=== PATIENT | female | born 1970 | race Caucasian/White ===

== ENCOUNTER 2017-11-28 17:17 | Emergency (ER) | payer BC ==
[2017-11-28] MEDS ORDERED: TETRACAINE HCL 0.5% 2ML OPTH ONE (17:35)
[2017-11-28] MEDS ORDERED: FLUORESCEIN SODIUM 0.6 MG/WRAP ONE (17:35)
--- NOTE | 2017-11-28 17:47 | EDPHYS ---
Physician Documentation [facility] Name: Krystin Giron Age: 47 yrs Sex: Female : 1970 Arrival Date: 11/28/2017 Time: 17:19 Bed 6 Private MD: ED Physician Tyree Fitch HPI: 11/28 17:44 This 47 yrs old Female presents to ER via Ambulatory with complaints of jr8 Foreign Body In Eye. 17:44 The patient is experiencing foreign body sensation. Onset: The symptoms/episode jr8 began/occurred acutely, today. Duration: the symptoms are continuous. Aggravated by nothing. Alleviated by nothing. Associated signs and symptoms: Pertinent positives: None. Patient wears soft contacts. Severity of symptoms: At their worst the symptoms were mild in the emergency department the symptoms are unchanged. The patient has not experienced similar symptoms in the past. The patient has not recently seen a physician. stated that she feels that her contact is stuck in left eye and cannot get it out . Historical: - Allergies: 17:26 No Known Allergies; ss - PSHx: 17:26 ; ss - Immunization history:: Adult Immunizations up to date, Last tetanus immunization: unknown. - Social history:: Smoking status: Patient/guardian denies using tobacco. - Ebola Screening: : Patient denies exposure to infectious person Patient denies travel to an Ebola-affected area in the 21 days before illness onset. ROS: 17:44 ENT: Negative for injury, pain, and discharge, Neck: Negative for injury, pain, and jr8 swelling, Cardiovascular: Negative for chest pain, palpitations, and edema, Respiratory: Negative for shortness of breath, cough, wheezing, and pleuritic chest pain, Abdomen/GI: Negative for abdominal pain, nausea, vomiting, diarrhea, and constipation, Back: Negative for injury and pain, MS/Extremity: Negative for injury and deformity, Skin: Negative for injury, rash, and discoloration, Neuro: Negative for headache, weakness, numbness, tingling, and seizure. 17:44 Eyes: Positive for foreign body sensation, of the left eye. Exam: 17:44 Head/Face: Normocephalic, atraumatic. ENT: Nares patent. No nasal discharge, no jr8 septal abnormalities noted. Tympanic membranes are normal and external auditory canals are clear. Oropharynx with no redness, swelling, or masses, exudates, or evidence of obstruction, uvula midline. Mucous membranes moist. Neck: Trachea midline, no thyromegaly or masses palpated, and no cervical lymphadenopathy. Supple, full range of motion without nuchal rigidity, or vertebral point tenderness. No Meningismus. Cardiovascular: Regular rate and rhythm with a normal S1 and S2. No gallops, murmurs, or rubs. Normal PMI, no JVD. No pulse deficits. Respiratory: Lungs have equal breath sounds bilaterally, clear to auscultation and percussion. No rales, rhonchi or wheezes noted. No increased work of breathing, no retractions or nasal flaring. Skin: Warm, dry with normal turgor. Normal color with no rashes, no lesions, and no evidence of cellulitis. MS/ Extremity: Pulses equal, no cyanosis. Neurovascular intact. Full, normal range of motion. Neuro: Awake and alert, GCS 15, oriented to person, place, time, and situation. Cranial nerves II-XII grossly intact. Motor strength 5/5 in all extremities. Sensory grossly intact. Cerebellar exam normal. Normal gait. 17:44 Eyes: Periorbital structures: appear normal, Pupils: equal, round, and reactive to light and accomodation, Extraocular movements: intact throughout, Conjunctiva: chemosis, that is mild, in left eye, injected, in the left eye, tearing noted, in left eye, Corneas: abrasion, that is small, on the left, a fluorescein strip employed to appreciate the findings, Sclera: no appreciated abnormality, Anterior chamber: normal, Lids and lashes: appear normal. Vital Signs: 17:26 BP 144 / 84; Pulse 101; Resp 18; Temp 99.1(O); Pulse Ox 98% on R/A; Weight 117.93 kg; Height 5 ft. 7 in. (170.18 cm); Pain 5/10; 17:26 Body Mass Index 40.72 (117.93 kg, 170.18 cm) Procedures: 17:45 Eye Exam: Tetracaine. jr8 MDM: 17:26 Patient medically screened. jr8 17:45 Data reviewed: vital signs, nurses notes, and as a result, I will discharge patient. jr8 Data interpreted: Pulse oximetry: on room air is 98 %. Interpretation: normal. Counseling: I had a detailed discussion with the patient and/or guardian regarding: the historical points, exam findings, and any diagnostic results supporting the discharge/admit diagnosis, the need for outpatient follow up, an opthalmologist, to return to the emergency department if symptoms worsen or persist or if there are any questions or concerns that arise at home. 11/28 17:47 Order name: Eye Tray; Complete Time: 17:47 ss Administered Medications: 18:12 Not Given (unavailable): Tobramycin Ointment (0.3 %) 0.5 inches Ophthalmic once; L eye ss 18:12 Drug: Gentamicin Drops 0.3 % 2 drops Route: Ophthalmic; Site: left eye; ss Disposition: 18:55 Co-signature as Attending Physician, Tyree Fitch MD I agree with the assessment and kdr plan of care. Disposition: 11/28/17 17:46 Discharged to Home. Impression: Chemosis left eye, Injury of conjunctiva and corneal abrasion without foreign body, left eye. - Condition is Stable. - Discharge Instructions: Corneal Abrasion. - Prescriptions for Gentamicin 0.3 % (3 mg/gram) Ophthalmic Ointment - apply 0.5 inch by OPHTHALMIC route 2-3 times daily for 7 days; 3.5 gram. - Medication Reconciliation Form, Thank You Letter, Antibiotic Education, Prescription Opioid Use form. - Follow up: Private Physician; When: 2 - 3 days; Reason: Recheck today's complaints, Continuance of care, Re-evaluation by your physician. - Problem is new. - Symptoms have improved. Signatures: Tyree Fitch MD MD [facility] Emi Garcia RN RN Kobe Gross PA PA jr8 Maurice Carrizales PA PA cp Corrections: (The following items were deleted from the chart) 18:14 17:46 11/28/2017 17:46 Discharged to Home. Impression: Chemosis left eye; Injury of cp conjunctiva and corneal abrasion without foreign body, left eye. Condition is Stable. Forms are Medication Reconciliation Form, Thank You Letter, Antibiotic Education, Prescription Opioid Use. Follow up: Private Physician; When: 2 - 3 days; Reason: Recheck today's complaints, Continuance of care, Re-evaluation by your physician. Problem is new. Symptoms have improved. jr8
--- NOTE | 2017-11-28 17:47 | ER ---
Nurse's Notes [facility] Name: Krystin Giron Age: 47 yrs Sex: Female : 1970 Arrival Date: 11/28/2017 Time: 17:19 Bed 6 Private MD: Diagnosis: Chemosis left eye;Injury of conjunctiva and corneal abrasion without foreign body, left eye Presentation: 11/28 17:24 Presenting complaint: Patient states: stuck contact in L eye "all day". "People were ss telling me it's there and that it is stuck in my eye, but we haven't been able to get it out.". Transition of care: patient was not received from another setting of care. Onset of symptoms was November 28, 2017. Risk Assessment: Do you want to hurt yourself or someone else? Patient reports no desire to harm self or others. Initial Sepsis Screen: Does the patient meet any 2 criteria? HR > 90 bpm. Does the patient have a suspected source of infection? No. Patient's initial sepsis screen is negative. Care prior to arrival: None. 17:24 Method Of Arrival: Ambulatory ss 17:24 Acuity: ALFRED 4 ss Historical: - Allergies: 17:26 No Known Allergies; ss - PSHx: 17:26 ; ss - Immunization history:: Adult Immunizations up to date, Last tetanus immunization: unknown. - Social history:: Smoking status: Patient/guardian denies using tobacco. - Ebola Screening: : Patient denies exposure to infectious person Patient denies travel to an Ebola-affected area in the 21 days before illness onset. Screenin:30 Abuse screen: Denies threats or abuse. Denies injuries from another. Nutritional ss screening: No deficits noted. Tuberculosis screening: Never had TB. Fall Risk None identified. Assessment: 17:30 General: Appears in no apparent distress. comfortable, Behavior is calm, cooperative, ss Reports Unable to get contact out of L eye "all day". Pt reports multiple individuals attempted to help her get her contact out throughout the day. Denies fever, feeling ill, fatigue, chills. Pain: Complains of pain in left eye Pain currently is 5 out of 10 on a pain scale. Quality of pain is described as tender, Is continuous. Neuro: Level of Consciousness is awake, alert, obeys commands, Oriented to person, place, time, situation. Respiratory: Respiratory effort is even, unlabored. EENT: Sclera/Cornea are reddened in inner aspect of conjunctiva of left eye inflamed conjunctiva noted to inner canthus . Nares are clear Oral mucosa is moist. Throat is clear. Derm: Skin is intact, is healthy with good turgor, Skin is pink, warm \\T\\ dry. normal. Musculoskeletal: Circulation, motion, and sensation intact. Range of motion: intact in all extremities, Swelling absent. Vital Signs: 17:26 BP 144 / 84; Pulse 101; Resp 18; Temp 99.1(O); Pulse Ox 98% on R/A; Weight 117.93 kg; ss Height 5 ft. 7 in. (170.18 cm); Pain 5/10; 17:26 Body Mass Index 40.72 (117.93 kg, 170.18 cm) ED Course: 17:19 Patient arrived in ED. tw3 17:20 Fred Cho RN is Primary Nurse. bp 17:26 Kobe Gross PA is PHCP. jr8 17:26 Tyree Fitch MD is Attending Physician. jr8 17:26 Triage completed. ss 17:26 Arm band placed on right wrist. ss 17:30 Patient has correct armband on for positive identification. Bed in low position. Call ss light in reach. Side rails up X 1. 17:45 L eye exam with fluorescein, tetracaine and keys lamp. Patient did not have IV access ss during this emergency room visit. Administered Medications: 18:12 Not Given (unavailable): Tobramycin Ointment (0.3 %) 0.5 inches Ophthalmic once; L eye ss 18:12 Drug: Gentamicin Drops 0.3 % 2 drops Route: Ophthalmic; Site: left eye; Outcome: 17:46 Discharge ordered by . jr8 18:12 Discharged to home ambulatory. ss 18:12 Condition: good 18:12 Discharge instructions given to patient, Instructed on discharge instructions, follow up and referral plans. medication usage, Demonstrated understanding of instructions, follow-up care, medications, Prescriptions given X 1. 18:14 Patient left the ED. cp Signatures: Emi Garcia RN RN Kobe Gross PA PA 8 Maurice Carrizales PA PA cp Wade, Ashleigh tw3 Fred Cho, RN RN bp
[2017-11-28] MEDS ORDERED: GENTAMICIN 0.3% OPTH DROP 5ML ONE (18:17)
[2017-11-28 18:18] VITALS: BP 144/84; TEMP 99.1; O2SAT 98
== END 2017-11-28 18:14 | disposition home or self-care (01) ==
LOC: ER 17:17
DX: S05.02XA Injury of conjunctiva and corneal abrasion without foreign body, left eye, initial encounter (principal); X58.XXXA Exposure to other specified factors, initial encounter; Y93.9 Activity, unspecified; Y92.9 Unspecified place or not applicable
CPT/HCPCS: 99283

== ENCOUNTER 2022-04-25 10:42 | Emergency (ER) | payer OTHER ==
[2022-04-25 11:47] LABS: SARS-COV-2 RT PCR NEGATIVE (NEGATIVE)
--- NOTE | 2022-04-25 12:01 | EDPHYS ---
Physician Documentation [facility] Name: Krystin Giron Age: 51 yrs Sex: Female : 1970 Arrival Date: 04/25/2022 Time: 10:51 Bed IW1 Private MD: Maryjane Torres ED Physician Sea Hardy HPI: 04/25 11:08 This 51 yrs old Female presents to ER via Ambulatory with complaints of Eye Problem, kb Congestion. 11:08 The patient or guardian reports cough, that is intermittent, described as mild. Onset: kb The symptoms/episode began/occurred 1 week(s) ago. Severity of symptoms: At their worst the symptoms were mild, in the emergency department the symptoms are unchanged. Modifying factors: The symptoms are alleviated by nothing, the symptoms are aggravated by nothing. Associated signs and symptoms: Pertinent positives: earache, rhinorrhea, sore throat, Pertinent negatives: chest pain, diarrhea, fever, nausea, vomiting. The patient has not experienced similar symptoms in the past. The patient has not recently seen a physician. , EarPatient is a 51-year-old female who presents for cough, congestion that started 1 week ago. This morning had redness and drainage to right eye. Denies any visual disturbances, fever, pain. Historical: - Allergies: 10:58 No Known Allergies; hb - Immunization history:: Adult Immunizations up to date. - Social history:: Smoking status: Patient denies any tobacco usage or history of. ROS: 11:07 Constitutional: Negative for fever, chills, and weight loss. kb 11:07 Eyes: Positive for discharge, matting, redness. 11:07 ENT: Positive for ear pain, rhinorrhea, sinus congestion. 11:07 Respiratory: Positive for cough. 11:07 All other systems are negative. Exam: 11:07 Constitutional: This is a well developed, well nourished patient who is awake, alert, kb and in no acute distress. Head/Face: Normocephalic, atraumatic. Cardiovascular: Regular rate and rhythm with a normal S1 and S2. No gallops, murmurs, or rubs. No pulse deficits. Respiratory: Respirations even and unlabored. No increased work of breathing. Talking in full sentences Skin: Warm, dry with normal turgor. Normal color. MS/ Extremity: Pulses equal, no cyanosis. Neurovascular intact. Full, normal range of motion. Neuro: Awake and alert, GCS 15, oriented to person, place, time, and situation. Moves all extremities. Normal gait. 11:07 Eyes: Conjunctiva: exudate, in the right eye, injected, in the right eye. 11:07 ENT: External ear(s): are unremarkable, Ear canal(s): are normal, TM's: fluid levels, on the right. Vital Signs: 10:54 BP 160 / 95; Pulse 73; Resp 18; Temp 99; Pulse Ox 100% on R/A; Weight 120.2 kg; Height hb 5 ft. 7 in. ; Pain 0/10; 10:54 Body Mass Index 41.50 (120.20 kg, 170.18 cm) hb 10:54 Pain Scale: Adult hb MDM: 10:59 Patient medically screened. kb 11:08 Data reviewed: vital signs, nurses notes. 11:08 Differential Diagnosis: Influenza Upper Respiratory Infection Sinusitis Other kb Conjunctivitis, COVID. 11:13 ED course: Patient is a 51-year-old female who presents for cough, congestion, earache kb and redness/drainage to right eye. On exam patient has erythema and exudate to right eye, fluid levels to the right TM, lungs clear bilaterally, respirations even and unlabored. Nontoxic in appearance. Flu and COVID testing ordered. 12:00 Counseling: I had a detailed discussion with the patient and/or guardian regarding: the kb historical points, exam findings, and any diagnostic results supporting the discharge/admit diagnosis, lab results, the need for outpatient follow up, a family practitioner, to return to the emergency department if symptoms worsen or persist or if there are any questions or concerns that arise at home. 04/25 10:58 Order name: COVID-19/FLU A+B/RSV; Complete Time: 11:59 kb Administered Medications: No medications were administered Disposition Summary: 04/25/22 12:01 Discharge Ordered Location: Home kb Condition: Stable kb Diagnosis - Acute upper respiratory infection, unspecified kb - Other conjunctivitis kb Followup: kb - With: Emergency Department - When: As needed - Reason: Worsening of condition Followup: kb - With: Private Physician - When: 2 - 3 days - Reason: Recheck today's complaints, Continuance of care, Re-evaluation by your physician Forms: - Medication Reconciliation Form kb - Thank You Letter kb - Antibiotic Education kb - Prescription Opioid Use kb Signatures: Dispatcher [employer] Selin Jerez FNP-C FNP-Ckb Baxter, Heather, RN RN
--- NOTE | 2022-04-25 12:01 | ER ---
Nurse's Notes [facility] Name: Krystin Giron Age: 51 yrs Sex: Female : 1970 Arrival Date: 04/25/2022 Time: 10:51 Bed IW1 Private MD: Maryjane Torres Diagnosis: Acute upper respiratory infection, unspecified;Other conjunctivitis Presentation: 04/25 10:54 Chief complaint: Cough and congestion x 1 week, right eye redness and drainage today. hb Coronavirus screen: At this time, the client does not indicate any symptoms associated with coronavirus-19. Ebola Screen: No symptoms or risks identified at this time. 10:54 Method Of Arrival: Ambulatory hb 10:58 Initial Sepsis Screen: Does the patient meet any 2 criteria? No. Patient's initial hb sepsis screen is negative. Does the patient have a suspected source of infection? No. Patient's initial sepsis screen is negative. Risk Assessment: Do you want to hurt yourself or someone else? Patient reports no desire to harm self or others. Onset of symptoms was April 19, 2022. 10:58 Acuity: LAFRED 4 hb Triage Assessment: 10:58 General: Appears in no apparent distress. Behavior is calm, cooperative. Pain: Pain hb currently is 0 out of 10 on a pain scale. Neuro: Level of Consciousness is awake, alert, obeys commands, Oriented to person, place, time, situation. Cardiovascular: Patient's skin is warm and dry. Respiratory: Respiratory effort is even, unlabored, Respiratory pattern is regular, symmetrical. Historical: - Allergies: 10:58 No Known Allergies; hb - Immunization history:: Adult Immunizations up to date. - Social history:: Smoking status: Patient denies any tobacco usage or history of. Assessment: 10:59 General: See triage assessment. hb Vital Signs: 10:54 BP 160 / 95; Pulse 73; Resp 18; Temp 99; Pulse Ox 100% on R/A; Weight 120.2 kg; Height hb 5 ft. 7 in. ; Pain 0/10; 10:54 Body Mass Index 41.50 (120.20 kg, 170.18 cm) hb 10:54 Pain Scale: Adult hb ED Course: 10:51 Patient arrived in ED. mr 10:51 Maryjane Torres is Private Physician. mr 10:51 Selin Neri FNP-C is [facility]. kb 10:51 Sea Hardy MD is Attending Physician. kb 10:58 Triage completed. hb 10:59 Arm band placed on. hb 11:02 COVID-19/FLU A+B/RSV Sent. hb 11:40 COVID-19/FLU A+B/RSV Sent. hb Administered Medications: No medications were administered Outcome: 12:01 Discharge ordered by . kb Signatures: Selin Neri FNP-C FNP-Ckb Rivera, Mary Kristyn Mcmullen, RN RN hb Corrections: (The following items were deleted from the chart) 10:59 10:54 Temp 99F; hb hb
[2022-04-25 12:48] VITALS: BP 160/95; TEMP 99; O2SAT 100
== END 2022-04-25 12:22 | disposition home or self-care (01) ==
LOC: ER 10:42
DX: J06.9 Acute upper respiratory infection, unspecified (principal); H10.89 Other conjunctivitis; Z20.822 Contact with and (suspected) exposure to COVID-19
CPT/HCPCS: 0241U; 99282

== ENCOUNTER 2023-12-14 12:04 | Emergency (ER) | payer OTHER ==
--- OUTSIDE RECORDS SUMMARY | 2023-12-14 12:09 | XMS REPORT | Continuity of Care Document ---
Author Name Unknown Address [address] [facility] [address] [place] [address] [facility] Address [address] [facility] [address] [place] [address] Care Team Providers Care Intake Specialist Name Role Phone MEGHAN SMITH Primary Care Physician HEIKE Ayala Attending Clinician Hermes Carlton Attending Clinician Hermes Tyler Admitting Clinician Sarah [email or web address] Payers Payer Name Policy Type Policy Number Effective Date Expirati on Date Source [facility] [id number] 2013 00:00:00 Allergies, Adverse Reactions, Alerts Allergy Name Allergy Type Status Severity Reaction(s) Onset Date Inactive Date Treating Clinician Comments Source none (Not Checked) Propensi ty to adverse reaction to drug Active 08-31 00:00: 00 Tristen Henao NO KNOWN ALLERGIE S Drug Class Active [facility] Medications Ordered Medication Name Filled Medication Name Start Date Stop Date Current Medication? Ordering Clinician Indication Dosage Frequency Signature (SIG) Comments Components Source mupirocin 2 % topical ointment 2023-02 00:00: 00 Yes 1% Tristen Henao Bactrim DS 800 mg-160 mg tablet 2023-02 0 00:00: 00 Yes 1mg Tristen Henao Cipro 500 mg tablet 2023-02 0 00:00: 00 Yes 1mg Tristen Henao amitriptyli ne 25 mg tablet 2023-02 0-15 00:00: 00 Yes 1mg Tristen Henao gabapentin 100 mg capsule 2023-02 0-15 00:00: 00 Yes 12mg Tristen Henao medroxyprog esterone 150 mg/mL intramuscul ar suspension 2023-02 0-15 00:00: 00 Yes 1mg/mL Tristen Henao clindamycin HCl 300 mg capsule 0 9-19 00:00: 00 Yes 1mg Tristen Henao Macrobid 100 mg capsule 0 7-23 00:00: 00 Yes 1mg Tristen Henao metoprolol succinate ER 50 mg tablet,exte nded release 24 hr -17 00:00: 00 Yes 1mg Tristen Henao bupropion HCl SR 100 mg tablet,12 hr sustained-r elease 7-17 00:00: 00 Yes 1mg Tristen Henao hydrochloro thiazide 25 mg tablet 7-17 00:00: 00 Yes 1mg Tristen Henao losartan 100 mg tablet 7-17 00:00: 00 Yes 1mg Tristen Henao amitriptyli ne 25 mg tablet 7-17 00:00: 00 Yes 1mg Tristen Henao Cipro 500 mg tablet 6-21 00:00: 00 Yes 1mg Tristen Henao Macrobid 100 mg capsule 4-17 00:00: 00 Yes 1mg Tristen Henao medroxyprog esterone 150 mg/mL intramuscul ar suspension 4-17 00:00: 00 Yes 1mg/mL Tristen Henao nystatin 100,000 unit/gram topical cream 4- 00:00: 00 Yes 1unit/g asaf Tristen Henao Cipro 500 mg tablet 4- 00:00: 00 Yes 1mg Tristen Henao amitriptyli ne 25 mg tablet 4- 00:00: 00 Yes 1mg Tristen Henao CIPROFLOXAC IN HYDROCHLORI DE 500 MG TABS 4- 00:00: 00 Yes Tristen Henao Macrobid 100 mg capsule 3-20 00:00: 00 Yes 1mg Tristen Henao TAKE 1 CAPSULE BY MOUTH TWICE DAILY 3-20 00:00: 00 Yes Tristen Henao metoprolol succinate ER 50 mg tablet,exte nded release 24 hr 3-15 00:00: 00 Yes 1mg Tristen Henao losartan 100 mg tablet 3-15 00:00: 00 Yes 1mg Tristen Henao bupropion HCl SR 100 mg tablet,12 hr sustained-r elease 04-23 00:00: 00 Yes 1mg Tristen Henao amitriptyli ne 10 mg tablet 15 00:00: 00 Yes 1mg Tristen Henao TAKE 1 TABLET DAILY. 04-16 00:00: 00 Yes 50 Tristen Henao INJECT 1 ML INTRAMUSCUL CLARK ONCE EVERY 3 MONTHS. -19 00:00: 00 Yes 150 Tristen Henao TAKE 1 TABLET DAILY. 10-06 00:00: 00 Yes 100 Tristen Henao BUPROPION HYDROCHLORI DE ER (SR) 100 MG TB12 10-06 00:00: 00 Yes Tristen Henao TAKE 1 TABLET DAILY. 10-06 00:00: 00 06-04 00:00 :00 No 50 Tristen Henao TAKE 1 TABLET ONCE DAILY. 10-06 00:00: 00 06-04 00:00 :00 No 100 Tristen Henao INJECT 1 ML INTRAMUSCUL CLARK ONCE EVERY 3 MONTHS. 7- 00:00: 00 06-04 00:00 :00 No 150 Tristen Henao NYSTATIN [id number] UNIT/GM CREA -18 00:00: 00 06-04 00:00 :00 No Tristen Henao MOXIFLOXACI N HYDROCHLORI DE 0.5 % SOLN 3-17 00:00: 00 Yes Tristen Henao METOPROLOL TARTRATE 50 MG TABS 1-20 00:00: 00 Yes Tristen Henao TAKE 1 TABLET BY MOUTH TWICE DAILY -20 00:00: 00 06-04 00:00 :00 No Tristen Henao LOSARTAN POTASSIUM 100 MG TABS 1-20 00:00: 00 06-04 00:00 :00 No Tristen Henao TAKE 1 TABLET BY MOUTH ONCE DAILY 08-14 00:00: 00 Yes Tristen Henao TAKE 1 TABLET BY MOUTH TWICE DAILY 08-14 00:00: 00 Yes Tristen Henao TAKE 1 TABLET BY MOUTH ONCE DAILY 08-14 00:00: 00 06-04 00:00 :00 No Tristen Henao MEDROXYPROG ESTERONE ACETATE 150 MG/ML SUSP 08-14 00:00: 00 06-04 00:00 :00 No Tristen Henao Vital Signs Vital Name Observation Time Observation Value Comments S ana BP Systolic 2023-12-11 10:34:00 122 mm[Hg] Step hen F Juliano BP Diastolic 2023-12-11 10:34:00 84 mm[Hg] [place] phen F Juliano Weight Measured 2023-12-11 10:34:00 267.00 pounds Tristen F Juliano Height Measured 2023-12-11 10:34:00 67.00 inches Tristen F Juliano Body Temperature 2023-12-11 10:34:00 98.10 degrees Tristen F Juliano Heart Rate 2023-12-11 10:34:00 83.00 /min Latha en F Juliano Respiratory Rate 2023-12-11 10:34:00 18.00 /min Tristen F Juliano BP Systolic 2023-12-04 10:47:00 132 mm[Hg] Step hen F Juliano BP Diastolic 2023-12-04 10:47:00 68 mm[Hg] [place] phen F Juliano Weight Measured 2023-12-04 10:47:00 267.00 pounds Tristen F Juliano Height Measured 2023-12-04 10:47:00 67.00 inches Tristen F Juliano Body Temperature 2023-12-04 10:47:00 98.00 degrees Tristen F Juliano Heart Rate 2023-12-04 10:47:00 86.00 /min Latha en F Juliano Respiratory Rate 2023-12-04 10:47:00 18.00 /min Tristen F Juliano BP Systolic 2023-11-24 09:46:00 120 mm[Hg] Step hen F Juliano BP Diastolic 2023-11-24 09:46:00 84 mm[Hg] [place]est[place] phen F Juliano Weight Measured 2023-11-24 09:46:00 265.00 pounds Tristen F Juliano Height Measured 2023-11-24 09:46:00 67.00 inches Tristen F Juliano Body Temperature 2023-11-24 09:46:00 98.00 degrees Tristen F Juliano Heart Rate 2023-11-24 09:46:00 96.00 /min Latha en F Juliano Respiratory Rate 2023-11-24 09:46:00 20.00 /min Tristen F Juliano BP Systolic 2023-10-29 11:25:00 126 mm[Hg] Step hen F Juliano BP Diastolic 2023-10-29 11:25:00 70 mm[Hg] Celest[place] phen F Juliano Weight Measured 2023-10-29 11:25:00 257.00 pounds Tristen F Juliano Height Measured 2023-10-29 11:25:00 67.00 inches Tristen F Juliano Body Temperature 2023-10-29 11:25:00 Tristen F Juliano Heart Rate 2023-10-29 11:25:00 80.00 /min Latha en F Juliano Respiratory Rate 2023-10-29 11:25:00 18.00 /min Tristen F Juliano BP Systolic 2023-09-01 10:57:00 110 mm[Hg] Step hen F Juliano BP Diastolic 2023-09-01 10:57:00 80 mm[Hg] Celest[place] phen F Juliano Weight Measured 2023-09-01 10:57:00 260.00 pounds Tristen F Juliano Height Measured 2023-09-01 10:57:00 67.00 inches Tristen F Juliano Body Temperature 2023-09-01 10:57:00 98.10 degrees Tristen F Juliano Heart Rate 2023-09-01 10:57:00 72.00 /min Latha en F Juliano Respiratory Rate 2023-09-01 10:57:00 18.00 /min Tristen F Juliano BP Systolic 2023-08-26 10:05:00 130 mm[Hg] Step hen F Juliano BP Diastolic 2023-08-26 10:05:00 82 mm[Hg] Celest[place] phen F Juliano Weight Measured 2023-08-26 10:05:00 262.00 pounds Tristen F Juliano Height Measured 2023-08-26 10:05:00 67.00 inches Tristen F Juliano Body Temperature 2023-08-26 10:05:00 98.10 degrees Tristen F Juliano Heart Rate 2023-08-26 10:05:00 65.00 /min Latha en F Juliano Respiratory Rate 2023-08-26 10:05:00 18.00 /min Tristen F Juliano BP Systolic 2023-07-31 15:26:00 120 mm[Hg] Step hen F Juliano BP Diastolic 2023-07-31 15:26:00 84 mm[Hg] Celest[place] phen F Juliano Weight Measured 2023-07-31 15:26:00 259.00 pounds Tristen F Juliano Height Measured 2023-07-31 15:26:00 67.00 inches Tristen F Juliano Body Temperature 2023-07-31 15:26:00 97.90 degrees Tristen F Juliano Heart Rate 2023-07-31 15:26:00 84.00 /min Latha en F Juliano Respiratory Rate 2023-07-31 15:26:00 18.00 /min Tristen F Juliano BP Systolic 2023-05-27 13:11:00 110 mm[Hg] Step hen F Juliano BP Diastolic 2023-05-27 13:11:00 74 mm[Hg] [place] phen F Juliano Weight Measured 2023-05-27 13:11:00 259.00 pounds Tristen F Juliano Height Measured 2023-05-27 13:11:00 67.00 inches Tristen F Juliano Body Temperature 2023-05-27 13:11:00 98.00 degrees Tristen F Juliano Heart Rate 2023-05-27 13:11:00 75.00 /min Latha en F Juliano Respiratory Rate 2023-05-27 13:11:00 20.00 /min Tristen F Juliano BP Systolic 2023-05-11 10:33:00 122 mm[Hg] Step hen F Juliano BP Diastolic 2023-05-11 10:33:00 80 mm[Hg] [place] phen F Juliano Weight Measured 2023-05-11 10:33:00 259.00 pounds Tristen F Juliano Height Measured 2023-05-11 10:33:00 67.00 inches Tristen F Juliano Body Temperature 2023-05-11 10:33:00 98.10 degrees Tristen F Juliano Heart Rate 2023-05-11 10:33:00 84.00 /min Latha en F Juliano Respiratory Rate 2023-05-11 10:33:00 18.00 /min Tristen F Juliano BP Systolic 2023-04-29 13:09:00 126 mm[Hg] Step hen F Juliano BP Diastolic 2023-04-29 13:09:00 74 mm[Hg] Celest[place] phen F Juliano Weight Measured 2023-04-29 13:09:00 259.00 pounds Tristen F Juliano Height Measured 2023-04-29 13:09:00 67.00 inches Tristen F Juliano Body Temperature 2023-04-29 13:09:00 98.50 degrees Tristen F Juliano Heart Rate 2023-04-29 13:09:00 88.00 /min Latha en F Juliano Respiratory Rate 2023-04-29 13:09:00 20.00 /min Tristen F Juliano BP Systolic 2023-04-24 09:58:00 110 mm[Hg] Step hen F Juliano BP Diastolic 2023-04-24 09:58:00 80 mm[Hg] Celest[place] phen F Juliano Weight Measured 2023-04-24 09:58:00 259.00 pounds Tristen F uJliano Height Measured 2023-04-24 09:58:00 67.00 inches Tristen F Juliano Body Temperature 2023-04-24 09:58:00 97.90 degrees Tristen F Juliano Heart Rate 2023-04-24 09:58:00 70.00 /min Latha en F Juliano Respiratory Rate 2023-04-24 09:58:00 16.00 /min Tristen F Juliano BP Systolic 2023-02-27 09:54:00 130 mm[Hg] Step hen F Juliano BP Diastolic 2023-02-27 09:54:00 74 mm[Hg] Celest[place] phen F Juliano Weight Measured 2023-02-27 09:54:00 259.00 pounds Tristen F Juliano Height Measured 2023-02-27 09:54:00 67.00 inches Tristen F Juliano Body Temperature 2023-02-27 09:54:00 98.00 degrees Tristen F Juliano Heart Rate 2023-02-27 09:54:00 75.00 /min Latha en F Juliano Respiratory Rate 2023-02-27 09:54:00 20.00 /min Tristen F Juliano BP Systolic 2022-11-28 10:42:00 132 mm[Hg] Step hen F Juliano BP Diastolic 2022-11-28 10:42:00 84 mm[Hg] Celest[place] phen F Juliano Weight Measured 2022-11-28 10:42:00 Tristen F Juliano Height Measured 2022-11-28 10:42:00 67.00 inches Tristen F Juliano Body Temperature 2022-11-28 10:42:00 98.70 degrees Tristen F Juliano Heart Rate 2022-11-28 10:42:00 70.00 /min Latha en F Juliano Respiratory Rate 2022-11-28 10:42:00 20.00 /min Tristen F Juliano BP Systolic 2022-10-06 11:19:00 140 mm[Hg] Step hen F Juliano BP Diastolic 2022-10-06 11:19:00 88 mm[Hg] Celest[place] phen F Juliano Weight Measured 2022-10-06 11:19:00 264.00 pounds Tristen F Juliano Height Measured 2022-10-06 11:19:00 67.00 inches Tristen F Juliano Body Temperature 2022-10-06 11:19:00 98.00 degrees Tristen F Juliano Heart Rate 2022-10-06 11:19:00 73.00 /min Latha en F Juliano Respiratory Rate 2022-10-06 11:19:00 18.00 /min Tristen F Juliano BP Systolic 2022-08-29 11:20:00 130 mm[Hg] Step hen F Juliano BP Diastolic 2022-08-29 11:20:00 86 mm[Hg] Celest[place] phen F Juliano Weight Measured 2022-08-29 11:20:00 268.00 pounds Tristen F Juliano Height Measured 2022-08-29 11:20:00 67.00 inches Tristen F Juliano Body Temperature 2022-08-29 11:20:00 98.00 degrees Tristen F Juliano Heart Rate 2022-08-29 11:20:00 62.00 /min Latha en F Juliano Respiratory Rate 2022-08-29 11:20:00 18.00 /min Tristen F Juliano BP Systolic 2022-05-30 13:33:00 141 mm[Hg] Tawanda Henao BP Diastolic 2022-05-30 13:33:00 85 mm[Hg] Celestino Henao Weight Measured 2022-05-30 13:33:00 270.00 pounds Tristen Henao Height Measured 2022-05-30 13:33:00 67.00 inches Tristen Henao Body Temperature 2022-05-30 13:33:00 99.10 degrees Tristen Henao Heart Rate 2022-05-30 13:33:00 74.00 /min Latha Henao Respiratory Rate 2022-05-30 13:33:00 18.00 /min Tristen Henao Encounters Start Date/Time End Date/Time Encounter Type Admission Type Attending [facility] Care Department Encounter ID Source 2023-12-11 10:25:05 2023-12-11 10:25:05 Outpatient [facility] [id number] Tristen Henao 2023-12-11 00:00:00 2023-12-11 00:00:00 Outpatient Visit SFA [id number] Tristen Henao 2023-12-04 10:45:19 2023-12-04 10:45:19 Outpatient [facility] [id number] Tristen Henao 2023-12-04 00:00:00 2023-12-04 00:00:00 Outpatient Visit SFA [id number] Tristen Henao 2023-11-24 09:46:03 2023-11-24 09:46:03 Outpatient [facility] [id number] Tristen Henao 2023-11-24 00:00:00 2023-11-24 00:00:00 Outpatient Visit SFA [id number] Tristen Henao 2023-11-16 00:00:00 2023-11-16 00:00:00 Outpatient [facility] [id number] [facility] 2023-10-29 11:25:12 2023-10-29 11:25:12 Outpatient SFA S[facility] [id number] Tristen Henao 2023-10-29 00:00:00 2023-10-29 00:00:00 Outpatient Visit SFA [id number] Tristen Henao 2023-09-01 10:52:16 2023-09-01 10:52:16 Outpatient SFA SFA [id number] Tristen Henao 2023-09-01 00:00:00 2023-09-01 00:00:00 Outpatient Visit SFA [id number] Tristen Henao 2023-08-26 10:03:34 2023-08-26 10:03:34 Outpatient SFA SFA [id number] Tristen Henao 2023-08-26 00:00:00 2023-08-26 00:00:00 Outpatient Visit SFA [id number] Tristen Henao 2023-07-31 15:25:59 2023-07-31 15:25:59 Outpatient SFA SFA [id number] Tristen Henao 2023-07-31 00:00:00 2023-07-31 00:00:00 Outpatient Visit SFA [id number] Tristen Henao 2023-07-20 10:26:30 2023-07-20 10:26:30 Outpatient SFA SFA [id number] Tristen Henao 2023-05-27 13:04:02 2023-05-27 13:04:02 Outpatient SFA SFA [id number] Tristen Henao 2023-05-27 00:00:00 2023-05-27 00:00:00 Outpatient Visit SFA [id number] Tristen Henao 2023-05-11 10:29:53 2023-05-11 10:29:53 Outpatient SFA SFA [id number] Tristen Henao 2023-05-06 09:53:12 2023-05-06 09:53:12 Outpatient SFA SFA [id number] Tristen Henao 2023-04-29 13:25:40 2023-04-29 13:25:40 Outpatient SFA SFA [id number] Tristen Henao 2023-04-24 09:57:22 2023-04-24 09:57:22 Outpatient SFA SFA [id number] Tristen Henao 2023-02-27 09:54:24 2023-02-27 09:54:24 Outpatient SFA SFA [id number] Tristen Henao 2022-11-28 10:26:52 2022-11-28 10:26:52 Outpatient SFA SFA [id number] Tristen Henao 2022-10-07 12:00:00 2022-10-07 12:00:00 Outpatient Hermes Palmer [facility] [id number] [facility] 2022-10-06 11:10:18 2022-10-06 11:10:18 Outpatient SFA SFA [id number] Tristen Henao 2022-08-29 11:19:12 2022-08-29 11:19:12 Outpatient SFA SFA [id number] Tristen Henao 2022-08-01 12:00:00 2022-08-01 12:00:00 Outpatient Hermes Palmer [facility] [id number] [facility] 2022-05-30 13:25:14 2022-05-30 13:25:14 Outpatient SFA SFA [id number] Tristen Henao Results Test Description Test Time Test Comments Results Result Co mments Source Tristen HenaoCULTURE, [id number] 00:00:00* Test Item Value Reference Range Interpretation Comme nts CULTURE, ROUTINE (test code = 31986) SPECIMEN NUMBER: [id number] [facility] [id number] 00:00:00* Test Item Value Reference Range Interpretation Comme nts WBC (test code = 1001) 7.8 K/UL RBC (test code = 1002) 3.96 M/UL HEMOGLOBIN (test code = 1003) 11.5 G/DL HEMATOCRIT (test code = 1004) 35.7 % MCV (test code = 1005) 90.2 fL MCH (test code = 1006) 29.0 PG MCHC (test code = 1007) 32.2 G/DL RDW (test code = 1038) 14.1 % NEUTROPHILS (test code = 1008) 58.7 % LYMPHOCYTES (test code = 1010) 32.1 % MONOCYTES (test code = 1011) 6.7 % EOSINOPHILS (test code = 1012) 1.2 % BASOPHILS (test code = 1013) 0.8 % IMMATURE GRANULOCYTES (test code = 1036) 0.5 % NUCLEATED RBCS (test code = 1065) 0.0 /100WBC'S PLATELET COUNT (test code = 1015) 244 K/UL ABSOLUTE NEUTROPHILS (test c ode = 1066) 4.59 K/UL ABSOLUTE LYMPHOCYTES (test c ode = 1067) 2.50 K/UL ABSOLUTE MONOCYTES (test cod e = 1068) 0.52 K/UL ABSOLUTE EOSINOPHILS (test c ode = 1040) 0.09 K/UL ABSOLUTE BASOPHILS (test cod e = 1069) 0.06 K/UL ABS IMMATURE GRANULOCYTES (t est code = 1020) 0.04 K/UL ABS NUCLEATED RBCS (test cod e = 01520) 0.00 K/UL Tristen Carlin AustinLIPID [id number] 00:00:00* Test Item Value Reference Range Interpretation Comme nts CHOLESTEROL (test code = 2210) 138 MG/DL TRIGLYCERIDES (test code = 2232) 113 MG/DL HDL CHOLESTEROL (test code = 2220) 37 MG/DL CALC LDL CHOL (test code = 2237) 80 MG/DL RISK RATIO LDL/HDL (test cod e = 2238) 2.16 RATIO Tristen HenaoCOMPREHENSIVE METABOLIC [id number] 00:00:00* Test Item Value Reference Range Interpretation Comme nts GLUCOSE (test code = 2217) 74 MG/DL BUN (test code = 2208) 10 MG/DL CREATININE (test code = 2214) 1.28 MG/DL eGFR (2020 CKD-EPI) (test co de = 38906) 50 ML/MIN/1.73 CALC BUN/CREAT (test code = 2235) 8 RATIO SODIUM (test code = 2231) 144 MEQ/L POTASSIUM (test code = 2228) 4.0 MEQ/L CHLORIDE (test code = 2215) 107 MEQ/L CARBON DIOXIDE (test code = 2206) 20 MEQ/L CALCIUM (test code = 2209) 9.7 MG/DL PROTEIN, TOTAL (test code = 2229) 7.6 G/DL ALBUMIN (test code = 2201) 4.0 G/DL CALC GLOBULIN (test code = 2240) 3.6 G/DL CALC A/G RATIO (test code = 2234) 1.1 RATIO BILIRUBIN, TOTAL (test code = 2207) 0.4 MG/DL ALKALINE PHOSPHATASE (test code = 2204) 102 U/L AST (test code = 2218) 20 U/L ALT (test code = 2219) 16 U/L Tristen Tesfaye JulianoURINALYSIS W/REFLEX [id number] 00:00:00* Test Item Value Reference Range Interpretation Comme nts COLOR (test code = 1501) YELLOW APPEARANCE (test code = 1502) CLEAR SPECIFIC GRAVITY (test code = 1503) 1.015 LEUKOCYTE ESTERASE (test cod e = 1504) 1+ NITRITE (test code = 1505) NEGATIVE pH (test code = 1506) 6.0 PROTEIN (test code = 1507) TRACE GLUCOSE (test code = 1508) NEGATIVE KETONES (test code = 1509) NEGATIVE UROBILINOGEN (test code = 1510) 0.2 MG/DL BILIRUBIN (test code = 1511) NEGATIVE OCCULT BLOOD (test code = 1512) TRACE WHITE BLOOD CELLS (test code = 1513) 16-20 /HPF RED BLOOD CELLS (test code = 1514) 3-5 /HPF EPITHELIAL CELLS (test code = 80226) 0-5 /HPF BACTERIA (test code = 1515) NONE SEEN CASTS, HYALINE (test code = 1517) NONE SEEN Tristen Tesfaye AustinCBC W/AUTO [id number] 00:00:00* Test Item Value Reference Range Interpretation Comme nts WBC (test code = 1001) 7.8 K/UL RBC (test code = 1002) 3.96 M/UL HEMOGLOBIN (test code = 1003) 11.5 G/DL HEMATOCRIT (test code = 1004) 35.7 % MCV (test code = 1005) 90.2 fL MCH (test code = 1006) 29.0 PG MCHC (test code = 1007) 32.2 G/DL RDW (test code = 1038) 14.1 % NEUTROPHILS (test code = 1008) 58.7 % LYMPHOCYTES (test code = 1010) 32.1 % MONOCYTES (test code = 1011) 6.7 % EOSINOPHILS (test code = 1012) 1.2 % BASOPHILS (test code = 1013) 0.8 % IMMATURE GRANULOCYTES (test code = 1036) 0.5 % NUCLEATED RBCS (test code = 1065) 0.0 /100WBC'S PLATELET COUNT (test code = 1015) 244 K/UL ABSOLUTE NEUTROPHILS (test c ode = 1066) 4.59 K/UL ABSOLUTE LYMPHOCYTES (test c ode = 1067) 2.50 K/UL ABSOLUTE MONOCYTES (test cod e = 1068) 0.52 K/UL ABSOLUTE EOSINOPHILS (test c ode = 1040) 0.09 K/UL ABSOLUTE BASOPHILS (test cod e = 1069) 0.06 K/UL ABS IMMATURE GRANULOCYTES (t est code = 1020) 0.04 K/UL ABS NUCLEATED RBCS (test cod e = 86492) 0.00 K/UL Tristen Carlin FarmersvilleLIPID [id number] 00:00:00* Test Item Value Reference Range Interpretation Comme nts CHOLESTEROL (test code = 2210) 138 MG/DL TRIGLYCERIDES (test code = 2232) 113 MG/DL HDL CHOLESTEROL (test code = 2220) 37 MG/DL CALC LDL CHOL (test code = 2237) 80 MG/DL RISK RATIO LDL/HDL (test cod e = 2238) 2.16 RATIO Tristen HenaoCOMPREHENSIVE METABOLIC [id number] 00:00:00* Test Item Value Reference Range Interpretation Comme nts GLUCOSE (test code = 2217) 74 MG/DL BUN (test code = 2208) 10 MG/DL CREATININE (test code = 2214) 1.28 MG/DL eGFR (2020 CKD-EPI) (test co de = 46901) 50 ML/MIN/1.73 CALC BUN/CREAT (test code = 2235) 8 RATIO SODIUM (test code = 2231) 144 MEQ/L POTASSIUM (test code = 2228) 4.0 MEQ/L CHLORIDE (test code = 2215) 107 MEQ/L CARBON DIOXIDE (test code = 2206) 20 MEQ/L CALCIUM (test code = 2209) 9.7 MG/DL PROTEIN, TOTAL (test code = 2229) 7.6 G/DL ALBUMIN (test code = 2201) 4.0 G/DL CALC GLOBULIN (test code = 2240) 3.6 G/DL CALC A/G RATIO (test code = 2234) 1.1 RATIO BILIRUBIN, TOTAL (test code = 2207) 0.4 MG/DL ALKALINE PHOSPHATASE (test code = 2204) 102 U/L AST (test code = 2218) 20 U/L ALT (test code = 2219) 16 U/L Tristen Carlin AustinURINALYSIS W/REFLEX [id number] 00:00:00* Test Item Value Reference Range Interpretation Comme nts COLOR (test code = 1501) YELLOW APPEARANCE (test code = 1502) CLEAR SPECIFIC GRAVITY (test code = 1503) 1.015 LEUKOCYTE ESTERASE (test cod e = 1504) 1+ NITRITE (test code = 1505) NEGATIVE pH (test code = 1506) 6.0 PROTEIN (test code = 1507) TRACE GLUCOSE (test code = 1508) NEGATIVE KETONES (test code = 1509) NEGATIVE UROBILINOGEN (test code = 1510) 0.2 MG/DL BILIRUBIN (test code = 1511) NEGATIVE OCCULT BLOOD (test code = 1512) TRACE WHITE BLOOD CELLS (test code = 1513) 16-20 /HPF RED BLOOD CELLS (test code = 1514) 3-5 /HPF EPITHELIAL CELLS (test code = 33768) 0-5 /HPF BACTERIA (test code = 1515) NONE SEEN CASTS, HYALINE (test code = 1517) NONE SEEN Tristen HenaoCBC W/AUTO [id number] 00:00:00* Test Item Value Reference Range Interpretation Comme nts WBC (test code = 1001) 7.8 K/UL RBC (test code = 1002) 3.96 M/UL HEMOGLOBIN (test code = 1003) 11.5 G/DL HEMATOCRIT (test code = 1004) 35.7 % MCV (test code = 1005) 90.2 fL MCH (test code = 1006) 29.0 PG MCHC (test code = 1007) 32.2 G/DL RDW (test code = 1038) 14.1 % NEUTROPHILS (test code = 1008) 58.7 % LYMPHOCYTES (test code = 1010) 32.1 % MONOCYTES (test code = 1011) 6.7 % EOSINOPHILS (test code = 1012) 1.2 % BASOPHILS (test code = 1013) 0.8 % IMMATURE GRANULOCYTES (test code = 1036) 0.5 % NUCLEATED RBCS (test code = 1065) 0.0 /100WBC'S PLATELET COUNT (test code = 1015) 244 K/UL ABSOLUTE NEUTROPHILS (test c ode = 1066) 4.59 K/UL ABSOLUTE LYMPHOCYTES (test c ode = 1067) 2.50 K/UL ABSOLUTE MONOCYTES (test cod e = 1068) 0.52 K/UL ABSOLUTE EOSINOPHILS (test c ode = 1040) 0.09 K/UL ABSOLUTE BASOPHILS (test cod e = 1069) 0.06 K/UL ABS IMMATURE GRANULOCYTES (t est code = 1020) 0.04 K/UL ABS NUCLEATED RBCS (test cod e = 27194) 0.00 K/UL Tristen Carlin AustinLIPID [id number] 00:00:00* Test Item Value Reference Range Interpretation Comme nts CHOLESTEROL (test code = 2210) 138 MG/DL TRIGLYCERIDES (test code = 2232) 113 MG/DL HDL CHOLESTEROL (test code = 2220) 37 MG/DL CALC LDL CHOL (test code = 2237) 80 MG/DL RISK RATIO LDL/HDL (test cod e = 2238) 2.16 RATIO Tristen HenaoCOMPREHENSIVE METABOLIC [id number] 00:00:00* Test Item Value Reference Range Interpretation Comme nts GLUCOSE (test code = 2217) 74 MG/DL BUN (test code = 2208) 10 MG/DL CREATININE (test code = 2214) 1.28 MG/DL eGFR (2020 CKD-EPI) (test co de = 79795) 50 ML/MIN/1.73 CALC BUN/CREAT (test code = 2235) 8 RATIO SODIUM (test code = 2231) 144 MEQ/L POTASSIUM (test code = 2228) 4.0 MEQ/L CHLORIDE (test code = 2215) 107 MEQ/L CARBON DIOXIDE (test code = 2206) 20 MEQ/L CALCIUM (test code = 2209) 9.7 MG/DL PROTEIN, TOTAL (test code = 2229) 7.6 G/DL ALBUMIN (test code = 2201) 4.0 G/DL CALC GLOBULIN (test code = 2240) 3.6 G/DL CALC A/G RATIO (test code = 2234) 1.1 RATIO BILIRUBIN, TOTAL (test code = 2207) 0.4 MG/DL ALKALINE PHOSPHATASE (test code = 2204) 102 U/L AST (test code = 2218) 20 U/L ALT (test code = 2219) 16 U/L Tristen Carlin JulianoURINALYSIS W/REFLEX [id number] 00:00:00* Test Item Value Reference Range Interpretation Comme nts COLOR (test code = 1501) YELLOW APPEARANCE (test code = 1502) CLEAR SPECIFIC GRAVITY (test code = 1503) 1.015 LEUKOCYTE ESTERASE (test cod e = 1504) 1+ NITRITE (test code = 1505) NEGATIVE pH (test code = 1506) 6.0 PROTEIN (test code = 1507) TRACE GLUCOSE (test code = 1508) NEGATIVE KETONES (test code = 1509) NEGATIVE UROBILINOGEN (test code = 1510) 0.2 MG/DL BILIRUBIN (test code = 1511) NEGATIVE OCCULT BLOOD (test code = 1512) TRACE WHITE BLOOD CELLS (test code = 1513) 16-20 /HPF RED BLOOD CELLS (test code = 1514) 3-5 /HPF EPITHELIAL CELLS (test code = 95722) 0-5 /HPF BACTERIA (test code = 1515) NONE SEEN CASTS, HYALINE (test code = 1517) NONE SEEN Tristen HenaoCBC W/AUTO [id number] 00:00:00* Test Item Value Reference Range Interpretation Comme nts WBC (test code = 1001) 7.8 K/UL RBC (test code = 1002) 3.96 M/UL HEMOGLOBIN (test code = 1003) 11.5 G/DL HEMATOCRIT (test code = 1004) 35.7 % MCV (test code = 1005) 90.2 fL MCH (test code = 1006) 29.0 PG MCHC (test code = 1007) 32.2 G/DL RDW (test code = 1038) 14.1 % NEUTROPHILS (test code = 1008) 58.7 % LYMPHOCYTES (test code = 1010) 32.1 % MONOCYTES (test code = 1011) 6.7 % EOSINOPHILS (test code = 1012) 1.2 % BASOPHILS (test code = 1013) 0.8 % IMMATURE GRANULOCYTES (test code = 1036) 0.5 % NUCLEATED RBCS (test code = 1065) 0.0 /100WBC'S PLATELET COUNT (test code = 1015) 244 K/UL ABSOLUTE NEUTROPHILS (test c ode = 1066) 4.59 K/UL ABSOLUTE LYMPHOCYTES (test c ode = 1067) 2.50 K/UL ABSOLUTE MONOCYTES (test cod e = 1068) 0.52 K/UL ABSOLUTE EOSINOPHILS (test c ode = 1040) 0.09 K/UL ABSOLUTE BASOPHILS (test cod e = 1069) 0.06 K/UL ABS IMMATURE GRANULOCYTES (t est code = 1020) 0.04 K/UL ABS NUCLEATED RBCS (test cod e = 72104) 0.00 K/UL Tristen Carlin JulianoLIPID [id number] 00:00:00* Test Item Value Reference Range Interpretation Comme nts CHOLESTEROL (test code = 2210) 138 MG/DL TRIGLYCERIDES (test code = 2232) 113 MG/DL HDL CHOLESTEROL (test code = 2220) 37 MG/DL CALC LDL CHOL (test code = 2237) 80 MG/DL RISK RATIO LDL/HDL (test cod e = 2238) 2.16 RATIO Tristen HenaoCOMPREHENSIVE METABOLIC [id number] 00:00:00* Test Item Value Reference Range Interpretation Comme nts GLUCOSE (test code = 2217) 74 MG/DL BUN (test code = 2208) 10 MG/DL CREATININE (test code = 2214) 1.28 MG/DL eGFR (2020 CKD-EPI) (test co de = 82813) 50 ML/MIN/1.73 CALC BUN/CREAT (test code = 2235) 8 RATIO SODIUM (test code = 2231) 144 MEQ/L POTASSIUM (test code = 2228) 4.0 MEQ/L CHLORIDE (test code = 2215) 107 MEQ/L CARBON DIOXIDE (test code = 2206) 20 MEQ/L CALCIUM (test code = 2209) 9.7 MG/DL PROTEIN, TOTAL (test code = 2229) 7.6 G/DL ALBUMIN (test code = 2201) 4.0 G/DL CALC GLOBULIN (test code = 2240) 3.6 G/DL CALC A/G RATIO (test code = 2234) 1.1 RATIO BILIRUBIN, TOTAL (test code = 2207) 0.4 MG/DL ALKALINE PHOSPHATASE (test code = 2204) 102 U/L AST (test code = 2218) 20 U/L ALT (test code = 2219) 16 U/L Tristen Carlin AustinURINALYSIS W/REFLEX [id number] 00:00:00* Test Item Value Reference Range Interpretation Comme nts COLOR (test code = 1501) YELLOW APPEARANCE (test code = 1502) CLEAR SPECIFIC GRAVITY (test code = 1503) 1.015 LEUKOCYTE ESTERASE (test cod e = 1504) 1+ NITRITE (test code = 1505) NEGATIVE pH (test code = 1506) 6.0 PROTEIN (test code = 1507) TRACE GLUCOSE (test code = 1508) NEGATIVE KETONES (test code = 1509) NEGATIVE UROBILINOGEN (test code = 1510) 0.2 MG/DL BILIRUBIN (test code = 1511) NEGATIVE OCCULT BLOOD (test code = 1512) TRACE WHITE BLOOD CELLS (test code = 1513) 16-20 /HPF RED BLOOD CELLS (test code = 1514) 3-5 /HPF EPITHELIAL CELLS (test code = 23894) 0-5 /HPF BACTERIA (test code = 1515) NONE SEEN CASTS, HYALINE (test code = 1517) NONE SEEN Tristen HenaoCBC W/AUTO [id number] 00:00:00* Test Item Value Reference Range Interpretation Comme nts WBC (test code = 1001) 7.8 K/UL RBC (test code = 1002) 3.96 M/UL HEMOGLOBIN (test code = 1003) 11.5 G/DL HEMATOCRIT (test code = 1004) 35.7 % MCV (test code = 1005) 90.2 fL MCH (test code = 1006) 29.0 PG MCHC (test code = 1007) 32.2 G/DL RDW (test code = 1038) 14.1 % NEUTROPHILS (test code = 1008) 58.7 % LYMPHOCYTES (test code = 1010) 32.1 % MONOCYTES (test code = 1011) 6.7 % EOSINOPHILS (test code = 1012) 1.2 % BASOPHILS (test code = 1013) 0.8 % IMMATURE GRANULOCYTES (test code = 1036) 0.5 % NUCLEATED RBCS (test code = 1065) 0.0 /100WBC'S PLATELET COUNT (test code = 1015) 244 K/UL ABSOLUTE NEUTROPHILS (test c ode = 1066) 4.59 K/UL ABSOLUTE LYMPHOCYTES (test c ode = 1067) 2.50 K/UL ABSOLUTE MONOCYTES (test cod e = 1068) 0.52 K/UL ABSOLUTE EOSINOPHILS (test c ode = 1040) 0.09 K/UL ABSOLUTE BASOPHILS (test cod e = 1069) 0.06 K/UL ABS IMMATURE GRANULOCYTES (t est code = 1020) 0.04 K/UL ABS NUCLEATED RBCS (test cod e = 64627) 0.00 K/UL Tristen Carlin JulianoLIPID [id number] 00:00:00* Test Item Value Reference Range Interpretation Comme nts CHOLESTEROL (test code = 2210) 138 MG/DL TRIGLYCERIDES (test code = 2232) 113 MG/DL HDL CHOLESTEROL (test code = 2220) 37 MG/DL CALC LDL CHOL (test code = 2237) 80 MG/DL RISK RATIO LDL/HDL (test cod e = 2238) 2.16 RATIO Tristen HenaoCOMPREHENSIVE METABOLIC [id number] 00:00:00* Test Item Value Reference Range Interpretation Comme nts GLUCOSE (test code = 2217) 74 MG/DL BUN (test code = 2208) 10 MG/DL CREATININE (test code = 2214) 1.28 MG/DL eGFR (2020 CKD-EPI) (test co de = 57717) 50 ML/MIN/1.73 CALC BUN/CREAT (test code = 2235) 8 RATIO SODIUM (test code = 2231) 144 MEQ/L POTASSIUM (test code = 2228) 4.0 MEQ/L CHLORIDE (test code = 2215) 107 MEQ/L CARBON DIOXIDE (test code = 2206) 20 MEQ/L CALCIUM (test code = 2209) 9.7 MG/DL PROTEIN, TOTAL (test code = 2229) 7.6 G/DL ALBUMIN (test code = 2201) 4.0 G/DL CALC GLOBULIN (test code = 2240) 3.6 G/DL CALC A/G RATIO (test code = 2234) 1.1 RATIO BILIRUBIN, TOTAL (test code = 2207) 0.4 MG/DL ALKALINE PHOSPHATASE (test code = 2204) 102 U/L AST (test code = 2218) 20 U/L ALT (test code = 2219) 16 U/L Tristen Carlin AustinURINALYSIS W/REFLEX [id number] 00:00:00* Test Item Value Reference Range Interpretation Comme nts COLOR (test code = 1501) YELLOW APPEARANCE (test code = 1502) CLEAR SPECIFIC GRAVITY (test code = 1503) 1.015 LEUKOCYTE ESTERASE (test cod e = 1504) 1+ NITRITE (test code = 1505) NEGATIVE pH (test code = 1506) 6.0 PROTEIN (test code = 1507) TRACE GLUCOSE (test code = 1508) NEGATIVE KETONES (test code = 1509) NEGATIVE UROBILINOGEN (test code = 1510) 0.2 MG/DL BILIRUBIN (test code = 1511) NEGATIVE OCCULT BLOOD (test code = 1512) TRACE WHITE BLOOD CELLS (test code = 1513) 16-20 /HPF RED BLOOD CELLS (test code = 1514) 3-5 /HPF EPITHELIAL CELLS (test code = 40509) 0-5 /HPF BACTERIA (test code = 1515) NONE SEEN CASTS, HYALINE (test code = 1517) NONE SEEN Tristen HenaoCULTURE, URINE [ADDED]2023-05-29 00:00:00* Test Item Value Reference Range Interpretation Comme nts CULTURE, URINE (test code = 61787) SPECIMEN NUMBER: [id number] Tristen HenaoCULTURE, URINE [ADDED]2023-05-29 00:00:00* Test Item Value Reference Range Interpretation Comme nts CULTURE, URINE (test code = 00109) SPECIMEN NUMBER: [id number] Tristen Carlin AustinCULTURE, URINE [ADDED]2023-05-29 00:00:00* Test Item Value Reference Range Interpretation Comme nts CULTURE, URINE (test code = 13506) SPECIMEN NUMBER: [id number] Tristen Carlin AustinCULTURE, URINE [ADDED]2023-05-29 00:00:00* Test Item Value Reference Range Interpretation Comme nts CULTURE, URINE (test code = 32212) SPECIMEN NUMBER: [id number] Tristen Carlin AustinCULTURE, URINE [ADDED]2023-05-29 00:00:00* Test Item Value Reference Range Interpretation Comme nts CULTURE, URINE (test code = 42831) SPECIMEN NUMBER: [id number] Tristen HenaoCULTURE, URINE [ADDED]2023-05-29 00:00:00* Test Item Value Reference Range Interpretation Comme nts CULTURE, URINE (test code = 52078) SPECIMEN NUMBER: [id number] Tristen eHnaoCULTURE, URINE [ADDED]2023-05-29 00:00:00* Test Item Value Reference Range Interpretation Comme nts CULTURE, URINE (test code = 65977) SPECIMEN NUMBER: [id number] Tristen AnthonyLTURE, [id number] 00:00:00* Test Item Value Reference Range Interpretation Comme nts CULTURE, URINE (test code = 53966) SPECIMEN NUMBER: [id number] Tristen HenaoCULTURE, [id number] 00:00:00* Test Item Value Reference Range Interpretation Comme nts CULTURE, URINE (test code = 91541) SPECIMEN NUMBER: [id number] Tristen HenaoCULTURE, [id number] 00:00:00* Test Item Value Reference Range Interpretation Comme nts CULTURE, URINE (test code = 98957) SPECIMEN NUMBER: [id number] Tristen HenaoCULTURE, [id number] 00:00:00* Test Item Value Reference Range Interpretation Comme nts CULTURE, URINE (test code = 70630) SPECIMEN NUMBER: [id number] Tristen HenaoCULTURE, [id number] 00:00:00* Test Item Value Reference Range Interpretation Comme nts CULTURE, URINE (test code = 08504) SPECIMEN NUMBER: [id number] Tristen HenaoCULTURE, [id number] 00:00:00* Test Item Value Reference Range Interpretation Comme nts CULTURE, URINE (test code = 19806) SPECIMEN NUMBER: [id number] Tristen Carlin AustinCULTURE, [id number] 00:00:00* Test Item Value Reference Range Interpretation Comme nts CULTURE, URINE (test code = 91264) SPECIMEN NUMBER: [id number] Tristen HenaoCULTURE, [id number] 00:00:00* Test Item Value Reference Range Interpretation Comme nts CULTURE, URINE (test code = 24933) SPECIMEN NUMBER: [id number] Tristen Carlin AustinURINALYSIS W/REFLEX [id number] 00:00:00* Test Item Value Reference Range Interpretation Comme nts COLOR (test code = 1501) YELLOW APPEARANCE (test code = 1502) CLEAR SPECIFIC GRAVITY (test code = 1503) 1.004 LEUKOCYTE ESTERASE (test cod e = 1504) TRACE NITRITE (test code = 1505) NEGATIVE pH (test code = 1506) 6.5 PROTEIN (test code = 1507) NEGATIVE GLUCOSE (test code = 1508) NEGATIVE KETONES (test code = 1509) NEGATIVE UROBILINOGEN (test code = 1510) 0.2 MG/DL BILIRUBIN (test code = 1511) NEGATIVE OCCULT BLOOD (test code = 1512) NEGATIVE WHITE BLOOD CELLS (test code = 1513) 0-5 /HPF RED BLOOD CELLS (test code = 1514) 0-2 /HPF EPITHELIAL CELLS (test code = 20876) 0-5 /HPF BACTERIA (test code = 1515) NONE SEEN CASTS, HYALINE (test code = 1517) NONE SEEN Tristen Carlin AustinURINALYSIS W/REFLEX [id number] 00:00:00* Test Item Value Reference Range Interpretation Comme nts COLOR (test code = 1501) YELLOW APPEARANCE (test code = 1502) CLEAR SPECIFIC GRAVITY (test code = 1503) 1.004 LEUKOCYTE ESTERASE (test cod e = 1504) TRACE NITRITE (test code = 1505) NEGATIVE pH (test code = 1506) 6.5 PROTEIN (test code = 1507) NEGATIVE GLUCOSE (test code = 1508) NEGATIVE KETONES (test code = 1509) NEGATIVE UROBILINOGEN (test code = 1510) 0.2 MG/DL BILIRUBIN (test code = 1511) NEGATIVE OCCULT BLOOD (test code = 1512) NEGATIVE WHITE BLOOD CELLS (test code = 1513) 0-5 /HPF RED BLOOD CELLS (test code = 1514) 0-2 /HPF EPITHELIAL CELLS (test code = 97838) 0-5 /HPF BACTERIA (test code = 1515) NONE SEEN CASTS, HYALINE (test code = 1517) NONE SEEN Tristen Carlin AustinURINALYSIS W/REFLEX [id number] 00:00:00* Test Item Value Reference Range Interpretation Comme nts COLOR (test code = 1501) YELLOW APPEARANCE (test code = 1502) CLEAR SPECIFIC GRAVITY (test code = 1503) 1.004 LEUKOCYTE ESTERASE (test cod e = 1504) TRACE NITRITE (test code = 1505) NEGATIVE pH (test code = 1506) 6.5 PROTEIN (test code = 1507) NEGATIVE GLUCOSE (test code = 1508) NEGATIVE KETONES (test code = 1509) NEGATIVE UROBILINOGEN (test code = 1510) 0.2 MG/DL BILIRUBIN (test code = 1511) NEGATIVE OCCULT BLOOD (test code = 1512) NEGATIVE WHITE BLOOD CELLS (test code = 1513) 0-5 /HPF RED BLOOD CELLS (test code = 1514) 0-2 /HPF EPITHELIAL CELLS (test code = 67139) 0-5 /HPF BACTERIA (test code = 1515) NONE SEEN CASTS, HYALINE (test code = 1517) NONE SEEN Tristen Carlin AustinURINALYSIS W/REFLEX [id number] 00:00:00* Test Item Value Reference Range Interpretation Comme nts COLOR (test code = 1501) YELLOW APPEARANCE (test code = 1502) CLEAR SPECIFIC GRAVITY (test code = 1503) 1.004 LEUKOCYTE ESTERASE (test cod e = 1504) TRACE NITRITE (test code = 1505) NEGATIVE pH (test code = 1506) 6.5 PROTEIN (test code = 1507) NEGATIVE GLUCOSE (test code = 1508) NEGATIVE KETONES (test code = 1509) NEGATIVE UROBILINOGEN (test code = 1510) 0.2 MG/DL BILIRUBIN (test code = 1511) NEGATIVE OCCULT BLOOD (test code = 1512) NEGATIVE WHITE BLOOD CELLS (test code = 1513) 0-5 /HPF RED BLOOD CELLS (test code = 1514) 0-2 /HPF EPITHELIAL CELLS (test code = 79295) 0-5 /HPF BACTERIA (test code = 1515) NONE SEEN CASTS, HYALINE (test code = 1517) NONE SEEN Tristen Carlin AustinURINALYSIS W/REFLEX [id number] 00:00:00* Test Item Value Reference Range Interpretation Comme nts COLOR (test code = 1501) YELLOW APPEARANCE (test code = 1502) CLEAR SPECIFIC GRAVITY (test code = 1503) 1.004 LEUKOCYTE ESTERASE (test cod e = 1504) TRACE NITRITE (test code = 1505) NEGATIVE pH (test code = 1506) 6.5 PROTEIN (test code = 1507) NEGATIVE GLUCOSE (test code = 1508) NEGATIVE KETONES (test code = 1509) NEGATIVE UROBILINOGEN (test code = 1510) 0.2 MG/DL BILIRUBIN (test code = 1511) NEGATIVE OCCULT BLOOD (test code = 1512) NEGATIVE WHITE BLOOD CELLS (test code = 1513) 0-5 /HPF RED BLOOD CELLS (test code = 1514) 0-2 /HPF EPITHELIAL CELLS (test code = 40369) 0-5 /HPF BACTERIA (test code = 1515) NONE SEEN CASTS, HYALINE (test code = 1517) NONE SEEN Tristen Carlin AustinURINALYSIS W/REFLEX [id number] 00:00:00* Test Item Value Reference Range Interpretation Comme nts COLOR (test code = 1501) YELLOW APPEARANCE (test code = 1502) CLEAR SPECIFIC GRAVITY (test code = 1503) 1.004 LEUKOCYTE ESTERASE (test cod e = 1504) TRACE NITRITE (test code = 1505) NEGATIVE pH (test code = 1506) 6.5 PROTEIN (test code = 1507) NEGATIVE GLUCOSE (test code = 1508) NEGATIVE KETONES (test code = 1509) NEGATIVE UROBILINOGEN (test code = 1510) 0.2 MG/DL BILIRUBIN (test code = 1511) NEGATIVE OCCULT BLOOD (test code = 1512) NEGATIVE WHITE BLOOD CELLS (test code = 1513) 0-5 /HPF RED BLOOD CELLS (test code = 1514) 0-2 /HPF EPITHELIAL CELLS (test code = 79067) 0-5 /HPF BACTERIA (test code = 1515) NONE SEEN CASTS, HYALINE (test code = 1517) NONE SEEN Tristen Carlin AustinURINALYSIS W/REFLEX [id number] 00:00:00* Test Item Value Reference Range Interpretation Comme nts COLOR (test code = 1501) YELLOW APPEARANCE (test code = 1502) CLEAR SPECIFIC GRAVITY (test code = 1503) 1.004 LEUKOCYTE ESTERASE (test cod e = 1504) TRACE NITRITE (test code = 1505) NEGATIVE pH (test code = 1506) 6.5 PROTEIN (test code = 1507) NEGATIVE GLUCOSE (test code = 1508) NEGATIVE KETONES (test code = 1509) NEGATIVE UROBILINOGEN (test code = 1510) 0.2 MG/DL BILIRUBIN (test code = 1511) NEGATIVE OCCULT BLOOD (test code = 1512) NEGATIVE WHITE BLOOD CELLS (test code = 1513) 0-5 /HPF RED BLOOD CELLS (test code = 1514) 0-2 /HPF EPITHELIAL CELLS (test code = 53379) 0-5 /HPF BACTERIA (test code = 1515) NONE SEEN CASTS, HYALINE (test code = 1517) NONE SEEN Tristen Carlin AustinURINALYSIS W/REFLEX [id number] 00:00:00* Test Item Value Reference Range Interpretation Comme nts COLOR (test code = 1501) YELLOW APPEARANCE (test code = 1502) CLEAR SPECIFIC GRAVITY (test code = 1503) 1.004 LEUKOCYTE ESTERASE (test cod e = 1504) TRACE NITRITE (test code = 1505) NEGATIVE pH (test code = 1506) 6.5 PROTEIN (test code = 1507) NEGATIVE GLUCOSE (test code = 1508) NEGATIVE KETONES (test code = 1509) NEGATIVE UROBILINOGEN (test code = 1510) 0.2 MG/DL BILIRUBIN (test code = 1511) NEGATIVE OCCULT BLOOD (test code = 1512) NEGATIVE WHITE BLOOD CELLS (test code = 1513) 0-5 /HPF RED BLOOD CELLS (test code = 1514) 0-2 /HPF EPITHELIAL CELLS (test code = 40143) 0-5 /HPF BACTERIA (test code = 1515) NONE SEEN CASTS, HYALINE (test code = 1517) NONE SEEN Tristen HenaoCOMPREHENSIVE METABOLIC [id number] 00:00:00* Test Item Value Reference Range Interpretation Comme nts GLUCOSE (test code = 2217) 89 MG/DL BUN (test code = 2208) 13 MG/DL CREATININE (test code = 2214) 1.32 MG/DL eGFR (2020 CKD-EPI) (test co de = 52387) 48 ML/MIN/1.73 CALC BUN/CREAT (test code = 2235) 10 RATIO SODIUM (test code = 2231) 141 MEQ/L POTASSIUM (test code = 2228) 3.7 MEQ/L CHLORIDE (test code = 2215) 108 MEQ/L CARBON DIOXIDE (test code = 2206) 20 MEQ/L CALCIUM (test code = 2209) 9.5 MG/DL PROTEIN, TOTAL (test code = 2229) 7.9 G/DL ALBUMIN (test code = 2201) 4.2 G/DL CALC GLOBULIN (test code = 2240) 3.7 G/DL CALC A/G RATIO (test code = 2234) 1.1 RATIO BILIRUBIN, TOTAL (test code = 2207) 0.4 MG/DL ALKALINE PHOSPHATASE (test code = 2204) 117 U/L AST (test code = 2218) 18 U/L ALT (test code = 2219) 14 U/L Tristen Carlin AustinURINALYSIS W/REFLEX [id number] 00:00:00* Test Item Value Reference Range Interpretation Comme nts COLOR (test code = 1501) YELLOW APPEARANCE (test code = 1502) CLEAR SPECIFIC GRAVITY (test code = 1503) 1.015 LEUKOCYTE ESTERASE (test cod e = 1504) 1+ NITRITE (test code = 1505) NEGATIVE pH (test code = 1506) 6.0 PROTEIN (test code = 1507) NEGATIVE GLUCOSE (test code = 1508) NEGATIVE KETONES (test code = 1509) NEGATIVE UROBILINOGEN (test code = 1510) 0.2 MG/DL BILIRUBIN (test code = 1511) NEGATIVE OCCULT BLOOD (test code = 1512) 1+ WHITE BLOOD CELLS (test code = 1513) 6-10 /HPF RED BLOOD CELLS (test code = 1514) 3-5 /HPF EPITHELIAL CELLS (test code = 60693) 0-5 /HPF BACTERIA (test code = 1515) NONE SEEN CASTS, HYALINE (test code = 1517) NONE SEEN rTisten HenaoCOMPREHENSIVE METABOLIC [id number] 00:00:00* Test Item Value Reference Range Interpretation Comme nts GLUCOSE (test code = 2217) 89 MG/DL BUN (test code = 2208) 13 MG/DL CREATININE (test code = 2214) 1.32 MG/DL eGFR (2020 CKD-EPI) (test co de = 52544) 48 ML/MIN/1.73 CALC BUN/CREAT (test code = 2235) 10 RATIO SODIUM (test code = 2231) 141 MEQ/L POTASSIUM (test code = 2228) 3.7 MEQ/L CHLORIDE (test code = 2215) 108 MEQ/L CARBON DIOXIDE (test code = 2206) 20 MEQ/L CALCIUM (test code = 2209) 9.5 MG/DL PROTEIN, TOTAL (test code = 2229) 7.9 G/DL ALBUMIN (test code = 2201) 4.2 G/DL CALC GLOBULIN (test code = 2240) 3.7 G/DL CALC A/G RATIO (test code = 2234) 1.1 RATIO BILIRUBIN, TOTAL (test code = 2207) 0.4 MG/DL ALKALINE PHOSPHATASE (test code = 2204) 117 U/L AST (test code = 2218) 18 U/L ALT (test code = 2219) 14 U/L Tristen Carlin AustinURINALYSIS W/REFLEX [id number] 00:00:00* Test Item Value Reference Range Interpretation Comme nts COLOR (test code = 1501) YELLOW APPEARANCE (test code = 1502) CLEAR SPECIFIC GRAVITY (test code = 1503) 1.015 LEUKOCYTE ESTERASE (test cod e = 1504) 1+ NITRITE (test code = 1505) NEGATIVE pH (test code = 1506) 6.0 PROTEIN (test code = 1507) NEGATIVE GLUCOSE (test code = 1508) NEGATIVE KETONES (test code = 1509) NEGATIVE UROBILINOGEN (test code = 1510) 0.2 MG/DL BILIRUBIN (test code = 1511) NEGATIVE OCCULT BLOOD (test code = 1512) 1+ WHITE BLOOD CELLS (test code = 1513) 6-10 /HPF RED BLOOD CELLS (test code = 1514) 3-5 /HPF EPITHELIAL CELLS (test code = 30475) 0-5 /HPF BACTERIA (test code = 1515) NONE SEEN CASTS, HYALINE (test code = 1517) NONE SEEN Tristen HenaoCOMPREHENSIVE METABOLIC [id number] 00:00:00* Test Item Value Reference Range Interpretation Comme nts GLUCOSE (test code = 2217) 89 MG/DL BUN (test code = 2208) 13 MG/DL CREATININE (test code = 2214) 1.32 MG/DL eGFR (2020 CKD-EPI) (test co de = 62710) 48 ML/MIN/1.73 CALC BUN/CREAT (test code = 2235) 10 RATIO SODIUM (test code = 2231) 141 MEQ/L POTASSIUM (test code = 2228) 3.7 MEQ/L CHLORIDE (test code = 2215) 108 MEQ/L CARBON DIOXIDE (test code = 2206) 20 MEQ/L CALCIUM (test code = 2209) 9.5 MG/DL PROTEIN, TOTAL (test code = 2229) 7.9 G/DL ALBUMIN (test code = 2201) 4.2 G/DL CALC GLOBULIN (test code = 2240) 3.7 G/DL CALC A/G RATIO (test code = 2234) 1.1 RATIO BILIRUBIN, TOTAL (test code = 2207) 0.4 MG/DL ALKALINE PHOSPHATASE (test code = 2204) 117 U/L AST (test code = 2218) 18 U/L ALT (test code = 2219) 14 U/L Tristen Carlin AustinURINALYSIS W/REFLEX [id number] 00:00:00* Test Item Value Reference Range Interpretation Comme nts COLOR (test code = 1501) YELLOW APPEARANCE (test code = 1502) CLEAR SPECIFIC GRAVITY (test code = 1503) 1.015 LEUKOCYTE ESTERASE (test cod e = 1504) 1+ NITRITE (test code = 1505) NEGATIVE pH (test code = 1506) 6.0 PROTEIN (test code = 1507) NEGATIVE GLUCOSE (test code = 1508) NEGATIVE KETONES (test code = 1509) NEGATIVE UROBILINOGEN (test code = 1510) 0.2 MG/DL BILIRUBIN (test code = 1511) NEGATIVE OCCULT BLOOD (test code = 1512) 1+ WHITE BLOOD CELLS (test code = 1513) 6-10 /HPF RED BLOOD CELLS (test code = 1514) 3-5 /HPF EPITHELIAL CELLS (test code = 05773) 0-5 /HPF BACTERIA (test code = 1515) NONE SEEN CASTS, HYALINE (test code = 1517) NONE SEEN Tristen HenaoCOMPREHENSIVE METABOLIC [id number] 00:00:00* Test Item Value Reference Range Interpretation Comme nts GLUCOSE (test code = 2217) 89 MG/DL BUN (test code = 2208) 13 MG/DL CREATININE (test code = 2214) 1.32 MG/DL eGFR (2020 CKD-EPI) (test co de = 26687) 48 ML/MIN/1.73 CALC BUN/CREAT (test code = 2235) 10 RATIO SODIUM (test code = 2231) 141 MEQ/L POTASSIUM (test code = 2228) 3.7 MEQ/L CHLORIDE (test code = 2215) 108 MEQ/L CARBON DIOXIDE (test code = 2206) 20 MEQ/L CALCIUM (test code = 2209) 9.5 MG/DL PROTEIN, TOTAL (test code = 2229) 7.9 G/DL ALBUMIN (test code = 2201) 4.2 G/DL CALC GLOBULIN (test code = 2240) 3.7 G/DL CALC A/G RATIO (test code = 2234) 1.1 RATIO BILIRUBIN, TOTAL (test code = 2207) 0.4 MG/DL ALKALINE PHOSPHATASE (test code = 2204) 117 U/L AST (test code = 2218) 18 U/L ALT (test code = 2219) 14 U/L Tristen Carlin AustinURINALYSIS W/REFLEX [id number] 00:00:00* Test Item Value Reference Range Interpretation Comme nts COLOR (test code = 1501) YELLOW APPEARANCE (test code = 1502) CLEAR SPECIFIC GRAVITY (test code = 1503) 1.015 LEUKOCYTE ESTERASE (test cod e = 1504) 1+ NITRITE (test code = 1505) NEGATIVE pH (test code = 1506) 6.0 PROTEIN (test code = 1507) NEGATIVE GLUCOSE (test code = 1508) NEGATIVE KETONES (test code = 1509) NEGATIVE UROBILINOGEN (test code = 1510) 0.2 MG/DL BILIRUBIN (test code = 1511) NEGATIVE OCCULT BLOOD (test code = 1512) 1+ WHITE BLOOD CELLS (test code = 1513) 6-10 /HPF RED BLOOD CELLS (test code = 1514) 3-5 /HPF EPITHELIAL CELLS (test code = 54009) 0-5 /HPF BACTERIA (test code = 1515) NONE SEEN CASTS, HYALINE (test code = 1517) NONE SEEN Tristen HenaoCOMPREHENSIVE METABOLIC [id number] 00:00:00* Test Item Value Reference Range Interpretation Comme nts GLUCOSE (test code = 2217) 89 MG/DL BUN (test code = 2208) 13 MG/DL CREATININE (test code = 2214) 1.32 MG/DL eGFR (2020 CKD-EPI) (test co de = 09082) 48 ML/MIN/1.73 CALC BUN/CREAT (test code = 2235) 10 RATIO SODIUM (test code = 2231) 141 MEQ/L POTASSIUM (test code = 2228) 3.7 MEQ/L CHLORIDE (test code = 2215) 108 MEQ/L CARBON DIOXIDE (test code = 2206) 20 MEQ/L CALCIUM (test code = 2209) 9.5 MG/DL PROTEIN, TOTAL (test code = 2229) 7.9 G/DL ALBUMIN (test code = 2201) 4.2 G/DL CALC GLOBULIN (test code = 2240) 3.7 G/DL CALC A/G RATIO (test code = 2234) 1.1 RATIO BILIRUBIN, TOTAL (test code = 2207) 0.4 MG/DL ALKALINE PHOSPHATASE (test code = 2204) 117 U/L AST (test code = 2218) 18 U/L ALT (test code = 2219) 14 U/L Tristen Carlin JulianoURINALYSIS W/REFLEX [id number] 00:00:00* Test Item Value Reference Range Interpretation Comme nts COLOR (test code = 1501) YELLOW APPEARANCE (test code = 1502) CLEAR SPECIFIC GRAVITY (test code = 1503) 1.015 LEUKOCYTE ESTERASE (test cod e = 1504) 1+ NITRITE (test code = 1505) NEGATIVE pH (test code = 1506) 6.0 PROTEIN (test code = 1507) NEGATIVE GLUCOSE (test code = 1508) NEGATIVE KETONES (test code = 1509) NEGATIVE UROBILINOGEN (test code = 1510) 0.2 MG/DL BILIRUBIN (test code = 1511) NEGATIVE OCCULT BLOOD (test code = 1512) 1+ WHITE BLOOD CELLS (test code = 1513) 6-10 /HPF RED BLOOD CELLS (test code = 1514) 3-5 /HPF EPITHELIAL CELLS (test code = 85123) 0-5 /HPF BACTERIA (test code = 1515) NONE SEEN CASTS, HYALINE (test code = 1517) NONE SEEN Tristen HenaoCOMPREHENSIVE METABOLIC [id number] 00:00:00* Test Item Value Reference Range Interpretation Comme nts GLUCOSE (test code = 2217) 89 MG/DL BUN (test code = 2208) 13 MG/DL CREATININE (test code = 2214) 1.32 MG/DL eGFR (2020 CKD-EPI) (test co de = 77748) 48 ML/MIN/1.73 CALC BUN/CREAT (test code = 2235) 10 RATIO SODIUM (test code = 2231) 141 MEQ/L POTASSIUM (test code = 2228) 3.7 MEQ/L CHLORIDE (test code = 2215) 108 MEQ/L CARBON DIOXIDE (test code = 2206) 20 MEQ/L CALCIUM (test code = 2209) 9.5 MG/DL PROTEIN, TOTAL (test code = 2229) 7.9 G/DL ALBUMIN (test code = 2201) 4.2 G/DL CALC GLOBULIN (test code = 2240) 3.7 G/DL CALC A/G RATIO (test code = 2234) 1.1 RATIO BILIRUBIN, TOTAL (test code = 2207) 0.4 MG/DL ALKALINE PHOSPHATASE (test code = 2204) 117 U/L AST (test code = 2218) 18 U/L ALT (test code = 2219) 14 U/L Tristen Carlin AustinURINALYSIS W/REFLEX [id number] 00:00:00* Test Item Value Reference Range Interpretation Comme nts COLOR (test code = 1501) YELLOW APPEARANCE (test code = 1502) CLEAR SPECIFIC GRAVITY (test code = 1503) 1.015 LEUKOCYTE ESTERASE (test cod e = 1504) 1+ NITRITE (test code = 1505) NEGATIVE pH (test code = 1506) 6.0 PROTEIN (test code = 1507) NEGATIVE GLUCOSE (test code = 1508) NEGATIVE KETONES (test code = 1509) NEGATIVE UROBILINOGEN (test code = 1510) 0.2 MG/DL BILIRUBIN (test code = 1511) NEGATIVE OCCULT BLOOD (test code = 1512) 1+ WHITE BLOOD CELLS (test code = 1513) 6-10 /HPF RED BLOOD CELLS (test code = 1514) 3-5 /HPF EPITHELIAL CELLS (test code = 41829) 0-5 /HPF BACTERIA (test code = 1515) NONE SEEN CASTS, HYALINE (test code = 1517) NONE SEEN Tristen HenaoCOMPREHENSIVE METABOLIC [id number] 00:00:00* Test Item Value Reference Range Interpretation Comme nts GLUCOSE (test code = 2217) 89 MG/DL BUN (test code = 2208) 13 MG/DL CREATININE (test code = 2214) 1.32 MG/DL eGFR (2020 CKD-EPI) (test co de = 39115) 48 ML/MIN/1.73 CALC BUN/CREAT (test code = 2235) 10 RATIO SODIUM (test code = 2231) 141 MEQ/L POTASSIUM (test code = 2228) 3.7 MEQ/L CHLORIDE (test code = 2215) 108 MEQ/L CARBON DIOXIDE (test code = 2206) 20 MEQ/L CALCIUM (test code = 2209) 9.5 MG/DL PROTEIN, TOTAL (test code = 2229) 7.9 G/DL ALBUMIN (test code = 2201) 4.2 G/DL CALC GLOBULIN (test code = 2240) 3.7 G/DL CALC A/G RATIO (test code = 2234) 1.1 RATIO BILIRUBIN, TOTAL (test code = 2207) 0.4 MG/DL ALKALINE PHOSPHATASE (test code = 2204) 117 U/L AST (test code = 2218) 18 U/L ALT (test code = 2219) 14 U/L Tristen Carlin AustinURINALYSIS W/REFLEX [id number] 00:00:00* Test Item Value Reference Range Interpretation Comme nts COLOR (test code = 1501) YELLOW APPEARANCE (test code = 1502) CLEAR SPECIFIC GRAVITY (test code = 1503) 1.015 LEUKOCYTE ESTERASE (test cod e = 1504) 1+ NITRITE (test code = 1505) NEGATIVE pH (test code = 1506) 6.0 PROTEIN (test code = 1507) NEGATIVE GLUCOSE (test code = 1508) NEGATIVE KETONES (test code = 1509) NEGATIVE UROBILINOGEN (test code = 1510) 0.2 MG/DL BILIRUBIN (test code = 1511) NEGATIVE OCCULT BLOOD (test code = 1512) 1+ WHITE BLOOD CELLS (test code = 1513) 6-10 /HPF RED BLOOD CELLS (test code = 1514) 3-5 /HPF EPITHELIAL CELLS (test code = 99566) 0-5 /HPF BACTERIA (test code = 1515) NONE SEEN CASTS, HYALINE (test code = 1517) NONE SEEN Tristen Carlin JulianoCOMPREHENSIVE METABOLIC [id number] 00:00:00* Test Item Value Reference Range Interpretation Comme nts GLUCOSE (test code = 2217) 89 MG/DL BUN (test code = 2208) 13 MG/DL CREATININE (test code = 2214) 1.32 MG/DL eGFR (2020 CKD-EPI) (test co de = 48207) 48 ML/MIN/1.73 CALC BUN/CREAT (test code = 2235) 10 RATIO SODIUM (test code = 2231) 141 MEQ/L POTASSIUM (test code = 2228) 3.7 MEQ/L CHLORIDE (test code = 2215) 108 MEQ/L CARBON DIOXIDE (test code = 2206) 20 MEQ/L CALCIUM (test code = 2209) 9.5 MG/DL PROTEIN, TOTAL (test code = 2229) 7.9 G/DL ALBUMIN (test code = 2201) 4.2 G/DL CALC GLOBULIN (test code = 2240) 3.7 G/DL CALC A/G RATIO (test code = 2234) 1.1 RATIO BILIRUBIN, TOTAL (test code = 2207) 0.4 MG/DL ALKALINE PHOSPHATASE (test code = 2204) 117 U/L AST (test code = 2218) 18 U/L ALT (test code = 2219) 14 U/L Tristen Carlin AustinURINALYSIS W/REFLEX [id number] 00:00:00* Test Item Value Reference Range Interpretation Comme nts COLOR (test code = 1501) YELLOW APPEARANCE (test code = 1502) CLEAR SPECIFIC GRAVITY (test code = 1503) 1.015 LEUKOCYTE ESTERASE (test cod e = 1504) 1+ NITRITE (test code = 1505) NEGATIVE pH (test code = 1506) 6.0 PROTEIN (test code = 1507) NEGATIVE GLUCOSE (test code = 1508) NEGATIVE KETONES (test code = 1509) NEGATIVE UROBILINOGEN (test code = 1510) 0.2 MG/DL BILIRUBIN (test code = 1511) NEGATIVE OCCULT BLOOD (test code = 1512) 1+ WHITE BLOOD CELLS (test code = 1513) 6-10 /HPF RED BLOOD CELLS (test code = 1514) 3-5 /HPF EPITHELIAL CELLS (test code = 52430) 0-5 /HPF BACTERIA (test code = 1515) NONE SEEN CASTS, HYALINE (test code = 1517) NONE SEEN Tristen Carlin JulianoCOMPREHENSIVE METABOLIC [id number] 00:00:00* Test Item Value Reference Range Interpretation Comme nts GLUCOSE (test code = 2217) 92 MG/DL BUN (test code = 2208) 12 MG/DL CREATININE (test code = 2214) 1.25 MG/DL eGFR (2020 CKD-EPI) (test co de = 86891) 52 ML/MIN/1.73 CALC BUN/CREAT (test code = 2235) 10 RATIO SODIUM (test code = 2231) 143 MEQ/L POTASSIUM (test code = 2228) 4.1 MEQ/L CHLORIDE (test code = 2215) 107 MEQ/L CARBON DIOXIDE (test code = 2206) 20 MEQ/L CALCIUM (test code = 2209) 9.5 MG/DL PROTEIN, TOTAL (test code = 2229) 7.9 G/DL ALBUMIN (test code = 2201) 4.4 G/DL CALC GLOBULIN (test code = 2240) 3.5 G/DL CALC A/G RATIO (test code = 2234) 1.3 RATIO BILIRUBIN, TOTAL (test code = 2207) 0.2 MG/DL ALKALINE PHOSPHATASE (test code = 2204) 132 U/L AST (test code = 2218) 19 U/L ALT (test code = 2219) 20 U/L Tristen Carlin AustinURINALYSIS W/REFLEX [id number] 00:00:00* Test Item Value Reference Range Interpretation Comme nts COLOR (test code = 1501) YELLOW APPEARANCE (test code = 1502) CLEAR SPECIFIC GRAVITY (test code = 1503) 1.006 LEUKOCYTE ESTERASE (test cod e = 1504) 1+ NITRITE (test code = 1505) NEGATIVE pH (test code = 1506) 6.5 PROTEIN (test code = 1507) NEGATIVE GLUCOSE (test code = 1508) NEGATIVE KETONES (test code = 1509) NEGATIVE UROBILINOGEN (test code = 1510) 0.2 MG/DL BILIRUBIN (test code = 1511) NEGATIVE OCCULT BLOOD (test code = 1512) TRACE WHITE BLOOD CELLS (test code = 1513) 0-5 /HPF RED BLOOD CELLS (test code = 1514) 0-2 /HPF EPITHELIAL CELLS (test code = 41108) 0-5 /HPF BACTERIA (test code = 1515) NONE SEEN CASTS, HYALINE (test code = 1517) NONE SEEN Tristen Carlin AustinCBC W/AUTO [id number] 00:00:00* Test Item Value Reference Range Interpretation Comme nts WBC (test code = 1001) 8.1 K/UL RBC (test code = 1002) 4.15 M/UL HEMOGLOBIN (test code = 1003) 12.0 G/DL HEMATOCRIT (test code = 1004) 37.8 % MCV (test code = 1005) 91.1 fL MCH (test code = 1006) 28.9 PG MCHC (test code = 1007) 31.7 G/DL RDW (test code = 1038) 13.9 % NEUTROPHILS (test code = 1008) 59.5 % LYMPHOCYTES (test code = 1010) 31.4 % MONOCYTES (test code = 1011) 6.8 % EOSINOPHILS (test code = 1012) 1.4 % BASOPHILS (test code = 1013) 0.7 % IMMATURE GRANULOCYTES (test code = 1036) 0.2 % NUCLEATED RBCS (test code = 1065) 0.0 /100WBC'S PLATELET COUNT (test code = 1015) 229 K/UL ABSOLUTE NEUTROPHILS (test c ode = 1066) 4.79 K/UL ABSOLUTE LYMPHOCYTES (test c ode = 1067) 2.53 K/UL ABSOLUTE MONOCYTES (test cod e = 1068) 0.55 K/UL ABSOLUTE EOSINOPHILS (test c ode = 1040) 0.11 K/UL ABSOLUTE BASOPHILS (test cod e = 1069) 0.06 K/UL ABS IMMATURE GRANULOCYTES (t est code = 1020) 0.02 K/UL ABS NUCLEATED RBCS (test cod e = 89251) 0.00 K/UL Tristen HeanoLIPID [id number] 00:00:00* Test Item Value Reference Range Interpretation Comme nts CHOLESTEROL (test code = 2210) 161 MG/DL TRIGLYCERIDES (test code = 2232) 119 MG/DL HDL CHOLESTEROL (test code = 2220) 38 MG/DL CALC LDL CHOL (test code = 2237) 101 MG/DL RISK RATIO LDL/HDL (test cod e = 2238) 2.66 RATIO Tristen Carlin JulianoCOMPREHENSIVE METABOLIC [id number] 00:00:00* Test Item Value Reference Range Interpretation Comme nts GLUCOSE (test code = 2217) 92 MG/DL BUN (test code = 2208) 12 MG/DL CREATININE (test code = 2214) 1.25 MG/DL eGFR (2020 CKD-EPI) (test co de = 29996) 52 ML/MIN/1.73 CALC BUN/CREAT (test code = 2235) 10 RATIO SODIUM (test code = 2231) 143 MEQ/L POTASSIUM (test code = 2228) 4.1 MEQ/L CHLORIDE (test code = 2215) 107 MEQ/L CARBON DIOXIDE (test code = 2206) 20 MEQ/L CALCIUM (test code = 2209) 9.5 MG/DL PROTEIN, TOTAL (test code = 2229) 7.9 G/DL ALBUMIN (test code = 2201) 4.4 G/DL CALC GLOBULIN (test code = 2240) 3.5 G/DL CALC A/G RATIO (test code = 2234) 1.3 RATIO BILIRUBIN, TOTAL (test code = 2207) 0.2 MG/DL ALKALINE PHOSPHATASE (test code = 2204) 132 U/L AST (test code = 2218) 19 U/L ALT (test code = 2219) 20 U/L Tristen Carlin AustinURINALYSIS W/REFLEX [id number] 00:00:00* Test Item Value Reference Range Interpretation Comme nts COLOR (test code = 1501) YELLOW APPEARANCE (test code = 1502) CLEAR SPECIFIC GRAVITY (test code = 1503) 1.006 LEUKOCYTE ESTERASE (test cod e = 1504) 1+ NITRITE (test code = 1505) NEGATIVE pH (test code = 1506) 6.5 PROTEIN (test code = 1507) NEGATIVE GLUCOSE (test code = 1508) NEGATIVE KETONES (test code = 1509) NEGATIVE UROBILINOGEN (test code = 1510) 0.2 MG/DL BILIRUBIN (test code = 1511) NEGATIVE OCCULT BLOOD (test code = 1512) TRACE WHITE BLOOD CELLS (test code = 1513) 0-5 /HPF RED BLOOD CELLS (test code = 1514) 0-2 /HPF EPITHELIAL CELLS (test code = 33555) 0-5 /HPF BACTERIA (test code = 1515) NONE SEEN CASTS, HYALINE (test code = 1517) NONE SEEN Tristen HenaoCBC W/AUTO [id number] 00:00:00* Test Item Value Reference Range Interpretation Comme nts WBC (test code = 1001) 8.1 K/UL RBC (test code = 1002) 4.15 M/UL HEMOGLOBIN (test code = 1003) 12.0 G/DL HEMATOCRIT (test code = 1004) 37.8 % MCV (test code = 1005) 91.1 fL MCH (test code = 1006) 28.9 PG MCHC (test code = 1007) 31.7 G/DL RDW (test code = 1038) 13.9 % NEUTROPHILS (test code = 1008) 59.5 % LYMPHOCYTES (test code = 1010) 31.4 % MONOCYTES (test code = 1011) 6.8 % EOSINOPHILS (test code = 1012) 1.4 % BASOPHILS (test code = 1013) 0.7 % IMMATURE GRANULOCYTES (test code = 1036) 0.2 % NUCLEATED RBCS (test code = 1065) 0.0 /100WBC'S PLATELET COUNT (test code = 1015) 229 K/UL ABSOLUTE NEUTROPHILS (test c ode = 1066) 4.79 K/UL ABSOLUTE LYMPHOCYTES (test c ode = 1067) 2.53 K/UL ABSOLUTE MONOCYTES (test cod e = 1068) 0.55 K/UL ABSOLUTE EOSINOPHILS (test c ode = 1040) 0.11 K/UL ABSOLUTE BASOPHILS (test cod e = 1069) 0.06 K/UL ABS IMMATURE GRANULOCYTES (t est code = 1020) 0.02 K/UL ABS NUCLEATED RBCS (test cod e = 62414) 0.00 K/UL Tristen Carlin AustinLIPID [id number] 00:00:00* Test Item Value Reference Range Interpretation Comme nts CHOLESTEROL (test code = 2210) 161 MG/DL TRIGLYCERIDES (test code = 2232) 119 MG/DL HDL CHOLESTEROL (test code = 2220) 38 MG/DL CALC LDL CHOL (test code = 2237) 101 MG/DL RISK RATIO LDL/HDL (test cod e = 2238) 2.66 RATIO Tristen HenaoCOMPREHENSIVE METABOLIC [id number] 00:00:00* Test Item Value Reference Range Interpretation Comme nts GLUCOSE (test code = 2217) 92 MG/DL BUN (test code = 2208) 12 MG/DL CREATININE (test code = 2214) 1.25 MG/DL eGFR (2020 CKD-EPI) (test co de = 37704) 52 ML/MIN/1.73 CALC BUN/CREAT (test code = 2235) 10 RATIO SODIUM (test code = 2231) 143 MEQ/L POTASSIUM (test code = 2228) 4.1 MEQ/L CHLORIDE (test code = 2215) 107 MEQ/L CARBON DIOXIDE (test code = 2206) 20 MEQ/L CALCIUM (test code = 2209) 9.5 MG/DL PROTEIN, TOTAL (test code = 2229) 7.9 G/DL ALBUMIN (test code = 2201) 4.4 G/DL CALC GLOBULIN (test code = 2240) 3.5 G/DL CALC A/G RATIO (test code = 2234) 1.3 RATIO BILIRUBIN, TOTAL (test code = 2207) 0.2 MG/DL ALKALINE PHOSPHATASE (test code = 2204) 132 U/L AST (test code = 2218) 19 U/L ALT (test code = 2219) 20 U/L Tristen HenaoURINALYSIS W/REFLEX [id number] 00:00:00* Test Item Value Reference Range Interpretation Comme nts COLOR (test code = 1501) YELLOW APPEARANCE (test code = 1502) CLEAR SPECIFIC GRAVITY (test code = 1503) 1.006 LEUKOCYTE ESTERASE (test cod e = 1504) 1+ NITRITE (test code = 1505) NEGATIVE pH (test code = 1506) 6.5 PROTEIN (test code = 1507) NEGATIVE GLUCOSE (test code = 1508) NEGATIVE KETONES (test code = 1509) NEGATIVE UROBILINOGEN (test code = 1510) 0.2 MG/DL BILIRUBIN (test code = 1511) NEGATIVE OCCULT BLOOD (test code = 1512) TRACE WHITE BLOOD CELLS (test code = 1513) 0-5 /HPF RED BLOOD CELLS (test code = 1514) 0-2 /HPF EPITHELIAL CELLS (test code = 94579) 0-5 /HPF BACTERIA (test code = 1515) NONE SEEN CASTS, HYALINE (test code = 1517) NONE SEEN Tristen HenaoCBC W/AUTO [id number] 00:00:00* Test Item Value Reference Range Interpretation Comme nts WBC (test code = 1001) 8.1 K/UL RBC (test code = 1002) 4.15 M/UL HEMOGLOBIN (test code = 1003) 12.0 G/DL HEMATOCRIT (test code = 1004) 37.8 % MCV (test code = 1005) 91.1 fL MCH (test code = 1006) 28.9 PG MCHC (test code = 1007) 31.7 G/DL RDW (test code = 1038) 13.9 % NEUTROPHILS (test code = 1008) 59.5 % LYMPHOCYTES (test code = 1010) 31.4 % MONOCYTES (test code = 1011) 6.8 % EOSINOPHILS (test code = 1012) 1.4 % BASOPHILS (test code = 1013) 0.7 % IMMATURE GRANULOCYTES (test code = 1036) 0.2 % NUCLEATED RBCS (test code = 1065) 0.0 /100WBC'S PLATELET COUNT (test code = 1015) 229 K/UL ABSOLUTE NEUTROPHILS (test c ode = 1066) 4.79 K/UL ABSOLUTE LYMPHOCYTES (test c ode = 1067) 2.53 K/UL ABSOLUTE MONOCYTES (test cod e = 1068) 0.55 K/UL ABSOLUTE EOSINOPHILS (test c ode = 1040) 0.11 K/UL ABSOLUTE BASOPHILS (test cod e = 1069) 0.06 K/UL ABS IMMATURE GRANULOCYTES (t est code = 1020) 0.02 K/UL ABS NUCLEATED RBCS (test cod e = 80714) 0.00 K/UL Tristen Carlin JulianoLIPID [id number] 00:00:00* Test Item Value Reference Range Interpretation Comme nts CHOLESTEROL (test code = 2210) 161 MG/DL TRIGLYCERIDES (test code = 2232) 119 MG/DL HDL CHOLESTEROL (test code = 2220) 38 MG/DL CALC LDL CHOL (test code = 2237) 101 MG/DL RISK RATIO LDL/HDL (test cod e = 2238) 2.66 RATIO Tristen HenaoCOMPREHENSIVE METABOLIC [id number] 00:00:00* Test Item Value Reference Range Interpretation Comme nts GLUCOSE (test code = 2217) 92 MG/DL BUN (test code = 2208) 12 MG/DL CREATININE (test code = 2214) 1.25 MG/DL eGFR (2020 CKD-EPI) (test co de = 95078) 52 ML/MIN/1.73 CALC BUN/CREAT (test code = 2235) 10 RATIO SODIUM (test code = 2231) 143 MEQ/L POTASSIUM (test code = 2228) 4.1 MEQ/L CHLORIDE (test code = 2215) 107 MEQ/L CARBON DIOXIDE (test code = 2206) 20 MEQ/L CALCIUM (test code = 2209) 9.5 MG/DL PROTEIN, TOTAL (test code = 2229) 7.9 G/DL ALBUMIN (test code = 2201) 4.4 G/DL CALC GLOBULIN (test code = 2240) 3.5 G/DL CALC A/G RATIO (test code = 2234) 1.3 RATIO BILIRUBIN, TOTAL (test code = 2207) 0.2 MG/DL ALKALINE PHOSPHATASE (test code = 2204) 132 U/L AST (test code = 2218) 19 U/L ALT (test code = 2219) 20 U/L Tristen HenaoURINALYSIS W/REFLEX [id number] 00:00:00* Test Item Value Reference Range Interpretation Comme nts COLOR (test code = 1501) YELLOW APPEARANCE (test code = 1502) CLEAR SPECIFIC GRAVITY (test code = 1503) 1.006 LEUKOCYTE ESTERASE (test cod e = 1504) 1+ NITRITE (test code = 1505) NEGATIVE pH (test code = 1506) 6.5 PROTEIN (test code = 1507) NEGATIVE GLUCOSE (test code = 1508) NEGATIVE KETONES (test code = 1509) NEGATIVE UROBILINOGEN (test code = 1510) 0.2 MG/DL BILIRUBIN (test code = 1511) NEGATIVE OCCULT BLOOD (test code = 1512) TRACE WHITE BLOOD CELLS (test code = 1513) 0-5 /HPF RED BLOOD CELLS (test code = 1514) 0-2 /HPF EPITHELIAL CELLS (test code = 12812) 0-5 /HPF BACTERIA (test code = 1515) NONE SEEN CASTS, HYALINE (test code = 1517) NONE SEEN Tristen HenaoCBC W/AUTO [id number] 00:00:00* Test Item Value Reference Range Interpretation Comme nts WBC (test code = 1001) 8.1 K/UL RBC (test code = 1002) 4.15 M/UL HEMOGLOBIN (test code = 1003) 12.0 G/DL HEMATOCRIT (test code = 1004) 37.8 % MCV (test code = 1005) 91.1 fL MCH (test code = 1006) 28.9 PG MCHC (test code = 1007) 31.7 G/DL RDW (test code = 1038) 13.9 % NEUTROPHILS (test code = 1008) 59.5 % LYMPHOCYTES (test code = 1010) 31.4 % MONOCYTES (test code = 1011) 6.8 % EOSINOPHILS (test code = 1012) 1.4 % BASOPHILS (test code = 1013) 0.7 % IMMATURE GRANULOCYTES (test code = 1036) 0.2 % NUCLEATED RBCS (test code = 1065) 0.0 /100WBC'S PLATELET COUNT (test code = 1015) 229 K/UL ABSOLUTE NEUTROPHILS (test c ode = 1066) 4.79 K/UL ABSOLUTE LYMPHOCYTES (test c ode = 1067) 2.53 K/UL ABSOLUTE MONOCYTES (test cod e = 1068) 0.55 K/UL ABSOLUTE EOSINOPHILS (test c ode = 1040) 0.11 K/UL ABSOLUTE BASOPHILS (test cod e = 1069) 0.06 K/UL ABS IMMATURE GRANULOCYTES (t est code = 1020) 0.02 K/UL ABS NUCLEATED RBCS (test cod e = 21741) 0.00 K/UL Tristen Carlin JulianoLIPID [id number] 00:00:00* Test Item Value Reference Range Interpretation Comme nts CHOLESTEROL (test code = 2210) 161 MG/DL TRIGLYCERIDES (test code = 2232) 119 MG/DL HDL CHOLESTEROL (test code = 2220) 38 MG/DL CALC LDL CHOL (test code = 2237) 101 MG/DL RISK RATIO LDL/HDL (test cod e = 2238) 2.66 RATIO Tristen HenaoCOMPREHENSIVE METABOLIC [id number] 00:00:00* Test Item Value Reference Range Interpretation Comme nts GLUCOSE (test code = 2217) 92 MG/DL BUN (test code = 2208) 12 MG/DL CREATININE (test code = 2214) 1.25 MG/DL eGFR (2020 CKD-EPI) (test co de = 99187) 52 ML/MIN/1.73 CALC BUN/CREAT (test code = 2235) 10 RATIO SODIUM (test code = 2231) 143 MEQ/L POTASSIUM (test code = 2228) 4.1 MEQ/L CHLORIDE (test code = 2215) 107 MEQ/L CARBON DIOXIDE (test code = 2206) 20 MEQ/L CALCIUM (test code = 2209) 9.5 MG/DL PROTEIN, TOTAL (test code = 2229) 7.9 G/DL ALBUMIN (test code = 2201) 4.4 G/DL CALC GLOBULIN (test code = 2240) 3.5 G/DL CALC A/G RATIO (test code = 2234) 1.3 RATIO BILIRUBIN, TOTAL (test code = 2207) 0.2 MG/DL ALKALINE PHOSPHATASE (test code = 2204) 132 U/L AST (test code = 2218) 19 U/L ALT (test code = 2219) 20 U/L Tristen HenaoURINALYSIS W/REFLEX [id number] 00:00:00* Test Item Value Reference Range Interpretation Comme nts COLOR (test code = 1501) YELLOW APPEARANCE (test code = 1502) CLEAR SPECIFIC GRAVITY (test code = 1503) 1.006 LEUKOCYTE ESTERASE (test cod e = 1504) 1+ NITRITE (test code = 1505) NEGATIVE pH (test code = 1506) 6.5 PROTEIN (test code = 1507) NEGATIVE GLUCOSE (test code = 1508) NEGATIVE KETONES (test code = 1509) NEGATIVE UROBILINOGEN (test code = 1510) 0.2 MG/DL BILIRUBIN (test code = 1511) NEGATIVE OCCULT BLOOD (test code = 1512) TRACE WHITE BLOOD CELLS (test code = 1513) 0-5 /HPF RED BLOOD CELLS (test code = 1514) 0-2 /HPF EPITHELIAL CELLS (test code = 89510) 0-5 /HPF BACTERIA (test code = 1515) NONE SEEN CASTS, HYALINE (test code = 1517) NONE SEEN Tristen HenaoCBC W/AUTO [id number] 00:00:00* Test Item Value Reference Range Interpretation Comme nts WBC (test code = 1001) 8.1 K/UL RBC (test code = 1002) 4.15 M/UL HEMOGLOBIN (test code = 1003) 12.0 G/DL HEMATOCRIT (test code = 1004) 37.8 % MCV (test code = 1005) 91.1 fL MCH (test code = 1006) 28.9 PG MCHC (test code = 1007) 31.7 G/DL RDW (test code = 1038) 13.9 % NEUTROPHILS (test code = 1008) 59.5 % LYMPHOCYTES (test code = 1010) 31.4 % MONOCYTES (test code = 1011) 6.8 % EOSINOPHILS (test code = 1012) 1.4 % BASOPHILS (test code = 1013) 0.7 % IMMATURE GRANULOCYTES (test code = 1036) 0.2 % NUCLEATED RBCS (test code = 1065) 0.0 /100WBC'S PLATELET COUNT (test code = 1015) 229 K/UL ABSOLUTE NEUTROPHILS (test c ode = 1066) 4.79 K/UL ABSOLUTE LYMPHOCYTES (test c ode = 1067) 2.53 K/UL ABSOLUTE MONOCYTES (test cod e = 1068) 0.55 K/UL ABSOLUTE EOSINOPHILS (test c ode = 1040) 0.11 K/UL ABSOLUTE BASOPHILS (test cod e = 1069) 0.06 K/UL ABS IMMATURE GRANULOCYTES (t est code = 1020) 0.02 K/UL ABS NUCLEATED RBCS (test cod e = 02177) 0.00 K/UL Tristen HenaoLIPID [id number] 00:00:00* Test Item Value Reference Range Interpretation Comme nts CHOLESTEROL (test code = 2210) 161 MG/DL TRIGLYCERIDES (test code = 2232) 119 MG/DL HDL CHOLESTEROL (test code = 2220) 38 MG/DL CALC LDL CHOL (test code = 2237) 101 MG/DL RISK RATIO LDL/HDL (test cod e = 2238) 2.66 RATIO Tristen HenaoCOMPREHENSIVE METABOLIC [id number] 00:00:00* Test Item Value Reference Range Interpretation Comme nts GLUCOSE (test code = 2217) 92 MG/DL BUN (test code = 2208) 12 MG/DL CREATININE (test code = 2214) 1.25 MG/DL eGFR (2020 CKD-EPI) (test co de = 42343) 52 ML/MIN/1.73 CALC BUN/CREAT (test code = 2235) 10 RATIO SODIUM (test code = 2231) 143 MEQ/L POTASSIUM (test code = 2228) 4.1 MEQ/L CHLORIDE (test code = 2215) 107 MEQ/L CARBON DIOXIDE (test code = 2206) 20 MEQ/L CALCIUM (test code = 2209) 9.5 MG/DL PROTEIN, TOTAL (test code = 2229) 7.9 G/DL ALBUMIN (test code = 2201) 4.4 G/DL CALC GLOBULIN (test code = 2240) 3.5 G/DL CALC A/G RATIO (test code = 2234) 1.3 RATIO BILIRUBIN, TOTAL (test code = 2207) 0.2 MG/DL ALKALINE PHOSPHATASE (test code = 2204) 132 U/L AST (test code = 2218) 19 U/L ALT (test code = 2219) 20 U/L Tristen F AustinURINALYSIS W/REFLEX [id number] 00:00:00* Test Item Value Reference Range Interpretation Comme nts COLOR (test code = 1501) YELLOW APPEARANCE (test code = 1502) CLEAR SPECIFIC GRAVITY (test code = 1503) 1.006 LEUKOCYTE ESTERASE (test cod e = 1504) 1+ NITRITE (test code = 1505) NEGATIVE pH (test code = 1506) 6.5 PROTEIN (test code = 1507) NEGATIVE GLUCOSE (test code = 1508) NEGATIVE KETONES (test code = 1509) NEGATIVE UROBILINOGEN (test code = 1510) 0.2 MG/DL BILIRUBIN (test code = 1511) NEGATIVE OCCULT BLOOD (test code = 1512) TRACE WHITE BLOOD CELLS (test code = 1513) 0-5 /HPF RED BLOOD CELLS (test code = 1514) 0-2 /HPF EPITHELIAL CELLS (test code = 42659) 0-5 /HPF BACTERIA (test code = 1515) NONE SEEN CASTS, HYALINE (test code = 1517) NONE SEEN Tristen HenaoCBC W/AUTO [id number] 00:00:00* Test Item Value Reference Range Interpretation Comme nts WBC (test code = 1001) 8.1 K/UL RBC (test code = 1002) 4.15 M/UL HEMOGLOBIN (test code = 1003) 12.0 G/DL HEMATOCRIT (test code = 1004) 37.8 % MCV (test code = 1005) 91.1 fL MCH (test code = 1006) 28.9 PG MCHC (test code = 1007) 31.7 G/DL RDW (test code = 1038) 13.9 % NEUTROPHILS (test code = 1008) 59.5 % LYMPHOCYTES (test code = 1010) 31.4 % MONOCYTES (test code = 1011) 6.8 % EOSINOPHILS (test code = 1012) 1.4 % BASOPHILS (test code = 1013) 0.7 % IMMATURE GRANULOCYTES (test code = 1036) 0.2 % NUCLEATED RBCS (test code = 1065) 0.0 /100WBC'S PLATELET COUNT (test code = 1015) 229 K/UL ABSOLUTE NEUTROPHILS (test c ode = 1066) 4.79 K/UL ABSOLUTE LYMPHOCYTES (test c ode = 1067) 2.53 K/UL ABSOLUTE MONOCYTES (test cod e = 1068) 0.55 K/UL ABSOLUTE EOSINOPHILS (test c ode = 1040) 0.11 K/UL ABSOLUTE BASOPHILS (test cod e = 1069) 0.06 K/UL ABS IMMATURE GRANULOCYTES (t est code = 1020) 0.02 K/UL ABS NUCLEATED RBCS (test cod e = 85984) 0.00 K/UL Tristen Carlin AustinLIPID [id number] 00:00:00* Test Item Value Reference Range Interpretation Comme nts CHOLESTEROL (test code = 2210) 161 MG/DL TRIGLYCERIDES (test code = 2232) 119 MG/DL HDL CHOLESTEROL (test code = 2220) 38 MG/DL CALC LDL CHOL (test code = 2237) 101 MG/DL RISK RATIO LDL/HDL (test cod e = 2238) 2.66 RATIO Tristen HenaoCOMPREHENSIVE METABOLIC [id number] 00:00:00* Test Item Value Reference Range Interpretation Comme nts GLUCOSE (test code = 2217) 92 MG/DL BUN (test code = 2208) 12 MG/DL CREATININE (test code = 2214) 1.25 MG/DL eGFR (2020 CKD-EPI) (test co de = 96958) 52 ML/MIN/1.73 CALC BUN/CREAT (test code = 2235) 10 RATIO SODIUM (test code = 2231) 143 MEQ/L POTASSIUM (test code = 2228) 4.1 MEQ/L CHLORIDE (test code = 2215) 107 MEQ/L CARBON DIOXIDE (test code = 2206) 20 MEQ/L CALCIUM (test code = 2209) 9.5 MG/DL PROTEIN, TOTAL (test code = 2229) 7.9 G/DL ALBUMIN (test code = 2201) 4.4 G/DL CALC GLOBULIN (test code = 2240) 3.5 G/DL CALC A/G RATIO (test code = 2234) 1.3 RATIO BILIRUBIN, TOTAL (test code = 2207) 0.2 MG/DL ALKALINE PHOSPHATASE (test code = 2204) 132 U/L AST (test code = 2218) 19 U/L ALT (test code = 2219) 20 U/L Tristen Carlin AustinURINALYSIS W/REFLEX [id number] 00:00:00* Test Item Value Reference Range Interpretation Comme nts COLOR (test code = 1501) YELLOW APPEARANCE (test code = 1502) CLEAR SPECIFIC GRAVITY (test code = 1503) 1.006 LEUKOCYTE ESTERASE (test cod e = 1504) 1+ NITRITE (test code = 1505) NEGATIVE pH (test code = 1506) 6.5 PROTEIN (test code = 1507) NEGATIVE GLUCOSE (test code = 1508) NEGATIVE KETONES (test code = 1509) NEGATIVE UROBILINOGEN (test code = 1510) 0.2 MG/DL BILIRUBIN (test code = 1511) NEGATIVE OCCULT BLOOD (test code = 1512) TRACE WHITE BLOOD CELLS (test code = 1513) 0-5 /HPF RED BLOOD CELLS (test code = 1514) 0-2 /HPF EPITHELIAL CELLS (test code = 69905) 0-5 /HPF BACTERIA (test code = 1515) NONE SEEN CASTS, HYALINE (test code = 1517) NONE SEEN Tristen Carlin [facility] W/AUTO [id number] 00:00:00* Test Item Value Reference Range Interpretation Comme nts WBC (test code = 1001) 8.1 K/UL RBC (test code = 1002) 4.15 M/UL HEMOGLOBIN (test code = 1003) 12.0 G/DL HEMATOCRIT (test code = 1004) 37.8 % MCV (test code = 1005) 91.1 fL MCH (test code = 1006) 28.9 PG MCHC (test code = 1007) 31.7 G/DL RDW (test code = 1038) 13.9 % NEUTROPHILS (test code = 1008) 59.5 % LYMPHOCYTES (test code = 1010) 31.4 % MONOCYTES (test code = 1011) 6.8 % EOSINOPHILS (test code = 1012) 1.4 % BASOPHILS (test code = 1013) 0.7 % IMMATURE GRANULOCYTES (test code = 1036) 0.2 % NUCLEATED RBCS (test code = 1065) 0.0 /100WBC'S PLATELET COUNT (test code = 1015) 229 K/UL ABSOLUTE NEUTROPHILS (test c ode = 1066) 4.79 K/UL ABSOLUTE LYMPHOCYTES (test c ode = 1067) 2.53 K/UL ABSOLUTE MONOCYTES (test cod e = 1068) 0.55 K/UL ABSOLUTE EOSINOPHILS (test c ode = 1040) 0.11 K/UL ABSOLUTE BASOPHILS (test cod e = 1069) 0.06 K/UL ABS IMMATURE GRANULOCYTES (t est code = 1020) 0.02 K/UL ABS NUCLEATED RBCS (test cod e = 63868) 0.00 K/UL Tristen Carlin AustinLIPID [id number] 00:00:00* Test Item Value Reference Range Interpretation Comme nts CHOLESTEROL (test code = 2210) 161 MG/DL TRIGLYCERIDES (test code = 2232) 119 MG/DL HDL CHOLESTEROL (test code = 2220) 38 MG/DL CALC LDL CHOL (test code = 2237) 101 MG/DL RISK RATIO LDL/HDL (test cod e = 2238) 2.66 RATIO Tristen HenaoCOMPREHENSIVE METABOLIC [id number] 00:00:00* Test Item Value Reference Range Interpretation Comme nts GLUCOSE (test code = 2217) 92 MG/DL BUN (test code = 2208) 12 MG/DL CREATININE (test code = 2214) 1.25 MG/DL eGFR (2020 CKD-EPI) (test co de = 25533) 52 ML/MIN/1.73 CALC BUN/CREAT (test code = 2235) 10 RATIO SODIUM (test code = 2231) 143 MEQ/L POTASSIUM (test code = 2228) 4.1 MEQ/L CHLORIDE (test code = 2215) 107 MEQ/L CARBON DIOXIDE (test code = 2206) 20 MEQ/L CALCIUM (test code = 2209) 9.5 MG/DL PROTEIN, TOTAL (test code = 2229) 7.9 G/DL ALBUMIN (test code = 2201) 4.4 G/DL CALC GLOBULIN (test code = 2240) 3.5 G/DL CALC A/G RATIO (test code = 2234) 1.3 RATIO BILIRUBIN, TOTAL (test code = 2207) 0.2 MG/DL ALKALINE PHOSPHATASE (test code = 2204) 132 U/L AST (test code = 2218) 19 U/L ALT (test code = 2219) 20 U/L Tristen Carlin AustinURINALYSIS W/REFLEX [id number] 00:00:00* Test Item Value Reference Range Interpretation Comme nts COLOR (test code = 1501) YELLOW APPEARANCE (test code = 1502) CLEAR SPECIFIC GRAVITY (test code = 1503) 1.006 LEUKOCYTE ESTERASE (test cod e = 1504) 1+ NITRITE (test code = 1505) NEGATIVE pH (test code = 1506) 6.5 PROTEIN (test code = 1507) NEGATIVE GLUCOSE (test code = 1508) NEGATIVE KETONES (test code = 1509) NEGATIVE UROBILINOGEN (test code = 1510) 0.2 MG/DL BILIRUBIN (test code = 1511) NEGATIVE OCCULT BLOOD (test code = 1512) TRACE WHITE BLOOD CELLS (test code = 1513) 0-5 /HPF RED BLOOD CELLS (test code = 1514) 0-2 /HPF EPITHELIAL CELLS (test code = 58290) 0-5 /HPF BACTERIA (test code = 1515) NONE SEEN CASTS, HYALINE (test code = 1517) NONE SEEN Tristen Carlin [facility] W/AUTO [id number] 00:00:00* Test Item Value Reference Range Interpretation Comme nts WBC (test code = 1001) 8.1 K/UL RBC (test code = 1002) 4.15 M/UL HEMOGLOBIN (test code = 1003) 12.0 G/DL HEMATOCRIT (test code = 1004) 37.8 % MCV (test code = 1005) 91.1 fL MCH (test code = 1006) 28.9 PG MCHC (test code = 1007) 31.7 G/DL RDW (test code = 1038) 13.9 % NEUTROPHILS (test code = 1008) 59.5 % LYMPHOCYTES (test code = 1010) 31.4 % MONOCYTES (test code = 1011) 6.8 % EOSINOPHILS (test code = 1012) 1.4 % BASOPHILS (test code = 1013) 0.7 % IMMATURE GRANULOCYTES (test code = 1036) 0.2 % NUCLEATED RBCS (test code = 1065) 0.0 /100WBC'S PLATELET COUNT (test code = 1015) 229 K/UL ABSOLUTE NEUTROPHILS (test c ode = 1066) 4.79 K/UL ABSOLUTE LYMPHOCYTES (test c ode = 1067) 2.53 K/UL ABSOLUTE MONOCYTES (test cod e = 1068) 0.55 K/UL ABSOLUTE EOSINOPHILS (test c ode = 1040) 0.11 K/UL ABSOLUTE BASOPHILS (test cod e = 1069) 0.06 K/UL ABS IMMATURE GRANULOCYTES (t est code = 1020) 0.02 K/UL ABS NUCLEATED RBCS (test cod e = 21138) 0.00 K/UL Tristen HenaoLIPID [id number] 00:00:00* Test Item Value Reference Range Interpretation Comme nts CHOLESTEROL (test code = 2210) 161 MG/DL TRIGLYCERIDES (test code = 2232) 119 MG/DL HDL CHOLESTEROL (test code = 2220) 38 MG/DL CALC LDL CHOL (test code = 2237) 101 MG/DL RISK RATIO LDL/HDL (test cod e = 2238) 2.66 RATIO Tristen HenaoCOMPREHENSIVE METABOLIC [id number] 00:00:00* Test Item Value Reference Range Interpretation Comme nts GLUCOSE (test code = 2217) 92 MG/DL BUN (test code = 2208) 10 MG/DL CREATININE (test code = 2214) 1.21 MG/DL eGFR (2020 CKD-EPI) (test co de = 12756) 54 ML/MIN/1.73 CALC BUN/CREAT (test code = 2235) 8 RATIO SODIUM (test code = 2231) 141 MEQ/L POTASSIUM (test code = 2228) 3.6 MEQ/L CHLORIDE (test code = 2215) 106 MEQ/L CARBON DIOXIDE (test code = 2206) 20 MEQ/L CALCIUM (test code = 2209) 9.5 MG/DL PROTEIN, TOTAL (test code = 2229) 7.9 G/DL ALBUMIN (test code = 2201) 4.1 G/DL CALC GLOBULIN (test code = 2240) 3.8 G/DL CALC A/G RATIO (test code = 2234) 1.1 RATIO BILIRUBIN, TOTAL (test code = 2207) <0.2 MG/DL ALKALINE PHOSPHATASE (test code = 2204) 109 U/L AST (test code = 2218) 20 U/L ALT (test code = 2219) 15 U/L Tristen HenaoCOMPREHENSIVE METABOLIC [id number] 00:00:00* Test Item Value Reference Range Interpretation Comme nts GLUCOSE (test code = 2217) 92 MG/DL BUN (test code = 2208) 10 MG/DL CREATININE (test code = 2214) 1.21 MG/DL eGFR (2020 CKD-EPI) (test co de = 09030) 54 ML/MIN/1.73 CALC BUN/CREAT (test code = 2235) 8 RATIO SODIUM (test code = 2231) 141 MEQ/L POTASSIUM (test code = 2228) 3.6 MEQ/L CHLORIDE (test code = 2215) 106 MEQ/L CARBON DIOXIDE (test code = 2206) 20 MEQ/L CALCIUM (test code = 2209) 9.5 MG/DL PROTEIN, TOTAL (test code = 2229) 7.9 G/DL ALBUMIN (test code = 2201) 4.1 G/DL CALC GLOBULIN (test code = 2240) 3.8 G/DL CALC A/G RATIO (test code = 2234) 1.1 RATIO BILIRUBIN, TOTAL (test code = 2207) <0.2 MG/DL ALKALINE PHOSPHATASE (test code = 2204) 109 U/L AST (test code = 2218) 20 U/L ALT (test code = 2219) 15 U/L [facility]lin [facility] [id number] 00:00:00* Test Item Value Reference Range Interpretation Comme nts GLUCOSE (test code = 2217) 92 MG/DL BUN (test code = 2208) 10 MG/DL CREATININE (test code = 2214) 1.21 MG/DL eGFR (2020 CKD-EPI) (test co de = 85875) 54 ML/MIN/1.73 CALC BUN/CREAT (test code = 2235) 8 RATIO SODIUM (test code = 2231) 141 MEQ/L POTASSIUM (test code = 2228) 3.6 MEQ/L CHLORIDE (test code = 2215) 106 MEQ/L CARBON DIOXIDE (test code = 2206) 20 MEQ/L CALCIUM (test code = 2209) 9.5 MG/DL PROTEIN, TOTAL (test code = 2229) 7.9 G/DL ALBUMIN (test code = 2201) 4.1 G/DL CALC GLOBULIN (test code = 2240) 3.8 G/DL CALC A/G RATIO (test code = 2234) 1.1 RATIO BILIRUBIN, TOTAL (test code = 2207) <0.2 MG/DL ALKALINE PHOSPHATASE (test code = 2204) 109 U/L AST (test code = 2218) 20 U/L ALT (test code = 2219) 15 U/L Tristen F FarmersvilleCOMPREHENSIVE METABOLIC [id number] 00:00:00* Test Item Value Reference Range Interpretation Comme nts GLUCOSE (test code = 2217) 92 MG/DL BUN (test code = 2208) 10 MG/DL CREATININE (test code = 2214) 1.21 MG/DL eGFR (2020 CKD-EPI) (test co de = 48531) 54 ML/MIN/1.73 CALC BUN/CREAT (test code = 2235) 8 RATIO SODIUM (test code = 2231) 141 MEQ/L POTASSIUM (test code = 2228) 3.6 MEQ/L CHLORIDE (test code = 2215) 106 MEQ/L CARBON DIOXIDE (test code = 2206) 20 MEQ/L CALCIUM (test code = 2209) 9.5 MG/DL PROTEIN, TOTAL (test code = 2229) 7.9 G/DL ALBUMIN (test code = 2201) 4.1 G/DL CALC GLOBULIN (test code = 2240) 3.8 G/DL CALC A/G RATIO (test code = 2234) 1.1 RATIO BILIRUBIN, TOTAL (test code = 2207) <0.2 MG/DL ALKALINE PHOSPHATASE (test code = 2204) 109 U/L AST (test code = 2218) 20 U/L ALT (test code = 2219) 15 U/L Trisetn Tesfaye JulianoCOMPREHENSIVE METABOLIC [id number] 00:00:00* Test Item Value Reference Range Interpretation Comme nts GLUCOSE (test code = 2217) 92 MG/DL BUN (test code = 2208) 10 MG/DL CREATININE (test code = 2214) 1.21 MG/DL eGFR (2020 CKD-EPI) (test co de = 32125) 54 ML/MIN/1.73 CALC BUN/CREAT (test code = 2235) 8 RATIO SODIUM (test code = 2231) 141 MEQ/L POTASSIUM (test code = 2228) 3.6 MEQ/L CHLORIDE (test code = 2215) 106 MEQ/L CARBON DIOXIDE (test code = 2206) 20 MEQ/L CALCIUM (test code = 2209) 9.5 MG/DL PROTEIN, TOTAL (test code = 2229) 7.9 G/DL ALBUMIN (test code = 2201) 4.1 G/DL CALC GLOBULIN (test code = 2240) 3.8 G/DL CALC A/G RATIO (test code = 2234) 1.1 RATIO BILIRUBIN, TOTAL (test code = 2207) <0.2 MG/DL ALKALINE PHOSPHATASE (test code = 2204) 109 U/L AST (test code = 2218) 20 U/L ALT (test code = 2219) 15 U/L Tristen Carlin FarmersvilleCOMPREHENSIVE METABOLIC [id number] 00:00:00* Test Item Value Reference Range Interpretation Comme nts GLUCOSE (test code = 2217) 92 MG/DL BUN (test code = 2208) 10 MG/DL CREATININE (test code = 2214) 1.21 MG/DL eGFR (2020 CKD-EPI) (test co de = 06578) 54 ML/MIN/1.73 CALC BUN/CREAT (test code = 2235) 8 RATIO SODIUM (test code = 2231) 141 MEQ/L POTASSIUM (test code = 2228) 3.6 MEQ/L CHLORIDE (test code = 2215) 106 MEQ/L CARBON DIOXIDE (test code = 2206) 20 MEQ/L CALCIUM (test code = 2209) 9.5 MG/DL PROTEIN, TOTAL (test code = 2229) 7.9 G/DL ALBUMIN (test code = 2201) 4.1 G/DL CALC GLOBULIN (test code = 2240) 3.8 G/DL CALC A/G RATIO (test code = 2234) 1.1 RATIO BILIRUBIN, TOTAL (test code = 2207) <0.2 MG/DL ALKALINE PHOSPHATASE (test code = 2204) 109 U/L AST (test code = 2218) 20 U/L ALT (test code = 2219) 15 U/L Tristen Carlin [place]villeCOMPREHENSIVE METABOLIC [id number] 00:00:00* Test Item Value Reference Range Interpretation Comme nts GLUCOSE (test code = 2217) 92 MG/DL BUN (test code = 2208) 10 MG/DL CREATININE (test code = 2214) 1.21 MG/DL eGFR (2020 CKD-EPI) (test co de = 05607) 54 ML/MIN/1.73 CALC BUN/CREAT (test code = 2235) 8 RATIO SODIUM (test code = 2231) 141 MEQ/L POTASSIUM (test code = 2228) 3.6 MEQ/L CHLORIDE (test code = 2215) 106 MEQ/L CARBON DIOXIDE (test code = 2206) 20 MEQ/L CALCIUM (test code = 2209) 9.5 MG/DL PROTEIN, TOTAL (test code = 2229) 7.9 G/DL ALBUMIN (test code = 2201) 4.1 G/DL CALC GLOBULIN (test code = 2240) 3.8 G/DL CALC A/G RATIO (test code = 2234) 1.1 RATIO BILIRUBIN, TOTAL (test code = 2207) <0.2 MG/DL ALKALINE PHOSPHATASE (test code = 2204) 109 U/L AST (test code = 2218) 20 U/L ALT (test code = 2219) 15 U/L Tristen HenaoCOMPREHENSIVE METABOLIC [id number] 00:00:00* Test Item Value Reference Range Interpretation Comme nts GLUCOSE (test code = 2217) 92 MG/DL BUN (test code = 2208) 10 MG/DL CREATININE (test code = 2214) 1.21 MG/DL eGFR (2020 CKD-EPI) (test co de = 70679) 54 ML/MIN/1.73 CALC BUN/CREAT (test code = 2235) 8 RATIO SODIUM (test code = 2231) 141 MEQ/L POTASSIUM (test code = 2228) 3.6 MEQ/L CHLORIDE (test code = 2215) 106 MEQ/L CARBON DIOXIDE (test code = 2206) 20 MEQ/L CALCIUM (test code = 2209) 9.5 MG/DL PROTEIN, TOTAL (test code = 2229) 7.9 G/DL ALBUMIN (test code = 2201) 4.1 G/DL CALC GLOBULIN (test code = 2240) 3.8 G/DL CALC A/G RATIO (test code = 2234) 1.1 RATIO BILIRUBIN, TOTAL (test code = 2207) <0.2 MG/DL ALKALINE PHOSPHATASE (test code = 2204) 109 U/L AST (test code = 2218) 20 U/L ALT (test code = 2219) 15 U/L Tristen Tesfaye Juliano Notes Date/Time Note Provider Source Tristen CarlinKenji [facility]2024-10-25 00:00:00 Tristen FKenji [facility]2024-10-15 00:00:00 Tristen TesfayeKenji [facility]2024-09-19 00:00:00 Tristen TesfayeKenji [facility]2024-07-23 00:00:00 Tristen FKenji [facility]2024-07-17 [facility]21 [facility]:00:00 [facility]2024-04-17 00:00:00 [facility]
[2023-12-14] MEDS ORDERED: levoFLOXacin 250 MG TAB ONE (16:17)
[2023-12-14] MEDS ORDERED: NA CHLORIDE 0.9% 1,000 ML ONE (16:18)
[2023-12-14 16:34] LABS: Absolute Basophils 0.1 K/uL (0-0.5); Absolute Eosinophils 0.1 K/uL (0-0.5); Absolute Monocytes 0.7 K/uL (0.1-1.3); Absolute Neutrophil 6.8 K/uL (1.8-8.0); Basophils % 1.1 % (0-1.3); Eosinophils % 0.9 % (0-4.4); Hematocrit 31.2 % (36.0-45.0); Hemoglobin 10.3 g/dL (12.0-15.0); Lymphocytes % 28.1 % (15.3-44.8); MCH 30.1 pg (27.0-35.0); MCHC 32.8 g/dL (32.0-36.0); MCV 91.5 fL (80-100); MPV 7.5 fL (7.6-11.3); Monocytes % 6.9 % (3.3-12.3); Platelets 327 thou/uL (152-406); RBC Red Blood Cell Count 3.41 M/uL (3.86-4.86); Red Cell Distribution Width 15.3 % (12.1-15.2)
[2023-12-14 16:38] LABS: PT Prothrombin Time 12.6 SECONDS (9.4-12.5); Protime INR 1.13
--- NOTE | 2023-12-14 16:42 | RAD REPORT ---
Procedure: Chest Single View HISTORY: Shortness of breath COMPARISON: 2010 FINDINGS: The lungs appear clear of acute infiltrate. No significant pleural effusion noted. The heart is normal size. IMPRESSION: No acute abnormality is displayed.
--- NOTE | 2023-12-14 16:47 | RAD REPORT ---
EXAMINATION: Tib Fib Left CLINICAL INDICATION: Leg pain FINDINGS: Soft tissue swelling. No fracture seen. No bony destructive lesion noted.
--- NOTE | 2023-12-14 16:51 | RAD REPORT ---
EXAMINATION: US bilateral LOWER EXTREMITY VENOUS DOPPLER CLINICAL INDICATION: Leg pain TECHNIQUE: Sonographic evaluation of the veins of the lower extremity bilaterally formed.Grayscale, c olor and spectral analysis performed on all vessels COMPARISON: 2017 FINDINGS: The common femoral, superficial femoral, greater saphenous, popliteal and posterior tibial veins bila terally are compressible and demonstrate augmentation. Doppler demonstrates good flow. IMPRESSION: No evidence of deep venous thrombosis involving either lower extremity
[2023-12-14 16:53] LABS: Albumin 3.4 g/dL (3.4-5.0); Albumin/Globulin Ratio 0.7 (1.1-1.8); Anion Gap 9.9 mEq/L (5.0-15.0); Bilirubin Total 0.4 mg/dL (0.2-1.0); Globulin 4.8 g/dL (2.3-3.5); Potassium 3.9 mEq/L (3.5-5.1); Protein, Total 8.2 g/dL (6.4-8.2)
--- NOTE | 2023-12-14 17:33 | ER ---
Nurse's Notes [facility] Name: Krystin Giron Age: 53 yrs Sex: Female : 1970 Arrival Date: 12/14/2023 Time: 12:04 Bed 6 Private MD: Diagnosis: Venous insufficiency (chronic) (peripheral);Cellulitis of left lower limb Presentation: 12/13 12:33 Chief complaint: Patient states: "I started getting blisters on my left leg on aa5 October 14 and it's getting worse since then and the drainage too". Coronavirus screen: At this time, the client does not indicate any symptoms associated with coronavirus-19. Ebola Screen: Patient denies travel to an Ebola-affected area in the 21 days before illness onset. Initial Sepsis Screen: Does the patient meet any 2 criteria? No. Patient's initial sepsis screen is negative. Does the patient have a suspected source of infection? No. Patient's initial sepsis screen is negative. Risk Assessment: Do you want to hurt yourself or someone else? Patient reports no desire to harm self or others. Onset of symptoms was October 15, 2023. 12:33 Acuity: ALFRED 3 aa5 12:33 Method Of Arrival: Ambulatory aa5 Triage Assessment: 17:30 General: Appears in no apparent distress. Behavior is calm, cooperative, appropriate ko1 for age. Pain: Denies pain. SET UP MECHANIC AUTOMATIC LINE: 18:01 LMP N/A - Post-menopause, Not ko1 Historical: - Allergies: 12:32 No Known Allergies; aa5 - Home Meds: 12:35 bupropion HCl 100 mg oral tablet once [Active]; chlorothiazide 25mg daily Oral aa5 suspension [Active]; losartan 100 mg oral tablet daily [Active]; metoprolol succinate 50 mg oral Tablet, Extended Release 24 hr daily [Active]; spironolactone 25 mg Oral tablet [Active]; omeprazole 20 mg Oral capsule,delayed release (e.c.) [Active]; medroxyprogesterone Injection every 3 months [Active]; - PMHx: 12:32 Kidney disease; Hypertensive disorder; aa5 12:35 leg swelling; aa5 - PSHx: 12:35 Cholecystectomy; aa5 - Immunization history:: Adult Immunizations unknown. - Infectious Disease History:: Denies. - Social history:: Smoking status: Patient denies any tobacco usage or history of. - Family history:: not pertinent. Screenin:48 [facility] ED Fall Risk Assessment (Adult) History of falling in the last 3 months, ko1 including since admission No falls in past 3 months (0 pts) Confusion or Disorientation No (0 pts) Intoxicated or Sedated No (0 pts) Impaired Gait Yes (1 pt) Mobility Assist Device Used No (0 pt) Altered Elimination No (0 pt) Score/Fall Risk Level 0 - 2 = Low Risk Oriented to surroundings, Maintained a safe environment, Educated pt \\T\\ family on fall prevention, incl call for assistance when getting out of bed, Assessed \\T\\ reinforced patient's understanding of fall precautions, Hourly rounding (assess needs \\T\\ fall precautionary measures) done. Abuse screen: Denies threats or abuse. Denies injuries from another. Nutritional screening: No deficits noted. Tuberculosis screening: No symptoms or risk factors identified. Vital Signs: 12:33 BP 154 / 69; Pulse 94; Resp 18 S; Temp 98.3(O); Pulse Ox 100% on R/A; Weight 117.93 kg aa5 (R); Height 5 ft. 7 in. (R); 17:53 BP 148 / 72; Pulse 89; Resp 15; Pulse Ox 100% ; ko1 12:33 Body Mass Index 40.72 (117.93 kg, 170.18 cm) aa5 ED Course: 12:08 Patient arrived in ED. mg5 12:08 Maurice Cruz MD is Attending Physician. sofie 12:32 Arm band placed on. aa5 12:35 Triage completed. aa5 15:01 Deisy Dill, RN is Primary Nurse. ko1 16:26 Initial lab(s) drawn, by in, sent to lab. Inserted saline lock: 20 gauge in right zm antecubital area, using aseptic technique. Blood collected. Flushed with 10 mL NS. 16:26 Comprehensive Metabolic Panel Sent. zm 16:26 BNP Sent. zm 16:26 CBC with Diff Sent. zm 16:26 PT-INR Sent. zm 16:34 Chest Single View XRAY In Process Unspecified. EDMS 16:34 Tib Fib Left XRAY In Process Unspecified. EDMS 16:37 Deisy Dill, RN is Primary Nurse. ko1 16:47 US Extremity Venous W Compression Fortino In Process Unspecified. EDDE 17:33 Zachary Chandra MD is Referral Physician. [facility] 17:48 Patient has correct armband on for positive identification. Bed in low position. Call ko1 light in reach. Side rails up X 1. Provided Education on: meds. Pulse ox on. NIBP on. Door closed. Noise minimized. Lights dimmed. Warm blanket given. Pillow given. 17:48 No provider procedures requiring assistance completed. IV discontinued, intact, ko1 bleeding controlled, No redness/swelling at site. Pressure dressing applied. Wound care: to blisters to leg. 17:52 Wound care: to located on left leg and left garcia was cleaned with Hibiclens, dressed ko1 with 4X4s, Kerlix, Vaseline gauze, Patient tolerated well. Administered Medications: 16:23 Drug: NS 0.9% IV 1000 ml IV at 75 ml/hr continuous Route: IV; Rate: 75 ml/hr; Site: ko1 right antecubital; 17:40 Follow up: Response: No adverse reaction; IV Status: Completed infusion; IV Intake: ko1 220ml 16:23 Drug: LevOfloxacin PO 500 mg PO once Route: PO; ko1 16:53 Follow up: Response: No adverse reaction ko1 Medication: 17:48 VIS not applicable for this client. ko1 Intake: 17:40 IV: 220ml; Total: 220ml. ko1 Outcome: 17:33 Discharge ordered by . [facility] 17:53 Discharged to home ambulatory, with family, ko1 17:53 Condition: stable 17:53 Discharge instructions given to patient, family, Instructed on discharge instructions, follow up and referral plans. medication usage, wound care, Demonstrated understanding of instructions, follow-up care, medications, wound care, Prescriptions given X 3, 18:02 Patient left the ED. ko1 Signatures: Dispatcher [employer] EDDE Maurice Cruz MD MD cha Calderon, Audri, RN RN parrish5 Trini Lewis Kathy, RN RN ko1 Maranda Valdez mg5
--- NOTE | 2023-12-14 17:34 | EDPHYS ---
Physician Documentation [facility] Name: Krystin Giron Age: 53 yrs Sex: Female : 1970 Arrival Date: 12/14/2023 Time: 12:04 Bed 6 Private MD: RACHELL Physician Maurice Cruz HPI: 12/13 16:38 This 53 yrs old Female presents to ER via Ambulatory with complaints of sofie Blisters. 16:38 The patient presents with pain, that is chronic. The complaints affect the left garcia. sofie Context: The problem was sustained inside. Onset: The symptoms/episode began/occurred 7 day(s) ago. Modifying factors: The symptoms are alleviated by nothing. remaining still, the symptoms are aggravated by movement. Associated signs and symptoms: The patient has no apparent associated signs or symptoms. Severity of symptoms: At their worst the symptoms were very mild, in the emergency department the symptoms are unchanged. The patient has experienced similar episodes in the past, multiple times. 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 N/A - Post-menopause, Not ko1 Historical: - Allergies: 12:32 No Known Allergies; aa5 - Home Meds: 12:35 bupropion HCl 100 mg oral tablet once [Active]; chlorothiazide 25mg daily Oral aa5 suspension [Active]; losartan 100 mg oral tablet daily [Active]; metoprolol succinate 50 mg oral Tablet, Extended Release 24 hr daily [Active]; spironolactone 25 mg Oral tablet [Active]; omeprazole 20 mg Oral capsule,delayed release (e.c.) [Active]; medroxyprogesterone Injection every 3 months [Active]; - PMHx: 12:32 Kidney disease; Hypertensive disorder; aa5 12:35 leg swelling; aa5 - PSHx: 12:35 Cholecystectomy; aa5 - Immunization history:: Adult Immunizations unknown. - Infectious Disease History:: Denies. - Social history:: Smoking status: Patient denies any tobacco usage or history of. - Family history:: not pertinent. ROS: 16:38 Constitutional: Negative for fever, chills, and weight loss, Eyes: Negative for injury, sofie pain, redness, and discharge, ENT: Negative for injury, pain, and discharge, Neck: Negative for injury, pain, and swelling, Cardiovascular: Negative for chest pain, palpitations, and edema, Respiratory: Negative for shortness of breath, cough, wheezing, and pleuritic chest pain, Abdomen/GI: Negative for abdominal pain, nausea, vomiting, diarrhea, and constipation, Back: Negative for injury and pain, : Negative for injury, bleeding, discharge, and swelling, Neuro: Negative for headache, weakness, numbness, tingling, and seizure, Psych: Negative for depression, anxiety, suicide ideation, homicidal ideation, and hallucinations, Allergy/Immunology: Negative for hives, rash, and allergies, Endocrine: Negative for neck swelling, polydipsia, polyuria, polyphagia, and marked weight changes, Hematologic/Lymphatic: Negative for swollen nodes, abnormal bleeding, and unusual bruising, 16:38 MS/extremity: Positive for erythema, pain, of the left garcia, Exam: 16:38 Constitutional: This is a well developed, well nourished patient who is awake, alert, sofie and in no acute distress. Head/Face: Normocephalic, atraumatic. Eyes: Pupils equal round and reactive to light, extra-ocular motions intact. Lids and lashes normal. Conjunctiva and sclera are non-icteric and not injected. Cornea within normal limits. Periorbital areas with no swelling, redness, or edema. ENT: Nares patent. No nasal discharge, no septal abnormalities noted. Tympanic membranes are normal and external auditory canals are clear. Oropharynx with no redness, swelling, or masses, exudates, or evidence of obstruction, uvula midline. Mucous membranes moist. Neck: Trachea midline, no thyromegaly or masses palpated, and no cervical lymphadenopathy. Supple, full range of motion without nuchal rigidity, or vertebral point tenderness. No Meningismus. Chest/axilla: Normal chest wall appearance and motion. Nontender with no deformity. No lesions are appreciated. Cardiovascular: Regular rate and rhythm with a normal S1 and S2. No gallops, murmurs, or rubs. Normal PMI, no JVD. No pulse deficits. Respiratory: Lungs have equal breath sounds bilaterally, clear to auscultation and percussion. No rales, rhonchi or wheezes noted. No increased work of breathing, no retractions or nasal flaring. Abdomen/GI: Soft, non-tender, with normal bowel sounds. No distension or tympany. No guarding or rebound. No evidence of tenderness throughout. Back: No spinal tenderness. No costovertebral tenderness. Full range of motion. Skin: Warm, dry with normal turgor. Normal color with no rashes, no lesions, and no evidence of cellulitis. Neuro: Awake and alert, GCS 15, oriented to person, place, time, and situation. Cranial nerves II-XII grossly intact. Motor strength 5/5 in all extremities. Sensory grossly intact. Cerebellar exam normal. Normal gait. Psych: Awake, alert, with orientation to person, place and time. Behavior, mood, and affect are within normal limits. 16:38 Musculoskeletal/extremity: ROM: full active range of motion, full passive range of motion, Circulation is intact in all extremities. Sensation intact. Compartment Syndrome exam of affected extremity: is normal. Weight bearing: able to fully bear weight, DVT Exam: swelling, that is moderate, of the left leg, 16:38 Skin: Appearance: normal except for affected area, cellulitis, that is minimal, induration, is not appreciated, injury, is not appreciated, no rash present. Vital Signs: 12:33 BP 154 / 69; Pulse 94; Resp 18 S; Temp 98.3(O); Pulse Ox 100% on R/A; Weight 117.93 kg aa5 (R); Height 5 ft. 7 in. (R); 17:53 BP 148 / 72; Pulse 89; Resp 15; Pulse Ox 100% ; ko1 12:33 Body Mass Index 40.72 (117.93 kg, 170.18 cm) aa5 MDM: 12:08 Medical Screening Exam initiated [facility] 16:41 Differential diagnosis: contusion, abrasion, tendonitis. Data reviewed: vital signs, [facility] nurses notes, lab test result(s), radiologic studies, doppler, plain films. Consideration of Admission/Observation Escalation of care including admission/observation considered. I considered the following discharge prescriptions or medication management in the emergency department Medications were administered in the Emergency Department. See MAR. Independent interpretation of the following test(s) in the Emergency Department X-Ray: My interpretation is LEFT TIB FIB. Test considered but Not performed: MRI: NO MRI. Historians other than the Patient: PT AND DAUGHTER WELL INFORMED. Care significantly affected by the following chronic conditions: Hypertension, Obesity, Chronic Kidney Disease. 12/13 16:00 Order name: CBC with Diff; Complete Time: 16:41 [facility] 12/13 16:00 Order name: Comprehensive Metabolic Panel; Complete Time: 17:32 [facility] 12/13 16:00 Order name: BNP; Complete Time: 17:32 [facility] 12/13 16:00 Order name: PT-INR; Complete Time: 16:41 [facility] 12/13 16:00 Order name: Chest Single View XRAY; Complete Time: 17:32 [facility] 12/13 16:00 Order name: US Extremity Venous W Compression [place]; Complete Time: 17:32 [facility] 12/13 16:02 Order name: Tib Fib Left XRAY; Complete Time: 17:32 [facility] 12/13 16:00 Order name: Wound Care; Complete Time: 17:41 [facility] Administered Medications: 16:23 Drug: NS 0.9% IV 1000 ml IV at 75 ml/hr continuous Route: IV; Rate: 75 ml/hr; Site: ko1 right antecubital; 17:40 Follow up: Response: No adverse reaction; IV Status: Completed infusion; IV Intake: ko1 220ml 16:23 Drug: LevOfloxacin PO 500 mg PO once Route: PO; ko1 16:53 Follow up: Response: No adverse reaction ko1 Disposition Summary: 12/14/23 17:33 Discharge Ordered Notes: Location: Home [facility] Problem: new sofie Symptoms: have improved sofie Condition: Stable sofie Diagnosis - Venous insufficiency (chronic) (peripheral) sofie - Cellulitis of left lower limb sofie Followup: sofie - With: Private Physician - When: 2 - 3 days - Reason: Recheck today's complaints, Continuance of care, Re-evaluation by your physician Followup: sofie - With: Zachary Chandra MD - When: 5 - 6 days - Reason: Recheck today's complaints, Re-evaluation by your physician Discharge Instructions: - Discharge Summary Sheet sofie - Cellulitis, Adult sofie - Venous Ulcer sofie - Cellulitis, Adult, [id number] sofie - Chronic Venous Insufficiency osfie - Lymphangitis, Adult [facility] Forms: - Medication Reconciliation Form [facility] - Antibiotic Education sofie - Prescription Opioid Use sofie - Patient Portal Instructions [facility] - Leadership Thank You Letter [facility] Prescriptions: - Silvadene 1 % Topical cream - Apply to affected area 1 application TOPICAL route every 12 hours; 50 gram; [facility] Refills: 0, Product Selection Permitted - Bactrim DS 800-160 mg Oral Tablet - take 1 tablet ORAL route every 12 hours for 7 days; 14 tablet; Refills: 0, sofie Product Selection Permitted - levofloxacin 250 mg Oral tablet - take 1 tablet ORAL route once daily; 7 tablet; Refills: 0, Product Selection [facility] Permitted Signatures: Dispatcher [employer] Maurice Abbasi MD MD cha Calderon, Audri, RN RN aa5 Deisy Dill RN RN ko1
[2023-12-14 18:56] VITALS: TEMP 98.3; O2SAT 100
[2023-12-14 18:57] VITALS: BP 148/72
== END 2023-12-14 18:02 | disposition home or self-care (01) ==
LOC: ER 12:04
DX: L03.116 Cellulitis of left lower limb (principal); I87.2 Venous insufficiency (chronic) (peripheral)
CPT/HCPCS: 85025; 36415; 85610; 80053; 83880; 71045; 73590; 93970; J7030; 96360; 99285

== ENCOUNTER 2024-05-13 12:39 | Inpatient (IN) | payer OTHER ==
[2024-05-13] MEDS ORDERED: FAMOTIDINE 20 MG/2 ML VIAL IV ONE (13:09)
[2024-05-13] MEDS ORDERED: MAGNES/ALUMIN/SIMET 30ML UCUP ONE (13:09)
[2024-05-13] MEDS ORDERED: LIDOCAINE VISCOUS 2% 10ML ORAL SOLN ONE (13:09)
[2024-05-13] MEDS ORDERED: NA CHLORIDE 0.9% 500 ML ONE (14:52)
--- OUTSIDE RECORDS SUMMARY | 2024-05-13 15:34 | XMS REPORT | Continuity of Care Document ---
Author Name Unknown Address [address] [facility] [address] [place] [address] [facility] [place] Address [address] [facility]. [address] [place] [address] Care Team Providers Care Roller Coaster Operator Name Role Phone [phone] Primary Care Physician Unavailab le Doctor Unassigned, Coplay Attending Clinician U real Aceves RN, Jennifer Chen Attending Clinician [phone] Urmila Barrientos NP Attending Clinician [phone] Manpreet Houser MD Attending Clinician [phone] MANPRETE HOUSER Attending Clinician Unavailable HEIKE SCHWARTZ Attending Clinician Unavailable Hermes Mullen Attending Clinician Manpreet Jaime MD Admitting Clinician [phone] MANPREET HOUSER Admitting Clinician Unavailable Hermes Mullen Admitting Clinician Sarah mcneil Payers Payer Name Policy Type Policy Number Effective Date Expirati on Date Source Problems Condition Name Condition Details Condition Category Status Onset Date Resolution Date Last Treatment Date Treating Clinician Comments Source Cellulitis of left lower extremity Cellulitis of left lower extremity Disease Active 2023-02 00:00: 00 [facility] Anxiety Anxiety Disease Active 06-10 00:00: 00 [facility] Essential hypertensi on, benign Essential hypertensi on, benign Disease Active 06-10 00:00: 00 [facility] Obesity, unspecifie d Obesity, unspecifie d Disease Active 06-10 00:00: 00 [facility] Metrorrhag ia Metrorrhag ia Disease Active 06-10 00:00: 00 [facility] Unspecifie d symptom associated with female genital organs Unspecifie d symptom associated with female genital organs Disease Active 06-10 00:00: 00 [facility] Encounter for other contracept leisa management Encounter for other contracept leisa management Disease Active 06-10 00:00: 00 [facility] History of bilateral tubal ligation History of bilateral tubal ligation Disease Active 06-10 00:00: 00 [facility] History of blood clotting disorder History of blood clotting disorder Disease Active 06-10 00:00: 00 [facility] Allergies, Adverse Reactions, Alerts Allergy Name Allergy Type Status Severity Reaction(s) Onset Date Inactive Date Treating Clinician Comments Source none (Not Checked) Propensi ty to adverse reaction to drug Active 08-31 00:00: 00 Tristen Henao NO KNOWN ALLERGIE S Drug Class Active [facility] Social History Social Habit Start Date Stop Date Quantity Comments Source [facility] function 2024-02-05 00:00:00 2024-02-05 00:00:00 [facility] Alcoholic beverage intake 2024-02-04 00:00:00 2024-02-04 00:00:00 Current non-drinker of alcohol (finding) [facility] Education 2024-02-04 00:00:00 2024-02-04 00:00:00 13 [facility] Sex assigned at 1970 00:00:00 1970 00:00:00 [facility] Smoking Status Start Date Stop Date Source Never smoked tobacco [facility] Medications Ordered Medication Name Filled Medication Name Start Date Stop Date Current Medication? Ordering Clinician Indication Dosage Frequency Signature (SIG) Comments Components Source Silvadene 1 % topical cream 03-23 00:00: 00 Yes 1% Tristen Henao naproxen 500 mg tablet 03-23 00:00: 00 Yes 1mg Tristen Henao methocarbam ol 500 mg tablet 03-23 00:00: 00 Yes 12mg Tristen Henao Silvadene 1 % topical cream 03-16 00:00: 00 Yes 1% Tristen Henao ciprofloxac in 500 mg tablet 03-16 00:00: 00 Yes 1mg Tristen Henao Silvadene 1 % topical cream 02-23 00:00: 00 Yes 1% Tristen Henao metoprolol succinate ER 50 mg tablet,exte nded release 24 hr 02-23 00:00: 00 Yes 1mg Tristen Henao bupropion HCl 100 mg tablet 02-23 00:00: 00 Yes 1mg Tristen Hneao losartan 100 mg tablet 02-23 00:00: 00 Yes 1mg Tristen Henao sodium bicarbonate 650 mg tablet 2023-02 00:00: 00 02-14 05:59 :00 No [id number] 650mg Take 1 tablet by mouth in the morning and 1 tablet at noon and 1 tablet in the evening. Do all this for 7 days. [facility] Omeprazole 20 mg tablet 2023-02 15:31: 35 Yes 20mg Take 1 tablet by mouth. [facility] citalopram 40 mg tablet 2023-02 15:31: 35 Yes 40mg Take 40 mg by mouth daily. [facility] buPROPion 100 mg tablet 2023-02 15:31: 35 Yes 100mg Take 1 tablet by mouth in the morning. [facility] gabapentin 100 mg capsule 2023-02 15:31: 35 Yes 100mg Take 1 capsule by mouth in the morning and 1 capsule in the evening. [facility] chlorthalid one 25 mg tablet 2023-02 15:31: 33 02-05 00:00 :00 No 25mg Take 1 tablet by mouth in the morning. [facility] metoprolol succinate XL 50 mg 24 hr tablet 2023-02 15:31: 33 02-05 00:00 :00 No 50mg Take 1 tablet by mouth in the morning. [facility] spironolact one 25 mg tablet 2023-02 15:31: 33 02-05 00:00 :00 No 25mg Take 1 tablet by mouth in the morning and 1 tablet in the evening. [facility] medroxyPROG ESTERone 150 mg/mL injection 2023-02 15:31: 33 02-05 00:00 :00 No 150mg 1 mL by Intramuscu lar route every 3 (three) months. [facility] sulfamethox azole/trime thoprim (SMZ-TMP DS ORAL) 2023-02 15:31: 02-05 00:00 :00 No Take by mouth 2 (two) times daily. [facility] carvedilol 12.5 mg tablet 2023-02 12:53: 52 02-05 00:00 :00 No 12.5mg Take 12.5 mg by mouth 2 (two) times daily with meals. [facility] amLODIPine 10 mg tablet 2023-02 12:53: 52 02-05 00:00 :00 No 10mg Take 10 mg by mouth daily. [facility] losartan 50 mg tablet 2023-02 12:53: 52 02-05 00:00 :00 No 100mg Take 2 tablets by mouth in the morning. [facility] doxycycline hyclate 100 mg capsule 2023-02 00:00: 00 02-16 05:59 :00 No [id number] 100mg Take 1 capsule by mouth every 12 (twelve) hours for 10 days. [facility] cefdinir 300 mg capsule 2023-02 00:00: 00 02-16 05:59 :00 No [id number] 300mg Take 1 capsule by mouth every 12 (twelve) hours for 10 days. [facility] traMADoL 50 mg tablet 2023-02 00:00: 00 02-13 05:59 :00 No [id number] 50mg Take 1 tablet by mouth every 6 (six) hours as needed for Pain (scale 4-6) for up to 7 days. Indication s: acute pain [facility] sodium bicarbonate (ANTACID (SODIUM BICARBONATE )) tablet 650 mg 2023-02 15:15: 00 02-05 21:31 :35 No 650mg 650 mg, Oral, TID, First dose on Thu02/05/24 at 0915, Until Discontinu ed, Routine [facility] buPROPion (WELLBUTRIN ) tablet 100 mg 2023-02 15:00: 00 02-05 21:31 :35 No 100mg 100 mg, Oral, DAILY, First dose on Thu02/05/24 at 0900, Until Discontinu ed, Routine [facility] pantoprazol e (PROTONIX) EC tablet 40 mg 2023-02 15:00: 00 02-05 21:31 :35 No 40mg 40 mg, Oral, DAILY, First dose on Thu02/05/24 at 0900, Until Discontinu ed [facility] NaCl 0.9% (NS) IV infusion 1,000 mL 2023-02 14:15: 00 02-05 21:31 :35 No 1000mL at 100 mL/hr, IV Infusion, CONTINUOUS , Starting on Thu02/05/24 at 0815, Until Thu02/06/24 at 1531, Routine [facility] gabapentin (NEURONTIN) capsule 100 mg 2023-02 14:00: 00 02-05 21:31 :35 No 100mg 100 mg, Oral, BID, First dose on Thu02/05/24 at 0800, Until Discontinu ed, Routine [facility] cefTRIAXone (ROCEPHIN) 1,000 mg in water for injection, sterile 10 mL IV Push 2023-02 07:00: 00 02-05 21:31 :35 No 1000mg 1,000 mg, Intravenou s, Q24H ABX, 10 doses, First dose on Thu02/05/24 at 0100, Last dose on Thu02/14/24 at 0100, 10 mL, Reason for Anti-Infec tive: Documented Infection, Documented Infection Site: Skin / Soft Tissue, Duration of Therapy: 10 days [facility] NaCl 0.9% (NS) IV infusion 1,000 mL 2023-02 05:45: 00 02-04 05:12 :06 No 1000mL at 125 mL/hr, IV Infusion, ONCE, 1 dose, On Thu02/04/24 at 2345, Routine [facility] heparin (porcine) injection 5,000 Units 2023-02 04:00: 00 02-05 21:31 :35 No 5000U 5,000 Units, Subcutaneo us, Q8H, First dose on Thu02/04/24 at 2200, Until Discontinu ed, Routine [facility] doxycycline hyclate (Vibramycin ) capsule 100 mg 2023-02 00:00: 00 02-13 23:59 :00 No 100mg 100 mg, Oral, Q12HA2, 20 doses, First dose on Thu02/04/24 at 1800, Last dose on Thu02/14/24 at 0600, MIRZA, Reason for Anti-Infec tive: Documented Infection, Documented Infection Site: Skin / Soft Tissue, Duration of Therapy: 10 days [facility] NaCl 0.9% (NS) bolus infusion 1,000 mL 2023-02 21:15: 00 02-03 23:55 :54 No 1000mL at 999 mL/hr, 1,000 mL, IV Infusion, ONCE, 1 dose, On Thu02/04/24 at 1515, STAT [facility] ondansetron (ZOFRAN (PF)) injection 4 mg 2023-02 21:01: 14 02-05 21:31 :35 No 4mg 4 mg, Slow IV Push, Q6HPRN, Starting on Leanne 02/04/24 at 1501, Until 02/06/24 at 1531, Administer over 2-5 Minutes, 2 mL [facility] HYDROcodone -acetaminop hen (NORCO 5) tablet 1 tablet 2023-02 21:01: 06 02-05 21:00 :06 No 1{tbl} 1 tablet, Oral, Q6HPRN, Starting on Leanne 02/04/24 at 1501, Until 02/06/24 at 1500, Routine, Pain (scale 4-6) [facility] acetaminoph en (TYLENOL) tablet 650 mg 2023-02 21:01: 00 02-05 21:31 :35 No 650mg [facility] vancomycin (VANCOCIN) 1,500 mg in NaCl 0.9% (NS) 500 mL VIAL-MATE IV piggyback 2023-02 18:15: 00 02-03 21:10 :00 No 15mg/kg 1,500 mg (rounded from 1,693.5 mg = 15 mg/kg ?112.9 kg), IV Piggyback, ONCE, 1 dose, On Leanne 02/04/24 at 1215, Administer over 90 Minutes, 500 mL, Reason for Anti-Infec tive: Documented Infection, Documented Infection Site: Skin / Soft Tissue, Duration of Therapy: Once (ED) [facility] piperacilli n-tazobacta m (ZOSYN) 3.375 g in NaCl 0.9% (NS) 100 mL MINI-BAG 2023-02 17:30: 00 02-03 19:28 :00 No 3.375g 3.375 g, IV Piggyback, ONCE, 1 dose, On Thu02/04/24 at 1130, Administer over 30 Minutes, 100 mL, Reason for Anti-Infec tive: Documented Infection, Documented Infection Site: Skin / Soft Tissue, Duration of Therapy: Once (ED) [facility] Bactrim DS 800 mg-160 mg tablet 2023-02 00:00: 00 Yes 1mg Tristen Henao spironolact one 25 mg tablet 2023-02 00:00: 00 Yes mg Tristen Henao moxifloxaci n 0.5 % eye drops 2023-02 00:00: 00 Yes 1% Tristen Henao mupirocin 2 % topical ointment 2023-02 00:00: 00 Yes 1% Tristen Henao Aquaphor Original 41 % topical ointment 2023-02 00:00: 00 Yes 1% Tristen Henao erythromyci n 5 mg/gram (0.5 %) eye ointment 2023-02 00:00: 00 Yes 1(0.5 %) Tristen Henao metronidazo le 500 mg tablet 2023-02 00:00: 00 Yes 1mg Tristen Henao Silvadene 1 % topical cream 2023-02 00:00: 00 Yes 1% Tristen Henao amoxicillin 500 mg capsule 2023-02 00:00: 00 Yes 1mg Tristen Henao mupirocin 2 % topical ointment 2023-02 00:00: 00 Yes 1% Tristen Henao Bactrim DS 800 mg-160 mg tablet 2023-02 00:00: 00 Yes 1mg Tristen Henao chlorthalid one 25 mg tablet 2023-02 00:00: 00 Yes mg Tristen Henao Cipro 500 mg tablet 2023-02 00:00: 00 Yes 1mg Tristen Henao amitriptyli ne 25 mg tablet 2023-02 00:00: 00 Yes 1mg Tristen Henao gabapentin 100 mg capsule 2023-02 00:00: 00 Yes 12mg Tristen Henao medroxyprog esterone 150 mg/mL intramuscul ar suspension 2023-02 00:00: 00 Yes 1mg/mL Tristen Henao ciprofloxac in 500 mg tablet 2023-02 00:00: 00 Yes mg Tristen Henao clindamycin HCl 300 mg capsule - 00:00: 00 Yes 1mg Tristen Henao Macrobid 100 mg capsule - 00:00: 00 Yes 1mg Tristen Henao metoprolol succinate ER 50 mg tablet,exte nded release 24 hr - 00:00: 00 Yes 1mg Tristen Henao bupropion HCl SR 100 mg tablet,12 hr sustained-r elease 08-25 00:00: 00 Yes 1mg Tristen Henao hydrochloro thiazide 25 mg tablet - 00:00: 00 Yes 1mg Tristen Henao losartan 100 mg tablet - 00:00: 00 Yes 1mg Tristen Henao amitriptyli ne 25 mg tablet - 00:00: 00 Yes 1mg Tristen eHnao Cipro 500 mg tablet - 00:00: 00 Yes 1mg Tristen Henao Macrobid 100 mg capsule 05-26 00:00: 00 Yes 1mg Tristen Henao medroxyprog esterone 150 mg/mL intramuscul ar suspension 05-26 00:00: 00 Yes 1mg/mL Tristen Henao nystatin 100,000 unit/gram topical cream 05-10 00:00: 00 Yes 1unit/g asaf Tristen Henao Cipro 500 mg tablet 05-10 00:00: 00 Yes 1mg Tristen Henao amitriptyli ne 25 mg tablet 05-10 00:00: 00 Yes 1mg Tristen Henao CIPROFLOXAC IN HYDROCHLORI DE 500 MG TABS - 00:00: 00 Yes Tristen Henao Macrobid 100 mg capsule - 00:00: 00 Yes 1mg Tristen Henao TAKE 1 CAPSULE BY MOUTH TWICE DAILY -20 00:00: 00 Yes Tristen Henao metoprolol succinate ER 50 mg tablet,exte nded release 24 hr - 00:00: 00 Yes 1mg Tristen Henao losartan 100 mg tablet -15 00:00: 00 Yes 1mg Tristen Henao bupropion HCl SR 100 mg tablet,12 hr sustained-r elease -15 00:00: 00 Yes 1mg Tristen Henao amitriptyli ne 10 mg tablet -15 00:00: 00 Yes 1mg Tristen Henao TAKE 1 TABLET DAILY. 3-08 00:00: 00 Yes 50 Tristen Henao INJECT 1 ML INTRAMUSCUL CLARK ONCE EVERY 3 MONTHS. 1-19 00:00: 00 Yes 150 Tristen Henao TAKE [...] 100 Tristen Henao INJECT 1 ML INTRAMUSCUL CALRK ONCE EVERY 3 MONTHS. 08-20 00:00: 00 06-04 00:00 :00 No 150 Tristen Henao NYSTATIN [id number] UNIT/GM CREA 06-26 00:00: 00 06-04 00:00 :00 No Tristen Henao MOXIFLOXACI N HYDROCHLORI DE 0.5 % SOLN - 00:00: 00 Yes Tristen Henao METOPROLOL TARTRATE 50 MG TABS 1- 00:00: 00 Yes Tristen Henao TAKE 1 TABLET BY MOUTH TWICE DAILY - 00:00: 00 06-04 00:00 :00 No Tristen [...] Name Observation Time Observation Value Comments S ourumair Systolic blood pressure 2024-02-06 17:01:00 113 mm[Hg] [facility] Diastolic blood pressure 2024-02-06 17:01:00 62 mm[Hg] [facility] Heart rate 2024-02-06 17:01:00 93 /min [facility] Body temperature 2024-02-06 17:01:00 36.33 Aislinn [facility] Respiratory rate 2024-02-06 17:01:00 18 /min [facility] Oxygen saturation in Arterial blood by Pulse oximetry 2024-02-06 17:01:00 99 /min [facility] Body weight 2024-02-06 09:12:00 122.471 kg [facility] BMI 2024-02-06 09:12:00 42.29 kg/m2 [facility] Body height 2024-02-04 21:59:00 170.2 cm [facility] BP Systolic 2024-03-23 11:18:00 112 mm[Hg] Step hen F Juliano BP Diastolic 2024-03-23 11:18:00 82 mm[Hg] [place] phen F Juliano Weight Measured 2024-03-23 11:18:00 264.00 pounds Tristen Henao Height Measured 2024-03-23 11:18:00 67.00 inches Tristen F Juliano Body Temperature 2024-03-23 11:18:00 98.20 degrees Tristen F Juliano Heart Rate 2024-03-23 11:18:00 93.00 /min Latha en F Juliano Respiratory Rate 2024-03-23 11:18:00 18.00 /min Tristen F Juliano BP Systolic 2024-03-08 11:14:00 121 mm[Hg] Step hen F Juliano BP Diastolic 2024-03-08 11:14:00 61 mm[Hg] Celestino phen F Juliano Weight Measured 2024-03-08 11:14:00 265.50 pounds Tristen F Juliano Height Measured 2024-03-08 11:14:00 67.00 inches Tristen F Juliano Body Temperature 2024-03-08 11:14:00 97.50 degrees Tristen F Juliano Heart Rate 2024-03-08 11:14:00 85.00 /min Latha en F Juliano Respiratory Rate 2024-03-08 11:14:00 18.00 /min Tristen F Juliano BP Systolic 2024-02-24 10:42:00 138 mm[Hg] Step hen F Juliano BP Diastolic 2024-02-24 10:42:00 71 mm[Hg] Celestino phen F Juliano Weight Measured 2024-02-24 10:42:00 265.00 pounds Tristen F Juliano Height Measured 2024-02-24 10:42:00 67.00 inches Tristen F Juliano Body Temperature 2024-02-24 10:42:00 98.20 degrees Tristen F Juliano Heart Rate 2024-02-24 10:42:00 83.00 /min Latha en F Juliano Respiratory Rate 2024-02-24 10:42:00 16.00 /min Tristen F Juliano BP Systolic 2024-02-11 11:09:00 138 mm[Hg] Step hen F Juliano BP Diastolic 2024-02-11 11:09:00 80 mm[Hg] Celestino phen F Juliano Weight Measured 2024-02-11 11:09:00 271.00 pounds Tristen F Juliano Height Measured 2024-02-11 11:09:00 67.00 inches Tristen F Juliano Body Temperature 2024-02-11 11:09:00 98.40 degrees Tristen F Juliano Heart Rate 2024-02-11 11:09:00 105.00 /min Step hen F Juliano Respiratory Rate 2024-02-11 11:09:00 32.00 /min Tristen F Juliano BP Systolic 2024-02-01 11:39:00 122 mm[Hg] Step hen F Juliano BP Diastolic 2024-02-01 11:39:00 82 mm[Hg] Celest[place] phen F Juliano Weight Measured 2024-02-01 11:39:00 247.00 pounds Tristen F Juliano Height Measured 2024-02-01 11:39:00 67.00 inches Tristen F Juliano Body Temperature 2024-02-01 11:39:00 98.90 degrees Tristen F Juliano Heart Rate 2024-02-01 11:39:00 84.00 /min Latha en F Juliano Respiratory Rate 2024-02-01 11:39:00 18.00 /min Tristen F Juliano BP Systolic 2024-01-22 11:27:00 128 mm[Hg] Step hen F Juliano BP Diastolic 2024-01-22 11:27:00 68 mm[Hg] Celestino phen F Juliano Weight Measured 2024-01-22 11:27:00 266.00 pounds Tristen F Juliano Height Measured 2024-01-22 11:27:00 67.00 inches Tristen F Juliano Body Temperature 2024-01-22 11:27:00 97.90 degrees Tristen F Juliano Heart Rate 2024-01-22 11:27:00 96.00 /min Latha en F Juliano Respiratory Rate 2024-01-22 11:27:00 16.00 /min Tristen F Juliano BP Systolic 2024-01-15 11:27:00 132 mm[Hg] Step hen F Juliano BP Diastolic 2024-01-15 11:27:00 70 mm[Hg] Celestino phen F Juliano Weight Measured 2024-01-15 11:27:00 265.00 pounds Tristen F Juliano Height Measured 2024-01-15 11:27:00 67.00 inches Tristen F Juliano Body Temperature 2024-01-15 11:27:00 97.90 degrees Tristen F Juliano Heart Rate 2024-01-15 11:27:00 89.00 /min Latha en F Juliano Respiratory Rate 2024-01-15 11:27:00 16.00 /min Tristen F Juliano BP Systolic 2024-01-08 13:08:00 128 mm[Hg] Step hen F Juliano BP Diastolic 2024-01-08 13:08:00 62 mm[Hg] Celestino phen F Juliano Weight Measured 2024-01-08 13:08:00 263.00 pounds Tristen F Juliano Height Measured 2024-01-08 13:08:00 67.00 inches Tristen F Juliano Body Temperature 2024-01-08 13:08:00 99.10 degrees Tristen F Juliano Heart Rate 2024-01-08 13:08:00 98.00 /min Latha en F Juliano Respiratory Rate 2024-01-08 13:08:00 18.00 /min Tristen F Juliano BP Systolic 2023-12-25 10:51:00 120 mm[Hg] Step hen F Juliano BP Diastolic 2023-12-25 10:51:00 70 mm[Hg] Celestino phen F Juliano Weight Measured 2023-12-25 10:51:00 268.00 pounds Tristen F Juliano Height Measured 2023-12-25 10:51:00 67.00 inches Tristen F Juliano Body Temperature 2023-12-25 10:51:00 98.80 degrees Tristen F Juliano Heart Rate 2023-12-25 10:51:00 86.00 /min Latha en F Juliano Respiratory Rate 2023-12-25 10:51:00 18.00 /min Tristen F Juliano BP Systolic 2023-12-11 10:34:00 122 mm[Hg] Step [...] Juliano Respiratory Rate 2023-08-26 10:05:00 18.00 /min Tirsten F Juliano BP Systolic 2023-07-31 15:26:00 120 [...] Measured 2023-04-24 09:58:00 259.00 pounds Tristen F Juliano Height Measured 2023-04-24 09:58:00 67.00 inches Tristen [...] Juliano BP Systolic 2022-05-30 13:33:00 141 mm[Hg] Step hen F Juliano BP Diastolic 2022-05-30 13:33:00 85 mm[Hg] Celestino phen F Juliano Weight Measured 2022-05-30 13:33:00 270.00 pounds Tristen F Juliano Height Measured 2022-05-30 13:33:00 67.00 inches Tristen F Juliano Body Temperature 2022-05-30 13:33:00 99.10 degrees Tristen Henao Heart Rate 2022-05-30 13:33:00 74.00 /min Latha Henao Respiratory Rate 2022-05-30 13:33:00 18.00 /min Tristen Henao Procedures Procedure Date / Time Performed Performing Clinicia n Source BASIC METABOLIC PANEL (NA, K, CL, CO2, GLUCOSE, BUN, CREATININE, CA) 2024-02-06 11:18[facility] 2024-02-06 11:18:[address] [facility] URINALYSIS 2024-02-05 13:50:00 Edhermelindo [facility] CREATININE, URINE RANDOM 2024-02-05 13:50:00 Edhermelindo [facility] POTASSIUM, URINE RANDOM 2024-02-05 13:50:00 Edionwe [facility] SODIUM, URINE RANDOM 2024-02-05 13:50:00 Edionwe [facility] CHLORIDE, URINE RANDOM 2024-02-05 13:50:[address] [facility] MAGNESIUM 2024-02-05 09:16:00 [facility] BASIC METABOLIC PANEL (NA, K, CL, CO2, GLUCOSE, BUN, CREATININE, CA) 2024-02-05 09:16:00 [facility] 2024-02-05 09:16:[address] [facility] PHOSPHORUS 2024-02-04 22:24:00 Mik [facility] MRSA / MSSA SCREEN BY DANYELLE [facility] 2024-02-04 22:24:00 Mik [facility] COMP. METABOLIC PANEL ([id number]) 2024-02-04 18:59:00 Urmila Barrientos [facility] CBC WITH DIFF 2024-02-04 18:59:00 Urmila Barrientos [facility] DUPLEX VENOUS LEG LEFT - BY VASCULAR LAB 2024-02-04 18:26:39 Urmila Barrientos [facility] Encounters Start Date/Time End Date/Time Encounter Type Admission Type Attending [facility] Care Department Encounter ID Source 2024-03-23 00:00:00 2024-03-23 00:00:00 Outpatient Visit SFA [id number] Tristen Henao 2024-03-16 00:00:00 2024-03-16 00:00:00 Outpatient Visit SFA [id number] Tristen Henao 2024-02-10 00:00:00 2024-03-12 18:15:05 Patient Secure Msg Doctor Unassigned, Coplay Doctor Unassigned, Coplay [facility] [id number] [facility] 2024-03-08 00:00:00 2024-03-08 00:00:00 Outpatient Visit SFA [id number] Tristen Henao 2024-02-24 10:23:01 2024-02-24 10:23:01 Outpatient [facility] [id number] Tristen Henao 2024-02-24 00:00:00 2024-02-24 00:00:00 Outpatient Visit SFA [id number] Tristen Henao 2024-02-11 10:51:09 2024-02-11 10:51:09 Outpatient [facility] [id number] Tristen Henao 2024-02-11 00:00:00 2024-02-11 00:00:00 Outpatient Visit SFA [id number] Tristen Henao 2024-02-08 00:00:00 2024-02-08 14:53:40 Transition of Care Jennifer Aceves Marisa M [address] [id number] [id number] [facility] 2024-02-04 11:07:00 2024-02-06 15:25:00 Hospital Encounter Urmila Barrientos Manpreet Houser [facility] [id number] [id number] [facility] 2024-02-04 11:07:00 2024-02-06 15:25:00 Inpatient X MANPREET HOUSER [facility] [id number] [facility] 2024-02-01 11:28:15 2024-02-01 11:28:15 Outpatient [facility] [id number] Tristen Henao 2024-02-01 00:00:00 2024-02-01 00:00:00 Outpatient Visit SFA [id number] Tristen Henao 2024-01-22 11:19:58 2024-01-22 11:19:58 Outpatient [facility] [id number] Tristen Henao 2024-01-22 00:00:00 2024-01-22 00:00:00 Outpatient Visit SFA [id number] Tristen Henao 2024-01-15 00:00:00 2024-01-15 00:00:00 Outpatient Visit SFA [id number] Tristen Henao 2024-01-08 12:55:53 2024-01-08 12:55:53 Outpatient [facility] [id number] Tristen Henao 2024-01-08 00:00:00 2024-01-08 00:00:00 Outpatient Visit SFA [id number] Tristen Henao 2023-12-25 10:42:46 2023-12-25 10:42:46 Outpatient SFA [facility] [id number] Tristen Henao 2023-12-25 00:00:00 2023-12-25 00:00:00 Outpatient Visit SFA [id number] Tristen Henao 2023-12-11 10:25:05 2023-12-11 10:25:05 Outpatient SFA [facility] [id number] Tristen Henao 2023-12-11 00:00:00 2023-12-11 00:00:00 Outpatient Visit [facility] [id number] Tristen Henao 2023-12-04 10:45:19 2023-12-04 10:45:19 Outpatient S[facility] SFA [id number] Tristen Henao 2023-12-04 00:00:00 2023-12-04 00:00:00 Outpatient Visit [facility] [id number] Tristen Henao 2023-11-24 09:46:03 2023-11-24 09:46:03 Outpatient [facility]FA SFA [id number] Tristen Henao 2023-11-24 00:00:00 2023-11-24 00:00:00 Outpatient Visit SFA [id number] Tristen Henao 2023-11-16 00:00:00 2023-11-16 00:00:00 Outpatient [facility] [id number] [facility] 2023-10-29 11:25:12 2023-10-29 11:25:12 Outpatient SFA SFA [id number] Tristen Henao 2023-10-29 00:00:00 2023-10-29 00:00:00 Outpatient Visit SFA [id number] Tristen Henao 2023-09-01 10:52:16 2023-09-01 10:52:16 Outpatient SFA SFA 23 Tristen Henao 2023-09-01 00:00:00 2023-09-01 00:00:00 Outpatient Visit SFA [id number] Tristen Henao 2023-08-26 10:03:34 2023-08-26 10:03:34 Outpatient SFA SFA 17 Tristen Henao 2023-08-26 00:00:00 2023-08-26 00:00:00 Outpatient Visit SFA [id number] Tristen Henao 2023-07-31 15:25:59 2023-07-31 15:25:59 Outpatient SFA SFA 21 Tristen Henao 2023-07-31 00:00:00 2023-07-31 00:00:00 Outpatient Visit SFA [id number] Tristen Henao 2023-07-20 10:26:30 2023-07-20 10:26:30 Outpatient SFA SFA [id number] Tristen Henao 2023-05-27 13:04:02 2023-05-27 13:04:02 Outpatient SFA SFA 17 Tristen Henao 2023-05-27 00:00:00 2023-05-27 00:00:00 Outpatient Visit SFA [id number] Tristen Henao 2023-05-11 10:29:53 2023-05-11 10:29:53 Outpatient SFA SFA [id number] Tristen Henao 2023-05-06 09:53:12 2023-05-06 09:53:12 Outpatient SFA SFA [id number] Tristen Henao 2023-04-29 13:25:40 2023-04-29 13:25:40 Outpatient [facility] [id number] Tristen Henao 2023-04-24 09:57:22 2023-04-24 09:57:22 Outpatient [facility] [id number] Tristen Henao 2023-02-27 09:54:24 2023-02-27 09:54:24 Outpatient [facility] [id number] Tristen Henao 2022-11-28 10:26:52 2022-11-28 10:26:52 Outpatient S[facility] [id number] Tristen Henao 2022-10-07 12:00:00 2022-10-07 12:00:00 Outpatient Hermes Palmer [facility] [id number] [address] [facility] 2022-10-06 11:10:18 2022-10-06 11:10:18 Outpatient [facility] [id number] Tristen Henao 2022-08-29 11:19:12 2022-08-29 11:19:12 Outpatient [facility] [id number] Tristen Henao 2022-08-01 12:00:00 2022-08-01 12:00:00 Outpatient Hermes Palmer [facility] [id number] [address] [facility] [facility] 2022-05-30 13:25:14 2022-05-30 13:25:14 Outpatient S[facility] [id number] Tristen Henao Results Test Description Test Time Test Comments Results Result Co mments Source Tristen Pompa [id number] 23:19:51* Test Item Value Reference Range Interpretation Comme nts PHOSPHORUS (test code = 3800557587) 4.0 mg/dL 2.5-5.0 Lab Interpretation (test cod e = 75846-4) [facility] [id number] 00:00:00* Test Item Value Reference Range Interpretation Comme nts CULTURE, ROUTINE (test code = 05639) SPECIMEN NUMBER: [id number] Tristen HenaoCULTURE, [id number] 00:00:00* Test Item Value Reference Range Interpretation Comme nts CULTURE, ROUTINE (test code = 51201) SPECIMEN NUMBER: [id number] Tristen Snyder [id number] 00:00:00* Test Item Value Reference Range Interpretation Comme nts CULTURE, ROUTINE (test code = 58489) SPECIMEN NUMBER: [id number] Tristen AnthonyLTSURINDER [id number] 00:00:00* Test Item Value Reference Range Interpretation Comme nts CULTURE, ROUTINE (test code = 91744) SPECIMEN NUMBER: [id number] Tristen HenaoCULTSURINDER [id number] 00:00:00* Test Item Value Reference Range Interpretation Comme nts CULTURE, ROUTINE (test code = 09996) SPECIMEN NUMBER: [id number] Tristen AnthonyLTSURINDER [id number] 00:00:00* Test Item Value Reference Range Interpretation Comme nts CULTURE, ROUTINE (test code = 76099) SPECIMEN NUMBER: [id number] Tristen AnthonyLTSURINDER [id number] 00:00:00* Test Item Value Reference Range Interpretation Comme nts CULTURE, ROUTINE (test code = 34224) SPECIMEN NUMBER: [id number] Tristen AnthonyLTSURINDER, [id number] 00:00:00* Test Item Value Reference Range Interpretation Comme nts CULTURE, ROUTINE (test code = 74821) SPECIMEN NUMBER: [id number] Tristen AnthonyLTSURINDER [id number] 00:00:00* Test Item Value Reference Range Interpretation Comme nts CULTURE, ROUTINE (test code = 08144) SPECIMEN NUMBER: [id number] Tristen AnthonyLTSURINDER [id number] 00:00:00* Test Item Value Reference Range Interpretation Comme nts CULTURE, ROUTINE (test code = 96335) SPECIMEN NUMBER: [id number] Tristen Carlin AustinURINALYSIS W/REFLEX [id number] 00:00:00* Test Item Value Reference Range Interpretation Comme nts COLOR (test code = 1501) TEST NOT PERFORMED APPEARANCE (test code = 1502) TEST NOT PERFORMED SPECIFIC GRAVITY (test code = 1503) TEST NOT PERFORMED LEUKOCYTE ESTERASE (test code = 1504) TEST NOT PERFORMED NITRITE (test code = 1505) TEST NOT PERFORMED pH (test code = 1506) TEST NOT PERFORMED PROTEIN (test code = 1507) TEST NOT PERFORMED GLUCOSE (test code = 1508) TEST NOT PERFORMED KETONES (test code = 1509) TEST NOT PERFORMED UROBILINOGEN (test code = 1510) TEST NOT PERFORMED MG/DL BILIRUBIN (test code = 1511) TEST NOT PERFORMED OCCULT BLOOD (test code = 1512) TEST NOT PERFORMED Tristen F AustinCULTURE, [id number] 00:00:00* Test Item Value Reference Range Interpretation Comme nts CULTURE, ROUTINE (test code = 87747) SPECIMEN NUMBER: [id number] Tristen F AustinURINALYSIS W/REFLEX [id number] 00:00:00* Test Item Value Reference Range Interpretation Comme nts COLOR (test code = 1501) TEST NOT PERFORMED APPEARANCE (test code = 1502) TEST NOT PERFORMED SPECIFIC GRAVITY (test code = 1503) TEST NOT PERFORMED LEUKOCYTE ESTERASE (test code = 1504) TEST NOT PERFORMED NITRITE (test code = 1505) TEST NOT PERFORMED pH (test code = 1506) TEST NOT PERFORMED PROTEIN (test code = 1507) TEST NOT PERFORMED GLUCOSE (test code = 1508) TEST NOT PERFORMED KETONES (test code = 1509) TEST NOT PERFORMED UROBILINOGEN (test code = 1510) TEST NOT PERFORMED MG/DL BILIRUBIN (test code = 1511) TEST NOT PERFORMED OCCULT BLOOD (test code = 1512) TEST NOT PERFORMED Tristen F AustinCULTURE, [id number] 00:00:00* Test Item Value Reference Range Interpretation Comme nts CULTURE, ROUTINE (test code = 87081) SPECIMEN NUMBER: [id number] Tristen F AustinURINALYSIS W/REFLEX [id number] 00:00:00* Test Item Value Reference Range Interpretation Comme nts COLOR (test code = 1501) TEST NOT PERFORMED APPEARANCE (test code = 1502) TEST NOT PERFORMED SPECIFIC GRAVITY (test code = 1503) TEST NOT PERFORMED LEUKOCYTE ESTERASE (test code = 1504) TEST NOT PERFORMED NITRITE (test code = 1505) TEST NOT PERFORMED pH (test code = 1506) TEST NOT PERFORMED PROTEIN (test code = 1507) TEST NOT PERFORMED GLUCOSE (test code = 1508) TEST NOT PERFORMED KETONES (test code = 1509) TEST NOT PERFORMED UROBILINOGEN (test code = 1510) TEST NOT PERFORMED MG/DL BILIRUBIN (test code = 1511) TEST NOT PERFORMED OCCULT BLOOD (test code = 1512) TEST NOT PERFORMED Tristen F AustinCULTURE, [id number] 00:00:00* Test Item Value Reference Range Interpretation Comme nts CULTURE, ROUTINE (test code = 88958) SPECIMEN NUMBER: [id number] Tristen Carlin AustinURINALYSIS W/REFLEX [id number] 00:00:00* Test Item Value Reference Range Interpretation Comme nts COLOR (test code = 1501) TEST NOT PERFORMED APPEARANCE (test code = 1502) TEST NOT PERFORMED SPECIFIC GRAVITY (test code = 1503) TEST NOT PERFORMED LEUKOCYTE ESTERASE (test code = 1504) TEST NOT PERFORMED NITRITE (test code = 1505) TEST NOT PERFORMED pH (test code = 1506) TEST NOT PERFORMED PROTEIN (test code = 1507) TEST NOT PERFORMED GLUCOSE (test code = 1508) TEST NOT PERFORMED KETONES (test code = 1509) TEST NOT PERFORMED UROBILINOGEN (test code = 1510) TEST NOT PERFORMED MG/DL BILIRUBIN (test code = 1511) TEST NOT PERFORMED OCCULT BLOOD (test code = 1512) TEST NOT PERFORMED Tristen AnthonyLTURE, [id number] 00:00:00* Test Item Value Reference Range Interpretation Comme nts CULTURE, ROUTINE (test code = 49595) SPECIMEN NUMBER: [id number] Tristen Carlin AustinURINALYSIS W/REFLEX [id number] 00:00:00* Test Item Value Reference Range Interpretation Comme nts COLOR (test code = 1501) TEST NOT PERFORMED APPEARANCE (test code = 1502) TEST NOT PERFORMED SPECIFIC GRAVITY (test code = 1503) TEST NOT PERFORMED LEUKOCYTE ESTERASE (test code = 1504) TEST NOT PERFORMED NITRITE (test code = 1505) TEST NOT PERFORMED pH (test code = 1506) TEST NOT PERFORMED PROTEIN (test code = 1507) TEST NOT PERFORMED GLUCOSE (test code = 1508) TEST NOT PERFORMED KETONES (test code = 1509) TEST NOT PERFORMED UROBILINOGEN (test code = 1510) TEST NOT PERFORMED MG/DL BILIRUBIN (test code = 1511) TEST NOT PERFORMED OCCULT BLOOD (test code = 1512) TEST NOT PERFORMED Tristen AnthonyLTURE, [id number] 00:00:00* Test Item Value Reference Range Interpretation Comme nts CULTURE, ROUTINE (test code = 75443) SPECIMEN NUMBER: [id number] Tristen Carlin AustinURINALYSIS W/REFLEX [id number] 00:00:00* Test Item Value Reference Range Interpretation Comme nts COLOR (test code = 1501) TEST NOT PERFORMED APPEARANCE (test code = 1502) TEST NOT PERFORMED SPECIFIC GRAVITY (test code = 1503) TEST NOT PERFORMED LEUKOCYTE ESTERASE (test code = 1504) TEST NOT PERFORMED NITRITE (test code = 1505) TEST NOT PERFORMED pH (test code = 1506) TEST NOT PERFORMED PROTEIN (test code = 1507) TEST NOT PERFORMED GLUCOSE (test code = 1508) TEST NOT PERFORMED KETONES (test code = 1509) TEST NOT PERFORMED UROBILINOGEN (test code = 1510) TEST NOT PERFORMED MG/DL BILIRUBIN (test code = 1511) TEST NOT PERFORMED OCCULT BLOOD (test code = 1512) TEST NOT PERFORMED Tristen F AustinCULTURE, [id number] 00:00:00* Test Item Value Reference Range Interpretation Comme nts CULTURE, ROUTINE (test code = 46827) SPECIMEN NUMBER: [id number] Tristen F AustinURINALYSIS W/REFLEX [id number] 00:00:00* Test Item Value Reference Range Interpretation Comme nts COLOR (test code = 1501) TEST NOT PERFORMED APPEARANCE (test code = 1502) TEST NOT PERFORMED SPECIFIC GRAVITY (test code = 1503) TEST NOT PERFORMED LEUKOCYTE ESTERASE (test code = 1504) TEST NOT PERFORMED NITRITE (test code = 1505) TEST NOT PERFORMED pH (test code = 1506) TEST NOT PERFORMED PROTEIN (test code = 1507) TEST NOT PERFORMED GLUCOSE (test code = 1508) TEST NOT PERFORMED KETONES (test code = 1509) TEST NOT PERFORMED UROBILINOGEN (test code = 1510) TEST NOT PERFORMED MG/DL BILIRUBIN (test code = 1511) TEST NOT PERFORMED OCCULT BLOOD (test code = 1512) TEST NOT PERFORMED Tristen F AustinCULTURE, [id number] 00:00:00* Test Item Value Reference Range Interpretation Comme nts CULTURE, ROUTINE (test code = 30067) SPECIMEN NUMBER: [id number] Tristen F AustinURINALYSIS W/REFLEX [id number] 00:00:00* Test Item Value Reference Range Interpretation Comme nts COLOR (test code = 1501) TEST NOT PERFORMED APPEARANCE (test code = 1502) TEST NOT PERFORMED SPECIFIC GRAVITY (test code = 1503) TEST NOT PERFORMED LEUKOCYTE ESTERASE (test code = 1504) TEST NOT PERFORMED NITRITE (test code = 1505) TEST NOT PERFORMED pH (test code = 1506) TEST NOT PERFORMED PROTEIN (test code = 1507) TEST NOT PERFORMED GLUCOSE (test code = 1508) TEST NOT PERFORMED KETONES (test code = 1509) TEST NOT PERFORMED UROBILINOGEN (test code = 1510) TEST NOT PERFORMED MG/DL BILIRUBIN (test code = 1511) TEST NOT PERFORMED OCCULT BLOOD (test code = 1512) TEST NOT PERFORMED Tristen HenaoCULTURE, [id number] 00:00:00* Test Item Value Reference Range Interpretation Comme nts CULTURE, ROUTINE (test code = 64027) SPECIMEN NUMBER: [id number] Tristen Carlin AustinURINALYSIS W/REFLEX [id number] 00:00:00* Test Item Value Reference Range Interpretation Comme nts COLOR (test code = 1501) TEST NOT PERFORMED APPEARANCE (test code = 1502) TEST NOT PERFORMED SPECIFIC GRAVITY (test code = 1503) TEST NOT PERFORMED LEUKOCYTE ESTERASE (test code = 1504) TEST NOT PERFORMED NITRITE (test code = 1505) TEST NOT PERFORMED pH (test code = 1506) TEST NOT PERFORMED PROTEIN (test code = 1507) TEST NOT PERFORMED GLUCOSE (test code = 1508) TEST NOT PERFORMED KETONES (test code = 1509) TEST NOT PERFORMED UROBILINOGEN (test code = 1510) TEST NOT PERFORMED MG/DL BILIRUBIN (test code = 1511) TEST NOT PERFORMED OCCULT BLOOD (test code = 1512) TEST NOT PERFORMED Tristen AnthonyLTURE, [id number] 00:00:00* Test Item Value Reference Range Interpretation Comme nts CULTURE, ROUTINE (test code = 30291) SPECIMEN NUMBER: [id number] Tristen Carlin AustinURINALYSIS W/REFLEX [id number] 00:00:00* Test Item Value Reference Range Interpretation Comme nts COLOR (test code = 1501) TEST NOT PERFORMED APPEARANCE (test code = 1502) TEST NOT PERFORMED SPECIFIC GRAVITY (test code = 1503) TEST NOT PERFORMED LEUKOCYTE ESTERASE (test code = 1504) TEST NOT PERFORMED NITRITE (test code = 1505) TEST NOT PERFORMED pH (test code = 1506) TEST NOT PERFORMED PROTEIN (test code = 1507) TEST NOT PERFORMED GLUCOSE (test code = 1508) TEST NOT PERFORMED KETONES (test code = 1509) TEST NOT PERFORMED UROBILINOGEN (test code = 1510) TEST NOT PERFORMED MG/DL BILIRUBIN (test code = 1511) TEST NOT PERFORMED OCCULT BLOOD (test code = 1512) TEST NOT PERFORMED Tristen HenaoCBC W/AUTO [id number] 00:00:00* Test Item Value Reference Range Interpretation Comme nts WBC (test code = 1001) 11.0 K/UL RBC (test code = 1002) 3.40 M/UL HEMOGLOBIN (test code = 1003) 10.2 G/DL HEMATOCRIT (test code = 1004) 31.9 % MCV (test code = 1005) 93.8 fL MCH (test code = 1006) 30.0 PG MCHC (test code = 1007) 32.0 G/DL RDW (test code = 1038) 14.4 % NEUTROPHILS (test code = 1008) 60.9 % LYMPHOCYTES (test code = 1010) 29.2 % MONOCYTES (test code = 1011) 7.6 % EOSINOPHILS (test code = 1012) 1.4 % BASOPHILS (test code = 1013) 0.6 % IMMATURE GRANULOCYTES (test code = 1036) 0.3 % NUCLEATED RBCS (test code = 1065) 0.0 /100WBC'S PLATELET COUNT (test code = 1015) 205 K/UL ABSOLUTE NEUTROPHILS (test c ode = 1066) 6.71 K/UL ABSOLUTE LYMPHOCYTES (test c ode = 1067) 3.22 K/UL ABSOLUTE MONOCYTES (test cod e = 1068) 0.84 K/UL ABSOLUTE EOSINOPHILS (test c ode = 1040) 0.15 K/UL ABSOLUTE BASOPHILS (test cod e = 1069) 0.07 K/UL ABS IMMATURE GRANULOCYTES (t est code = 1020) 0.03 K/UL ABS NUCLEATED RBCS (test cod e = 98951) 0.00 K/UL Tristen Carlin JulianoCOMPREHENSIVE METABOLIC [id number] 00:00:00* Test Item Value Reference Range Interpretation Comme nts GLUCOSE (test code = 2217) 87 MG/DL BUN (test code = 2208) 29 MG/DL CREATININE (test code = 2214) 1.82 MG/DL eGFR (2020 CKD-EPI) (test co de = 00840) 33 ML/MIN/1.73 CALC BUN/CREAT (test code = 2235) 16 RATIO SODIUM (test code = 2231) 139 MEQ/L POTASSIUM (test code = 2228) 4.6 MEQ/L CHLORIDE (test code = 2215) 107 MEQ/L CARBON DIOXIDE (test code = 2206) 19 MEQ/L CALCIUM (test code = 2209) 9.6 MG/DL PROTEIN, TOTAL (test code = 2229) 7.5 G/DL ALBUMIN (test code = 2201) 4.3 G/DL CALC GLOBULIN (test code = 2240) 3.2 G/DL CALC A/G RATIO (test code = 2234) 1.3 RATIO BILIRUBIN, TOTAL (test code = 2207) 0.2 MG/DL ALKALINE PHOSPHATASE (test code = 2204) 98 U/L AST (test code = 2218) 19 U/L ALT (test code = 2219) 18 U/L Tristen Carlin [facility] W/AUTO [id number] 00:00:00* Test Item Value Reference Range Interpretation Comme nts WBC (test code = 1001) 11.0 K/UL RBC (test code = 1002) 3.40 M/UL HEMOGLOBIN (test code = 1003) 10.2 G/DL HEMATOCRIT (test code = 1004) 31.9 % MCV (test code = 1005) 93.8 fL MCH (test code = 1006) 30.0 PG MCHC (test code = 1007) 32.0 G/DL RDW (test code = 1038) 14.4 % NEUTROPHILS (test code = 1008) 60.9 % LYMPHOCYTES (test code = 1010) 29.2 % MONOCYTES (test code = 1011) 7.6 % EOSINOPHILS (test code = 1012) 1.4 % BASOPHILS (test code = 1013) 0.6 % IMMATURE GRANULOCYTES (test code = 1036) 0.3 % NUCLEATED RBCS (test code = 1065) 0.0 /100WBC'S PLATELET COUNT (test code = 1015) 205 K/UL ABSOLUTE NEUTROPHILS (test c ode = 1066) 6.71 K/UL ABSOLUTE LYMPHOCYTES (test c ode = 1067) 3.22 K/UL ABSOLUTE MONOCYTES (test cod e = 1068) 0.84 K/UL ABSOLUTE EOSINOPHILS (test c ode = 1040) 0.15 K/UL ABSOLUTE BASOPHILS (test cod e = 1069) 0.07 K/UL ABS IMMATURE GRANULOCYTES (t est code = 1020) 0.03 K/UL ABS NUCLEATED RBCS (test cod e = 21454) 0.00 K/UL Tristen HenaoCOMPREHENSIVE METABOLIC [id number] 00:00:00* Test Item Value Reference Range Interpretation Comme nts GLUCOSE (test code = 2217) 87 MG/DL BUN (test code = 2208) 29 MG/DL CREATININE (test code = 2214) 1.82 MG/DL eGFR (2020 CKD-EPI) (test co de = 34641) 33 ML/MIN/1.73 CALC BUN/CREAT (test code = 2235) 16 RATIO SODIUM (test code = 2231) 139 MEQ/L POTASSIUM (test code = 2228) 4.6 MEQ/L CHLORIDE (test code = 2215) 107 MEQ/L CARBON DIOXIDE (test code = 2206) 19 MEQ/L CALCIUM (test code = 2209) 9.6 MG/DL PROTEIN, TOTAL (test code = 2229) 7.5 G/DL ALBUMIN (test code = 2201) 4.3 G/DL CALC GLOBULIN (test code = 2240) 3.2 G/DL CALC A/G RATIO (test code = 2234) 1.3 RATIO BILIRUBIN, TOTAL (test code = 2207) 0.2 MG/DL ALKALINE PHOSPHATASE (test code = 2204) 98 U/L AST (test code = 2218) 19 U/L ALT (test code = 2219) 18 U/L Tristen HenaoCBC W/AUTO [id number] 00:00:00* Test Item Value Reference Range Interpretation Comme nts WBC (test code = 1001) 11.0 K/UL RBC (test code = 1002) 3.40 M/UL HEMOGLOBIN (test code = 1003) 10.2 G/DL HEMATOCRIT (test code = 1004) 31.9 % MCV (test code = 1005) 93.8 fL MCH (test code = 1006) 30.0 PG MCHC (test code = 1007) 32.0 G/DL RDW (test code = 1038) 14.4 % NEUTROPHILS (test code = 1008) 60.9 % LYMPHOCYTES (test code = 1010) 29.2 % MONOCYTES (test code = 1011) 7.6 % EOSINOPHILS (test code = 1012) 1.4 % BASOPHILS (test code = 1013) 0.6 % IMMATURE GRANULOCYTES (test code = 1036) 0.3 % NUCLEATED RBCS (test code = 1065) 0.0 /100WBC'S PLATELET COUNT (test code = 1015) 205 K/UL ABSOLUTE NEUTROPHILS (test c ode = 1066) 6.71 K/UL ABSOLUTE LYMPHOCYTES (test c ode = 1067) 3.22 K/UL ABSOLUTE MONOCYTES (test cod e = 1068) 0.84 K/UL ABSOLUTE EOSINOPHILS (test c ode = 1040) 0.15 K/UL ABSOLUTE BASOPHILS (test cod e = 1069) 0.07 K/UL ABS IMMATURE GRANULOCYTES (t est code = 1020) 0.03 K/UL ABS NUCLEATED RBCS (test cod e = 31528) 0.00 K/UL Tristen HenaoCOMPREHENSIVE METABOLIC [id number] 00:00:00* Test Item Value Reference Range Interpretation Comme nts GLUCOSE (test code = 2217) 87 MG/DL BUN (test code = 2208) 29 MG/DL CREATININE (test code = 2214) 1.82 MG/DL eGFR (2020 CKD-EPI) (test co de = 73669) 33 ML/MIN/1.73 CALC BUN/CREAT (test code = 2235) 16 RATIO SODIUM (test code = 2231) 139 MEQ/L POTASSIUM (test code = 2228) 4.6 MEQ/L CHLORIDE (test code = 2215) 107 MEQ/L CARBON DIOXIDE (test code = 2206) 19 MEQ/L CALCIUM (test code = 2209) 9.6 MG/DL PROTEIN, TOTAL (test code = 2229) 7.5 G/DL ALBUMIN (test code = 2201) 4.3 G/DL CALC GLOBULIN (test code = 2240) 3.2 G/DL CALC A/G RATIO (test code = 2234) 1.3 RATIO BILIRUBIN, TOTAL (test code = 2207) 0.2 MG/DL ALKALINE PHOSPHATASE (test code = 2204) 98 U/L AST (test code = 2218) 19 U/L ALT (test code = 2219) 18 U/L Tristen HenaoCBC W/AUTO [id number] 00:00:00* Test Item Value Reference Range Interpretation Comme nts WBC (test code = 1001) 11.0 K/UL RBC (test code = 1002) 3.40 M/UL HEMOGLOBIN (test code = 1003) 10.2 G/DL HEMATOCRIT (test code = 1004) 31.9 % MCV (test code = 1005) 93.8 fL MCH (test code = 1006) 30.0 PG MCHC (test code = 1007) 32.0 G/DL RDW (test code = 1038) 14.4 % NEUTROPHILS (test code = 1008) 60.9 % LYMPHOCYTES (test code = 1010) 29.2 % MONOCYTES (test code = 1011) 7.6 % EOSINOPHILS (test code = 1012) 1.4 % BASOPHILS (test code = 1013) 0.6 % IMMATURE GRANULOCYTES (test code = 1036) 0.3 % NUCLEATED RBCS (test code = 1065) 0.0 /100WBC'S PLATELET COUNT (test code = 1015) 205 K/UL ABSOLUTE NEUTROPHILS (test c ode = 1066) 6.71 K/UL ABSOLUTE LYMPHOCYTES (test c ode = 1067) 3.22 K/UL ABSOLUTE MONOCYTES (test cod e = 1068) 0.84 K/UL ABSOLUTE EOSINOPHILS (test c ode = 1040) 0.15 K/UL ABSOLUTE BASOPHILS (test cod e = 1069) 0.07 K/UL ABS IMMATURE GRANULOCYTES (t est code = 1020) 0.03 K/UL ABS NUCLEATED RBCS (test cod e = 27798) 0.00 K/UL Tristen Carlin JulianoCOMPREHENSIVE METABOLIC [id number] 00:00:00* Test Item Value Reference Range Interpretation Comme nts GLUCOSE (test code = 2217) 87 MG/DL BUN (test code = 2208) 29 MG/DL CREATININE (test code = 2214) 1.82 MG/DL eGFR (2020 CKD-EPI) (test co de = 11205) 33 ML/MIN/1.73 CALC BUN/CREAT (test code = 2235) 16 RATIO SODIUM (test code = 2231) 139 MEQ/L POTASSIUM (test code = 2228) 4.6 MEQ/L CHLORIDE (test code = 2215) 107 MEQ/L CARBON DIOXIDE (test code = 2206) 19 MEQ/L CALCIUM (test code = 2209) 9.6 MG/DL PROTEIN, TOTAL (test code = 2229) 7.5 G/DL ALBUMIN (test code = 2201) 4.3 G/DL CALC GLOBULIN (test code = 2240) 3.2 G/DL CALC A/G RATIO (test code = 2234) 1.3 RATIO BILIRUBIN, TOTAL (test code = 2207) 0.2 MG/DL ALKALINE PHOSPHATASE (test code = 2204) 98 U/L AST (test code = 2218) 19 U/L ALT (test code = 2219) 18 U/L Tristen HenaoCBC W/AUTO [id number] 00:00:00* Test Item Value Reference Range Interpretation Comme nts WBC (test code = 1001) 11.0 K/UL RBC (test code = 1002) 3.40 M/UL HEMOGLOBIN (test code = 1003) 10.2 G/DL HEMATOCRIT (test code = 1004) 31.9 % MCV (test code = 1005) 93.8 fL MCH (test code = 1006) 30.0 PG MCHC (test code = 1007) 32.0 G/DL RDW (test code = 1038) 14.4 % NEUTROPHILS (test code = 1008) 60.9 % LYMPHOCYTES (test code = 1010) 29.2 % MONOCYTES (test code = 1011) 7.6 % EOSINOPHILS (test code = 1012) 1.4 % BASOPHILS (test code = 1013) 0.6 % IMMATURE GRANULOCYTES (test code = 1036) 0.3 % NUCLEATED RBCS (test code = 1065) 0.0 /100WBC'S PLATELET COUNT (test code = 1015) 205 K/UL ABSOLUTE NEUTROPHILS (test c ode = 1066) 6.71 K/UL ABSOLUTE LYMPHOCYTES (test c ode = 1067) 3.22 K/UL ABSOLUTE MONOCYTES (test cod e = 1068) 0.84 K/UL ABSOLUTE EOSINOPHILS (test c ode = 1040) 0.15 K/UL ABSOLUTE BASOPHILS (test cod e = 1069) 0.07 K/UL ABS IMMATURE GRANULOCYTES (t est code = 1020) 0.03 K/UL ABS NUCLEATED RBCS (test cod e = 18629) 0.00 K/UL Tristen HenaoCOMPREHENSIVE METABOLIC [id number] 00:00:00* Test Item Value Reference Range Interpretation Comme nts GLUCOSE (test code = 2217) 87 MG/DL BUN (test code = 2208) 29 MG/DL CREATININE (test code = 2214) 1.82 MG/DL eGFR (2020 CKD-EPI) (test co de = 54452) 33 ML/MIN/1.73 CALC BUN/CREAT (test code = 2235) 16 RATIO SODIUM (test code = 2231) 139 MEQ/L POTASSIUM (test code = 2228) 4.6 MEQ/L CHLORIDE (test code = 2215) 107 MEQ/L CARBON DIOXIDE (test code = 2206) 19 MEQ/L CALCIUM (test code = 2209) 9.6 MG/DL PROTEIN, TOTAL (test code = 2229) 7.5 G/DL ALBUMIN (test code = 2201) 4.3 G/DL CALC GLOBULIN (test code = 2240) 3.2 G/DL CALC A/G RATIO (test code = 2234) 1.3 RATIO BILIRUBIN, TOTAL (test code = 2207) 0.2 MG/DL ALKALINE PHOSPHATASE (test code = 2204) 98 U/L AST (test code = 2218) 19 U/L ALT (test code = 2219) 18 U/L Tristen Carlin [facility] W/AUTO [id number] 00:00:00* Test Item Value Reference Range Interpretation Comme nts WBC (test code = 1001) 11.0 K/UL RBC (test code = 1002) 3.40 M/UL HEMOGLOBIN (test code = 1003) 10.2 G/DL HEMATOCRIT (test code = 1004) 31.9 % MCV (test code = 1005) 93.8 fL MCH (test code = 1006) 30.0 PG MCHC (test code = 1007) 32.0 G/DL RDW (test code = 1038) 14.4 % NEUTROPHILS (test code = 1008) 60.9 % LYMPHOCYTES (test code = 1010) 29.2 % MONOCYTES (test code = 1011) 7.6 % EOSINOPHILS (test code = 1012) 1.4 % BASOPHILS (test code = 1013) 0.6 % IMMATURE GRANULOCYTES (test code = 1036) 0.3 % NUCLEATED RBCS (test code = 1065) 0.0 /100WBC'S PLATELET COUNT (test code = 1015) 205 K/UL ABSOLUTE NEUTROPHILS (test c ode = 1066) 6.71 K/UL ABSOLUTE LYMPHOCYTES (test c ode = 1067) 3.22 K/UL ABSOLUTE MONOCYTES (test cod e = 1068) 0.84 K/UL ABSOLUTE EOSINOPHILS (test c ode = 1040) 0.15 K/UL ABSOLUTE BASOPHILS (test cod e = 1069) 0.07 K/UL ABS IMMATURE GRANULOCYTES (t est code = 1020) 0.03 K/UL ABS NUCLEATED RBCS (test cod e = 58115) 0.00 K/UL Tristen HenaoCOMPREHENSIVE METABOLIC [id number] 00:00:00* Test Item Value Reference Range Interpretation Comme nts GLUCOSE (test code = 2217) 87 MG/DL BUN (test code = 2208) 29 MG/DL CREATININE (test code = 2214) 1.82 MG/DL eGFR (2020 CKD-EPI) (test co de = 77043) 33 ML/MIN/1.73 CALC BUN/CREAT (test code = 2235) 16 RATIO SODIUM (test code = 2231) 139 MEQ/L POTASSIUM (test code = 2228) 4.6 MEQ/L CHLORIDE (test code = 2215) 107 MEQ/L CARBON DIOXIDE (test code = 2206) 19 MEQ/L CALCIUM (test code = 2209) 9.6 MG/DL PROTEIN, TOTAL (test code = 2229) 7.5 G/DL ALBUMIN (test code = 2201) 4.3 G/DL CALC GLOBULIN (test code = 2240) 3.2 G/DL CALC A/G RATIO (test code = 2234) 1.3 RATIO BILIRUBIN, TOTAL (test code = 2207) 0.2 MG/DL ALKALINE PHOSPHATASE (test code = 2204) 98 U/L AST (test code = 2218) 19 U/L ALT (test code = 2219) 18 U/L Tristen HenaoCBC W/AUTO [id number] 00:00:00* Test Item Value Reference Range Interpretation Comme nts WBC (test code = 1001) 11.0 K/UL RBC (test code = 1002) 3.40 M/UL HEMOGLOBIN (test code = 1003) 10.2 G/DL HEMATOCRIT (test code = 1004) 31.9 % MCV (test code = 1005) 93.8 fL MCH (test code = 1006) 30.0 PG MCHC (test code = 1007) 32.0 G/DL RDW (test code = 1038) 14.4 % NEUTROPHILS (test code = 1008) 60.9 % LYMPHOCYTES (test code = 1010) 29.2 % MONOCYTES (test code = 1011) 7.6 % EOSINOPHILS (test code = 1012) 1.4 % BASOPHILS (test code = 1013) 0.6 % IMMATURE GRANULOCYTES (test code = 1036) 0.3 % NUCLEATED RBCS (test code = 1065) 0.0 /100WBC'S PLATELET COUNT (test code = 1015) 205 K/UL ABSOLUTE NEUTROPHILS (test c ode = 1066) 6.71 K/UL ABSOLUTE LYMPHOCYTES (test c ode = 1067) 3.22 K/UL ABSOLUTE MONOCYTES (test cod e = 1068) 0.84 K/UL ABSOLUTE EOSINOPHILS (test c ode = 1040) 0.15 K/UL ABSOLUTE BASOPHILS (test cod e = 1069) 0.07 K/UL ABS IMMATURE GRANULOCYTES (t est code = 1020) 0.03 K/UL ABS NUCLEATED RBCS (test cod e = 63688) 0.00 K/UL Tristen F JulianoCOMPREHENSIVE METABOLIC [id number] 00:00:00* Test Item Value Reference Range Interpretation Comme nts GLUCOSE (test code = 2217) 87 MG/DL BUN (test code = 2208) 29 MG/DL CREATININE (test code = 2214) 1.82 MG/DL eGFR (2020 CKD-EPI) (test co de = 60225) 33 ML/MIN/1.73 CALC BUN/CREAT (test code = 2235) 16 RATIO SODIUM (test code = 2231) 139 MEQ/L POTASSIUM (test code = 2228) 4.6 MEQ/L CHLORIDE (test code = 2215) 107 MEQ/L CARBON DIOXIDE (test code = 2206) 19 MEQ/L CALCIUM (test code = 2209) 9.6 MG/DL PROTEIN, TOTAL (test code = 2229) 7.5 G/DL ALBUMIN (test code = 2201) 4.3 G/DL CALC GLOBULIN (test code = 2240) 3.2 G/DL CALC A/G RATIO (test code = 2234) 1.3 RATIO BILIRUBIN, TOTAL (test code = 2207) 0.2 MG/DL ALKALINE PHOSPHATASE (test code = 2204) 98 U/L AST (test code = 2218) 19 U/L ALT (test code = 2219) 18 U/L Tristen HenaoCBC W/AUTO [id number] 00:00:00* Test Item Value Reference Range Interpretation Comme nts WBC (test code = 1001) 11.0 K/UL RBC (test code = 1002) 3.40 M/UL HEMOGLOBIN (test code = 1003) 10.2 G/DL HEMATOCRIT (test code = 1004) 31.9 % MCV (test code = 1005) 93.8 fL MCH (test code = 1006) 30.0 PG MCHC (test code = 1007) 32.0 G/DL RDW (test code = 1038) 14.4 % NEUTROPHILS (test code = 1008) 60.9 % LYMPHOCYTES (test code = 1010) 29.2 % MONOCYTES (test code = 1011) 7.6 % EOSINOPHILS (test code = 1012) 1.4 % BASOPHILS (test code = 1013) 0.6 % IMMATURE GRANULOCYTES (test code = 1036) 0.3 % NUCLEATED RBCS (test code = 1065) 0.0 /100WBC'S PLATELET COUNT (test code = 1015) 205 K/UL ABSOLUTE NEUTROPHILS (test c ode = 1066) 6.71 K/UL ABSOLUTE LYMPHOCYTES (test c ode = 1067) 3.22 K/UL ABSOLUTE MONOCYTES (test cod e = 1068) 0.84 K/UL ABSOLUTE EOSINOPHILS (test c ode = 1040) 0.15 K/UL ABSOLUTE BASOPHILS (test cod e = 1069) 0.07 K/UL ABS IMMATURE GRANULOCYTES (t est code = 1020) 0.03 K/UL ABS NUCLEATED RBCS (test cod e = 58878) 0.00 K/UL Tristen HenaoCOMPREHENSIVE METABOLIC [id number] 00:00:00* Test Item Value Reference Range Interpretation Comme nts GLUCOSE (test code = 2217) 87 MG/DL BUN (test code = 2208) 29 MG/DL CREATININE (test code = 2214) 1.82 MG/DL eGFR (2020 CKD-EPI) (test co de = 43760) 33 ML/MIN/1.73 CALC BUN/CREAT (test code = 2235) 16 RATIO SODIUM (test code = 2231) 139 MEQ/L POTASSIUM (test code = 2228) 4.6 MEQ/L CHLORIDE (test code = 2215) 107 MEQ/L CARBON DIOXIDE (test code = 2206) 19 MEQ/L CALCIUM (test code = 2209) 9.6 MG/DL PROTEIN, TOTAL (test code = 2229) 7.5 G/DL ALBUMIN (test code = 2201) 4.3 G/DL CALC GLOBULIN (test code = 2240) 3.2 G/DL CALC A/G RATIO (test code = 2234) 1.3 RATIO BILIRUBIN, TOTAL (test code = 2207) 0.2 MG/DL ALKALINE PHOSPHATASE (test code = 2204) 98 U/L AST (test code = 2218) 19 U/L ALT (test code = 2219) 18 U/L Tristen Carlin [facility] W/AUTO [id number] 00:00:00* Test Item Value Reference Range Interpretation Comme nts WBC (test code = 1001) 11.0 K/UL RBC (test code = 1002) 3.40 M/UL HEMOGLOBIN (test code = 1003) 10.2 G/DL HEMATOCRIT (test code = 1004) 31.9 % MCV (test code = 1005) 93.8 fL MCH (test code = 1006) 30.0 PG MCHC (test code = 1007) 32.0 G/DL RDW (test code = 1038) 14.4 % NEUTROPHILS (test code = 1008) 60.9 % LYMPHOCYTES (test code = 1010) 29.2 % MONOCYTES (test code = 1011) 7.6 % EOSINOPHILS (test code = 1012) 1.4 % BASOPHILS (test code = 1013) 0.6 % IMMATURE GRANULOCYTES (test code = 1036) 0.3 % NUCLEATED RBCS (test code = 1065) 0.0 /100WBC'S PLATELET COUNT (test code = 1015) 205 K/UL ABSOLUTE NEUTROPHILS (test c ode = 1066) 6.71 K/UL ABSOLUTE LYMPHOCYTES (test c ode = 1067) 3.22 K/UL ABSOLUTE MONOCYTES (test cod e = 1068) 0.84 K/UL ABSOLUTE EOSINOPHILS (test c ode = 1040) 0.15 K/UL ABSOLUTE BASOPHILS (test cod e = 1069) 0.07 K/UL ABS IMMATURE GRANULOCYTES (t est code = 1020) 0.03 K/UL ABS NUCLEATED RBCS (test cod e = 42219) 0.00 K/UL Tristen HenaoCOMPREHENSIVE METABOLIC [id number] 00:00:00* Test Item Value Reference Range Interpretation Comme nts GLUCOSE (test code = 2217) 87 MG/DL BUN (test code = 2208) 29 MG/DL CREATININE (test code = 2214) 1.82 MG/DL eGFR (2020 CKD-EPI) (test co de = 83832) 33 ML/MIN/1.73 CALC BUN/CREAT (test code = 2235) 16 RATIO SODIUM (test code = 2231) 139 MEQ/L POTASSIUM (test code = 2228) 4.6 MEQ/L CHLORIDE (test code = 2215) 107 MEQ/L CARBON DIOXIDE (test code = 2206) 19 MEQ/L CALCIUM (test code = 2209) 9.6 MG/DL PROTEIN, TOTAL (test code = 2229) 7.5 G/DL ALBUMIN (test code = 2201) 4.3 G/DL CALC GLOBULIN (test code = 2240) 3.2 G/DL CALC A/G RATIO (test code = 2234) 1.3 RATIO BILIRUBIN, TOTAL (test code = 2207) 0.2 MG/DL ALKALINE PHOSPHATASE (test code = 2204) 98 U/L AST (test code = 2218) 19 U/L ALT (test code = 2219) 18 U/L Tristen HenaoCBC W/AUTO [id number] 00:00:00* Test Item Value Reference Range Interpretation Comme nts WBC (test code = 1001) 11.0 K/UL RBC (test code = 1002) 3.40 M/UL HEMOGLOBIN (test code = 1003) 10.2 G/DL HEMATOCRIT (test code = 1004) 31.9 % MCV (test code = 1005) 93.8 fL MCH (test code = 1006) 30.0 PG MCHC (test code = 1007) 32.0 G/DL RDW (test code = 1038) 14.4 % NEUTROPHILS (test code = 1008) 60.9 % LYMPHOCYTES (test code = 1010) 29.2 % MONOCYTES (test code = 1011) 7.6 % EOSINOPHILS (test code = 1012) 1.4 % BASOPHILS (test code = 1013) 0.6 % IMMATURE GRANULOCYTES (test code = 1036) 0.3 % NUCLEATED RBCS (test code = 1065) 0.0 /100WBC'S PLATELET COUNT (test code = 1015) 205 K/UL ABSOLUTE NEUTROPHILS (test c ode = 1066) 6.71 K/UL ABSOLUTE LYMPHOCYTES (test c ode = 1067) 3.22 K/UL ABSOLUTE MONOCYTES (test cod e = 1068) 0.84 K/UL ABSOLUTE EOSINOPHILS (test c ode = 1040) 0.15 K/UL ABSOLUTE BASOPHILS (test cod e = 1069) 0.07 K/UL ABS IMMATURE GRANULOCYTES (t est code = 1020) 0.03 K/UL ABS NUCLEATED RBCS (test cod e = 69623) 0.00 K/UL Tristen HenaoCOMPREHENSIVE METABOLIC [id number] 00:00:00* Test Item Value Reference Range Interpretation Comme nts GLUCOSE (test code = 2217) 87 MG/DL BUN (test code = 2208) 29 MG/DL CREATININE (test code = 2214) 1.82 MG/DL eGFR (2020 CKD-EPI) (test co de = 57236) 33 ML/MIN/1.73 CALC BUN/CREAT (test code = 2235) 16 RATIO SODIUM (test code = 2231) 139 MEQ/L POTASSIUM (test code = 2228) 4.6 MEQ/L CHLORIDE (test code = 2215) 107 MEQ/L CARBON DIOXIDE (test code = 2206) 19 MEQ/L CALCIUM (test code = 2209) 9.6 MG/DL PROTEIN, TOTAL (test code = 2229) 7.5 G/DL ALBUMIN (test code = 2201) 4.3 G/DL CALC GLOBULIN (test code = 2240) 3.2 G/DL CALC A/G RATIO (test code = 2234) 1.3 RATIO BILIRUBIN, TOTAL (test code = 2207) 0.2 MG/DL ALKALINE PHOSPHATASE (test code = 2204) 98 U/L AST (test code = 2218) 19 U/L ALT (test code = 2219) 18 U/L Tristen HenaoCULTURE, [id number] 00:00:00* Test Item Value Reference Range Interpretation Comme nts CULTURE, ROUTINE (test code = 37044) SPECIMEN NUMBER: [id number] Tristen Snyder [id number] 00:00:00* Test Item Value Reference Range Interpretation Comme nts CULTURE, ROUTINE (test code = 11460) SPECIMEN NUMBER: [id number] Tristen Snyder [id number] 00:00:00* Test Item Value Reference Range Interpretation Comme nts CULTURE, ROUTINE (test code = 31005) SPECIMEN NUMBER: [id number] Tristen AnthonyLTSURINDER [id number] 00:00:00* Test Item Value Reference Range Interpretation Comme nts CULTURE, ROUTINE (test code = 48509) SPECIMEN NUMBER: [id number] Tristen AnthonyLTSRUINDER [id number] 00:00:00* Test Item Value Reference Range Interpretation Comme nts CULTURE, ROUTINE (test code = 84272) SPECIMEN NUMBER: [id number] Tristen Snyder [id number] 00:00:00* Test Item Value Reference Range Interpretation Comme nts CULTURE, ROUTINE (test code = 37550) SPECIMEN NUMBER: [id number] Tristen AnthonyLTSURINDER, [id number] 00:00:00* Test Item Value Reference Range Interpretation Comme nts CULTURE, ROUTINE (test code = 37691) SPECIMEN NUMBER: [id number] Tristen AnthonyLTSURINDER, [id number] 00:00:00* Test Item Value Reference Range Interpretation Comme nts CULTURE, ROUTINE (test code = 77544) SPECIMEN NUMBER: [id number] Tristen Snyder [id number] 00:00:00* Test Item Value Reference Range Interpretation Comme nts CULTURE, ROUTINE (test code = 33736) SPECIMEN NUMBER: [id number] Tristen AnthonyLTSURINDER [id number] 00:00:00* Test Item Value Reference Range Interpretation Comme nts CULTURE, ROUTINE (test code = 37521) SPECIMEN NUMBER: [id number] Tristen AnthonyLTSURINDER, [id number] 00:00:00* Test Item Value Reference Range Interpretation Comme nts CULTURE, ROUTINE (test code = 29103) SPECIMEN NUMBER: [id number] Tristen AnthonyLTSURINDER, [id number] 00:00:00* Test Item Value Reference Range Interpretation Comme nts CULTURE, ROUTINE (test code = 81712) SPECIMEN NUMBER: [id number] Tristen Carlin AustinURINALYSIS W/REFLEX [id number] 00:00:00* Test Item Value Reference Range Interpretation [...] 3-5 /HPF EPITHELIAL CELLS (test code = 39251) 0-5 /HPF BACTERIA (test code = 1515) NONE SEEN CASTS, HYALINE (test code = 1517) NONE SEEN Tristen HenaoCBC W/AUTO [id number] 00:00:00* Test Item Value Reference Range Interpretation [...] ABS NUCLEATED RBCS (test cod e = 68430) 0.00 K/UL Tristen Tesfaye AustinLIPID [id number] 00:00:00* Test Item Value Reference Range Interpretation Comme nts CHOLESTEROL (test code = 2210) 138 MG/DL TRIGLYCERIDES (test code = 2232) 113 MG/DL HDL CHOLESTEROL (test code = 2220) 37 MG/DL CALC LDL CHOL (test code = 2237) 80 MG/DL RISK RATIO LDL/HDL (test cod e = 2238) 2.16 RATIO Tristen Carlin JulianoCOMPREHENSIVE METABOLIC [id number] 00:00:00* Test Item Value Reference Range Interpretation Comme nts GLUCOSE (test code = 2217) 74 MG/DL BUN (test code = 2208) 10 MG/DL CREATININE (test code = 2214) 1.28 MG/DL eGFR (2020 CKD-EPI) (test co de = 20084) 50 ML/MIN/1.73 CALC BUN/CREAT (test code = [...] 2219) 16 U/L Tristen Carlin AustinURINALYSIS W/REFLEX [id number] 00:00:00* Test Item Value Reference Range Interpretation [...] 3-5 /HPF EPITHELIAL CELLS (test code = 05948) 0-5 /HPF BACTERIA (test code = 1515) NONE SEEN CASTS, HYALINE (test code = 1517) NONE SEEN [facility] [id number] 00:00:00* Test Item Value Reference Range Interpretation [...] ABS NUCLEATED RBCS (test cod e = 98287) 0.00 K/UL Tristen Carlin AustinLIPID [id number] 00:00:00* Test Item Value Reference Range Interpretation Comme nts CHOLESTEROL (test code = 2210) 138 MG/DL TRIGLYCERIDES (test code = 2232) 113 MG/DL HDL CHOLESTEROL (test code = 2220) 37 MG/DL CALC LDL CHOL (test code = 2237) 80 MG/DL RISK RATIO LDL/HDL (test cod e = 2238) 2.16 RATIO Tristen HenaoCOMPREHENSIVE METABOLIC [id number] 00:00:00* Test Item Value Reference Range Interpretation Comme nts GLUCOSE (test code = 2217) 74 MG/DL BUN (test code = 2208) 10 MG/DL CREATININE (test code = 2214) 1.28 MG/DL eGFR (2020 CKD-EPI) (test co de = 13431) 50 ML/MIN/1.73 CALC BUN/CREAT (test code = [...] 2219) 16 U/L Tristen Carlin AustinURINALYSIS W/REFLEX [id number] 00:00:00* Test Item Value Reference Range Interpretation [...] 3-5 /HPF EPITHELIAL CELLS (test code = 65043) 0-5 /HPF BACTERIA (test code = 1515) NONE SEEN CASTS, HYALINE (test code = 1517) NONE SEEN Tristen Carlin [facility] W/AUTO [id number] 00:00:00* Test Item Value Reference Range Interpretation [...] ABS NUCLEATED RBCS (test cod e = 35447) 0.00 K/UL Tristen HenaoLIPID [id number] 00:00:00* Test Item Value Reference Range Interpretation Comme nts CHOLESTEROL (test code = 2210) 138 MG/DL TRIGLYCERIDES (test code = 2232) 113 MG/DL HDL CHOLESTEROL (test code = 2220) 37 MG/DL CALC LDL CHOL (test code = 2237) 80 MG/DL RISK RATIO LDL/HDL (test cod e = 2238) 2.16 RATIO Tristen HenaoCOMPREHENSIVE METABOLIC [id number] 00:00:00* Test Item Value Reference Range Interpretation Comme nts GLUCOSE (test code = 2217) 74 MG/DL BUN (test code = 2208) 10 MG/DL CREATININE (test code = 2214) 1.28 MG/DL eGFR (2020 CKD-EPI) (test co de = 73693) 50 ML/MIN/1.73 CALC BUN/CREAT (test code = [...] 2219) 16 U/L Tristen Carlin AustinURINALYSIS W/REFLEX [id number] 00:00:00* Test Item Value Reference Range Interpretation [...] 3-5 /HPF EPITHELIAL CELLS (test code = 61958) 0-5 /HPF BACTERIA (test code = 1515) NONE SEEN CASTS, HYALINE (test code = 1517) NONE SEEN Tristen HenaoCB W/AUTO [id number] 00:00:00* Test Item Value Reference Range Interpretation [...] ABS NUCLEATED RBCS (test cod e = 74324) 0.00 K/UL Tristen HenaoLIPID [id number] 00:00:00* Test Item Value Reference Range Interpretation Comme nts CHOLESTEROL (test code = 2210) 138 MG/DL TRIGLYCERIDES (test code = 2232) 113 MG/DL HDL CHOLESTEROL (test code = 2220) 37 MG/DL CALC LDL CHOL (test code = 2237) 80 MG/DL RISK RATIO LDL/HDL (test cod e = 2238) 2.16 RATIO Tristen HenaoCOMPREHENSIVE METABOLIC [id number] 00:00:00* Test Item Value Reference Range Interpretation Comme nts GLUCOSE (test code = 2217) 74 MG/DL BUN (test code = 2208) 10 MG/DL CREATININE (test code = 2214) 1.28 MG/DL eGFR (2020 CKD-EPI) (test co de = 19743) 50 ML/MIN/1.73 CALC BUN/CREAT (test code = [...] (test code = 2219) 16 U/L Tristen HenaoURINALYSIS W/REFLEX [id number] 00:00:00* Test Item Value Reference Range Interpretation [...] 3-5 /HPF EPITHELIAL CELLS (test code = 74048) 0-5 /HPF BACTERIA (test code = 1515) NONE SEEN CASTS, HYALINE (test code = 1517) NONE SEEN Tristen HenaoCBC W/AUTO [id number] 00:00:00* Test Item Value Reference Range Interpretation [...] ABS NUCLEATED RBCS (test cod e = 67873) 0.00 K/UL Tristen HenaoLIPID [id number] 00:00:00* Test Item Value Reference Range Interpretation Comme nts CHOLESTEROL (test code = 2210) 138 MG/DL TRIGLYCERIDES (test code = 2232) 113 MG/DL HDL CHOLESTEROL (test code = 2220) 37 MG/DL CALC LDL CHOL (test code = 2237) 80 MG/DL RISK RATIO LDL/HDL (test cod e = 2238) 2.16 RATIO Tristen HenaoCOMPREHENSIVE METABOLIC [id number] 00:00:00* Test Item Value Reference Range Interpretation Comme nts GLUCOSE (test code = 2217) 74 MG/DL BUN (test code = 2208) 10 MG/DL CREATININE (test code = 2214) 1.28 MG/DL eGFR (2020 CKD-EPI) (test co de = 22688) 50 ML/MIN/1.73 CALC BUN/CREAT (test code = [...] 2219) 16 U/L Tristen Carlin AustinURINALYSIS W/REFLEX [id number] 00:00:00* Test Item Value Reference Range Interpretation [...] 3-5 /HPF EPITHELIAL CELLS (test code = 81607) 0-5 /HPF BACTERIA (test code = 1515) NONE SEEN CASTS, HYALINE (test code = 1517) NONE SEEN Tristen HenaoCBC W/AUTO [id number] 00:00:00* Test Item Value Reference Range Interpretation [...] ABS NUCLEATED RBCS (test cod e = 66146) 0.00 K/UL Tristen HenaoLIPID [id number] 00:00:00* Test Item Value Reference Range Interpretation Comme nts CHOLESTEROL (test code = 2210) 138 MG/DL TRIGLYCERIDES (test code = 2232) 113 MG/DL HDL CHOLESTEROL (test code = 2220) 37 MG/DL CALC LDL CHOL (test code = 2237) 80 MG/DL RISK RATIO LDL/HDL (test cod e = 2238) 2.16 RATIO Tristen HenaoCOMPREHENSIVE METABOLIC [id number] 00:00:00* Test Item Value Reference Range Interpretation Comme nts GLUCOSE (test code = 2217) 74 MG/DL BUN (test code = 2208) 10 MG/DL CREATININE (test code = 2214) 1.28 MG/DL eGFR (2020 CKD-EPI) (test co de = 09827) 50 ML/MIN/1.73 CALC BUN/CREAT (test code = [...] (test code = 2219) 16 U/L Tristen HenaoURINALYSIS W/REFLEX [id number] 00:00:00* Test Item Value Reference Range Interpretation [...] 3-5 /HPF EPITHELIAL CELLS (test code = 87480) 0-5 /HPF BACTERIA (test code = 1515) NONE SEEN CASTS, HYALINE (test code = 1517) NONE SEEN Tristen HenaoCBC W/AUTO [id number] 00:00:00* Test Item Value Reference Range Interpretation [...] ABS NUCLEATED RBCS (test cod e = 64018) 0.00 K/UL Tristen HenaoLIPID [id number] 00:00:00* Test Item Value Reference Range Interpretation Comme nts CHOLESTEROL (test code = 2210) 138 MG/DL TRIGLYCERIDES (test code = 2232) 113 MG/DL HDL CHOLESTEROL (test code = 2220) 37 MG/DL CALC LDL CHOL (test code = 2237) 80 MG/DL RISK RATIO LDL/HDL (test cod e = 2238) 2.16 RATIO Tristen HenaoCOMPREHENSIVE METABOLIC [id number] 00:00:00* Test Item Value Reference Range Interpretation Comme nts GLUCOSE (test code = 2217) 74 MG/DL BUN (test code = 2208) 10 MG/DL CREATININE (test code = 2214) 1.28 MG/DL eGFR (2020 CKD-EPI) (test co de = 19509) 50 ML/MIN/1.73 CALC BUN/CREAT (test code = [...] (test code = 2219) 16 U/L Tristen HenaoURINALYSIS W/REFLEX [id number] 00:00:00* Test Item Value Reference Range Interpretation [...] 3-5 /HPF EPITHELIAL CELLS (test code = 12644) 0-5 /HPF BACTERIA (test code = 1515) NONE SEEN CASTS, HYALINE (test code = 1517) NONE SEEN Tristen HenaoCBC W/AUTO [id number] 00:00:00* Test Item Value Reference Range Interpretation [...] ABS NUCLEATED RBCS (test cod e = 86333) 0.00 K/UL Tristen HenaoLIPID [id number] 00:00:00* Test Item Value Reference Range Interpretation Comme nts CHOLESTEROL (test code = 2210) 138 MG/DL TRIGLYCERIDES (test code = 2232) 113 MG/DL HDL CHOLESTEROL (test code = 2220) 37 MG/DL CALC LDL CHOL (test code = 2237) 80 MG/DL RISK RATIO LDL/HDL (test cod e = 2238) 2.16 RATIO Tristen HenaoCOMPREHENSIVE METABOLIC [id number] 00:00:00* Test Item Value Reference Range Interpretation Comme nts GLUCOSE (test code = 2217) 74 MG/DL BUN (test code = 2208) 10 MG/DL CREATININE (test code = 2214) 1.28 MG/DL eGFR (2020 CKD-EPI) (test co de = 55122) 50 ML/MIN/1.73 CALC BUN/CREAT (test code = [...] 2219) 16 U/L Tristen Carlin AustinURINALYSIS W/REFLEX [id number] 00:00:00* Test Item Value Reference Range Interpretation [...] 3-5 /HPF EPITHELIAL CELLS (test code = 67067) 0-5 /HPF BACTERIA (test code = 1515) NONE SEEN CASTS, HYALINE (test code = 1517) NONE SEEN Tristen Carlin AustinCBC W/AUTO [id number] 00:00:00* Test Item Value Reference Range Interpretation [...] ABS NUCLEATED RBCS (test cod e = 95666) 0.00 K/UL Tristen Tesfaye AustinLIPID [id number] 00:00:00* Test Item Value Reference Range Interpretation Comme nts CHOLESTEROL (test code = 2210) 138 MG/DL TRIGLYCERIDES (test code = 2232) 113 MG/DL HDL CHOLESTEROL (test code = 2220) 37 MG/DL CALC LDL CHOL (test code = 2237) 80 MG/DL RISK RATIO LDL/HDL (test cod e = 2238) 2.16 RATIO Tristen HenaoCOMPREHENSIVE METABOLIC [id number] 00:00:00* Test Item Value Reference Range Interpretation Comme nts GLUCOSE (test code = 2217) 74 MG/DL BUN (test code = 2208) 10 MG/DL CREATININE (test code = 2214) 1.28 MG/DL eGFR (2020 CKD-EPI) (test co de = 80529) 50 ML/MIN/1.73 CALC BUN/CREAT (test code = [...] 2219) 16 U/L Tristen Tesfaye JulianoURINALYSIS W/REFLEX [id number] 00:00:00* Test Item Value Reference Range Interpretation [...] 3-5 /HPF EPITHELIAL CELLS (test code = 62414) 0-5 /HPF BACTERIA (test code = 1515) NONE SEEN CASTS, HYALINE (test code = 1517) NONE SEEN Tristen Carlin JulianoCBC W/AUTO [id number] 00:00:00* Test Item Value Reference Range Interpretation [...] ABS NUCLEATED RBCS (test cod e = 95289) 0.00 K/UL Tristen Carlin AustinLIPID [id number] 00:00:00* Test Item Value Reference Range Interpretation Comme nts CHOLESTEROL (test code = 2210) 138 MG/DL TRIGLYCERIDES (test code = 2232) 113 MG/DL HDL CHOLESTEROL (test code = 2220) 37 MG/DL CALC LDL CHOL (test code = 2237) 80 MG/DL RISK RATIO LDL/HDL (test cod e = 2238) 2.16 RATIO Tristen Carlin JulianoCOMPREHENSIVE METABOLIC [id number] 00:00:00* Test Item Value Reference Range Interpretation Comme nts GLUCOSE (test code = 2217) 74 MG/DL BUN (test code = 2208) 10 MG/DL CREATININE (test code = 2214) 1.28 MG/DL eGFR (2020 CKD-EPI) (test co de = 20885) 50 ML/MIN/1.73 CALC BUN/CREAT (test code = [...] 2219) 16 U/L Tristen Carlin AustinURINALYSIS W/REFLEX [id number] 00:00:00* Test Item Value Reference Range Interpretation [...] 3-5 /HPF EPITHELIAL CELLS (test code = 93479) 0-5 /HPF BACTERIA (test code = 1515) NONE SEEN CASTS, HYALINE (test code = 1517) NONE SEEN Tristen Carlin AustinCBC W/AUTO [id number] 00:00:00* Test Item Value Reference Range Interpretation [...] ABS NUCLEATED RBCS (test cod e = 98859) 0.00 K/UL Tristen Carlin LagrangeLIPID [id number] 00:00:00* Test Item Value Reference Range Interpretation Comme nts CHOLESTEROL (test code = 2210) 138 MG/DL TRIGLYCERIDES (test code = 2232) 113 MG/DL HDL CHOLESTEROL (test code = 2220) 37 MG/DL CALC LDL CHOL (test code = 2237) 80 MG/DL RISK RATIO LDL/HDL (test cod e = 2238) 2.16 RATIO Tristen HenaoCOMPREHENSIVE METABOLIC [id number] 00:00:00* Test Item Value Reference Range Interpretation Comme nts GLUCOSE (test code = 2217) 74 MG/DL BUN (test code = 2208) 10 MG/DL CREATININE (test code = 2214) 1.28 MG/DL eGFR (2020 CKD-EPI) (test co de = 28794) 50 ML/MIN/1.73 CALC BUN/CREAT (test code = [...] 2219) 16 U/L Tristen Carlin JulianoURINALYSIS W/REFLEX [id number] 00:00:00* Test Item Value Reference Range Interpretation [...] 3-5 /HPF EPITHELIAL CELLS (test code = 23866) 0-5 /HPF BACTERIA (test code = 1515) NONE SEEN CASTS, HYALINE (test code = 1517) NONE SEEN Tristen HenaoCBC W/AUTO [id number] 00:00:00* Test Item Value Reference Range Interpretation [...] ABS NUCLEATED RBCS (test cod e = 87937) 0.00 K/UL Tristen Carlin LagrangeLIPID [id number] 00:00:00* Test Item Value Reference Range Interpretation Comme nts CHOLESTEROL (test code = 2210) 138 MG/DL TRIGLYCERIDES (test code = 2232) 113 MG/DL HDL CHOLESTEROL (test code = 2220) 37 MG/DL CALC LDL CHOL (test code = 2237) 80 MG/DL RISK RATIO LDL/HDL (test cod e = 2238) 2.16 RATIO Tristen HenaoCOMPREHENSIVE METABOLIC [id number] 00:00:00* Test Item Value Reference Range Interpretation Comme nts GLUCOSE (test code = 2217) 74 MG/DL BUN (test code = 2208) 10 MG/DL CREATININE (test code = 2214) 1.28 MG/DL eGFR (2020 CKD-EPI) (test co de = 44507) 50 ML/MIN/1.73 CALC BUN/CREAT (test code = [...] 2219) 16 U/L Tristen Carlin AustinURINALYSIS W/REFLEX [id number] 00:00:00* Test Item Value Reference Range Interpretation [...] 3-5 /HPF EPITHELIAL CELLS (test code = 12449) 0-5 /HPF BACTERIA (test code = 1515) NONE SEEN CASTS, HYALINE (test code = 1517) NONE SEEN Tristen HenaoCBC W/AUTO [id number] 00:00:00* Test Item Value Reference Range Interpretation [...] ABS NUCLEATED RBCS (test cod e = 13523) 0.00 K/UL Tristen Carlin AustinLIPID [id number] 00:00:00* Test Item Value Reference Range Interpretation Comme nts CHOLESTEROL (test code = 2210) 138 MG/DL TRIGLYCERIDES (test code = 2232) 113 MG/DL HDL CHOLESTEROL (test code = 2220) 37 MG/DL CALC LDL CHOL (test code = 2237) 80 MG/DL RISK RATIO LDL/HDL (test cod e = 2238) 2.16 RATIO Tristen HenaoCOMPREHENSIVE METABOLIC [id number] 00:00:00* Test Item Value Reference Range Interpretation Comme nts GLUCOSE (test code = 2217) 74 MG/DL BUN (test code = 2208) 10 MG/DL CREATININE (test code = 2214) 1.28 MG/DL eGFR (2020 CKD-EPI) (test co de = 21854) 50 ML/MIN/1.73 CALC BUN/CREAT (test code = [...] (test code = 2219) 16 U/L Tristen HenaoURINALYSIS W/REFLEX [id number] 00:00:00* Test Item Value Reference Range Interpretation [...] 3-5 /HPF EPITHELIAL CELLS (test code = 35799) 0-5 /HPF BACTERIA (test code = 1515) NONE SEEN CASTS, HYALINE (test code = 1517) NONE SEEN Tristen HenaoCBC W/AUTO [id number] 00:00:00* Test Item Value Reference Range Interpretation [...] ABS NUCLEATED RBCS (test cod e = 44211) 0.00 K/UL Tristen Carlin AustinLIPID [id number] 00:00:00* Test Item Value Reference Range Interpretation Comme nts CHOLESTEROL (test code = 2210) 138 MG/DL TRIGLYCERIDES (test code = 2232) 113 MG/DL HDL CHOLESTEROL (test code = 2220) 37 MG/DL CALC LDL CHOL (test code = 2237) 80 MG/DL RISK RATIO LDL/HDL (test cod e = 2238) 2.16 RATIO Tristen HenaoCOMPREHENSIVE METABOLIC [id number] 00:00:00* Test Item Value Reference Range Interpretation Comme nts GLUCOSE (test code = 2217) 74 MG/DL BUN (test code = 2208) 10 MG/DL CREATININE (test code = 2214) 1.28 MG/DL eGFR (2020 CKD-EPI) (test co de = 11195) 50 ML/MIN/1.73 CALC BUN/CREAT (test code = [...] (test code = 2219) 16 U/L Tristen HenaoURINALYSIS W/REFLEX [id number] 00:00:00* Test Item Value Reference Range Interpretation [...] 3-5 /HPF EPITHELIAL CELLS (test code = 01353) 0-5 /HPF BACTERIA (test code = 1515) NONE SEEN CASTS, HYALINE (test code = 1517) NONE SEEN Tristen HenaoCBC W/AUTO [id number] 00:00:00* Test Item Value Reference Range Interpretation [...] ABS NUCLEATED RBCS (test cod e = 73352) 0.00 K/UL Tristenramos HenaoLIPID [id number] 00:00:00* Test Item Value Reference Range Interpretation Comme nts CHOLESTEROL (test code = 2210) 138 MG/DL TRIGLYCERIDES (test code = 2232) 113 MG/DL HDL CHOLESTEROL (test code = 2220) 37 MG/DL CALC LDL CHOL (test code = 2237) 80 MG/DL RISK RATIO LDL/HDL (test cod e = 2238) 2.16 RATIO Tristen Carlin JulianoCOMPREHENSIVE METABOLIC [id number] 00:00:00* Test Item Value Reference Range Interpretation Comme nts GLUCOSE (test code = 2217) 74 MG/DL BUN (test code = 2208) 10 MG/DL CREATININE (test code = 2214) 1.28 MG/DL eGFR (2020 CKD-EPI) (test co de = 98409) 50 ML/MIN/1.73 CALC BUN/CREAT (test code = [...] (test code = 2219) 16 U/L Tristen HenaoCULTURE, URINE [ADDED]2023-05-29 00:00:00* Test Item Value Reference Range Interpretation Comme nts CULTURE, URINE (test code = 81214) SPECIMEN NUMBER: [id number] Tristen HenaoCULTURE, URINE [ADDED]2023-05-29 00:00:00* Test Item Value Reference Range Interpretation Comme nts CULTURE, URINE (test code = 20734) SPECIMEN NUMBER: [id number] Tristen HenaoCULTURE, URINE [ADDED]2023-05-29 00:00:00* Test Item Value Reference Range Interpretation Comme nts CULTURE, URINE (test code = 50106) SPECIMEN NUMBER: [id number] Tristen HenaoCULTURE, URINE [ADDED]2023-05-29 00:00:00* Test Item Value Reference Range Interpretation Comme nts CULTURE, URINE (test code = 79404) SPECIMEN NUMBER: [id number] Tristen HenaoCULTURE, URINE [ADDED]2023-05-29 00:00:00* Test Item Value Reference Range Interpretation Comme nts CULTURE, URINE (test code = 78916) SPECIMEN NUMBER: [id number] Tristen HenaoCULTURE, URINE [ADDED]2023-05-29 00:00:00* Test Item Value Reference Range Interpretation Comme nts CULTURE, URINE (test code = 12132) SPECIMEN NUMBER: [id number] Tristen HenaoCULTURE, URINE [ADDED]2023-05-29 00:00:00* Test Item Value Reference Range Interpretation Comme nts CULTURE, URINE (test code = 32309) SPECIMEN NUMBER: [id number] Tristen HenaoCULTURE, URINE [ADDED]2023-05-29 00:00:00* Test Item Value Reference Range Interpretation Comme nts CULTURE, URINE (test code = 42694) SPECIMEN NUMBER: [id number] Tristen Carlin AustinCULTURE, URINE [ADDED]2023-05-29 00:00:00* Test Item Value Reference Range Interpretation Comme nts CULTURE, URINE (test code = 71183) SPECIMEN NUMBER: [id number] Tristen HenaoCULTURE, URINE [ADDED]2023-05-29 00:00:00* Test Item Value Reference Range Interpretation Comme nts CULTURE, URINE (test code = 41418) SPECIMEN NUMBER: [id number] Tristen Carlin AustinCULTURE, URINE [ADDED]2023-05-29 00:00:00* Test Item Value Reference Range Interpretation Comme nts CULTURE, URINE (test code = 83895) SPECIMEN NUMBER: [id number] Tristen AnthonyLTURE, URINE [ADDED]2023-05-29 00:00:00* Test Item Value Reference Range Interpretation Comme nts CULTURE, URINE (test code = 59361) SPECIMEN NUMBER: [id number] Tristen AnthonyLTURE, URINE [ADDED]2023-05-29 00:00:00* Test Item Value Reference Range Interpretation Comme nts CULTURE, URINE (test code = 58527) SPECIMEN NUMBER: [id number] Tristen HenaoCULTURE, URINE [ADDED]2023-05-29 00:00:00* Test Item Value Reference Range Interpretation Comme nts CULTURE, URINE (test code = 04406) SPECIMEN NUMBER: [id number] Tristen HenaoCULTURE, URINE [ADDED]2023-05-29 00:00:00* Test Item Value Reference Range Interpretation Comme nts CULTURE, URINE (test code = 28800) SPECIMEN NUMBER: [id number] Tristen HenaoCULTURE, URINE [ADDED]2023-05-29 00:00:00* Test Item Value Reference Range Interpretation Comme nts CULTURE, URINE (test code = 86161) SPECIMEN NUMBER: [id number] Tristen AnthonyLTURE, URINE [ADDED]2023-05-29 00:00:00* Test Item Value Reference Range Interpretation Comme nts CULTURE, URINE (test code = 28123) SPECIMEN NUMBER: [id number] Tristen AnthonyLTURE, [id number] 00:00:00* Test Item Value Reference Range Interpretation Comme nts CULTURE, URINE (test code = 02783) SPECIMEN NUMBER: [id number] Tristen HenaoCULTURE, [id number] 00:00:00* Test Item Value Reference Range Interpretation Comme nts CULTURE, URINE (test code = 14281) SPECIMEN NUMBER: [id number] Tristen AnthonyLTSURINDER, [id number] 00:00:00* Test Item Value Reference Range Interpretation Comme nts CULTURE, URINE (test code = 17111) SPECIMEN NUMBER: [id number] Tristen HenaoCULTURE, [id number] 00:00:00* Test Item Value Reference Range Interpretation Comme nts CULTURE, URINE (test code = 56165) SPECIMEN NUMBER: [id number] Tristen Snyder [id number] 00:00:00* Test Item Value Reference Range Interpretation Comme nts CULTURE, URINE (test code = 27012) SPECIMEN NUMBER: [id number] Tristen Snyder [id number] 00:00:00* Test Item Value Reference Range Interpretation Comme nts CULTURE, URINE (test code = 67656) SPECIMEN NUMBER: [id number] Tristen Snyder [id number] 00:00:00* Test Item Value Reference Range Interpretation Comme nts CULTURE, URINE (test code = 27688) SPECIMEN NUMBER: [id number] Tristen Snyder [id number] 00:00:00* Test Item Value Reference Range Interpretation Comme nts CULTURE, URINE (test code = 04889) SPECIMEN NUMBER: [id number] Tristen Snyder [id number] 00:00:00* Test Item Value Reference Range Interpretation Comme nts CULTURE, URINE (test code = 16474) SPECIMEN NUMBER: [id number] Tristen Snyder [id number] 00:00:00* Test Item Value Reference Range Interpretation Comme nts CULTURE, URINE (test code = 96736) SPECIMEN NUMBER: [id number] Tristen Snyder [id number] 00:00:00* Test Item Value Reference Range Interpretation Comme nts CULTURE, URINE (test code = 17558) SPECIMEN NUMBER: [id number] Tristen Snyder, [id number] 00:00:00* Test Item Value Reference Range Interpretation Comme nts CULTURE, URINE (test code = 85677) SPECIMEN NUMBER: [id number] Tristen Snyder, [id number] 00:00:00* Test Item Value Reference Range Interpretation Comme nts CULTURE, URINE (test code = 69054) SPECIMEN NUMBER: [id number] Tristen Snyder, [id number] 00:00:00* Test Item Value Reference Range Interpretation Comme nts CULTURE, URINE (test code = 43948) SPECIMEN NUMBER: [id number] Tristen Snyder, [id number] 00:00:00* Test Item Value Reference Range Interpretation Comme nts CULTURE, URINE (test code = 78038) SPECIMEN NUMBER: [id number] Tristen Snyder, [id number] 00:00:00* Test Item Value Reference Range Interpretation Comme nts CULTURE, URINE (test code = 37022) SPECIMEN NUMBER: [id number] Tristen Snyder, [id number] 00:00:00* Test Item Value Reference Range Interpretation Comme nts CULTURE, URINE (test code = 51695) SPECIMEN NUMBER: [id number] Tristen Snyder [id number] 00:00:00* Test Item Value Reference Range Interpretation Comme nts CULTURE, URINE (test code = 74064) SPECIMEN NUMBER: [id number] Tristen Carlin AustinURINALYSIS W/REFLEX [id number] 00:00:00* Test Item Value Reference Range Interpretation [...] 0-2 /HPF EPITHELIAL CELLS (test code = 66711) 0-5 /HPF BACTERIA (test code = 1515) NONE SEEN CASTS, HYALINE (test code = 1517) NONE SEEN Tristen HenaoURINALYSIS W/REFLEX [id number] 00:00:00* Test Item Value Reference Range Interpretation [...] 0-2 /HPF EPITHELIAL CELLS (test code = 44291) 0-5 /HPF BACTERIA (test code = 1515) NONE SEEN CASTS, HYALINE (test code = 1517) NONE SEEN Tristen Carlin AustinURINALYSIS W/REFLEX [id number] 00:00:00* Test Item Value Reference Range Interpretation [...] 0-2 /HPF EPITHELIAL CELLS (test code = 67849) 0-5 /HPF BACTERIA (test code = 1515) NONE SEEN CASTS, HYALINE (test code = 1517) NONE SEEN Tristen Carlin AustinURINALYSIS W/REFLEX [id number] 00:00:00* Test Item Value Reference Range Interpretation [...] 0-2 /HPF EPITHELIAL CELLS (test code = 52155) 0-5 /HPF BACTERIA (test code = 1515) NONE SEEN CASTS, HYALINE (test code = 1517) NONE SEEN Tristen Carlin AustinURINALYSIS W/REFLEX [id number] 00:00:00* Test Item Value Reference Range Interpretation [...] 0-2 /HPF EPITHELIAL CELLS (test code = 90679) 0-5 /HPF BACTERIA (test code = 1515) NONE SEEN CASTS, HYALINE (test code = 1517) NONE SEEN Tristen Carlin AustinURINALYSIS W/REFLEX [id number] 00:00:00* Test Item Value Reference Range Interpretation [...] 0-2 /HPF EPITHELIAL CELLS (test code = 26512) 0-5 /HPF BACTERIA (test code = 1515) NONE SEEN CASTS, HYALINE (test code = 1517) NONE SEEN Tristen Carlin AustinURINALYSIS W/REFLEX [id number] 00:00:00* Test Item Value Reference Range Interpretation [...] 0-2 /HPF EPITHELIAL CELLS (test code = 33450) 0-5 /HPF BACTERIA (test code = 1515) NONE SEEN CASTS, HYALINE (test code = 1517) NONE SEEN Tristen Carlin AustinURINALYSIS W/REFLEX [id number] 00:00:00* Test Item Value Reference Range Interpretation [...] 0-2 /HPF EPITHELIAL CELLS (test code = 72189) 0-5 /HPF BACTERIA (test code = 1515) NONE SEEN CASTS, HYALINE (test code = 1517) NONE SEEN Tristen Carlin AustinURINALYSIS W/REFLEX [id number] 00:00:00* Test Item Value Reference Range Interpretation [...] 0-2 /HPF EPITHELIAL CELLS (test code = 85923) 0-5 /HPF BACTERIA (test code = 1515) NONE SEEN CASTS, HYALINE (test code = 1517) NONE SEEN Tristen Carlin AustinURINALYSIS W/REFLEX [id number] 00:00:00* Test Item Value Reference Range Interpretation [...] 0-2 /HPF EPITHELIAL CELLS (test code = 34394) 0-5 /HPF BACTERIA (test code = 1515) NONE SEEN CASTS, HYALINE (test code = 1517) NONE SEEN Tristen Carlin AustinURINALYSIS W/REFLEX [id number] 00:00:00* Test Item Value Reference Range Interpretation [...] 0-2 /HPF EPITHELIAL CELLS (test code = 53804) 0-5 /HPF BACTERIA (test code = 1515) NONE SEEN CASTS, HYALINE (test code = 1517) NONE SEEN Tristen Carlin AustinURINALYSIS W/REFLEX [id number] 00:00:00* Test Item Value Reference Range Interpretation [...] 0-2 /HPF EPITHELIAL CELLS (test code = 38071) 0-5 /HPF BACTERIA (test code = 1515) NONE SEEN CASTS, HYALINE (test code = 1517) NONE SEEN Tristen Carlin AustinURINALYSIS W/REFLEX [id number] 00:00:00* Test Item Value Reference Range Interpretation [...] 0-2 /HPF EPITHELIAL CELLS (test code = 25811) 0-5 /HPF BACTERIA (test code = 1515) NONE SEEN CASTS, HYALINE (test code = 1517) NONE SEEN Tristen Carlin AustinURINALYSIS W/REFLEX [id number] 00:00:00* Test Item Value Reference Range Interpretation [...] 0-2 /HPF EPITHELIAL CELLS (test code = 63768) 0-5 /HPF BACTERIA (test code = 1515) NONE SEEN CASTS, HYALINE (test code = 1517) NONE SEEN Tristen Carlin AustinURINALYSIS W/REFLEX [id number] 00:00:00* Test Item Value Reference Range Interpretation [...] 0-2 /HPF EPITHELIAL CELLS (test code = 49595) 0-5 /HPF BACTERIA (test code = 1515) NONE SEEN CASTS, HYALINE (test code = 1517) NONE SEEN Tristen Carlin AustinURINALYSIS W/REFLEX [id number] 00:00:00* Test Item Value Reference Range Interpretation [...] 0-2 /HPF EPITHELIAL CELLS (test code = 72673) 0-5 /HPF BACTERIA (test code = 1515) NONE SEEN CASTS, HYALINE (test code = 1517) NONE SEEN Tristen Carlin AustinURINALYSIS W/REFLEX [id number] 00:00:00* Test Item Value Reference Range Interpretation [...] 0-2 /HPF EPITHELIAL CELLS (test code = 39921) 0-5 /HPF BACTERIA (test code = 1515) NONE SEEN CASTS, HYALINE (test code = 1517) NONE SEEN Tristen Carlin AustinURINALYSIS W/REFLEX [id number] 00:00:00* Test Item Value Reference Range Interpretation [...] 0-2 /HPF EPITHELIAL CELLS (test code = 28766) 0-5 /HPF BACTERIA (test code = 1515) NONE SEEN CASTS, HYALINE (test code = 1517) NONE SEEN Tristen HenaoCOMPREHENSIVE METABOLIC [id number] 00:00:00* Test Item Value Reference Range Interpretation Comme nts GLUCOSE (test code = 2217) 89 MG/DL BUN (test code = 2208) 13 MG/DL CREATININE (test code = 2214) 1.32 MG/DL eGFR (2020 CKD-EPI) (test co de = 67684) 48 ML/MIN/1.73 CALC BUN/CREAT (test code = [...] 2219) 14 U/L Tristen Carlin AustinURINALYSIS W/REFLEX [id number] 00:00:00* Test Item Value Reference Range Interpretation [...] 3-5 /HPF EPITHELIAL CELLS (test code = 74918) 0-5 /HPF BACTERIA (test code = 1515) NONE SEEN CASTS, HYALINE (test code = 1517) NONE SEEN Tristen HenaoCOMPREHENSIVE METABOLIC [id number] 00:00:00* Test Item Value Reference Range Interpretation Comme nts GLUCOSE (test code = 2217) 89 MG/DL BUN (test code = 2208) 13 MG/DL CREATININE (test code = 2214) 1.32 MG/DL eGFR (2020 CKD-EPI) (test co de = 28251) 48 ML/MIN/1.73 CALC BUN/CREAT (test code = [...] 2219) 14 U/L Tristen Carlin AustinURINALYSIS W/REFLEX [id number] 00:00:00* Test Item Value Reference Range Interpretation [...] 3-5 /HPF EPITHELIAL CELLS (test code = 52413) 0-5 /HPF BACTERIA (test code = 1515) NONE SEEN CASTS, HYALINE (test code = 1517) NONE SEEN Tristen HenaoCOMPREHENSIVE METABOLIC [id number] 00:00:00* Test Item Value Reference Range Interpretation Comme nts GLUCOSE (test code = 2217) 89 MG/DL BUN (test code = 2208) 13 MG/DL CREATININE (test code = 2214) 1.32 MG/DL eGFR (2020 CKD-EPI) (test co de = 60713) 48 ML/MIN/1.73 CALC BUN/CREAT (test code = [...] 2219) 14 U/L Tristen Carlin AustinURINALYSIS W/REFLEX [id number] 00:00:00* Test Item Value Reference Range Interpretation [...] 3-5 /HPF EPITHELIAL CELLS (test code = 92926) 0-5 /HPF BACTERIA (test code = 1515) NONE SEEN CASTS, HYALINE (test code = 1517) NONE SEEN Tristen HenaoCOMPREHENSIVE METABOLIC [id number] 00:00:00* Test Item Value Reference Range Interpretation Comme nts GLUCOSE (test code = 2217) 89 MG/DL BUN (test code = 2208) 13 MG/DL CREATININE (test code = 2214) 1.32 MG/DL eGFR (2020 CKD-EPI) (test co de = 65678) 48 ML/MIN/1.73 CALC BUN/CREAT (test code = [...] 2219) 14 U/L Tristen Carlin AustinURINALYSIS W/REFLEX [id number] 00:00:00* Test Item Value Reference Range Interpretation [...] 3-5 /HPF EPITHELIAL CELLS (test code = 29881) 0-5 /HPF BACTERIA (test code = 1515) NONE SEEN CASTS, HYALINE (test code = 1517) NONE SEEN Tristen HenaoCOMPREHENSIVE METABOLIC [id number] 00:00:00* Test Item Value Reference Range Interpretation Comme nts GLUCOSE (test code = 2217) 89 MG/DL BUN (test code = 2208) 13 MG/DL CREATININE (test code = 2214) 1.32 MG/DL eGFR (2020 CKD-EPI) (test co de = 36007) 48 ML/MIN/1.73 CALC BUN/CREAT (test code = [...] 2219) 14 U/L Tristen Carlin AustinURINALYSIS W/REFLEX [id number] 00:00:00* Test Item Value Reference Range Interpretation [...] 3-5 /HPF EPITHELIAL CELLS (test code = 98893) 0-5 /HPF BACTERIA (test code = 1515) NONE SEEN CASTS, HYALINE (test code = 1517) NONE SEEN Tristen HenaoCOMPREHENSIVE METABOLIC [id number] 00:00:00* Test Item Value Reference Range Interpretation Comme nts GLUCOSE (test code = 2217) 89 MG/DL BUN (test code = 2208) 13 MG/DL CREATININE (test code = 2214) 1.32 MG/DL eGFR (2020 CKD-EPI) (test co de = 90825) 48 ML/MIN/1.73 CALC BUN/CREAT (test code = [...] 2219) 14 U/L Tristen Carlin AustinURINALYSIS W/REFLEX [id number] 00:00:00* Test Item Value Reference Range Interpretation [...] 3-5 /HPF EPITHELIAL CELLS (test code = 93393) 0-5 /HPF BACTERIA (test code = 1515) NONE SEEN CASTS, HYALINE (test code = 1517) NONE SEEN Tristen HenaoCOMPREHENSIVE METABOLIC [id number] 00:00:00* Test Item Value Reference Range Interpretation Comme nts GLUCOSE (test code = 2217) 89 MG/DL BUN (test code = 2208) 13 MG/DL CREATININE (test code = 2214) 1.32 MG/DL eGFR (2020 CKD-EPI) (test co de = 53301) 48 ML/MIN/1.73 CALC BUN/CREAT (test code = [...] 2219) 14 U/L Tristen Carlin AustinURINALYSIS W/REFLEX [id number] 00:00:00* Test Item Value Reference Range Interpretation [...] 3-5 /HPF EPITHELIAL CELLS (test code = 75752) 0-5 /HPF BACTERIA (test code = 1515) NONE SEEN CASTS, HYALINE (test code = 1517) NONE SEEN Tristen HenaoCOMPREHENSIVE METABOLIC [id number] 00:00:00* Test Item Value Reference Range Interpretation Comme nts GLUCOSE (test code = 2217) 89 MG/DL BUN (test code = 2208) 13 MG/DL CREATININE (test code = 2214) 1.32 MG/DL eGFR (2020 CKD-EPI) (test co de = 56990) 48 ML/MIN/1.73 CALC BUN/CREAT (test code = [...] 2219) 14 U/L Tristen Carlin JulianoURINALYSIS W/REFLEX [id number] 00:00:00* Test Item Value Reference Range Interpretation [...] 3-5 /HPF EPITHELIAL CELLS (test code = 00916) 0-5 /HPF BACTERIA (test code = 1515) NONE SEEN CASTS, HYALINE (test code = 1517) NONE SEEN Tristen HenaoCOMPREHENSIVE METABOLIC [id number] 00:00:00* Test Item Value Reference Range Interpretation Comme nts GLUCOSE (test code = 2217) 89 MG/DL BUN (test code = 2208) 13 MG/DL CREATININE (test code = 2214) 1.32 MG/DL eGFR (2020 CKD-EPI) (test co de = 36556) 48 ML/MIN/1.73 CALC BUN/CREAT (test code = [...] 2219) 14 U/L Tristen Carlin JulianoURINALYSIS W/REFLEX [id number] 00:00:00* Test Item Value Reference Range Interpretation [...] 3-5 /HPF EPITHELIAL CELLS (test code = 97487) 0-5 /HPF BACTERIA (test code = 1515) NONE SEEN CASTS, HYALINE (test code = 1517) NONE SEEN Tristen HenaoCOMPREHENSIVE METABOLIC [id number] 00:00:00* Test Item Value Reference Range Interpretation Comme nts GLUCOSE (test code = 2217) 89 MG/DL BUN (test code = 2208) 13 MG/DL CREATININE (test code = 2214) 1.32 MG/DL eGFR (2020 CKD-EPI) (test co de = 17606) 48 ML/MIN/1.73 CALC BUN/CREAT (test code = [...] 2219) 14 U/L Tristen Carlin AustinURINALYSIS W/REFLEX [id number] 00:00:00* Test Item Value Reference Range Interpretation [...] 3-5 /HPF EPITHELIAL CELLS (test code = 06145) 0-5 /HPF BACTERIA (test code = 1515) NONE SEEN CASTS, HYALINE (test code = 1517) NONE SEEN Tristen HenaoCOMPREHENSIVE METABOLIC [id number] 00:00:00* Test Item Value Reference Range Interpretation Comme nts GLUCOSE (test code = 2217) 89 MG/DL BUN (test code = 2208) 13 MG/DL CREATININE (test code = 2214) 1.32 MG/DL eGFR (2020 CKD-EPI) (test co de = 01109) 48 ML/MIN/1.73 CALC BUN/CREAT (test code = [...] 2219) 14 U/L Tristen Carlin AustinURINALYSIS W/REFLEX [id number] 00:00:00* Test Item Value Reference Range Interpretation [...] 3-5 /HPF EPITHELIAL CELLS (test code = 50623) 0-5 /HPF BACTERIA (test code = 1515) NONE SEEN CASTS, HYALINE (test code = 1517) NONE SEEN Tristen Carlin JulianoCOMPREHENSIVE METABOLIC [id number] 00:00:00* Test Item Value Reference Range Interpretation Comme nts GLUCOSE (test code = 2217) 89 MG/DL BUN (test code = 2208) 13 MG/DL CREATININE (test code = 2214) 1.32 MG/DL eGFR (2020 CKD-EPI) (test co de = 60739) 48 ML/MIN/1.73 CALC BUN/CREAT (test code = [...] 2219) 14 U/L Tristen Carlin AustinURINALYSIS W/REFLEX [id number] 00:00:00* Test Item Value Reference Range Interpretation [...] 3-5 /HPF EPITHELIAL CELLS (test code = 82207) 0-5 /HPF BACTERIA (test code = 1515) NONE SEEN CASTS, HYALINE (test code = 1517) NONE SEEN Tristen Carlin JulianoCOMPREHENSIVE METABOLIC [id number] 00:00:00* Test Item Value Reference Range Interpretation Comme nts GLUCOSE (test code = 2217) 89 MG/DL BUN (test code = 2208) 13 MG/DL CREATININE (test code = 2214) 1.32 MG/DL eGFR (2020 CKD-EPI) (test co de = 98859) 48 ML/MIN/1.73 CALC BUN/CREAT (test code = [...] 2219) 14 U/L Tristen Carlin AustinURINALYSIS W/REFLEX [id number] 00:00:00* Test Item Value Reference Range Interpretation [...] 3-5 /HPF EPITHELIAL CELLS (test code = 71285) 0-5 /HPF BACTERIA (test code = 1515) NONE SEEN CASTS, HYALINE (test code = 1517) NONE SEEN Tristen Carlin JulianoCOMPREHENSIVE METABOLIC [id number] 00:00:00* Test Item Value Reference Range Interpretation Comme nts GLUCOSE (test code = 2217) 89 MG/DL BUN (test code = 2208) 13 MG/DL CREATININE (test code = 2214) 1.32 MG/DL eGFR (2020 CKD-EPI) (test co de = 39011) 48 ML/MIN/1.73 CALC BUN/CREAT (test code = [...] 2219) 14 U/L Tristen Carlin AustinURINALYSIS W/REFLEX [id number] 00:00:00* Test Item Value Reference Range Interpretation [...] 3-5 /HPF EPITHELIAL CELLS (test code = 01629) 0-5 /HPF BACTERIA (test code = 1515) NONE SEEN CASTS, HYALINE (test code = 1517) NONE SEEN Tristen HenaoCOMPREHENSIVE METABOLIC [id number] 00:00:00* Test Item Value Reference Range Interpretation Comme nts GLUCOSE (test code = 2217) 89 MG/DL BUN (test code = 2208) 13 MG/DL CREATININE (test code = 2214) 1.32 MG/DL eGFR (2020 CKD-EPI) (test co de = 30175) 48 ML/MIN/1.73 CALC BUN/CREAT (test code = [...] 2219) 14 U/L Tristen Carlin AustinURINALYSIS W/REFLEX [id number] 00:00:00* Test Item Value Reference Range Interpretation [...] 3-5 /HPF EPITHELIAL CELLS (test code = 27920) 0-5 /HPF BACTERIA (test code = 1515) NONE SEEN CASTS, HYALINE (test code = 1517) NONE SEEN Tristen HenaoCOMPREHENSIVE METABOLIC [id number] 00:00:00* Test Item Value Reference Range Interpretation Comme nts GLUCOSE (test code = 2217) 89 MG/DL BUN (test code = 2208) 13 MG/DL CREATININE (test code = 2214) 1.32 MG/DL eGFR (2020 CKD-EPI) (test co de = 92147) 48 ML/MIN/1.73 CALC BUN/CREAT (test code = [...] 2219) 14 U/L Tristen Carlin AustinURINALYSIS W/REFLEX [id number] 00:00:00* Test Item Value Reference Range Interpretation [...] 3-5 /HPF EPITHELIAL CELLS (test code = 45258) 0-5 /HPF BACTERIA (test code = 1515) NONE SEEN CASTS, HYALINE (test code = 1517) NONE SEEN Tristen HenaoCOMPREHENSIVE METABOLIC [id number] 00:00:00* Test Item Value Reference Range Interpretation Comme nts GLUCOSE (test code = 2217) 89 MG/DL BUN (test code = 2208) 13 MG/DL CREATININE (test code = 2214) 1.32 MG/DL eGFR (2020 CKD-EPI) (test co de = 66985) 48 ML/MIN/1.73 CALC BUN/CREAT (test code = [...] 2219) 14 U/L Tristen Carlin AustinURINALYSIS W/REFLEX [id number] 00:00:00* Test Item Value Reference Range Interpretation [...] 3-5 /HPF EPITHELIAL CELLS (test code = 68687) 0-5 /HPF BACTERIA (test code = 1515) NONE SEEN CASTS, HYALINE (test code = 1517) NONE SEEN Tristen HenaoCOMPREHENSIVE METABOLIC [id number] 00:00:00* Test Item Value Reference Range Interpretation Comme nts GLUCOSE (test code = 2217) 89 MG/DL BUN (test code = 2208) 13 MG/DL CREATININE (test code = 2214) 1.32 MG/DL eGFR (2020 CKD-EPI) (test co de = 56277) 48 ML/MIN/1.73 CALC BUN/CREAT (test code = [...] (test code = 2219) 14 U/L Tristen HenaoURINALYSIS W/REFLEX [id number] 00:00:00* Test Item Value Reference Range Interpretation [...] 3-5 /HPF EPITHELIAL CELLS (test code = 98301) 0-5 /HPF BACTERIA (test code = 1515) NONE SEEN CASTS, HYALINE (test code = 1517) NONE SEEN Tristen HenaoCBC W/AUTO [id number] 00:00:00* Test Item Value Reference Range Interpretation [...] ABS NUCLEATED RBCS (test cod e = 61731) 0.00 K/UL Tristen Carlin AustinLIPID [id number] 00:00:00* Test Item Value Reference Range Interpretation Comme nts CHOLESTEROL (test code = 2210) 161 MG/DL TRIGLYCERIDES (test code = 2232) 119 MG/DL HDL CHOLESTEROL (test code = 2220) 38 MG/DL CALC LDL CHOL (test code = 2237) 101 MG/DL RISK RATIO LDL/HDL (test cod e = 2238) 2.66 RATIO Tristen HenaoCOMPREHENSIVE METABOLIC [id number] 00:00:00* Test Item Value Reference Range Interpretation Comme nts GLUCOSE (test code = 2217) 92 MG/DL BUN (test code = 2208) 12 MG/DL CREATININE (test code = 2214) 1.25 MG/DL eGFR (2021 CKD-EPI) (test co de = 67283) 52 ML/MIN/1.73 CALC BUN/CREAT (test code = [...] 2219) 20 U/L Tristen Carlin AustinURINALYSIS W/REFLEX [id number] 00:00:00* Test Item Value Reference Range Interpretation [...] 0-2 /HPF EPITHELIAL CELLS (test code = 66679) 0-5 /HPF BACTERIA (test code = 1515) NONE SEEN CASTS, HYALINE (test code = 1517) NONE SEEN Tirsten HenaoCBC W/AUTO [id number] 00:00:00* Test Item Value Reference Range Interpretation [...] ABS NUCLEATED RBCS (test cod e = 42627) 0.00 K/UL Tristen Tesfaye AustinLIPID [id number] 00:00:00* Test Item Value Reference Range Interpretation Comme nts CHOLESTEROL (test code = 2210) 161 MG/DL TRIGLYCERIDES (test code = 2232) 119 MG/DL HDL CHOLESTEROL (test code = 2220) 38 MG/DL CALC LDL CHOL (test code = 2237) 101 MG/DL RISK RATIO LDL/HDL (test cod e = 2238) 2.66 RATIO Tristen HenaoCOMPREHENSIVE METABOLIC [id number] 00:00:00* Test Item Value Reference Range Interpretation Comme nts GLUCOSE (test code = 2217) 92 MG/DL BUN (test code = 2208) 12 MG/DL CREATININE (test code = 2214) 1.25 MG/DL eGFR (2020 CKD-EPI) (test co de = 77116) 52 ML/MIN/1.73 CALC BUN/CREAT (test code = [...] 2219) 20 U/L Tristen Carlin AustinURINALYSIS W/REFLEX [id number] 00:00:00* Test Item Value Reference Range Interpretation [...] 0-2 /HPF EPITHELIAL CELLS (test code = 33909) 0-5 /HPF BACTERIA (test code = 1515) NONE SEEN CASTS, HYALINE (test code = 1517) NONE SEEN Tristen Carlin AustinCBC W/AUTO [id number] 00:00:00* Test Item Value Reference Range Interpretation [...] ABS NUCLEATED RBCS (test cod e = 45390) 0.00 K/UL Tristen HenaoLIPID [id number] 00:00:00* Test Item Value Reference Range Interpretation Comme nts CHOLESTEROL (test code = 2210) 161 MG/DL TRIGLYCERIDES (test code = 2232) 119 MG/DL HDL CHOLESTEROL (test code = 2220) 38 MG/DL CALC LDL CHOL (test code = 2237) 101 MG/DL RISK RATIO LDL/HDL (test cod e = 2238) 2.66 RATIO Tristen Carlin JulianoCOMPREHENSIVE METABOLIC [id number] 00:00:00* Test Item Value Reference Range Interpretation Comme nts GLUCOSE (test code = 2217) 92 MG/DL BUN (test code = 2208) 12 MG/DL CREATININE (test code = 2214) 1.25 MG/DL eGFR (2020 CKD-EPI) (test co de = 02580) 52 ML/MIN/1.73 CALC BUN/CREAT (test code = [...] 2219) 20 U/L Tristen Carlin AustinURINALYSIS W/REFLEX [id number] 00:00:00* Test Item Value Reference Range Interpretation [...] 0-2 /HPF EPITHELIAL CELLS (test code = 20439) 0-5 /HPF BACTERIA (test code = 1515) NONE SEEN CASTS, HYALINE (test code = 1517) NONE SEEN Tristen Carlin AustinCBC W/AUTO [id number] 00:00:00* Test Item Value Reference Range Interpretation [...] ABS NUCLEATED RBCS (test cod e = 74879) 0.00 K/UL Tristen Carlin LagrangeLIPID [id number] 00:00:00* Test Item Value Reference Range Interpretation Comme nts CHOLESTEROL (test code = 2210) 161 MG/DL TRIGLYCERIDES (test code = 2232) 119 MG/DL HDL CHOLESTEROL (test code = 2220) 38 MG/DL CALC LDL CHOL (test code = 2237) 101 MG/DL RISK RATIO LDL/HDL (test cod e = 2238) 2.66 RATIO Tristen HenaoCOMPREHENSIVE METABOLIC [id number] 00:00:00* Test Item Value Reference Range Interpretation Comme nts GLUCOSE (test code = 2217) 92 MG/DL BUN (test code = 2208) 12 MG/DL CREATININE (test code = 2214) 1.25 MG/DL eGFR (2020 CKD-EPI) (test co de = 45158) 52 ML/MIN/1.73 CALC BUN/CREAT (test code = [...] = 2219) 20 U/L Tristen HenaoURINALYSIS W/REFLEX [id number] 00:00:00* Test Item Value Reference Range Interpretation [...] 0-2 /HPF EPITHELIAL CELLS (test code = 50250) 0-5 /HPF BACTERIA (test code = 1515) NONE SEEN CASTS, HYALINE (test code = 1517) NONE SEEN Tristen HenaoCBC W/AUTO [id number] 00:00:00* Test Item Value Reference Range Interpretation [...] ABS NUCLEATED RBCS (test cod e = 03733) 0.00 K/UL Tristen HenaoLIPID [id number] 00:00:00* Test Item Value Reference Range Interpretation Comme nts CHOLESTEROL (test code = 2210) 161 MG/DL TRIGLYCERIDES (test code = 2232) 119 MG/DL HDL CHOLESTEROL (test code = 2220) 38 MG/DL CALC LDL CHOL (test code = 2237) 101 MG/DL RISK RATIO LDL/HDL (test cod e = 2238) 2.66 RATIO Tristen HenaoCOMPREHENSIVE METABOLIC [id number] 00:00:00* Test Item Value Reference Range Interpretation Comme nts GLUCOSE (test code = 2217) 92 MG/DL BUN (test code = 2208) 12 MG/DL CREATININE (test code = 2214) 1.25 MG/DL eGFR (2020 CKD-EPI) (test co de = 83483) 52 ML/MIN/1.73 CALC BUN/CREAT (test code = [...] = 2219) 20 U/L Tristen HenaoURINALYSIS W/REFLEX [id number] 00:00:00* Test Item Value Reference Range Interpretation [...] 0-2 /HPF EPITHELIAL CELLS (test code = 03776) 0-5 /HPF BACTERIA (test code = 1515) NONE SEEN CASTS, HYALINE (test code = 1517) NONE SEEN Tristen HenaoCBC W/AUTO [id number] 00:00:00* Test Item Value Reference Range Interpretation [...] ABS NUCLEATED RBCS (test cod e = 61263) 0.00 K/UL Tristen HenaoLIPID [id number] 00:00:00* Test Item Value Reference Range Interpretation Comme nts CHOLESTEROL (test code = 2210) 161 MG/DL TRIGLYCERIDES (test code = 2232) 119 MG/DL HDL CHOLESTEROL (test code = 2220) 38 MG/DL CALC LDL CHOL (test code = 2237) 101 MG/DL RISK RATIO LDL/HDL (test cod e = 2238) 2.66 RATIO Tristen HenaoCOMPREHENSIVE METABOLIC [id number] 00:00:00* Test Item Value Reference Range Interpretation Comme nts GLUCOSE (test code = 2217) 92 MG/DL BUN (test code = 2208) 12 MG/DL CREATININE (test code = 2214) 1.25 MG/DL eGFR (2020 CKD-EPI) (test co de = 16226) 52 ML/MIN/1.73 CALC BUN/CREAT (test code = [...] 2219) 20 U/L Tristen Carlin AustinURINALYSIS W/REFLEX [id number] 00:00:00* Test Item Value Reference Range Interpretation [...] 0-2 /HPF EPITHELIAL CELLS (test code = 74950) 0-5 /HPF BACTERIA (test code = 1515) NONE SEEN CASTS, HYALINE (test code = 1517) NONE SEEN Tristen HenaoCBC W/AUTO [id number] 00:00:00* Test Item Value Reference Range Interpretation [...] ABS NUCLEATED RBCS (test cod e = 72350) 0.00 K/UL Tristen Carlin AustinLIPID [id number] 00:00:00* Test Item Value Reference Range Interpretation Comme nts CHOLESTEROL (test code = 2210) 161 MG/DL TRIGLYCERIDES (test code = 2232) 119 MG/DL HDL CHOLESTEROL (test code = 2220) 38 MG/DL CALC LDL CHOL (test code = 2237) 101 MG/DL RISK RATIO LDL/HDL (test cod e = 2238) 2.66 RATIO Tristen HenaoCOMPREHENSIVE METABOLIC [id number] 00:00:00* Test Item Value Reference Range Interpretation Comme nts GLUCOSE (test code = 2217) 92 MG/DL BUN (test code = 2208) 12 MG/DL CREATININE (test code = 2214) 1.25 MG/DL eGFR (2020 CKD-EPI) (test co de = 35789) 52 ML/MIN/1.73 CALC BUN/CREAT (test code = [...] code = 2219) 20 U/L Tristen Carlin JulianoURINALYSIS W/REFLEX [id number] 00:00:00* Test Item Value Reference Range Interpretation [...] 0-2 /HPF EPITHELIAL CELLS (test code = 82000) 0-5 /HPF BACTERIA (test code = 1515) NONE SEEN CASTS, HYALINE (test code = 1517) NONE SEEN [facility] [id number] 00:00:00* Test Item Value Reference Range Interpretation [...] ABS NUCLEATED RBCS (test cod e = 61363) 0.00 K/UL Tristen HenaoLIPID [id number] 00:00:00* Test Item Value Reference Range Interpretation Comme nts CHOLESTEROL (test code = 2210) 161 MG/DL TRIGLYCERIDES (test code = 2232) 119 MG/DL HDL CHOLESTEROL (test code = 2220) 38 MG/DL CALC LDL CHOL (test code = 2237) 101 MG/DL RISK RATIO LDL/HDL (test cod e = 2238) 2.66 RATIO Tristen HenaoCOMPREHENSIVE METABOLIC [id number] 00:00:00* Test Item Value Reference Range Interpretation Comme nts GLUCOSE (test code = 2217) 92 MG/DL BUN (test code = 2208) 12 MG/DL CREATININE (test code = 2214) 1.25 MG/DL eGFR (2020 CKD-EPI) (test co de = 20722) 52 ML/MIN/1.73 CALC BUN/CREAT (test code = [...] 2219) 20 U/L Tristen Carlin AustinURINALYSIS W/REFLEX [id number] 00:00:00* Test Item Value Reference Range Interpretation [...] 0-2 /HPF EPITHELIAL CELLS (test code = 50587) 0-5 /HPF BACTERIA (test code = 1515) NONE SEEN CASTS, HYALINE (test code = 1517) NONE SEEN Tristen Carlin [facility] W/AUTO [id number] 00:00:00* Test Item Value Reference Range Interpretation [...] ABS NUCLEATED RBCS (test cod e = 94841) 0.00 K/UL Tristen HenaoLIPID [id number] 00:00:00* Test Item Value Reference Range Interpretation Comme nts CHOLESTEROL (test code = 2210) 161 MG/DL TRIGLYCERIDES (test code = 2232) 119 MG/DL HDL CHOLESTEROL (test code = 2220) 38 MG/DL CALC LDL CHOL (test code = 2237) 101 MG/DL RISK RATIO LDL/HDL (test cod e = 2238) 2.66 RATIO Tristen HenaoCOMPREHENSIVE METABOLIC [id number] 00:00:00* Test Item Value Reference Range Interpretation Comme nts GLUCOSE (test code = 2217) 92 MG/DL BUN (test code = 2208) 12 MG/DL CREATININE (test code = 2214) 1.25 MG/DL eGFR (2020 CKD-EPI) (test co de = 18560) 52 ML/MIN/1.73 CALC BUN/CREAT (test code = [...] 2219) 20 U/L Tristen Carlin AustinURINALYSIS W/REFLEX [id number] 00:00:00* Test Item Value Reference Range Interpretation [...] 0-2 /HPF EPITHELIAL CELLS (test code = 52267) 0-5 /HPF BACTERIA (test code = 1515) NONE SEEN CASTS, HYALINE (test code = 1517) NONE SEEN Tristen Carlin JulianoCBC W/AUTO [id number] 00:00:00* Test Item Value Reference Range Interpretation [...] ABS NUCLEATED RBCS (test cod e = 89923) 0.00 K/UL Tristen Tesfaye AustinLIPID [id number] 00:00:00* Test Item Value Reference Range Interpretation Comme nts CHOLESTEROL (test code = 2210) 161 MG/DL TRIGLYCERIDES (test code = 2232) 119 MG/DL HDL CHOLESTEROL (test code = 2220) 38 MG/DL CALC LDL CHOL (test code = 2237) 101 MG/DL RISK RATIO LDL/HDL (test cod e = 2238) 2.66 RATIO Tristen HenaoCOMPREHENSIVE METABOLIC [id number] 00:00:00* Test Item Value Reference Range Interpretation Comme nts GLUCOSE (test code = 2217) 92 MG/DL BUN (test code = 2208) 12 MG/DL CREATININE (test code = 2214) 1.25 MG/DL eGFR (2020 CKD-EPI) (test co de = 04253) 52 ML/MIN/1.73 CALC BUN/CREAT (test code = [...] 2219) 20 U/L Tristen Carlin AustinURINALYSIS W/REFLEX [id number] 00:00:00* Test Item Value Reference Range Interpretation [...] 0-2 /HPF EPITHELIAL CELLS (test code = 56131) 0-5 /HPF BACTERIA (test code = 1515) NONE SEEN CASTS, HYALINE (test code = 1517) NONE SEEN Tristen HenaoCBC W/AUTO [id number] 00:00:00* Test Item Value Reference Range Interpretation [...] ABS NUCLEATED RBCS (test cod e = 29946) 0.00 K/UL Tristen HenaoLIPID [id number] 00:00:00* Test Item Value Reference Range Interpretation Comme nts CHOLESTEROL (test code = 2210) 161 MG/DL TRIGLYCERIDES (test code = 2232) 119 MG/DL HDL CHOLESTEROL (test code = 2220) 38 MG/DL CALC LDL CHOL (test code = 2237) 101 MG/DL RISK RATIO LDL/HDL (test cod e = 2238) 2.66 RATIO Tristen HenaoCOMPREHENSIVE METABOLIC [id number] 00:00:00* Test Item Value Reference Range Interpretation Comme nts GLUCOSE (test code = 2217) 92 MG/DL BUN (test code = 2208) 12 MG/DL CREATININE (test code = 2214) 1.25 MG/DL eGFR (2020 CKD-EPI) (test co de = 38318) 52 ML/MIN/1.73 CALC BUN/CREAT (test code = [...] 2219) 20 U/L Tristen Carlin AustinURINALYSIS W/REFLEX [id number] 00:00:00* Test Item Value Reference Range Interpretation [...] 0-2 /HPF EPITHELIAL CELLS (test code = 83801) 0-5 /HPF BACTERIA (test code = 1515) NONE SEEN CASTS, HYALINE (test code = 1517) NONE SEEN Tristen HenaoCBC W/AUTO [id number] 00:00:00* Test Item Value Reference Range Interpretation [...] ABS NUCLEATED RBCS (test cod e = 16166) 0.00 K/UL Tristen HenaoLIPID [id number] 00:00:00* Test Item Value Reference Range Interpretation Comme nts CHOLESTEROL (test code = 2210) 161 MG/DL TRIGLYCERIDES (test code = 2232) 119 MG/DL HDL CHOLESTEROL (test code = 2220) 38 MG/DL CALC LDL CHOL (test code = 2237) 101 MG/DL RISK RATIO LDL/HDL (test cod e = 2238) 2.66 RATIO Tristen HenaoCOMPREHENSIVE METABOLIC [id number] 00:00:00* Test Item Value Reference Range Interpretation Comme nts GLUCOSE (test code = 2217) 92 MG/DL BUN (test code = 2208) 12 MG/DL CREATININE (test code = 2214) 1.25 MG/DL eGFR (2020 CKD-EPI) (test co de = 68839) 52 ML/MIN/1.73 CALC BUN/CREAT (test code = [...] 2219) 20 U/L Tristen Carlin AustinURINALYSIS W/REFLEX [id number] 00:00:00* Test Item Value Reference Range Interpretation [...] 0-2 /HPF EPITHELIAL CELLS (test code = 61554) 0-5 /HPF BACTERIA (test code = 1515) NONE SEEN CASTS, HYALINE (test code = 1517) NONE SEEN Tristen HenaoCBC W/AUTO [id number] 00:00:00* Test Item Value Reference Range Interpretation [...] ABS NUCLEATED RBCS (test cod e = 09211) 0.00 K/UL Tristen HenaoLIPID [id number] 00:00:00* Test Item Value Reference Range Interpretation Comme nts CHOLESTEROL (test code = 2210) 161 MG/DL TRIGLYCERIDES (test code = 2232) 119 MG/DL HDL CHOLESTEROL (test code = 2220) 38 MG/DL CALC LDL CHOL (test code = 2237) 101 MG/DL RISK RATIO LDL/HDL (test cod e = 2238) 2.66 RATIO Tristen HenaoCOMPREHENSIVE METABOLIC [id number] 00:00:00* Test Item Value Reference Range Interpretation Comme nts GLUCOSE (test code = 2217) 92 MG/DL BUN (test code = 2208) 12 MG/DL CREATININE (test code = 2214) 1.25 MG/DL eGFR (2020 CKD-EPI) (test co de = 51817) 52 ML/MIN/1.73 CALC BUN/CREAT (test code = [...] = 2219) 20 U/L Tristen HenaoURINALYSIS W/REFLEX [id number] 00:00:00* Test Item Value Reference Range Interpretation [...] 0-2 /HPF EPITHELIAL CELLS (test code = 52139) 0-5 /HPF BACTERIA (test code = 1515) NONE SEEN CASTS, HYALINE (test code = 1517) NONE SEEN Tristen HenaoCBC W/AUTO [id number] 00:00:00* Test Item Value Reference Range Interpretation [...] ABS NUCLEATED RBCS (test cod e = 79724) 0.00 K/UL Tristen Carlin JulianoLIPID [id number] 00:00:00* Test Item Value Reference Range Interpretation Comme nts CHOLESTEROL (test code = 2210) 161 MG/DL TRIGLYCERIDES (test code = 2232) 119 MG/DL HDL CHOLESTEROL (test code = 2220) 38 MG/DL CALC LDL CHOL (test code = 2237) 101 MG/DL RISK RATIO LDL/HDL (test cod e = 2238) 2.66 RATIO Tristen HenaoCOMPREHENSIVE METABOLIC [id number] 00:00:00* Test Item Value Reference Range Interpretation Comme nts GLUCOSE (test code = 2217) 92 MG/DL BUN (test code = 2208) 12 MG/DL CREATININE (test code = 2214) 1.25 MG/DL eGFR (2020 CKD-EPI) (test co de = 03653) 52 ML/MIN/1.73 CALC BUN/CREAT (test code = [...] 2219) 20 U/L Tristen Carlin AustinURINALYSIS W/REFLEX [id number] 00:00:00* Test Item Value Reference Range Interpretation [...] 0-2 /HPF EPITHELIAL CELLS (test code = 49691) 0-5 /HPF BACTERIA (test code = 1515) NONE SEEN CASTS, HYALINE (test code = 1517) NONE SEEN Tristen HenaoCBC W/AUTO [id number] 00:00:00* Test Item Value Reference Range Interpretation [...] ABS NUCLEATED RBCS (test cod e = 02724) 0.00 K/UL Tristen Carlin AustinLIPID [id number] 00:00:00* Test Item Value Reference Range Interpretation Comme nts CHOLESTEROL (test code = 2210) 161 MG/DL TRIGLYCERIDES (test code = 2232) 119 MG/DL HDL CHOLESTEROL (test code = 2220) 38 MG/DL CALC LDL CHOL (test code = 2237) 101 MG/DL RISK RATIO LDL/HDL (test cod e = 2238) 2.66 RATIO Tristen HenaoCOMPREHENSIVE METABOLIC [id number] 00:00:00* Test Item Value Reference Range Interpretation Comme nts GLUCOSE (test code = 2217) 92 MG/DL BUN (test code = 2208) 12 MG/DL CREATININE (test code = 2214) 1.25 MG/DL eGFR (2020 CKD-EPI) (test co de = 26107) 52 ML/MIN/1.73 CALC BUN/CREAT (test code = [...] = 2219) 20 U/L Tristen HenaoURINALYSIS W/REFLEX [id number] 00:00:00* Test Item Value Reference Range Interpretation [...] 0-2 /HPF EPITHELIAL CELLS (test code = 41514) 0-5 /HPF BACTERIA (test code = 1515) NONE SEEN CASTS, HYALINE (test code = 1517) NONE SEEN Tristen HenaoCBC W/AUTO [id number] 00:00:00* Test Item Value Reference Range Interpretation [...] ABS NUCLEATED RBCS (test cod e = 16195) 0.00 K/UL Tristen Carlin AustinLIPID [id number] 00:00:00* Test Item Value Reference Range Interpretation Comme nts CHOLESTEROL (test code = 2210) 161 MG/DL TRIGLYCERIDES (test code = 2232) 119 MG/DL HDL CHOLESTEROL (test code = 2220) 38 MG/DL CALC LDL CHOL (test code = 2237) 101 MG/DL RISK RATIO LDL/HDL (test cod e = 2238) 2.66 RATIO Tristen HenaoCOMPREHENSIVE METABOLIC [id number] 00:00:00* Test Item Value Reference Range Interpretation Comme nts GLUCOSE (test code = 2217) 92 MG/DL BUN (test code = 2208) 12 MG/DL CREATININE (test code = 2214) 1.25 MG/DL eGFR (2020 CKD-EPI) (test co de = 78438) 52 ML/MIN/1.73 CALC BUN/CREAT (test code = [...] 2219) 20 U/L Tristen Carlin AustinURINALYSIS W/REFLEX [id number] 00:00:00* Test Item Value Reference Range Interpretation [...] 0-2 /HPF EPITHELIAL CELLS (test code = 83375) 0-5 /HPF BACTERIA (test code = 1515) NONE SEEN CASTS, HYALINE (test code = 1517) NONE SEEN Tristen Carlin AustinCBC W/AUTO [id number] 00:00:00* Test Item Value Reference Range Interpretation [...] ABS NUCLEATED RBCS (test cod e = 97604) 0.00 K/UL Tristen HenaoLIPID [id number] 00:00:00* Test Item Value Reference Range Interpretation Comme nts CHOLESTEROL (test code = 2210) 161 MG/DL TRIGLYCERIDES (test code = 2232) 119 MG/DL HDL CHOLESTEROL (test code = 2220) 38 MG/DL CALC LDL CHOL (test code = 2237) 101 MG/DL RISK RATIO LDL/HDL (test cod e = 2238) 2.66 RATIO Tristen Carlin JulianoCOMPREHENSIVE METABOLIC [id number] 00:00:00* Test Item Value Reference Range Interpretation Comme nts GLUCOSE (test code = 2217) 92 MG/DL BUN (test code = 2208) 12 MG/DL CREATININE (test code = 2214) 1.25 MG/DL eGFR (2020 CKD-EPI) (test co de = 21410) 52 ML/MIN/1.73 CALC BUN/CREAT (test code = [...] = 2219) 20 U/L Tristen HenaoURINALYSIS W/REFLEX [id number] 00:00:00* Test Item Value Reference Range Interpretation [...] 0-2 /HPF EPITHELIAL CELLS (test code = 38713) 0-5 /HPF BACTERIA (test code = 1515) NONE SEEN CASTS, HYALINE (test code = 1517) NONE SEEN Tristen HenaoCBC W/AUTO [id number] 00:00:00* Test Item Value Reference Range Interpretation [...] ABS NUCLEATED RBCS (test cod e = 35407) 0.00 K/UL Tristen Carlin AustinLIPID [id number] 00:00:00* Test Item Value Reference Range Interpretation Comme nts CHOLESTEROL (test code = 2210) 161 MG/DL TRIGLYCERIDES (test code = 2232) 119 MG/DL HDL CHOLESTEROL (test code = 2220) 38 MG/DL CALC LDL CHOL (test code = 2237) 101 MG/DL RISK RATIO LDL/HDL (test cod e = 2238) 2.66 RATIO Tristen HenaoCOMPREHENSIVE METABOLIC [id number] 00:00:00* Test Item Value Reference Range Interpretation Comme nts GLUCOSE (test code = 2217) 92 MG/DL BUN (test code = 2208) 12 MG/DL CREATININE (test code = 2214) 1.25 MG/DL eGFR (2020 CKD-EPI) (test co de = 04646) 52 ML/MIN/1.73 CALC BUN/CREAT (test code = [...] 2219) 20 U/L Tristen Carlin AustinURINALYSIS W/REFLEX [id number] 00:00:00* Test Item Value Reference Range Interpretation [...] 0-2 /HPF EPITHELIAL CELLS (test code = 36329) 0-5 /HPF BACTERIA (test code = 1515) NONE SEEN CASTS, HYALINE (test code = 1517) NONE SEEN Tristen HenaoCOMPREHENSIVE METABOLIC [id number] 00:00:00* Test Item Value Reference Range Interpretation Comme nts GLUCOSE (test code = 2217) 92 MG/DL BUN (test code = 2208) 10 MG/DL CREATININE (test code = 2214) 1.21 MG/DL eGFR (2020 CKD-EPI) (test co de = 72529) 54 ML/MIN/1.73 CALC BUN/CREAT (test code = [...] code = 2219) 15 U/L Tristen F AustinCOMPREHENSIVE METABOLIC [id number] 00:00:00* Test Item Value Reference Range Interpretation Comme nts GLUCOSE (test code = 2217) 92 MG/DL BUN (test code = 2208) 10 MG/DL CREATININE (test code = 2214) 1.21 MG/DL eGFR (2020 CKD-EPI) (test co de = 38128) 54 ML/MIN/1.73 CALC BUN/CREAT (test code = [...] code = 2219) 15 U/L Tristen F AustinCOMPREHENSIVE METABOLIC [id number] 00:00:00* Test Item Value Reference Range Interpretation Comme nts GLUCOSE (test code = 2217) 92 MG/DL BUN (test code = 2208) 10 MG/DL CREATININE (test code = 2214) 1.21 MG/DL eGFR (2020 CKD-EPI) (test co de = 93857) 54 ML/MIN/1.73 CALC BUN/CREAT (test code = [...] code = 2219) 15 U/L [facility]isten [facility]lin [facility] [id number] 00:00:00* Test Item Value Reference Range Interpretation Comme nts GLUCOSE (test code = 2217) 92 MG/DL BUN (test code = 2208) 10 MG/DL CREATININE (test code = 2214) 1.21 MG/DL eGFR (2020 CKD-EPI) (test co de = 54570) 54 ML/MIN/1.73 CALC BUN/CREAT (test code = [...] code = 2219) 15 U/L Tristen F LagrangeCOMPREHENSIVE METABOLIC [id number] 00:00:00* Test Item Value Reference Range Interpretation Comme nts GLUCOSE (test code = 2217) 92 MG/DL BUN (test code = 2208) 10 MG/DL CREATININE (test code = 2214) 1.21 MG/DL eGFR (2020 CKD-EPI) (test co de = 15543) 54 ML/MIN/1.73 CALC BUN/CREAT (test code = [...] = 2219) 15 U/L Tristen HenaoCOMPREHENSIVE METABOLIC [id number] 00:00:00* Test Item Value Reference Range Interpretation Comme nts GLUCOSE (test code = 2217) 92 MG/DL BUN (test code = 2208) 10 MG/DL CREATININE (test code = 2214) 1.21 MG/DL eGFR (2020 CKD-EPI) (test co de = 48909) 54 ML/MIN/1.73 CALC BUN/CREAT (test code = [...] code = 2219) 15 U/L Tristen [facility]lin [facility] [id number] 00:00:00* Test Item Value Reference Range Interpretation Comme nts GLUCOSE (test code = 2217) 92 MG/DL BUN (test code = 2208) 10 MG/DL CREATININE (test code = 2214) 1.21 MG/DL eGFR (2020 CKD-EPI) (test co de = 57305) 54 ML/MIN/1.73 CALC BUN/CREAT (test code = [...] code = 2219) 15 U/L Tristen Carlin LagrangeCOMPREHENSIVE METABOLIC [id number] 00:00:00* Test Item Value Reference Range Interpretation Comme nts GLUCOSE (test code = 2217) 92 MG/DL BUN (test code = 2208) 10 MG/DL CREATININE (test code = 2214) 1.21 MG/DL eGFR (2020 CKD-EPI) (test co de = 29440) 54 ML/MIN/1.73 CALC BUN/CREAT (test code = [...] code = 2219) 15 U/L Tristen F LagrangeCOMPREHENSIVE METABOLIC [id number] 00:00:00* Test Item Value Reference Range Interpretation Comme nts GLUCOSE (test code = 2217) 92 MG/DL BUN (test code = 2208) 10 MG/DL CREATININE (test code = 2214) 1.21 MG/DL eGFR (2020 CKD-EPI) (test co de = 52341) 54 ML/MIN/1.73 CALC BUN/CREAT (test code = [...] code = 2219) 15 U/L Tristen F AustinCOMPREHENSIVE METABOLIC [id number] 00:00:00* Test Item Value Reference Range Interpretation Comme nts GLUCOSE (test code = 2217) 92 MG/DL BUN (test code = 2208) 10 MG/DL CREATININE (test code = 2214) 1.21 MG/DL eGFR (2020 CKD-EPI) (test co de = 61334) 54 ML/MIN/1.73 CALC BUN/CREAT (test code = [...] (test code = 2219) 15 U/L [facility]isten [facility]enaoMADISON [facility]ENTERPREHENSIVE METABOL[facility] [id number] 00:00:00* Test Item Value Reference Range Interpretation Comme nts GLUCOSE (test code = 2217) 92 MG/DL BUN (test code = 2208) 10 MG/DL CREATININE (test code = 2214) 1.21 MG/DL eGFR (2020 CKD-EPI) (test co de = 99583) 54 ML/MIN/1.73 CALC BUN/CREAT (test code = [...] code = 2219) 15 U/L [facility] [id number] 00:00:00* Test Item Value Reference Range Interpretation Comme nts GLUCOSE (test code = 2217) 92 MG/DL BUN (test code = 2208) 10 MG/DL CREATININE (test code = 2214) 1.21 MG/DL eGFR (2020 CKD-EPI) (test co de = 43169) 54 ML/MIN/1.73 CALC BUN/CREAT (test code = [...] code = 2219) 15 U/L Tristen Carlin JulianoCOMPREHENSIVE METABOLIC [id number] 00:00:00* Test Item Value Reference Range Interpretation Comme nts GLUCOSE (test code = 2217) 92 MG/DL BUN (test code = 2208) 10 MG/DL CREATININE (test code = 2214) 1.21 MG/DL eGFR (2020 CKD-EPI) (test co de = 94480) 54 ML/MIN/1.73 CALC BUN/CREAT (test code = [...] code = 2219) 15 U/L Tristen Carlin LagrangeCOMPREHENSIVE METABOLIC [id number] 00:00:00* Test Item Value Reference Range Interpretation Comme nts GLUCOSE (test code = 2217) 92 MG/DL BUN (test code = 2208) 10 MG/DL CREATININE (test code = 2214) 1.21 MG/DL eGFR (2020 CKD-EPI) (test co de = 73821) 54 ML/MIN/1.73 CALC BUN/CREAT (test code = [...] code = 2219) 15 U/L Tristen Carlin LagrangeCOMPREHENSIVE METABOLIC [id number] 00:00:00* Test Item Value Reference Range Interpretation Comme nts GLUCOSE (test code = 2217) 92 MG/DL BUN (test code = 2208) 10 MG/DL CREATININE (test code = 2214) 1.21 MG/DL eGFR (2020 CKD-EPI) (test co de = 00894) 54 ML/MIN/1.73 CALC BUN/CREAT (test code = [...] code = 2219) 15 U/L Tristen Carlin LagrangeCOMPREHENSIVE METABOLIC [id number] 00:00:00* Test Item Value Reference Range Interpretation Comme nts GLUCOSE (test code = 2217) 92 MG/DL BUN (test code = 2208) 10 MG/DL CREATININE (test code = 2214) 1.21 MG/DL eGFR (2020 CKD-EPI) (test co de = 25069) 54 ML/MIN/1.73 CALC BUN/CREAT (test code = [...] code = 2219) 15 U/L Tristen Carlin LagrangeCOMPREHENSIVE METABOLIC [id number] 00:00:00* Test Item Value Reference Range Interpretation Comme nts GLUCOSE (test code = 2217) 92 MG/DL BUN (test code = 2208) 10 MG/DL CREATININE (test code = 2214) 1.21 MG/DL eGFR (2020 CKD-EPI) (test co de = 72019) 54 ML/MIN/1.73 CALC BUN/CREAT (test code = [...] = 2219) 15 U/L Tristen HenaoCOMPREHENSIVE METABOLIC [id number] 00:00:00* Test Item Value Reference Range Interpretation Comme nts GLUCOSE (test code = 2217) 92 MG/DL BUN (test code = 2208) 10 MG/DL CREATININE (test code = 2214) 1.21 MG/DL eGFR (2020 CKD-EPI) (test co de = 28443) 54 ML/MIN/1.73 CALC BUN/CREAT (test code = [...] (test code = 2219) 15 U/L Tristen Henao Consult Notes Date/Time Note Provider Source 2024-02-05 12:09:30 Associated Order(s): CONSULT NEPHROLOGY Consultation requested by: IM/Hospitalist, Dr. Houser Reason for Consultation: CHARLIE, metab acidosis, chronic peripheral edema Date of Service: 02/05/24 History of Present Illness: Krystin Almonte is a 53 year old female with complaints of 53 yo female with hx of obesity, chronic HTN on several agents but does not monitor BP at home, obesity, chronic peripheral edema with worsened Rt LE swelling and blistering skin lesion/wound over the past many months she reports. Recent on OP Abx with Bactrim. No reports of fevers, chills, Rt leg pain. Denies hx of LE DVT. PAST MEDICAL HISTORY Past Medical History: Diagnosis Date Anxiety Blood clot in vein due to control History of blood clotting disorder 06/10/2016 Hypertension Metrorrhagia 06/10/2016 Past Surgical History: Procedure Laterality Date SECTION CHOLECYSTECTOMY 2014 TUBAL LIGATION 2004 Family History Problem Relation Age of Onset Cancer Father Leukemia Hypertension Father stroke 2015 Arthritis NoFHx Asthma NoFHx defects NoFHx Breast Cancer NoFHx Colon Cancer NoFHx Ovarian Cancer NoFHx Uterine Cancer NoFHx Depression NoFHx Diabetes NoFHx Genetic NoFHx High cholesterol NoFHx Heart NoFHx Mental retardation NoFHx Neurological NoFHx Osteoporosis NoFHx Psychiatry NoFHx Allergies: Patient has no known allergies. MEDICATIONS Hospital Medications: Current Facility-Administered Medications Medication Dose Route Frequency Last Rate Last Admin NaCl 0.9% (NS) IV infusion 1,000 mL 1,000 mL IV Infusion CONTINUOUS 100 mL/hr at 02/05/24 0742 1,000 mL at 02/05/24 0742 sodium bicarbonate (ANTACID (SODIUM BICARBONATE)) tablet 650 mg 650 mg Oral TID 650 mg at 02/05/24 0942 acetaminophen (TYLENOL) tablet 650 mg 650 mg Oral Q6HPRN buPROPion (WELLBUTRIN) tablet 100 mg 100 mg Oral DAILY 100 mg at 02/05/24 0846 cefTRIAXone (ROCEPHIN) 1,000 mg in water for injection, sterile 10 mL IV Push 1,000 mg Intravenous Q24H ABX 1,000 mg at 02/05/24 0013 doxycycline hyclate (Vibramycin) capsule 100 mg 100 mg Oral Q12HA2 100 mg at 02/05/24 0517 gabapentin (NEURONTIN) capsule 100 mg 100 mg Oral BID 100 mg at 02/05/24 0846 heparin (porcine) injection 5,000 Units 5,000 Units Subcutaneous Q8H 5,000 Units at 02/05/24 0517 HYDROcodone-acetaminophen (NORCO 5) tablet 1 tablet 1 tablet Oral Q6HPRN 1 tablet at 02/04/24 1612 morphine (2 mg/mL) injection 2 mg 2 mg Slow IV Push Q4HPRN ondansetron (ZOFRAN (PF)) injection 4 mg 4 mg Slow IV Push Q6HPRN 4 mg at 02/05/24 0544 pantoprazole (PROTONIX) EC tablet 40 mg 40 mg Oral DAILY 40 mg at 02/05/24 0846 SOCIAL HISTORY Social History Tobacco Use Smoking Status Never Smokeless Tobacco Not on file Social History Substance and Sexual Activity Alcohol Use No Social History Substance and Sexual Activity Drug Use No REVIEW OF SYSTEMS ROS: Constitutional: No fevers or chills reported Vision: No double vision or blurry vision reported ENT: No sinusitis or dysphagia reported Resp: No cough or dyspnea reported CVS: No CP or palpitations reported GI: No N/V/D : No dysuria or hematuria reported Heme: Reports of PE Endo: No DM or thyroid issues reported Neuro: No hx of CVA or seizures Psych: No reports of depression or anxiety Derm: As mentioned above Allergic: No reports of anaphylaxis or urticaria PHYSICAL EXAMINATION BP 122/64 | Pulse 88 | Temp 36.4 ?C (97.5 ?F) | Resp 16 | Ht 1.702 m (5' 7") | Wt 121.5 kg (267 lb 12.8 oz) | SpO2 99% | BMI 41.94 kg/m? PE: Gen: NAD, non tachypnec HEENT: Atraumatic, sclera anicteric Neck: Supple Resp: b/l air entry, no rhonchi appreciated CVS: RRR, no loud murmur or gallop heart sounds appreciated GI: Soft, obese, NT : flower not present Ext: 1-2+ pitting edema of the distal Rt LE, lt leg extensively wrapped Derm: See wound care description of the left anterior garcia wound Neuro: Awake, alert, responsive, non encephalopathic, non focal LABORATORY Reviewed in the EMR CHART REVIEW: Done ASSESSMENT and PLAN Krystin Almonte is a 53 year old female with PMH as listed above, consulted for above mentioned. Stage II CHARLIE 2nd to pre-renal state induced by diuretic use (thiazide and MRA) along with combined max dose ARB in the setting of non elevated or low BP and recent addition of Bactrim with its reversible effects on inhibiting tubular Cr secretion Cont to hold all offending agents, Cr level lower on repeat, will hold off on IVF therapy UA on admission was not too remarkable Chronic peripheral edema, multifactorial, prev was on dihydropyridine CCB but not currently on it as per review of med list. On Gabapentin. Temp hold scheduled diuretics and will have to review diuretic regimen on discharge Lt lower leg wound +/- cellulitis -management of Abx and wound care per IM team. CIATE PROFESSOR OF MEDIA ARTS IM-NEPHROLOGY STAFF [facility] 2024-02-05 09:10:00 Associated Order(s): CONSULT WOUND, OSTOMY, OR CONTINENCE CARE TEAM Images from the original note were not included. [facility] Nurse Note NURSING WOUND CARE CONSULT EVALUATION Consulted for evaluation of: Krystin Almonte is a 53 year old female with chronic wound on the left lower extremity. PATIENT ASSESSMENT: Pertinent PMH: Past Medical History: Diagnosis Date Anxiety Blood clot in vein due to control History of blood clotting disorder 06/10/2016 Hypertension Metrorrhagia 06/10/2016 Current Nutritional Status: Orders Placed This Encounter Procedures Low Sodium (2 gm) Diet; Diet Texture: Regular. Mobility Status: slightly limited Most Recent Callum Scale Score: 19 The patient previously received treatment at an external wound care clinic. WOUND ASSESSMENT: Chronic partial and full thickness wound located on the left lower leg. The wound is irregular and measuring 21 cm L x 22 cm W . The wound bed is red and dry at the proximal area of the wound. The wound bed is red and partially covered with yellow loose slough with moderate exudate at the distal area of the wound. The wound is malodorous . The edges are Irregular and the surrounding skin is fragile and macerated. Wound is painful with palpation per pt. Left lower leg is noted with 1+ pitting edema, distal pulses are palpable, skin is red and warm, no signs of arterial diseases. Patient provided verbal consent for wounds to be photographed. BEDSIDE INTERVENTIONS BY WO NURSE: Existing dressing removed for assessment, wound and surrounding skin cleansed with normal saline. New dressing applied with Exufiber Ag, ABD pads, Kerlix Gauze. RECOMMENDATIONS: Left lower leg: Cleanse left lower leg with chlorhexidine soap (hibiclens), rinse with clean warm water and pat dry completely. Apply moisturizing lotion to the dry intact in on the lower extremities by avoiding open wounds. Cover the draining wound bed with cut to fit Silver Alginate ( Exufiber MM# [id number]). Apply xeroform dressing to the dry wound bed at the proximal area of the wound. Loosely wrap kerlix gauze around the left lower extremity. Absorbent dressing may be used if exudate is present, but should not be used if leg is dry. Using a 4-inch elastic bandage (bert), start wrapping the lower extremity from just above the toes with 50% stretch for compression overlapping the bandage by half in a figure-eight pattern until just above the ankle. Continue wrapping the leg up to the knee with 6-inch elastic bandages (bert) at 50% stretch for compression in the same overlapping figure-eight pattern. This will likely take one 4-inch wrap and two 6-inch wraps per leg. Remove dressings, inspect legs, reapply lotion, and re-apply dressings once daily. Specialty Bed/Support Surface: Current bed/support surface is appropriate for patient. EDUCATION: Discussed recommendations, interventions and plan of care with Patient and Staff. PLAN: Nursing to Implement Impaired Skin Integrity Care Plan and appropriate interventions Optimize nutrition and glycemic control (If indicated) to support wound healing Please follow up with the wound care clinic as scheduled after discharge. Please contact WO nurse if wound is found to be worsening or not progressing towards healing within one week. June Crockett, MSN, RN, CWOCN, CCRN Wound, Ostomy & Continence Nurse [facility] Health [email or web address] CIATE PROFESSOR [employer] MEDIA [employer]S June Crockett RN [facility] - Health History and Physical Notes Date/Time Note Provider Source 2024-02-04 21:18:04 MEDICINE [facility] ADMIT H&P Date of Service: 02/04/2024 CHIEF COMPLAINT: left lower leg infection Subjective History of Present Illness 53 yo female with pmh of anxiety, HTN, CKD who presents to the ED secondary to left worsening lower leg infection (pain, erythema, swelling) for the past 5 months. Patient states that he "has been on a long of antibiotics" and nothing has made it go away. She notes it started as a blister. Thursday, she went to her regular doctor who told her that the only way she will get it is intravenous antibiotics +discharge yellowish +malodorous +nausea +wound care PAST MEDICAL HISTORY Past Medical History: Diagnosis Date Anxiety Blood clot in vein due to control History of blood clotting disorder 06/10/2016 Hypertension Metrorrhagia 06/10/2016 Past Surgical History: Procedure Laterality Date SECTION CHOLECYSTECTOMY 2014 TUBAL LIGATION 2004 Family History Problem Relation Age of Onset Cancer Father Leukemia Hypertension Father stroke 2016 Arthritis NoFHx Asthma NoFHx defects NoFHx Breast Cancer NoFHx Colon Cancer NoFHx Ovarian Cancer NoFHx Uterine Cancer NoFHx Depression NoFHx Diabetes NoFHx Genetic NoFHx High cholesterol NoFHx Heart NoFHx Mental retardation NoFHx Neurological NoFHx Osteoporosis NoFHx Psychiatry NoFHx ALLERGIES No Known Allergies MEDICATIONS No current facility-administered medications on file prior to encounter. Current Outpatient Medications on File Prior to Encounter Medication Sig Dispense Refill buPROPion 100 mg tablet Take 1 tablet by mouth in the morning. chlorthalidone 25 mg tablet Take 1 tablet by mouth in the morning. gabapentin 100 mg capsule Take 1 capsule by mouth in the morning and 1 capsule in the evening. medroxyPROGESTERone 150 mg/mL injection 1 mL by Intramuscular route every 3 (three) months. metoprolol succinate XL 50 mg 24 hr tablet Take 1 tablet by mouth in the morning. spironolactone 25 mg tablet Take 1 tablet by mouth in the morning and 1 tablet in the evening. sulfamethoxazole/trimethoprim (SMZ-TMP DS ORAL) Take by mouth 2 (two) times daily. losartan 50 mg tablet Take 2 tablets by mouth in the morning. Omeprazole 20 mg tablet Take 1 tablet by mouth. amLODIPine 10 mg tablet Take 10 mg by mouth daily. carvedilol 12.5 mg tablet Take 12.5 mg by mouth 2 (two) times daily with meals. citalopram 40 mg tablet Take 40 mg by mouth daily. I attest that the foregoing medication list in the medical record is true, accurate and complete to the best of my knowledge. SOCIAL HISTORY Social History Socioeconomic History Marital status: Number of children: 1 Highest education level: High school graduate Tobacco Use Smoking status: Never Substance and Sexual Activity Alcohol use: No Drug use: No Sexual activity: Yes Partners: Male control/protection: None Comment: last sexual intercourse 06/03/2016 REVIEW OF SYSTEMS Review of Systems Constitutional: Negative. HENT: Negative. Eyes: Negative. Respiratory: Negative. Breasts: Negative. Cardiovascular: Negative. Gastrointestinal: Positive for nausea. Negative for abdominal distention, abdominal pain, anal bleeding, blood in stool, constipation, diarrhea, rectal pain and vomiting. Genitourinary: Negative. Musculoskeletal: Positive for myalgias. Negative for arthralgias, back pain, gait problem and joint swelling. Skin: Positive for color change and wound. Negative for pallor and rash. Neurological: Negative. Psychiatric/Behavioral: Negative. Endocrine: Endocrine negative Objective PHYSICAL EXAMINATION Vitals: 02/04/24 1502 02/04/24 1547 02/04/24 1559 02/04/249 BP: 101/62 100/55 103/60 Pulse: 80 73 Resp: 20 16 Temp: 37.2 ?C (98.9 ?F) 36.1 ?C (96.9 ?F) TempSrc: SpO2: 100% 99% Weight: 264 lb 8 oz (120 kg) Height: 5' 7" (1.702 m) Physical Exam Vitals and nursing note reviewed. Constitutional: General: She is not in acute distress. Appearance: Normal appearance. She is obese. She is not ill-appearing, toxic-appearing or diaphoretic. HENT: Head: Normocephalic and atraumatic. Right Ear: External ear normal. Left Ear: External ear normal. Nose: Nose normal. No congestion. Mouth/Throat: Pharynx: No oropharyngeal exudate or posterior oropharyngeal erythema. Eyes: General: No scleral icterus. Extraocular Movements: Extraocular movements intact. Conjunctiva/sclera: Conjunctivae normal. Pupils: Pupils are equal, round, and reactive to light. Cardiovascular: Rate and Rhythm: Normal rate and regular rhythm. Pulses: Normal pulses. Heart sounds: Normal heart sounds. No murmur heard. No friction rub. No gallop. Pulmonary: Effort: Pulmonary effort is normal. No respiratory distress. Breath sounds: Normal breath sounds. No wheezing or rales. Chest: Chest wall: No tenderness. Abdominal: General: Abdomen is flat. Bowel sounds are normal. There is no distension. Palpations: Abdomen is soft. Tenderness: There is no abdominal tenderness. There is no guarding. Musculoskeletal: General: Normal range of motion. Cervical back: Normal range of motion and neck supple. Right lower leg: No edema. Left lower leg: No edema. Skin: General: Skin is warm and dry. Neurological: Mental Status: She is alert. Psychiatric: Mood and Affect: Mood normal. Behavior: Behavior normal. Thought Content: Thought content normal. Judgment: Judgment normal. LABS/IMAGING - reviewed Ultrasound Left leg: pending Assessment & Plan Krystin Almonte is a 53 year old female with PMH as listed above, admitted to the hospital with: Left lower cellulitis: -- Will continue with intravenous ceftriaxone and doxycycline HTN: normotensive/hypotension -- Holding antihypertensive agents -- Will get fluid hydration 3. Acute on chronic kidney disease: -- Will continue with fluid hydration -- Urine lytes are pending Prophylaxis: DVT- heparin Code Status: Full Code [facility] EMERGENCY PHYSICIAN STAFF [facility] Notes Date/Time Note Provider Source [facility]2025-02-05 00:00:00 [facility]2025-01-28 00:00:00 [facility]2025-01-15 00:00:00 [facility]2025-01-02 00:00:00 [facility]2024-12-30 14:53:26 TRANSITIONAL CARE MANAGEMENT ASSESSMENT 02/08/2024 Krystin Almonte [id number] Krystin Almonte is a 53 year old /White female was admitted on 02/04/24 to [facility]. She was discharged on 02/06/24 with discharge disposition of HR- Routine Discharge. Admitting Physician: Manpreet Houser Discharge Diagnosis: Cellulitis of left lower extremity No linked episodes TCM [id number] outreach documentation: Care Transition CM made f/u call to pt post-discharge x2. No response and call went to voicemail. CM left a discreet message with purpose of call and CM's call back information. Discharge Assessment Chart Assessed: 02/08/24 TCM Outreach Completed: 02/08/24 Future [facility]ments[id number]:14:02 Care Transition CM made f/u call to pt post-discharge. No response and call went to voicemail. CM left a discreet message with purpose of call and CM's call back information. Jennfier Aceves RN, BSN Automation Driver-Transitions of Care [phone] [facility]2024-12-28 14:34:31 Problem: Falls, Risk of Goal: Absence of falls Outcome: Adequate for discharge Problem: Pain Goal: Control of pain at or below patient's documented comfort goal Outcome: Adequate for discharge Goal: Reduction in pain sensation Outcome: Adequate for discharge Problem: Discharge Planning Goal: Adequate for discharge Outcome: Adequate for discharge Goal: Effective communication Outcome: Adequate for discharge Problem: Venous Thromboembolism, (actual or risk of) Goal: Absence of venous thromboembolism (Risk) Outcome: Adequate for discharge Goal: Prevent further complications associated with VTE diagnosis (Actual) Outcome: Adequate for discharge Problem: Skin integrity Impaired (Risk or Actual) Goal: Wound healing Outcome: Adequate for discharge Goal: Prevention of new skin breakdown Outcome: Adequate for discharge Problem: Infection Risk Goal: Absence of infection Outcome: Adequate for discharge [facility] Nesha Wilkins [id number] 02:25:25 Problem: Falls, Risk of Goal: Absence of falls Outcome: Progressing as expected Problem: Pain Goal: Control of pain at or below patient's documented comfort goal Outcome: Progressing as expected Goal: Reduction in pain sensation Outcome: Progressing as expected Problem: Discharge Planning Goal: Adequate for discharge Outcome: Progressing as expected Goal: Effective communication Outcome: Progressing as expected Problem: Venous Thromboembolism, (actual or risk of) Goal: Absence of venous thromboembolism (Risk) Outcome: Progressing as expected Goal: Prevent further complications associated with VTE diagnosis (Actual) Outcome: Progressing as expected Problem: Skin integrity Impaired (Risk or Actual) Goal: Wound healing Outcome: Progressing as expected Goal: Prevention of new skin breakdown Outcome: Progressing as expected Problem: Infection Risk Goal: Absence of infection Outcome: Progressing as expected [facility] Renate William [facility]h0221-01-54 15:46:08 Problem: Falls, Risk of Goal: Absence of falls Outcome: Progressing as expected Problem: Pain Goal: Control of pain at or below patient's documented comfort goal Outcome: Progressing as expected Goal: Reduction in pain sensation Outcome: Progressing as expected Problem: Discharge Planning Goal: Adequate for discharge Outcome: Progressing as expected Goal: Effective communication Outcome: Progressing as expected Problem: Venous Thromboembolism, (actual or risk of) Goal: Absence of venous thromboembolism (Risk) Outcome: Progressing as expected Goal: Prevent further complications associated with VTE diagnosis (Actual) Outcome: Progressing as expected Problem: Skin integrity Impaired (Risk or Actual) Goal: Wound healing Outcome: Progressing as expected Goal: Prevention of new skin breakdown Outcome: Progressing as expected Problem: Infection Risk Goal: Absence of infection Outcome: Progressing as expected [facility]2024-12-26 22:33:59 Problem: Falls, Risk of Goal: Absence of falls Outcome: Progressing as expected Problem: Pain Goal: Control of pain at or below patient's documented comfort goal Outcome: Progressing as expected Goal: Reduction in pain sensation Outcome: Progressing as expected Problem: Discharge Planning Goal: Adequate for discharge Outcome: Progressing as expected Goal: Effective communication Outcome: Progressing as expected Problem: Venous Thromboembolism, (actual or risk of) Goal: Absence of venous thromboembolism (Risk) Outcome: Progressing as expected Goal: Prevent further complications associated with VTE diagnosis (Actual) Outcome: Progressing as expected Problem: Skin integrity Impaired (Risk or Actual) Goal: Wound healing Outcome: Progressing as expected Goal: Prevention of new skin breakdown Outcome: Progressing as expected Problem: Infection Risk Goal: Absence of infection Outcome: Progressing as expected [facility] Addie Dixon [place] [id number] 15:29:39 Patient admitted to 221 for diagnosis of cellulitis of left lower extremity Patient agrees to admission, discussed plan of care with patient and family. Patient is awake, alert, oriented, resp reg unlabored, color appropriate for race, PIV intact No adverse reaction to medications administered while in ED Belongings with patient to unit [facility] Zoraida Strickland [facility]z9740-47-87 15:28:00 Report given to SUSAN Menon [facility]2024-12-26 11:06:05 Pt to ED CO blistering to LLE x 5 months. Denies fevers. [facility] Thania Calixto [id number] 10:50:00 Images from the original note were not included. [facility] Emergency Department Note Patient Name: Krystin Almonte Date of : 1970 53 year old female Treatment Room: Room/bed info not found Primary Care Physician: Julieta Salas Patient Escorted by: Family [5] Mode of Arrival: Personal means [1] EMS Treatment Prior to ED Arrival: INSPECTOR AIDE treatment: Medication (comment) INSPECTOR AIDE treatment comments: daily medications Chief Complaint: Chief Complaint Patient presents with Leg Pain LLE History of Present Illness: Krystin Almonte is a 53 year old female who presents to the ED with worsening left lower leg infection . Ponset 5 months ago. Has been followed by her PCP with no improvement and continued worsening History provided by: Patient Leg Pain Location: Leg Time since incident: 5 months Injury: no Leg location: L lower leg Pain details: Quality: Burning Radiates to: Does not radiate Severity: Moderate Onset quality: Gradual Duration: 5 months Timing: Constant Progression: Worsening Chronicity: New Dislocation: no Relieved by: Nothing Worsened by: Nothing Ineffective treatments: antibiotics. Associated symptoms: swelling Associated symptoms: no decreased ROM, no fatigue and no itching Risk factors: obesity Past Medical History/Immunizations: Past Medical History: Diagnosis Date Anxiety Blood clot in vein due to control History of blood clotting disorder 06/10/2016 Hypertension Metrorrhagia 06/10/2016 Tetanus received in last 5 years: No Childhood immunizations: Up-to-date Allergies: No Known Allergies Past Social History: Tobacco Use Never Tobacco Cessation: Counseling given: No Alcohol Use No. Drug Use No. Sexual Activity Sexually active; Partners: Male; Control/Protection: None. Comments: last sexual intercourse 06/03/2016 Past Surgical History: Past Surgical History: Procedure Laterality Date SECTION CHOLECYSTECTOMY 2015 TUBAL LIGATION 2003 Review of Systems: Review of Systems Constitutional: Negative for fatigue. HENT: Negative. Cardiovascular: Negative. Gastrointestinal: Negative. Genitourinary: Negative. Skin: Positive for wound. Negative for itching. Neurological: Negative. All other systems reviewed and are negative. Endocrine: Endocrine negative Physical Exam: ED Triage Vitals [02/04/24 1106] Weight 112.9 kg (249 lb) Actual or estimated Estimated by patient/family report Height 1.702 m (5' 7") BP 131/88 Pulse 92 Resp 17 Temp 36.6 ?C (97.9 ?F) Temp source Oral SpO2 100 % Measured on Room air Physical Exam Vitals and nursing note reviewed. Constitutional: General: She is not in acute distress. Appearance: Normal appearance. She is well-developed and normal weight. She is not ill-appearing, toxic-appearing or diaphoretic. HENT: Head: Normocephalic. Right Ear: External ear normal. Left Ear: External ear normal. Nose: Nose normal. Mouth/Throat: Mouth: Mucous membranes are moist. Pharynx: Oropharynx is clear. Eyes: General: No scleral icterus. Conjunctiva/sclera: Conjunctivae normal. Cardiovascular: Rate and Rhythm: Normal rate and regular rhythm. Pulses: Normal pulses. Heart sounds: Normal heart sounds. Pulmonary: Effort: Pulmonary effort is normal. No respiratory distress. Breath sounds: Normal breath sounds. No stridor. No wheezing. Abdominal: General: Abdomen is flat. Bowel sounds are normal. There is no distension. Palpations: Abdomen is soft. Tenderness: There is no abdominal tenderness. Musculoskeletal: General: No swelling or tenderness. Normal range of motion. Cervical back: Normal range of motion and neck supple. No rigidity or tenderness. Skin: General: Skin is warm and dry. Capillary Refill: Capillary refill takes less than 2 seconds. Coloration: Skin is not jaundiced or pale. Findings: Erythema and lesion present. No bruising or rash. Neurological: General: No focal deficit present. Mental Status: She is alert and oriented to person, place, and time. Cranial Nerves: No cranial nerve deficit. Motor: No weakness. Gait: Gait abnormal. Psychiatric: Mood and Affect: Mood normal. Behavior: Behavior normal. Thought Content: Thought content normal. Judgment: Judgment normal. Radiology: No orders to display Lab Results: reviewed by me , creatinine elevated from baseline, / H/H decreased , gap decreased , no leukocytosis Lab Results CBC WITH DIFF - Abnormal Result Value Ref Range WBC 10.46 4.30 - 11.10 10*3/?L RBC 3.28 (*) 3.93 - 5.25 10*6/?L HGB 10.3 (*) 11.6 - 15.0 g/dL HCT 32.3 (*) 35.7 - 45.2 % MCV 98.5 (*) 80.6 - 95.5 fL MCH 31.4 25.9 - 32.8 pg MCHC 31.9 31.6 - 35.1 g/dL RDW-SD 49.0 39.0 - 49.9 fL RDW-CV 13.5 12.0 - 15.5 % PLT 296 166 - 358 10*3/?L MPV 10.4 9.5 - 12.9 fL NRBC/100 WBC 0.0 0.0 - 10.0 /100 WBCs NRBC x103<0.01 10*3/?L GRAN MAT (NEUT) % 61.7 % IMM GRAN % 0.30 % LYMPH % 27.3 % MONO % 8.8 % EOS % 1.1 % BASO % 0.8 % GRAN MAT x103(ANC) 6.45 1.88 - 7.09 10*3/uL IMM GRAN x1030.03 0.00 - 0.06 10*3/uL LYMPH x1032.86 1.32 - 3.29 10*3/uL MONO x1030.92 0.33 - 0.92 10*3/uL EOS x1030.12 0.03 - 0.39 10*3/uL BASO x1030.08 (*) 0.01 - 0.07 10*3/uL COMP. METABOLIC PANEL (84975) - Abnormal NA 138 135 - 145 mmol/L K 3.9 3.5 - 5.0 mmol/L CL 109 (*) 98 - 108 mmol/L CO2 TOTAL 18 (*) 23 - 31 mmol/L AGAP 11 2 - 16 BUN 41 (*) 7 - 23 mg/dL GLUCOSE 85 70 - 110 mg/dL CREATININE 2.71 (*) 0.50 - 1.04 mg/dL TOTAL BILI 0.2 0.1 - 1.1 mg/dL CALCIUM 9.6 8.6 - 10.6 mg/dL T PROTEIN 8.2 6.3 - 8.2 g/dL ALBUMIN 4.5 3.5 - 5.0 g/dL ALK PHOS 94 34 - 122 U/L ALTv 16 5 - 35 U/L AST(SGOT) 33 13 - 40 U/L eGFR 20.3 mL/min/1.73m2 MRSA / MSSA SCREEN BY PCR, NARES EKG: If EKG completed, see Procedure Note. Orders and Treatments: Orders Placed This Encounter Procedures CBC WITH DIFF COMP. METABOLIC PANEL (14577) Basic Metabolic Panel (NA, K, CL, CO2, GLUCOSE, BUN, CREATININE, CA) Magnesium Serum Phosphorus Serum CBC with Differential MRSA / MSSA Screen by PCR, Nares Consult Nephrology: General Nephrology Consult Wound, Ostomy, or Continence Care Team: Wound Care; ADC; WOC Nurse Orders Placed This Encounter Medications vancomycin (VANCOCIN) 1,500 mg in NaCl 0.9% (NS) 500 mL VIAL-MATE IV piggyback piperacillin-tazobactam (ZOSYN) 3.375 g in NaCl 0.9% (NS) 100 mL MINI-BAG NaCl 0.9% (NS) bolus infusion 1,000 mL heparin (porcine) injection 5,000 Units acetaminophen (TYLENOL) tablet 650 mg HYDROcodone-acetaminophen (NORCO 5) tablet 1 tablet morphine (2 mg/mL) injection 2 mg ondansetron (ZOFRAN (PF)) injection 4 mg cefTRIAXone (ROCEPHIN) 1,000 mg in water for injection, sterile 10 mL IV Push doxycycline hyclate (Vibramycin) capsule 100 mg buPROPion 100 mg tablet chlorthalidone 25 mg tablet metoprolol succinate XL 50 mg 24 hr tablet spironolactone 25 mg tablet medroxyPROGESTERone 150 mg/mL injection gabapentin 100 mg capsule sulfamethoxazole/trimethoprim (SMZ-TMP DS ORAL) First Provider Eval: ED Events Date/Time Event User Comments 02/04/24 110 Medical Screening Begins SHARMAINE BARRIENTOS -- 02/04/24 110 First Provider Evaluation SHARMAINE BARRIENTOS -- AdmissionCare Guideline: Cellulitis, Inpatient Based on the indications selected for the patient, the bed status of Inpatient was determined to be MET The following indications were selected as present at the time of evaluation of the patient: - Clinical Indications for Admission to Inpatient Care - Admission is indicated for 1 or more of the following: - Limb-threatening infection (eg, possible neurovascular compromise, deep hand space infection). See Foot: Surgical Wound Care as appropriate. AdmissionCare documentation entered by: Urmila Barrientos [facility], 28th edition, Copyright ? 2023 [facility] [employer] [facility] All Rights Reserved. [id number] ED COURSE ED Course as of 02/04/24 1747 Leanne Feb 04, 2024 1407 CREATININE(!): 2.71 [PD] 1407 AGAP: 11 [PD] 1407 CO2 TOTAL(!): 18 [PD] 1407 CL(!): 109 [PD] 1407 NA: 138 [PD] 1407 HGB(!): 10.3 [PD] 1407 WBC x103: 10.46 [PD] ED Course User Index [PD] Urmila Barrientos, COMMUNITY DEVELOPMENT COORDINATOR Diagnosis/Impression as of 02/04/24 1747 Cellulitis of left lower extremity Acute renal failure superimposed on chronic kidney disease, unspecified acute renal failure type, unspecified CKD stage Class 3 severe obesity with serious comorbidity and body mass index (BMI) of 40.0 to 44.9 in adult, unspecified obesity type Anxiety Infected wound chronic Lymphedema Procedures: Procedures MDM: Medical Decision Making Krystin Almonte is a 53 year old female who presents to the ED with worsening left lower leg infection . Ponset 5 months ago. Has been followed by her PCP with no improvement and continued worsening . Presents today due to increased swelling, burning, drainage and smell . Physical exam: fould smelling leaking wound to antierior aspect of LLE , with circumferential erythema, extending down to toes and satellite lesions to later, medial and posterior aspect Differentials include : fungal infection ,Erysipelas, cellulitis , necrotizing infection, DVT Plan : CBC WITH DIFF COMP. METABOLIC PANEL (39977) vancomycin (VANCOCIN) 1,500 mg in NaCl 0.9% (NS) 500 mL VIAL-MATE IV piggyback piperacillin-tazobactam (ZOSYN) 3.375 g in NaCl 0.9% (NS) 100 mL MINI-BAG Problems Addressed: Acute renal failure superimposed on chronic kidney disease, unspecified acute renal failure type, unspecified CKD stage: acute illness or injury Anxiety: chronic illness or injury Cellulitis of left lower extremity: chronic illness or injury Details: Currently on bactrim PO Received zosyn and vancomycin in the ED Vascular study negative for DVT Admitted to the Hospitalist group Class 3 severe obesity with serious comorbidity and body mass index (BMI) of 40.0 to 44.9 in adult, unspecified obesity type: chronic illness or injury with exacerbation, progression, or side effects of treatment Details: Worsened GFR since 12/26/23 Infected wound chronic: chronic illness or injury with exacerbation, progression, or side effects of treatment Lymphedema: chronic illness or injury Amount and/or Complexity of Data Reviewed Labs: ordered. Decision-making details documented in ED Course. Details: creatinine elevated from baseline, / H/H decreased , gap decreased , no leukocytosis Radiology: ordered. Decision-making details documented in ED Course. Details: No DVT on Vascular study Risk Parenteral controlled substances. Decision regarding hospitalization. Flowsheet Documentation: Patient Vitals for the past 24 hrs: BP Temp Temp src Pulse Resp SpO2 Height Weight 02/04/24 1559 -- -- -- -- -- -- 1.702 m (5' 7") 120 kg (264 lb 8 oz) 02/04/24 1547 100/55 37.2 ?C (98.9 ?F) -- 80 20 100 % -- -- 02/04/24 1502 101/62 -- -- -- -- -- -- -- 02/04/24 1432 97/71 -- -- 89 16 98 % -- -- 02/04/24 1332 102/64 -- -- 91 16 99 % -- -- 02/04/24 1106 131/88 36.6 ?C (97.9 ?F) Oral 92 17 100 % 1.702 m (5' 7") 112.9 kg (249 lb) Disposition/Condition: ED Disposition ED Disposition Admit - Inpatient Condition -- Comment -- Electronically signed by: Urmila Barrientos NP 02/04/24 1747 CIATE PROFESSOR OF MEDIA ARTS Associated attestation - Ru Swann MD - 02/06/2024 9:47 AM ASSOCIATE PROFESSOR OF MEDIA ARTS On the date of service, I reviewed the patient’s history, exam findings, diagnostic and any interventions or procedures in detail of the assigned advance practice provider and was available for consultation. Ru Swann Jr., MD Clinical Batch And Furnace Manager [id number] 10:50:00 AdmissionCare Guideline: Cellulitis, Inpatient Based on the indications selected for the patient, the bed status of Inpatient was determined to be MET The following indications were selected as present at the time of evaluation of the patient: - Clinical Indications for Admission to Inpatient Care - Admission is indicated for 1 or more of the following: - Limb-threatening infection (eg, possible neurovascular compromise, deep hand space infection). See Foot: Surgical Wound Care as appropriate. AdmissionCare documentation entered by: Urmila Barrientos [facility] [employer], 28th edition, Copyright ? 2023 [facility] [employer] [facility] All Rights Reserved. [id number] [facility]2024-12-23 00:00[facility]2024-12-06 00:00:00 [facility]2024-11-29 00:00:00 [facility]2024-11-15 00:00:00 [facility]2024-11-01 00:00:00 [facility]2024-10-25 00:00:00 [facility]2024-10-15 00:00:00 [facility]2024-09-19 00:00:00 [facility]2024-07-23 00:00:00 [facility]2024-07-17 00:00:00 [facility]2024-06-21 00:00:00 [facility]2024-04-17 00:00:00 [facility]
--- NOTE | 2024-05-13 15:37 | ER ---
Nurse's Notes [facility] Name: Krystin Giron Age: 53 yrs Sex: Female : 1970 Arrival Date: 05/13/2024 Time: 12:39 Bed 13 Private MD: Diagnosis: Acute kidney failure, unspecified;Acidosis;Hyperkalemia Presentation: 05/13 12:39 Chief complaint: EMS states: PT WAS INITIALLY LIFT ASSIST AT DR. OFFICE. FELL OUTSIDE db OFFICE. WAS GOING FOR INDIGESTION X 1 WEEK. HAS NOT BEEN TAKING MEDICATIONS DUE TO INDIGESTION. MISSING BP AND AFIB MEDS X 1 WEEK. HR 130. NOTED WOUND TO PT LEFT LOWER LEG. STATES IS BEING TREATED. WOUND IS OOZING. BANDAGE OVER WOUND. Coronavirus screen: Client denies travel out of the [place] in the last 14 days. At this time, the client does not indicate any symptoms associated with coronavirus-19. Ebola Screen: Patient negative for fever greater than or equal to 101.5 degrees Fahrenheit, and additional compatible Ebola Virus Disease symptoms Patient denies exposure to infectious person. Patient denies travel to an Ebola-affected area in the 21 days before illness onset. No symptoms or risks identified at this time. Initial Sepsis Screen: Does the patient meet any 2 criteria? HR > 90 bpm. No. Patient's initial sepsis screen is negative. Does the patient have a suspected source of infection? No. Patient's initial sepsis screen is negative. Risk Assessment: Do you want to hurt yourself or someone else? Patient reports no desire to harm self or others. Onset of symptoms was May 13, 2024. 12:39 Method Of Arrival: EMS: [facility] db 12:39 Acuity: ALFRED 3 db Triage Assessment: 12:56 General: Appears in no apparent distress. comfortable, Behavior is calm, cooperative. db Pain:. Neuro: Level of Consciousness is awake, alert, obeys commands, Oriented to person, place, time, situation. Respiratory: Airway is patent Respiratory effort is even, unlabored, Respiratory pattern is regular, symmetrical. Derm: Wound noted left garcia. Historical: - Allergies: 12:55 No Known Allergies; db - Home Meds: 12:56 metoprolol succinate 50 mg Oral Tablet daily [Active]; bupropion HCl 100 mg Oral tablet db once [Active]; losartan 100 mg Oral tablet daily [Active]; - PMHx: 12:55 Hypertensive disorder; leg swelling; kidney disease; db - PSHx: 12:55 Cholecystectomy; db - Immunization history:: Adult Immunizations unknown. - Infectious Disease History:: Denies. - Social history:: Smoking status: Patient denies any tobacco usage or history of. - Family history:: not pertinent. - Hospitalizations: : No recent hospitalization is reported. Screenin:00 [facility] ED Fall Risk Assessment (Adult) History of falling in the last 3 months, db including since admission No falls in past 3 months (0 pts) Confusion or Disorientation No (0 pts) Intoxicated or Sedated No (0 pts) Impaired Gait No (0 pts) Mobility Assist Device Used No (0 pt) Altered Elimination No (0 pt) Score/Fall Risk Level 0 - 2 = Low Risk Oriented to surroundings, Maintained a safe environment. Abuse screen: Denies threats or abuse. Denies injuries from another. Nutritional screening: No deficits noted. Tuberculosis screening: No symptoms or risk factors identified. Assessment: 13:15 Reassessment: Patient appears in no apparent distress at this time. Patient and/or db family updated on plan of care and expected duration. Pain level reassessed. Patient is alert, oriented x 3, equal unlabored respirations, skin warm/dry/pink. General: Appears in no apparent distress. comfortable, Behavior is calm, cooperative. Neuro: Level of Consciousness is awake, alert, obeys commands, Oriented to person, place, time, situation. 14:00 Reassessment: Patient appears in no apparent distress at this time. Patient and/or db family updated on plan of care and expected duration. Pain level reassessed. Patient is alert, oriented x 3, equal unlabored respirations, skin warm/dry/pink. 15:00 Reassessment: FAMILY IS AT BEDSIDE. db 16:15 Reassessment: Patient appears in no apparent distress at this time. Patient and/or db family updated on plan of care and expected duration. Pain level reassessed. Patient is alert, oriented x 3, equal unlabored respirations, skin warm/dry/pink. Respiratory: Airway is patent Respiratory effort is even, unlabored, Respiratory pattern is regular, symmetrical. 17:29 Reassessment: Patient appears in no apparent distress at this time. Patient and/or db family updated on plan of care and expected duration. Pain level reassessed. Patient is alert, oriented x 3, equal unlabored respirations, skin warm/dry/pink. Vital Signs: 12:39 BP 139 / 74; Pulse 127; Resp 18; Temp 97.8; Pulse Ox 100% ; Weight 117.93 kg; Height 5 db ft. 7 in. ; Pain 0/10; 13:00 BP 138 / 73; Pulse 124; Resp 18; Pulse Ox 100% ; db 13:30 BP 133 / 78; Pulse 122; Resp 18; Pulse Ox 100% on R/A; db 14:00 BP 122 / 69; Pulse 125; Resp 16; Pulse Ox 100% on R/A; db 15:00 BP 124 / 84; Pulse 122; Resp 18; Pulse Ox 100% on R/A; db 16:00 BP 102 / 89; Pulse 129; Resp 18; Pulse Ox 100% ; db 17:14 BP 115 / 66; Pulse 128; Resp 16; Pulse Ox 100% ; db 12:39 Body Mass Index 40.72 (117.93 kg, 170.18 cm) db 12:39 Pain Scale: Adult db ED Course: 12:43 Patient arrived in ED. mr 12:49 Suleiman North MD is Attending Physician. rn 12:52 Tasha Montiel, RN is Primary Nurse. db 12:55 Triage completed. db 12:58 Arm band placed on Patient placed in an exam room. db 13:01 EKG done, by ED staff, reviewed by Suleiman North MD. em1 13:15 Maintain EMS IV. Dressing intact. Good blood return noted. Site clean \T\ dry. Gauge \T\ db site: 20 G RAC. Flushed with 10 mL NS. 13:48 Initial lab(s) drawn, by me, sent to lab. First set of blood cultures drawn by me. db 14:00 Second set of blood cultures drawn. db 15:34 Chest Single View XRAY In Process Unspecified. EDMS 15:36 Chadd Lara PA is Hospitalizing Provider. rn 16:20 Patient has correct armband on for positive identification. Bed in low position. Call db light in reach. Side rails up X 1. Client placed on continuous cardiac and pulse oximetry monitoring. NIBP monitoring applied. commercial loan officer on. Pulse ox on. NIBP on. Warm blanket given. 16:20 Provided Education on: ADMISSION. db 16:20 No provider procedures requiring assistance completed. Patient admitted, IV remains in db place. Administered Medications: 13:13 Drug: GI Cocktail without - (Maalox PO 30 ml, Lidocaine Mucous Membrane 2 % 15 db ml) PO once Route: PO; 17:28 Follow up: Response: No adverse reaction db 13:35 Drug: Famotidine IVP 20 mg IVP once; dilute with 10 mL 0.9% NaCl; give over 2 minutes db Route: IVP; Site: right antecubital; 17:28 Follow up: Response: No adverse reaction db 14:54 Drug: NS 0.9% IV 500 ml 500 ml IV at 1 bolus once; to be given as a bolus over 30 db minutes Volume: 500 ml; Route: IV; Rate: 1 bolus; Site: right antecubital; 17:27 Follow up: Response: No adverse reaction; IV Status: Completed infusion; IV Intake: db 500ml 15:55 Drug: Kayexalate PO 30 grams PO once Route: PO; db 17:28 Follow up: Response: No adverse reaction db 15:58 Drug: Sodium Bicarbonate IVP 1 amp IVP once; (50 mL); equals 50 mEq Route: IVP; Site: db right antecubital; 17:27 Follow up: Response: No adverse reaction db 16:02 Drug: D50W IVP 50 ml IVP once; (1 amp) Route: IVP; Site: right antecubital; db 17:27 Follow up: Response: No adverse reaction db 16:04 Drug: Insulin Regular Human IVP 5 units IVP once {Co-Signature: [email or web address] (Isabelle Acuna db RN).} Route: IVP; Site: right antecubital; 17:28 Follow up: Response: No adverse reaction db 16:10 Drug: Cefepime IVPB 1 grams IVPB at 200 ml/hr once over 30 mins; (mix in NS 100 mL) db Route: IVPB; Rate: 200 ml/hr; Infused Over: 30 mins; Site: right antecubital; 16:35 Follow up: Response: No adverse reaction; IV Status: Completed infusion; IV Intake: db 100ml 16:30 Drug: vancoMYCIN IVPB 1 grams IVPB once over 2 hrs Route: IVPB; Infused Over: 2 hrs; db Site: right antecubital; 17:27 Follow up: IV Status: Infusion continued upon admission db Medication: 16:20 VIS not applicable for this client. db Intake: 16:35 IV: 100ml; Total: 100ml. db 17:27 IV: 500ml; Total: 600ml. db Outcome: 15:37 Decision to Hospitalize by Provider. rn 16:20 Admitted to Med/surg room 221, db 16:20 Condition: stable 16:20 Instructed on the need for admit, 17:31 Patient left the ED. db Signatures: Dispatcher [employer] EDMS Yin Crane, Reg Reg mr Suleiman North MD MD rn Martinez, Eric em1 Tasha Montiel RN RN Isablele Mock RN [email or web address]
--- NOTE | 2024-05-13 15:38 | EDPHYS ---
Physician Documentation [facility] Name: Krystin Giron Age: 53 yrs Sex: Female : 1970 Arrival Date: 05/13/2024 Time: 12:39 Bed 13 Private MD: ED Physician Suleiman North HPI: 05/13 15:29 This 53 yrs old Female presents to ER via EMS with complaints of weakness. rn 15:29 Patient reports 3 weeks of generalized malaise, tremors, nausea and vomiting and rn palpitations. Denies any fever or chills. Has been missing blood pressure and anxiety medication.. Onset: The symptoms/episode began/occurred 3 week(s) ago. Severity of symptoms: At their worst the symptoms were moderate in the emergency department the symptoms are unchanged. Historical: - Allergies: 12:55 No Known Allergies; db - Home Meds: 12:56 metoprolol succinate 50 mg Oral Tablet daily [Active]; bupropion HCl 100 mg Oral tablet db once [Active]; losartan 100 mg Oral tablet daily [Active]; - PMHx: 12:55 Hypertensive disorder; leg swelling; kidney disease; db - PSHx: 12:55 Cholecystectomy; db - Immunization history:: Adult Immunizations unknown. - Infectious Disease History:: Denies. - Social history:: Smoking status: Patient denies any tobacco usage or history of. - Family history:: not pertinent. - Hospitalizations: : No recent hospitalization is reported. ROS: 15:29 Constitutional: Negative for fever, chills, and weight loss, Cardiovascular: Positive rn for palpitations Respiratory: Negative for shortness of breath, cough, wheezing, and pleuritic chest pain, Abdomen/GI: Positive for nausea and vomiting MS/Extremity: Negative for injury and deformity, Neuro: Positive for generalized weakness and malaise Exam: 15:29 Constitutional: This is a well developed, well nourished patient who is awake, alert, rn tremulous and appears anxious Head/Face: Normocephalic, atraumatic. Cardiovascular: Tachycardic, regular. No pulse deficits. Respiratory: No increased work of breathing, no retractions or nasal flaring. Abdomen/GI: Soft, non-tender MS/ Extremity: Pulses equal, no cyanosis. Neuro: Awake and alert, GCS 15 Vital Signs: 12:39 BP 139 / 74; Pulse 127; Resp 18; Temp 97.8; Pulse Ox 100% ; Weight 117.93 kg; Height 5 db ft. 7 in. ; Pain 0/10; 13:00 BP 138 / 73; Pulse 124; Resp 18; Pulse Ox 100% ; db 13:30 BP 133 / 78; Pulse 122; Resp 18; Pulse Ox 100% on R/A; db 14:00 BP 122 / 69; Pulse 125; Resp 16; Pulse Ox 100% on R/A; db 15:00 BP 124 / 84; Pulse 122; Resp 18; Pulse Ox 100% on R/A; db 16:00 BP 102 / 89; Pulse 129; Resp 18; Pulse Ox 100% ; db 17:14 BP 115 / 66; Pulse 128; Resp 16; Pulse Ox 100% ; db 12:39 Body Mass Index 40.72 (117.93 kg, 170.18 cm) db 12:39 Pain Scale: Adult db MDM: 12:49 Medical Screening Exam initiated rn 15:18 Management of patient was discussed with the following: Makeup Artist: Discussed case with rn Dr. Cohen, states her partner Dr. Jung will evaluate patient for emergent dialysis.. 15:27 ED course: Consulted with Dr. Lewis, will place dialysis catheter for emergent real estate associate attorney. 15:34 Differential Diagnosis Acute kidney failure, acidosis, anxiety. Data reviewed: vital rn signs, nurses notes, lab test result(s), and as a result, I will admit patient. Consideration of Admission/Observation Patient was admitted/placed on observation. Escalation of care including admission/observation considered. Care significantly affected by the following chronic conditions: Hypertension. Counseling: I had a detailed discussion with the patient and/or guardian regarding the historical points, exam findings, and any diagnostic results supporting the discharge/admit diagnosis, lab results, radiology results, the need for further work-up and treatment in the hospital. Response to treatment: the patient's symptoms have mildly improved after treatment, and as a result, I will admit patient. ED course: I personally spent 35 minutes engaged in work directly related to the individual patient's care. This does not include any time spent performing procedures. The patient has been deemed critically ill because of acute kidney failure with hyperkalemia and acidosis that might require emergent dialysis. Also time consulting multiple consultants emergently.. 05/13 12:58 Order name: Blood Culture Adult (2) rn 05/13 12:58 Order name: CBC with Diff rn 05/13 12:58 Order name: CMP rn 05/13 12:58 Order name: Lactate w/ 2H reflex if indic. rn 05/13 12:58 Order name: Protime (+inr) rn 05/13 12:58 Order name: Ptt, Activated rn 05/13 12:58 Order name: Urinalysis w/ reflexes rn 05/13 15:46 Order name: Basic Metabolic Panel EDMS 05/13 15:54 Order name: NT PRO-BNP EDMS 05/13 15:54 Order name: Urinalysis w/ reflexes EDMS 05/13 16:46 Order name: Phosphorus EDMS 05/13 12:58 Order name: Chest Single View XRAY rn 05/13 12:58 Order name: Accucheck; Complete Time: 14:48 rn 05/13 12:58 Order name: Cardiac monitoring; Complete Time: 14:48 rn 05/13 12:58 Order name: EKG - Nurse/Tech; Complete Time: 13:01 rn 05/13 12:58 Order name: IV Saline Lock - Large Bore; Complete Time: 14:48 rn 05/13 12:58 Order name: Labs collected and sent; Complete Time: 14:48 rn 05/13 12:58 Order name: O2 Per Protocol; Complete Time: 13:26 rn 05/13 12:58 Order name: O2 Sat Monitoring; Complete Time: 13:26 rn 05/13 12:58 Order name: Vital Signs; Complete Time: 13:19 rn Administered Medications: 13:13 Drug: GI Cocktail without - (Maalox PO 30 ml, Lidocaine Mucous Membrane 2 % 15 db ml) PO once Route: PO; 17:28 Follow up: Response: No adverse reaction db 13:35 Drug: Famotidine IVP 20 mg IVP once; dilute with 10 mL 0.9% NaCl; give over 2 minutes db Route: IVP; Site: right antecubital; 17:28 Follow up: Response: No adverse reaction db 14:54 Drug: NS 0.9% IV 500 ml 500 ml IV at 1 bolus once; to be given as a bolus over 30 db minutes Volume: 500 ml; Route: IV; Rate: 1 bolus; Site: right antecubital; 17:27 Follow up: Response: No adverse reaction; IV Status: Completed infusion; IV Intake: db 500ml 15:55 Drug: Kayexalate PO 30 grams PO once Route: PO; db 17:28 Follow up: Response: No adverse reaction db 15:58 Drug: Sodium Bicarbonate IVP 1 amp IVP once; (50 mL); equals 50 mEq Route: IVP; Site: db right antecubital; 17:27 Follow up: Response: No adverse reaction db 16:02 Drug: D50W IVP 50 ml IVP once; (1 amp) Route: IVP; Site: right antecubital; db 17:27 Follow up: Response: No adverse reaction db 16:04 Drug: Insulin Regular Human IVP 5 units IVP once {Co-Signature: [email or web address] (Isabelle Acuna db RN).} Route: IVP; Site: right antecubital; 17:28 Follow up: Response: No adverse reaction db 16:10 Drug: Cefepime IVPB 1 grams IVPB at 200 ml/hr once over 30 mins; (mix in NS 100 mL) db Route: IVPB; Rate: 200 ml/hr; Infused Over: 30 mins; Site: right antecubital; 16:35 Follow up: Response: No adverse reaction; IV Status: Completed infusion; IV Intake: db 100ml 16:30 Drug: vancoMYCIN IVPB 1 grams IVPB once over 2 hrs Route: IVPB; Infused Over: 2 hrs; db Site: right antecubital; 17:27 Follow up: IV Status: Infusion continued upon admission db Disposition Summary: 05/13/24 15:37 Hospitalization Ordered Notes: Hospitalization Status: Inpatient Admission rn Provider: Chadd Lara rn Condition: Stable rn Problem: new rn Symptoms: have improved rn Bed/Room Type: Standard rn Location: Telemetry/MedSurg (Inpatient)(05/13/24 16:10) eb Room Assignment: 221(05/13/24 16:10) eb Diagnosis - Acute kidney failure, unspecified rn - Acidosis rn - Hyperkalemia rn Forms: - Medication Reconciliation Form rn - SBAR form rn - Leadership Thank You Letter commercial litigation attorney time excluding procedures: 15:34 Critical care time: Bedside Care: 30 minutes, Consultation: 5 minutes. Total time: 35 rn minutes Signatures: Dispatcher [employer] Suleiman Wu MD MD rn Zully Olivares Danielle, RN RN db Isabelle Acuna RN [email or web address] Corrections: (The following items were deleted from the chart) 15:20 15:20 BLOOD CULTURE*+BA.LAB.BRZ ordered. EDMS EDMS 15:20 15:20 CBC+H.LAB.BRZ ordered. EDMS EDMS 15:20 15:20 COMPREHENSIVE METABOLIC PANEL+C.LAB.BRZ ordered. EDMS EDMS 15:20 15:20 LACTATE+C.LAB.BRZ ordered. EDMS EDMS 15:20 15:20 PROTIME (+INR)+COAG.LAB.BRZ ordered. EDMS EDMS 15:20 15:20 PTT, ACTIVATED+COAG.LAB.BRZ ordered. EDMS EDMS 15:20 15:20 Urinalysis+U.LAB.BRZ ordered. EDMS EDMS 15:20 15:20 Chest Single View+RAD.RAD.BRZ ordered. EDMS EDMS 15:53 15:20 PROBNP+C.LAB.BRZ ordered. EDMS EDMS 16:10 15:37 Intensive Care Unit rn eb 16:10 15:37 rn eb
[2024-05-13] MEDS ORDERED: INSULIN REGULAR (HUMAN) 100 UNIT/ML ONE (15:44)
[2024-05-13] MEDS ORDERED: SOD POLYSTYREN SUL 15 GM/60 ML UCUP ONE (15:46)
[2024-05-13] MEDS ORDERED: D50W 25 GM/50 ML SYRINGE IV ONE (15:47)
[2024-05-13] MEDS ORDERED: NA CHLORIDE 0.9% 250 ML ONE (15:49)
[2024-05-13] MEDS ORDERED: VANCOMYCIN 1 GM/VIAL ONE (15:49)
[2024-05-13] MEDS ORDERED: NA CHLORIDE 0.9% 0 ML ONE (15:49)
[2024-05-13] MEDS ORDERED: CEFEPIME 1 GM/VIAL ONE (15:49)
[2024-05-13] MEDS ORDERED: HYDRALAZINE HCL 20 MG/ML VIAL IV PRN (15:50)
[2024-05-13 15:54] LABS: Absolute Lymphocytes (CBC) 0.3 K/uL (0.7-4.9); Absolute Monocytes 0.9 K/uL (0.1-1.3); Absolute Neutrophil 13.1 K/uL (1.8-8.0); Basophils % 0.1 % (0-1.3); Hematocrit 29.3 % (36.0-45.0); Hemoglobin 9.7 g/dL (12.0-15.0); Lymphocytes % 1.9 % (15.3-44.8); MCH 29.8 pg (27.0-35.0); MCHC 33.1 g/dL (32.0-36.0); MCV 89.8 fL (80-100); MPV 7.7 fL (7.6-11.3); Monocytes % 6.1 % (3.3-12.3); Neutrophils % 91.9 % (41.7-73.7); Platelets 411 thou/uL (152-406); RBC Red Blood Cell Count 3.27 M/uL (3.86-4.86); Red Cell Distribution Width 14.2 % (12.1-15.2)
[2024-05-13 15:57] LABS: PT Prothrombin Time 12.9 SECONDS (10-13.0); PTT, Activated Partial Thromb 25.5 SECONDS (27.2-37.4); Protime INR 1.14
[2024-05-13] MEDS: NA CHLORIDE 0.9% 1,000 ML IV SCH (16:00)
--- NOTE | 2024-05-13 16:02 | P.HP ---
Certification for Inpatient With expected LOS: >2 Midnights Patient will require the following post-hospital care: None Practitioner: I am a practitioner with admitting privileges, knowledge of patient current condition, hospital course, and medical plan of care. Services: Services provided to patient in accordance with Admission requirements found in Title 42 Section 412.3 of the Code of Federal Regulations Patient History Date of Service: 05/13/24 Reason for admission: CHARLIE History of Present Illness: 53-year-old patient present to the PCP office for routine evaluation, she had a fall there so she was transferred to the emergency room, she was found to be in acute renal failure on top of chronic kidney disease so we were asked to admit her. She said she landed on her buttocks at the PCP office, no trauma from the fall, she denies any pain. She is complaining of nausea and vomiting for the last 2 to 3 weeks. She has chronic left leg wound for the last few months, she is getting some wound care for that, she was given some antibiotic as an outpatient sometime back. Other Than this she denies any other acute complaints. No headache or blackouts. No double vision or blurry vision. No cough or sputum production. No chest pain or shortness of breath. No abdominal pain. No constipation or diarrhea. No blood in the urine or stool. No fever. No lower extremity edema. No joint pains. No recent change in the weight. Review of systems: All other 10 point review of systems are negative other than as mentioned above. Allergies and medications: Reviewed, as per med rec EMR. Past medical history: Hypertension, obesity Past surgical history: Cholecystectomy Social history: No smoking or alcohol or drugs Family history: No family history of [place]. Dad had history of CVA Physical examination: Vital signs: Reviewed, as per EMR. General appearance: Alert and comfortable HEENT: Extraocular movements intact, oral mucosa moist. CVS: Normal S1-S2 Lungs: Clear to auscultation bilaterally Abdomen: Soft, bowel sounds present, no tenderness Extremities: mild left lower extremity edema. No edema right lower extremity. Open wound on the lower leg above the ankle, looks some superficial infection, mild erythema extending up to the foot HOST/HOSTESS GROUND: Moves all 4 extremities, no obvious focal deficits, alert and oriented Musculoskeletal: No obvious joint swelling or tenderness Allergies No Known Allergies Allergy (Verified 10/03/15 13:03) Home Medications: Omeprazole [Prilosec] 20 mg PO AC 05/11/13 Fluoxetine HCl [Prozac] 40 mg PO DAILY 10/03/15 carvediloL [Coreg] 12.5 mg PO BID 10/03/15 - Past Medical/Surgical History Diabetic: No -: blood clot in lungs -: hemorrhage after -: HTN -: Anxiety -: Reflux -: -: Laparoscopic cholecystectomy -: Bilateral tubal ligation - Social History Alcohol use: No CD- Drugs: No Caffeine use: Yes Physical Examination - Studies Laboratory Data (last 24 hrs) 05/13/24 13:50 WBC 14.30 H Hgb 9.7 L Hct 29.3 L Plt Count 411 H Assessment and Plan - Plan Assessment and plan: 1. Acute renal failure on chronic kidney disease stage III: Nephrology consult requested, will give IV fluids, get renal ultrasound, monitor renal function closely. General surgery was consulted for temporary dialysis catheter placement. 2. Hyperkalemia: Patient was given a dose of Kayexalate and insulin and dextrose in the emergency room, will repeat labs, monitor closely with fluids. 3. Hyponatremia: Monitor closely. 4. Hypertension: Continue Coreg, monitor blood pressure closely 5. Obesity: Consider weight loss, follow-up with PCP 6. Left leg wound with possible infection: Start the patient on broad-spectrum antibiotics for now, surgical consult requested, will request wound care consult as well, will get a venous Doppler and also x-ray of the leg on the foot. DVT prophylaxis: Heparin CODE STATUS: She would like to be full code. I did discuss all the above-mentioned plan with the patient, family at bedside, discussed with ER physician, discussed with Dr. Lewis from the surgical team, and notified nephrology. - Advance Directives Does patient have a Living Will: No Does patient have a Durable POA for Healthcare: No - Code Status/Comfort Care Code Status Assessed: Yes Code Status: Full Code
[2024-05-13 16:10] LABS: Albumin 3.6 g/dL (3.4-5.0); Albumin/Globulin Ratio 0.7 (1.1-1.8); Bilirubin Total 0.4 mg/dL (0.2-1.0); Globulin 4.9 g/dL (2.3-3.5); Potassium 5.9 mEq/L (3.5-5.1); Protein, Total 8.5 g/dL (6.4-8.2)
--- NOTE | 2024-05-13 16:10 | RAD REPORT ---
EXAM: Chest Single View HISTORY: 53 years Female PALPITATIONS COMPARISON: None. FINDINGS: LUNGS/PLEURA: The lungs are clear. No pleural effusions or pneumothorax. No pulmonary edema. CARDIAC/MEDIASTINUM: The cardiac silhouette is within normal limits. UPPER ABDOMEN: No significant abnormality. BONES: No acute abnormality. LINES/TUBES/OTHER: N/A IMPRESSION: No evidence of acute cardiopulmonary disease. No significant change from prior.
[2024-05-13 16:32] LABS: Anion Gap 20.9 mEq/L (5.0-15.0)
--- NOTE | 2024-05-13 17:38 | P.CNS ---
Date of Consult: 05/13/24 Reason for Consult: ARF, hyperkalemia, acidosis, azotemia/uremia Requesting Physician: Chadd Lara Chief Complaint: CHARLIE History of Present Illness: Pt is a 53 yo WF with a hx of chronic HTN on medication, obesity, peripheral edema, chronic Lt lower garcia skin lesion over the past many mo and underlying CKD Stage IIIb under the care of Dr. Garcia with last visit in Mar with baseline Cr levels of 1.55-2.12 mg/dl it appears but with labs last mo showing Cr level rising to 2.97 mg/dl and pt reporting feeling poorly since she and/or other family members came down with flu a few weeks back and since then has had stopped taking BP meds, has been nauseous without vomiting, felt weaker, has had falls all leading to ER visit today where she was found to be in severe renal failure. She denies any new medications or recent Abx or NSAIDs use. She denies decreased UOP but has not paid much attention to it. Allergies No Known Allergies Allergy (Verified 10/03/15 13:03) Home Medications: Omeprazole [Prilosec] 20 mg PO AC 05/11/13 Fluoxetine HCl [Prozac] 40 mg PO DAILY 10/03/15 carvediloL [Coreg] 12.5 mg PO BID 10/03/15 - Past Medical/Surgical History Diabetic: No -: blood clot in lungs -: hemorrhage after -: HTN -: Anxiety -: Reflux -: CKD followed by Dr. Garcia -: -: Laparoscopic cholecystectomy -: Bilateral tubal ligation - Social History Smoking Status: Never smoker Alcohol use: No CD- Drugs: No Caffeine use: Yes Review of Systems General: Weakness Eyes: Unremarkable ENT: Unremarkable Respiratory: Unremarkable Cardiovascular: Edema Gastrointestinal: Nausea Genitourinary: Unremarkable Musculoskeletal: Unremarkable Integumentary: Rash, Other, As per HPI Neurological: Weakness, Other (Falls) Lymphatics: Other (Lt lower leg swelling, venous insufficiency vs early lymphedema) Physical Examination General: Other (Appears ill, anxious) HEENT: Atraumatic, Normocephalic Neck: Supple Respiratory: Normal air movement, Other (No rhonchi or wheezing) Cardiovascular: Other (Tachy, regular) Gastrointestinal: Soft and benign, Non-distended, No guarding Musculoskeletal: No contractures, Other (Swelling of the left lower leg 1-2+) Integumentary: Other (Lt lower garcia circumferential skin lesion, skin denudation, redness/erythema of distal foot, some tenderness on exam) Neurological: Other (anxious affect, awake, conversive, mildly tremulous, no myoclonus observed) Laboratory Data (last 24 hrs) 05/13/24 05/13/24 05/13/24 15:44 13:50 13:50 WBC Hgb Hct Plt Count PT 12.9 INR 1.14 APTT 25.5 L Sodium Cancelled Potassium Cancelled BUN Cancelled Creatinine Cancelled Glucose Cancelled Phosphorus 6.9 H Total Bilirubin AST ALT Alkaline Phosphatase 05/13/24 05/13/24 13:50 13:50 WBC 14.30 H Hgb 9.7 L Hct 29.3 L Plt Count 411 H PT INR APTT Sodium 129 L Potassium 5.9 H BUN 193 H Creatinine 8.23 H Glucose 137 H Phosphorus Total Bilirubin 0.4 AST 15 ALT 19 Alkaline Phosphatase 77 Conclusions/Impression: A/P) 1. Sub-acute Stage III renal failure per CELIO definition on underlying CKD Stage IIIb possibly 2nd to ATN developed in the setting of hypovolemia, relative hypotension, concurrent ARB use (in recent past), vs other. Urine studies last mo last showed some pyuria, but skin epithelials present, no hx of proteinuria, other active urinary sediment. Can not rule out sub-acute AIN but no new medications reported although was taking a PPI at home. 2. Renal imaging ordered to r/o obstructive uropathy. Will request flower and UA 3. Pt does meet criteria for emergent HD given marked azotemia/uremia, mod hyperkalemia, severe acidosis and hyperphosphatemia and pt provides verbal consent after counseling but is quite anxious and case discussed with surgeon, Dr. Lewis who feels pt is unlikely to tolerate temp dialysis catheter placement under just local anethesia currently. Will plan to monitor response to IVF hydration over 12-24h and see if some of the metab derangements correct but if they do not will need to proceed with SANITATION ENGINEER/HD via either temp catheter or TDC (if pt afebrile and prelim BCx neg) 4. Hyperkalemia in the setting of above -s/p medical therapy, f/u repeat k levels 5. AG metab acidosis with large bicarb deficit > 500 meq/L, will place on pure bicarb drip 150 meq in D5W at 100 ml/hr to replace half of that deficit in 24h 6. Dose all meds for reduced CrCl, digna Abx 7. Leukocytosis, left leg cellulitis or other soft tissue or deeper infection - w/u per IM, surgery Kilo Jung MD, DANNY
[2024-05-13] MEDS: VANCOMYCIN 1 GM in NA CHLORIDE 0.9% 250 ML IVPB ONE (17:43)
[2024-05-13] MEDS: D5W 1,000 ML with NA BICARB 8.4% 150 MEQ IV SCH ×2 (17:44→20:10)
[2024-05-13] MEDS: HEPARIN 5000 UNIT/ML 1 ML VIAL SQ SCH (17:44)
[2024-05-13 19:20] LABS: Anion Gap 19.6 mEq/L (5.0-15.0); Potassium 4.6 mEq/L (3.5-5.1)
[2024-05-13 19:44] LABS: Specific Gravity 1.016 (1.005-1.030); Sqamous Epithelial <5 /HPF (None Seen); Urine Bacteria <20 /HPF (<20); Urine Bilirubin NEGATIVE (Negative); Urine Blood Negative (Negative); Urine Clarity Extremely Turbid (Clear); Urine Color Light-Yellow (Yellow); Urine Crystals Unidentified Few /HPF (None Seen); Urine Culture Reflex Order REFLEXED; Urine Glucose NEGATIVE (Negative); Urine Ketones NEGATIVE (Negative); Urine Microscopic Reflex YN ORDER UMIC; Urine Mucus Slight /HPF (None Seen); Urine Nitrite NEGATIVE (Negative); Urine Protein TRACE (Negative); Urine Urobilinogen Normal (Normal)
[2024-05-13] MEDS: ACETAMINOPHEN 500 MG TAB PO PRN (19:46)
[2024-05-13] MEDS ORDERED: CEFEPIME 1 GM in NA CHLORIDE 0.9% 100 ML IV SCH (21:00)
--- NOTE | 2024-05-13 21:13 | RAD REPORT ---
EXAMINATION: US LOWER EXTREMITY VENOUS DOPPLER BILATERAL CLINICAL INDICATION: Female, 53 years old.leg swelling, r/o DVT TECHNIQUE: Complete bilateral duplex sonography of the lower extremity veins was performed. The exami nation included compression for vein patency, color Doppler imaging and flow augmentation in response to distal compression of the distal external iliac, common femoral, femoral, popliteal, ho ernestina, tibial and great saphenous veins. [id number]. COMPARISON: No prior exams FINDINGS: Duplex sonography imaging demonstrates all deep examined to be fully compressible with spontaneous, p hasic and augmented flow bilaterally. IMPRESSION: No evidence of deep venous thrombosis seen in either lower extremity.
--- NOTE | 2024-05-13 21:19 | RAD REPORT ---
EXAMINATION: US RETROPERITONEUM CLINICAL INDICATION: CHARLIE TECHNIQUE: Real-time ultrasonography of the abdomen was performed. COMPARISON: 09/16/2013 FINDINGS: RIGHT KIDNEY: Right renal length measurement: 9.4 cm. Normal in echogenicity and size. No calculus, s olid mass or hydronephrosis. Limited evaluation by body habitus. LEFT KIDNEY: Left renal length measurement: 10.1 cm. Normal in echogenicity and size. No calculus, so lid mass or hydronephrosis. Limited evaluation by body habitus. ADDITIONAL FINDINGS: N/A IMPRESSION: No acute findings identified. No evidence of hydronephrosis.
[2024-05-13] MEDS: carvediloL 6.25 MG TAB PO SCH (21:51)
--- NOTE | 2024-05-13 21:53 | RAD REPORT ---
EXAM: Foot Left 3 View HISTORY: left foot infection COMPARISON: None FINDINGS: Bones: No acute fracture identified. Alignment:No significant malalignment. Degenerative changes:Calcaneal spurs. Other: n/a IMPRESSION: No acute osseous abnormality. No radiographic evidence of osteomyelitis. MRI more sensitive in the ac [place] phase.
--- NOTE | 2024-05-13 21:53 | RAD REPORT ---
EXAMINATION: Tib Fib Left VIEWS: As above CLINICAL INDICATION: Female, 53 years old. left leg wound COMPARISON: No prior exam. IMPRESSION: No acute fracture. No acute soft tissue abnormality. No soft tissue gas.
[2024-05-14 03:09] VITALS: BMI 40.7
[2024-05-14] MEDS: SODIUM BICARB 50 MEQ/50ML VIAL ONE (04:00)
[2024-05-14] MEDS: D5W 1,000 ML IV ONE (04:01)
[2024-05-14 04:55] VITALS: O2SAT 99
[2024-05-14 05:12] LABS: Absolute Lymphocytes (CBC) 1.2 K/uL (0.7-4.9); Absolute Monocytes 1.3 K/uL (0.1-1.3); Absolute Neutrophil 7.8 K/uL (1.8-8.0); Basophils % 0.4 % (0-1.3); Eosinophils % 0.2 % (0-4.4); Hematocrit 23.2 % (36.0-45.0); Hemoglobin 7.9 g/dL (12.0-15.0); MCH 30.1 pg (27.0-35.0); MCHC 34.1 g/dL (32.0-36.0); MCV 88.4 fL (80-100); MPV 7.7 fL (7.6-11.3); Monocytes % 12.2 % (3.3-12.3); Neutrophils % 75.2 % (41.7-73.7); Platelets 292 thou/uL (152-406); RBC Red Blood Cell Count 2.62 M/uL (3.86-4.86)
[2024-05-14 05:40] LABS: Albumin 2.9 g/dL (3.4-5.0); Anion Gap 16.3 mEq/L (5.0-15.0); Phosphorus 5.5 mg/dL (2.5-4.9); Potassium 3.3 mEq/L (3.5-5.1)
[2024-05-14] MEDS: SEVELAMER CARBONATE 800 MG TABLET PO SCH (08:16)
[2024-05-14] MEDS: POTASSIUM CL SA 10 MEQ TAB PO ONE ×2 (08:16→20:49)
--- NOTE | 2024-05-14 11:31 | P.PN ---
Nephrology note (S) Pt seen resting in bed, less anxious, reports some improvement in nausea but still intermittently present, no vomiting episodes, on IVF, is producing urine but staff are not accurately documenting. Discussed that there remains a potential need for NODE JS DEVELOPER/HD for metab clearance but continuing to trend labs closely (O) vitals reviewed in the EMR General: Other (Appears chronically ill) HEENT: Atraumatic, Normocephalic, not needing O2 Neck: Supple Respiratory: Normal air movement, Other (No rhonchi or wheezing) Cardiovascular: Other (Tachy, regular) Gastrointestinal: Soft and benign, Non-distended, No guarding Musculoskeletal: No contractures, Other (Swelling of the left lower leg 1-2+) Integumentary: Other (Lt lower garcia circumferential skin lesion, dressed, less tender on exam) Neurological: Other (anxious affect, awake, conversive, mildly tremulous, no myoclonus observed) Laboratory Data (last 24 hrs) Reviewed in the EMR Conclusions/Impression: A/P) 1. Sub-acute Stage III renal failure per CELIO definition on underlying CKD Stage IIIb possibly 2nd to ATN developed in the setting of hypovolemia, relative hypotension, concurrent ARB use (in recent past), vs other. Urine studies last mo last showed some pyuria, but skin epithelials present, no hx of proteinuria, other active urinary sediment. Latest UA shows some non specific WBC/RBC. Can not rule out sub-acute AIN but no new medications reported although was taking a PPI at home. 2. Renal imaging ordered to r/o obstructive uropathy and non seen. COnt strict monitoring of UOP 3. Pt did meet criteria for emergent HD given marked azotemia/uremia, mod hyperkalemia, severe acidosis and hyperphosphatemia and pt provided verbal consent after counseling but was quite anxious and case discussed with surgeon, Dr. Lewis who felt pt was unlikely to tolerate temp dialysis catheter placement under just local anethesia and since hyperkalemia/acidosis has shown response to IVF therapy and pt is non oliguric, will cont IVF hydration for another 12-24h while monitoring closely for NODE JS DEVELOPER needs If we do need to proceed with NODE JS DEVELOPER/HD will likely opt for TDC if pt remains afebrile and prelim BCx neg 4. Hyperkalemia in the setting of above -s/p medical therapy, resolved 5. AG metab acidosis with large bicarb deficit > 500 meq/L, did place on pure bicarb drip 150 meq in D5W at 125 cc/h and bicarb deficit is improving 6. Dose all meds for reduced CrCl, digna Abx 7. Leukocytosis, left leg cellulitis or other soft tissue or deeper infection - w/u per IM, surgery, xrays neg for signs of osteo, and duplex neg for DVT Kilo Jung MD, DANNY
--- NOTE | 2024-05-14 12:07 | P.PN ---
Subjective Date of Service: 05/14/24 Chief Complaint: CHARLIE Subjective: No chest pain or shortness of breath. No nausea or vomiting. No abdominal pain. No obvious bleeding. Looks comfortable in the bed. Left leg pain controlled. Objective: General appearance: Alert and comfortable CVS: Normal S1 and S2 Lungs: Clear to auscultation bilaterally Abdomen: Soft, bowel sounds present, no tenderness Extremities: No right lower extremity edema. Left leg has dressing. Physical Examination - Vital Signs Temperature: 97.7 F Blood Pressure: 109/63 Pulse: 106 Respirations: 16 Pulse Ox (%): 100 - Studies Laboratory Data (last 24 hrs) 05/13/24 05/13/24 05/13/24 15:44 13:50 13:50 WBC Hgb Hct Plt Count PT 12.9 INR 1.14 APTT 25.5 L Sodium Cancelled Potassium Cancelled BUN Cancelled Creatinine Cancelled Glucose Cancelled Phosphorus 6.9 H Total Bilirubin AST ALT Alkaline Phosphatase 05/13/24 05/13/24 13:50 13:50 WBC 14.30 H Hgb 9.7 L Hct 29.3 L Plt Count 411 H PT INR APTT Sodium 129 L Potassium 5.9 H BUN 193 H Creatinine 8.23 H Glucose 137 H Phosphorus Total Bilirubin 0.4 AST 15 ALT 19 Alkaline Phosphatase 77 Assessment And Plan - Plan Assessment and plan: 1. Acute renal failure on chronic kidney disease stage III: Nephrology consult requested, cont IV fluids - renal ultrasound neg, monitor renal function closely. - creat Improving -General surgery was consulted for temporary dialysis catheter placement. 2. Hyperkalemia: Patient was given a dose of Kayexalate and insulin and d extrose in the emergency room - Potassium better, monitor closely. 3. Hyponatremia: Monitor closely. 4. Hypertension: Continue Coreg, monitor blood pressure closely 5. Obesity: Consider weight loss, follow-up with PCP 6. Left leg wound with possible infection: cont broad-spectrum antibiotics for now, surgical consult requested, requested wound care consult as well, - venous Doppler and also x-ray of the leg and the foot.neg I did discuss all the above-mentioned plan with the patient, and family at bedside,
--- NOTE | 2024-05-14 14:22 | P.PN ---
Subjective Date of Service: 05/14/24 Chief Complaint: CHARLIE Subjective: Improving Review of Systems Respiratory: Unremarkable Cardiovascular: Unremarkable Gastrointestinal: Unremarkable Physical Examination - Vital Signs Temperature: 97.7 F Blood Pressure: 109/63 Pulse: 106 Respirations: 16 Pulse Ox (%): 100 - Physical Exam General: Alert, In no apparent distress, Oriented x3, Cooperative HEENT: Normocephalic, EOMI Neck: Supple Gastrointestinal: Soft and benign - Studies Laboratory Data (last 24 hrs) 05/13/24 05/13/24 05/13/24 15:44 13:50 13:50 WBC Hgb Hct Plt Count PT 12.9 INR 1.14 APTT 25.5 L Sodium Cancelled Potassium Cancelled BUN Cancelled Creatinine Cancelled Glucose Cancelled Phosphorus 6.9 H Total Bilirubin AST ALT Alkaline Phosphatase 05/13/24 05/13/24 13:50 13:50 WBC 14.30 H Hgb 9.7 L Hct 29.3 L Plt Count 411 H PT INR APTT Sodium 129 L Potassium 5.9 H BUN 193 H Creatinine 8.23 H Glucose 137 H Phosphorus Total Bilirubin 0.4 AST 15 ALT 19 Alkaline Phosphatase 77 Assessment And Plan - Plan HD cath placement BAR fully explained again.. PT got anxious again even by mentioning a needle. She may need sedation if procedure needed after evaluation by renal and request.
--- NOTE | 2024-05-14 15:16 | CON ---
Date of Consultation: 05/13/2024 Reason For Consult: 1. The possibility of a hemodialysis catheter placement. 2. Venous stasis ulcer in the left leg. History Of Present Illness: This is a case of a 53-year-old patient known by us in the past due to h istory of gallbladder surgery few years ago. Now, she comes with 2 problems. She has a venous stasi s ulcer on the left leg with mild infection to it. She has not done much to it. She has not followe d up with anybody for wound care. She was advised the importance in the future to follow up in [facility]ice [facility]. Second point is she might need hemodialysis. The renal doctor pavithra kimbrough the primary doctor evaluated the patient right now and I was called to at least start to explain to her that the options we might have for placement of catheter. Past Medical History: Hypertension. Past Surgical History: Cholecystectomy. Social History: She does not smoke. She does not drink alcohol. Family History: Includes a heart attack. Allergies: REVIEWED. Review of Systems: Patient stated nausea, vomiting, malaise. Physical Examination: Vital Signs: Reviewed. General: The patient is awake, alert. No distress. Although she does not want to talk about her co ndition. She gets very anxious, started crying. Only mentioning like imagine the hemodialysis cath eter. HEENT: The pupils are equal and reactive. Anicteric. Neck: Supple. Chest: Clear. Abdomen: Soft and depressible. Extremities: Left lower extremity, patient has venous stasis disease with venous stasis ulcer. No f luctuance or crepitus present. There is some drainage associated with it. No Homans signs to sugges t DVT. Rectal: Deferred. Pelvis: Deferred. Laboratory Data: Blood work shows WBC count of 14.3 with hemoglobin of 9.7, and platelets of 411. I NR is 1.14. Sodium is 129, potassium 5.9, creatinine is 8.23, glucose 137, BUN is 193. Total biliru bin of 0.4. Extremity venous Doppler shows no evidence of DVTs. Plan: 1. For the venous stasis ulcer, leg elevation. We are trying to put dry dressings over the area and keep it cover. At one point depends what happened to her kidney disease and we may be a little more aggressive with wound care that one may include Zoe or powder or we just keep it and th e regular Silvadene or a Santyl depends how the leg delineate. 2. For the dialysis catheter, I explained to the person the placement of hemodialysis catheter. We k now her from the past. She gets very anxious by just the fact of knowing that she has kidney disease and after I explained to her there is no way, she say she is going to stay still for this, so I disc ussed the case with the primary and also the renal doctor, Dr. Jung about the possibility of allowin g me to do it under some sedation since the patient will not allow it to do at bedside. Dr. Erich tapia mentioned to me that he is evaluating some options. He is going to hold the catheter in the meant meredith. He is going to evaluate the patient tomorrow once again and if he needs a catheter placed, he u nderstand his conditions to put this on, which is some sedation and then he think the benefits outwei gh the risks. He is going to call me again to let me know. The benefits, alternatives, and risks of catheter placement fully explained to the patient, which include, but not limited to infection, blee ding, damage to adjacent structures, anesthesia complication, pneumothorax, PEs, DVTs, [place] even . GENARO/MODL Voice ID: [id number] Report ID: [id number]
[2024-05-14] MEDS ORDERED: VANCOMYCIN 1 GM in NA CHLORIDE 0.9% 250 ML IVPB SCH (17:00)
[2024-05-14 17:08] LABS: Phosphorus 4.8 mg/dL (2.5-4.9)
[2024-05-14] MEDS ORDERED: CEFEPIME 1 GM in NA CHLORIDE 0.9% 100 ML IV SCH (18:00)
[2024-05-14] MEDS: Ringers Lactate 1,000 ML IV SCH (20:51)
[2024-05-15 04:37] LABS: Absolute Basophils 0.1 K/uL (0-0.5); Absolute Eosinophils 0.1 K/uL (0-0.5); Absolute Lymphocytes (CBC) 1.5 K/uL (0.7-4.9); Absolute Monocytes 1.2 K/uL (0.1-1.3); Absolute Neutrophil 5.9 K/uL (1.8-8.0); Basophils % 0.8 % (0-1.3); Eosinophils % 1.1 % (0-4.4); Hematocrit 22.7 % (36.0-45.0); Hemoglobin 7.9 g/dL (12.0-15.0); Lymphocytes % 17.3 % (15.3-44.8); MCHC 34.7 g/dL (32.0-36.0); MCV 89.2 fL (80-100); MPV 7.8 fL (7.6-11.3); Monocytes % 13.5 % (3.3-12.3); Neutrophils % 67.3 % (41.7-73.7); Nucleated Red Blood Cells % 0.1 % (0-0); Platelets 263 thou/uL (152-406); RBC Red Blood Cell Count 2.55 M/uL (3.86-4.86); Red Cell Distribution Width 13.9 % (12.1-15.2)
[2024-05-15 04:59] LABS: Anion Gap 11.8 mEq/L (5.0-15.0); Potassium 2.8 mEq/L (3.5-5.1)
[2024-05-15] MEDS: ONDANSETRON 4 MG/2 ML VIAL IV PRN (07:33)
[2024-05-15] MEDS: KCL 20 MEQ/100 mL IVPB 20 MEQ/100 ML BAG IV SCH (07:34)
[2024-05-15] MEDS: POTASSIUM 25 MEQ EFFERV TAB PO ONE (10:00)
--- NOTE | 2024-05-15 11:50 | P.PN ---
Subjective Date of Service: 05/15/24 Chief Complaint: CHARLIE Subjective: No chest pain or shortness of breath. No nausea or vomiting. No abdominal pain. No obvious bleeding. Looks comfortable in the bed. Left leg pain controlled. Objective: General appearance: Alert and comfortable CVS: Normal S1 and S2 Lungs: Clear to auscultation bilaterally Abdomen: Soft, bowel sounds present, no tenderness Extremities: minimal right lower extremity edema. Left leg has dressing. Physical Examination - Vital Signs Temperature: 97.7 F Blood Pressure: 100/51 Pulse: 93 Respirations: 17 Pulse Ox (%): 100 Assessment And Plan - Plan Assessment and plan: 1. Acute renal failure on chronic kidney disease stage III: Nephrology consult requested, cont IV fluids - renal ultrasound neg, monitor renal function closely. - creat Improving -General surgery was consulted for temporary dialysis catheter placement, hold cath for now as creat improving. 2. Hyperkalemia: Patient was given a dose of Kayexalate and insulin and dextrose in the emergency room - Potassium better, monitor closely. 2a. Hypokalemia: Replace per protocol 3. Hyponatremia: Monitor closely. 4. Hypertension: Continue Coreg, monitor blood pressure closely 5. Obesity: Consider weight loss, follow-up with PCP 6. Left leg wound with possible infection: cont broad-spectrum antibiotics for now, surgical consult requested, d/w dr. gonzalez this AM, he will reeval wound, requested wound care consult as well, - venous Doppler and also x-ray of the leg and the foot neg -request ID to see tomorrow I did discuss all the above-mentioned plan with the patient, and family at bedside
--- NOTE | 2024-05-15 13:12 | P.PN ---
Nephrology note (S) Pt seen resting in bed, less anxious, reports some improvement in nausea but still intermittently present, no vomiting episodes, on IVF, is producing urine, seen eating some lunch, has been OOB briefly to bathroom, some lightheadedness, BP has remained soft despite IVF (O) vitals reviewed in the EMR General: Other (Appears chronically ill) HEENT: Atraumatic, Normocephalic, not needing O2 Neck: Supple Respiratory: Normal air movement, Other (No rhonchi or wheezing) Cardiovascular: Other (Tachy, regular) Gastrointestinal: Soft and benign, Non-distended, No guarding Musculoskeletal: No contractures, Other (Swelling of the left lower leg 1-2+) Integumentary: Other (Lt lower garcia circumferential skin lesion, dressed, less tender on exam) Neurological: Other (anxious affect, awake, conversive, mildly tremulous, no myoclonus observed) Laboratory Data (last 24 hrs) Reviewed in the EMR Conclusions/Impression: A/P) 1. Sub-acute Stage III renal failure per CELIO definition on underlying CKD Stage IIIb possibly 2nd to ATN developed in the setting of hypovolemia, relative hypotension, concurrent ARB use (in recent past), vs other. Urine studies last mo last showed some pyuria, but skin epithelials present, no hx of proteinuria, other active urinary sediment. Latest UA shows some non specific WBC/RBC. Can not rule out sub-acute AIN but no new medications reported although was taking a PPI at home but renal function is slowly improving with hydration. No plans for renal bx 2. Renal imaging ordered to r/o obstructive uropathy and non seen. COnt strict monitoring of UOP 3. Pt did meet criteria for emergent HD on admission given marked azotemia/uremia, mod hyperkalemia, severe acidosis and hyperphosphatemia and pt provided verbal consent after counseling but was quite anxious and case discussed with surgeon, Dr. Lewis who felt pt was unlikely to tolerate temp dialysis catheter placement under just local anethesia and since labs are slowly improving with IVF hydration, no plans for HD currently 4. Hyperkalemia in the setting of above -s/p medical therapy, resolved. Now with hypokalemia post CHARLIE/ATN -repleting, recheck 5. AG metab acidosis with large bicarb deficit > 500 meq/L, on admission, since resolved 6. Severe azotemia -slowly improving, no other overt uremic symptoms 7. Dose all meds for reduced CrCl, digna Abx 8. Leukocytosis, left leg cellulitis or other soft tissue or deeper infection - w/u and management per IM, surgery, xrays neg for signs of osteo, and duplex neg for DVT Kilo Jung MD, DANNY
[2024-05-15] MEDS: VANCOMYCIN 1 GM in NA CHLORIDE 0.9% 250 ML IVPB SCH (16:00)
[2024-05-15] MEDS: Ringers Lactate 1,000 ML IV SCH (17:36)
[2024-05-15] MEDS: CEFEPIME 1 GM in NA CHLORIDE 0.9% 100 ML IV SCH (20:44)
[2024-05-16 06:44] LABS: Absolute Basophils 0.1 K/uL (0-0.5); Absolute Eosinophils 0.1 K/uL (0-0.5); Absolute Lymphocytes (CBC) 1.7 K/uL (0.7-4.9); Absolute Monocytes 1.2 K/uL (0.1-1.3); Absolute Neutrophil 5.5 K/uL (1.8-8.0); Basophils % 0.7 % (0-1.3); Eosinophils % 1.5 % (0-4.4); Hematocrit 24.3 % (36.0-45.0); Hemoglobin 8.1 g/dL (12.0-15.0); Lymphocytes % 19.8 % (15.3-44.8); MCH 29.9 pg (27.0-35.0); MCHC 33.2 g/dL (32.0-36.0); MPV 7.4 fL (7.6-11.3); Monocytes % 13.6 % (3.3-12.3); Neutrophils % 64.4 % (41.7-73.7); Nucleated Red Blood Cells % 0.1 % (0-0); Platelets 285 thou/uL (152-406); Red Cell Distribution Width 14.1 % (12.1-15.2)
[2024-05-16 06:58] LABS: Anion Gap 9.8 mEq/L (5.0-15.0); Potassium 3.8 mEq/L (3.5-5.1)
[2024-05-16] MEDS: CEFEPIME 1 GM/VIAL ONE (08:33)
[2024-05-16] MEDS: VANCOMYCIN 1 GM in NA CHLORIDE 0.9% 250 ML IVPB SCH (08:52)
[2024-05-16] MEDS: POTASSIUM CL SA 10 MEQ TAB PO ONE (08:53)
[2024-05-16] MEDS: NA CHLORIDE 0.9% 500 ML IV ONE (08:54)
--- NOTE | 2024-05-16 11:36 | EKG ---
Test Date: 2024-05-13 Test Time: 12:58:08 Tone Artist Apprentice: SUHAS MEASUREMENT RESULTS: Intervals: Rate: 122 MD: 124 QRSD: 66 QT: 286 QTc: 407 Cana: P: 62 MD: 124 QRS: 59 T: 55 INTERPRETIVE STATEMENTS: Sinus tachycardia Otherwise normal ECG Compared to ECG 05/09/2013 16:16:37 Sinus rhythm no longer present Electronically Signed On 05-16-24 11:32:47 CDT by Shahid Amaya
[2024-05-16] MEDS: MEDIHONEY 44 ML TOPICAL TUBE TOP SCH (12:51)
--- NOTE | 2024-05-16 13:27 | P.PN ---
Subjective Date of Service: 05/16/24 Chief Complaint: CHARLIE Subjective: No chest pain or shortness of breath. No nausea or vomiting. No abdominal pain. No obvious bleeding. Looks comfortable in the bed. Left leg pain controlled. Objective: General appearance: Alert and comfortable CVS: Normal S1 and S2 Lungs: Clear to auscultation bilaterally Abdomen: Soft, bowel sounds present, no tenderness Extremities: mild right lower extremity edema. Left leg has dressing. Physical Examination - Vital Signs Temperature: 98.1 F Blood Pressure: 109/57 Pulse: 99 Respirations: 18 Pulse Ox (%): 100 Assessment And Plan - Plan Assessment and plan: 1. Acute renal failure on chronic kidney disease stage III: Nephrology consult requested, cont IV fluids - renal ultrasound neg, monitor renal function closely. - creat Improving -General surgery was consulted for temporary dialysis catheter placement, hold cath for now as creat improving. 2. Hyperkalemia: Patient was given a dose of Kayexalate and insulin and dextrose in the emergency room - Potassium better, monitor closely. 2a. Hypokalemia: Replaced per protocol 3. Hyponatremia: Monitor closely. 4. Hypertension: discontinue Coreg for now, BP soft, will give 500 ml fluid bolus and monitor blood pressure closely, on maintenance IV fluids as well 5. Obesity: Consider weight loss, follow-up with PCP 6. Left leg wound with possible infection: cont broad-spectrum antibiotics for now, surgical consult requested, d/w dr. gonzalez 05/15, he will reeval wound, requested wound care consult as well, - venous Doppler and x-ray of the leg and the foot neg -requested ID consult I did discuss all the above-mentioned plan with the patient, and family at bedside. d/w RN and CM team. 53-year-old patient admitted with acute on chronic renal failure, nephrology was consulted, initially the plan was to do temporary dialysis but surgical team and patient decided to hold on dialysis catheter, with IV fluids renal function improving, she has a left leg wound with possible infection, ID consult requested, currently on IV antibiotics, blood pressure is still soft, I stopped Coreg, continue maintenance IV fluids, and ordered a small fluid bolus this morning, if labs and vital stable, cleared by consultants, she can be discharged in the next day or so.
--- NOTE | 2024-05-16 16:37 | P.CNS ---
Date of Consult: 05/16/24 HPI Pt is a 53 yo F with a hx of HTN, obesity, peripheral edema, chronic Lt leg wound and underlying CKD Stage IIIb. Patient had a fall so was transfer to the ER and was found to have CHARLIE. reason for consult: Left leg infection - Past Medical/Surgical History Diabetic: No -: blood clot in lungs -: hemorrhage after -: HTN -: Anxiety -: Reflux -: -: Laparoscopic cholecystectomy -: Bilateral tubal ligation ROS: ROS review and was negative unless stated in HPI Physical examination: General appearance: Alert and in no distress HEENT:PERRLA CVS:RRR Lungs: Clear to auscultation bilaterally Abdomen: Soft, bowel sounds present, no tenderness Extremities: mild left lower extremity edema. left leg dressing noted alert and oriented x 3 Radiology Tib Fib 05/13/24: no fracture or soft tissue abnormality Left foot XR 05/13/24: no evidence of OM Labs: WBC 8.5, Plt count 285, Hgb 8.1. BUN 96, Cr 2.44 Culture wound left leg 05/13/24: pending blood 05/13/24: no growth urine 05/13/24: pending Temp Pulse Resp BP Pulse Ox 98.1 F 99 H 18 109/57 L 100 05/16/24 13:27 05/16/24 13:27 05/16/24 13:27 05/16/24 13:27 05/16/24 13:27 Assessment and Plan Left leg wound infection continue cefepime and vanco monitor wbc and fever trend wound care on board Acute renal failure on chronic kidney disease S3 nephrology consulted continue IV fluids HTN defer to primary case round and in agreement with Dr yan
--- NOTE | 2024-05-16 21:23 | P.PN ---
Date of Service: 05/16/24 Vital Signs Temp Pulse Resp BP Pulse Ox 98.1 F 108 H 18 127/77 99 05/16/24 20:00 05/16/24 20:00 05/16/24 20:00 05/16/24 20:00 05/16/24 20:00 Medications Acetaminophen (Acetaminophen 500 Mg Tab) 500 mg PO Q4HP PRN PRN Reason: Pain scale 2-4 (Mild) Last Admin: 05/14/24 04:33 Dose: 500 mg Emollient Gel (Medihoney 44 Ml Topical Tube) 1 appl TOP DAILY [facility] Last Admin: 05/16/24 12:51 Dose: 1 appl Heparin Sodium (Porcine) (Heparin 5000 Unit/Ml 1 Ml Vial) 5,000 unit SQ Q8HR [facility] Last Admin: 05/16/24 16:13 Dose: 5,000 unit Hydralazine HCl (Hydralazine Hcl 20 Mg/Ml Vial) 10 mg IV Q6HP PRN PRN Reason: FOR SBP>160 OR DBP>100 MMHG Cefepime HCl 1 gm/ Sodium (Chloride) 100 mls @ 200 mls/hr IV Q12HR [facility]; Protocol Last Admin: 05/16/24 20:45 Dose: 100 mls Lactated Ringer's (Lactated Ringers) 1,000 mls @ 75 mls/hr IV .[id number] [facility] Last Admin: 05/16/24 15:49 Dose: Not Given Vancomycin HCl 1 gm/ Sodium (Chloride) 250 mls @ 250 mls/hr IVPB Q48H [facility]; Protocol Last Admin: 05/16/24 08:52 Dose: 250 mls Ondansetron HCl (Ondansetron 4 Mg/2 Ml Vial) 4 mg IV Q6HP PRN PRN Reason: NAUSEA / VOMITING Last Admin: 05/15/24 07:33 Dose: 4 mg Microbiology Results 05/13/24 13:48 Blood - Blood Aerobic Blood Culture - Preliminary No growth in 24 hours. 05/13/24 13:48 Blood - Blood Anaerobic Blood Culture - Preliminary No growth in 24 hours. 05/13/24 14:00 Blood - Blood Aerobic Blood Culture - Preliminary No growth in 24 hours. 05/13/24 14:00 Blood - Blood Anaerobic Blood Culture - Preliminary No growth in 24 hours. Assessment/ Plan: Nephrology No dyspnea No chest pain No acute events overnight Vitals, medications, blood work and imaging reviewed in the chart NAD. Obese. MMM. NCAT. Normal Respiratory Effort. S1S2. ND Abd. No C/C. LE Edema 1+. No rash. Left foot wound. AAO. Normal speech. Stage III CHARLIE likely ATN Uremia CKD IIIb -No NSAIDs -Continue IVF Hypokalemia -Replete prn HTN with CKD -Hold antihypertensives at this time Peripheral Edema -Low sodium diet Anemia in chronic illness -Monitor H&H -Retacrit prn LLE Cellulitis -Continue Abx Hospitalist note reviewed
[2024-05-17 06:37] LABS: Absolute Basophils 0.1 K/uL (0-0.5); Absolute Eosinophils 0.2 K/uL (0-0.5); Absolute Lymphocytes (CBC) 1.9 K/uL (0.7-4.9); Absolute Monocytes 1.2 K/uL (0.1-1.3); Absolute Neutrophil 5.8 K/uL (1.8-8.0); Basophils % 1.5 % (0-1.3); Hematocrit 24.4 % (36.0-45.0); Hemoglobin 8.1 g/dL (12.0-15.0); Lymphocytes % 20.7 % (15.3-44.8); MCH 30.1 pg (27.0-35.0); MCHC 33.1 g/dL (32.0-36.0); MCV 90.9 fL (80-100); MPV 7.5 fL (7.6-11.3); Monocytes % 12.9 % (3.3-12.3); Neutrophils % 62.9 % (41.7-73.7); Nucleated Red Blood Cells % 0.1 % (0-0); Platelets 266 thou/uL (152-406); RBC Red Blood Cell Count 2.68 M/uL (3.86-4.86); Red Cell Distribution Width 14.6 % (12.1-15.2)
[2024-05-17 07:03] LABS: Anion Gap 6.1 mEq/L (5.0-15.0); Potassium 4.1 mEq/L (3.5-5.1)
[2024-05-17] MEDS: HYDROCODONE/APAP 5/325 MG TAB PO PRN (14:16)
--- NOTE | 2024-05-17 14:43 | PN ---
Subjective: Patient sitting in wheelchair. Denies any headache, nausea, vomiting, chest pain, abdominal pain, constipation, or diarrhea. Objective: Vital Signs: Reviewed. Lungs: Basal crackles. Heart: S1, S2. Regular. Abdomen: Soft, nontender. Bowel sounds present. Extremities: 2+ edema. Leg wound noted. Laboratory Data: Shows WBC 9.2, hemoglobin 8.1, platelets 266. Chemistry shows BUN of 61, creatinine 1.83. Cultures are growing Staph aureus. Assessment And Plan: 1. Left leg wound secondary to stasis ulceration and stasis dermatitis infected with MSSA. We will recommend to switch patient to Augmentin. Keep leg elevated when possible. 2. Stage 3 kidney disease. 3. Leukocytosis, improved. 4. Anemia of chronic disease. 5. Moderate protein-calorie malnourishment. We will follow the patient as needed. NF/MODL Voice ID: [id number] Report ID: [id number] [facility]
--- NOTE | 2024-05-17 18:22 | P.PN ---
Subjective Date of Service: 05/17/24 Chief Complaint: CHARLIE Subjective: No new changes No acute events overnight Review of Systems 10-point ROS is otherwise unremarkable Physical Examination - Vital Signs Temperature: 98.1 F Blood Pressure: 118/67 Pulse: 116 Respirations: 16 Pulse Ox (%): 99 - Physical Exam General: Alert, In no apparent distress, Oriented x3 HEENT: Atraumatic, Normocephalic Neck: Supple Respiratory: Clear to auscultation bilaterally Cardiovascular: No edema, Normal pulses, Regular rate/rhythm Gastrointestinal: Normal bowel sounds Musculoskeletal: No clubbing, No swelling Neurological: Normal gait, Normal speech, Normal strength at 5/5 x4 extr External genitalia: No edema Assessment And Plan - Plan 1. Acute renal failure on chronic kidney disease stage III: Nephrology consult requested, cont IV fluids - renal ultrasound neg, monitor renal function closely. - creat Improving -General surgery was consulted for temporary dialysis catheter placement, hold cath for now as creat improving. 2. Hyperkalemia: Patient was given a dose of Kayexalate and insulin and dextrose in the emergency room - Potassium better, monitor closely. 2a. Hypokalemia: Replaced per protocol 3. Hyponatremia: Monitor closely. 4. Hypertension: discontinue Coreg for now, BP soft, will give 500 ml fluid bolus and monitor blood pressure closely, on maintenance IV fluids as well 5. Obesity: Consider weight loss, follow-up with PCP 6. Left leg wound secondary to stasis dermatitis - Wound cultures positive MSSA - On Augmentin
--- NOTE | 2024-05-17 21:00 | P.PN ---
Date of Service: 05/17/24 Vital Signs Temp Pulse Resp BP Pulse Ox 98.1 F 116 H 16 118/67 99 05/17/24 18:22 05/17/24 18:22 05/17/24 18:22 05/17/24 18:22 05/17/24 18:22 Medications Acetaminophen (Acetaminophen 500 Mg Tab) 500 mg PO Q4HP PRN PRN Reason: Pain scale 2-4 (Mild) Last Admin: 05/14/24 04:33 Dose: 500 mg Hydrocodone Bitart/Acetaminophen (Hydrocodone/Apap 5/325 Mg Tab) 1 tab PO Q4H PRN PRN Reason: Pain scale 5-7 (Moderate) Last Admin: 05/17/24 14:16 Dose: 1 tab Amoxicillin/Clavulanate Potassium (Amox/K Clav 875 Mg Tab) 875 mg PO BID [facility]; Protocol Emollient Gel (Medihoney 44 Ml Topical Tube) 1 appl TOP DAILY [facility] Last Admin: 05/17/24 08:48 Dose: 1 appl Heparin Sodium (Porcine) (Heparin 5000 Unit/Ml 1 Ml Vial) 5,000 unit SQ Q8HR [facility] Last Admin: 05/17/24 17:09 Dose: 5,000 unit Hydralazine HCl (Hydralazine Hcl 20 Mg/Ml Vial) 10 mg IV Q6HP PRN PRN Reason: FOR SBP>160 OR DBP>100 MMHG Lactated Ringer's (Lactated Ringers) 1,000 mls @ 75 mls/hr IV .[id number] [facility] Last Admin: 05/17/24 10:07 Dose: 1,000 mls Ondansetron HCl (Ondansetron 4 Mg/2 Ml Vial) 4 mg IV Q6HP PRN PRN Reason: NAUSEA / VOMITING Last Admin: 05/15/24 07:33 Dose: 4 mg Microbiology Results 05/13/24 13:48 Blood - Blood Aerobic Blood Culture - Preliminary No growth in 24 hours. 05/13/24 13:48 Blood - Blood Anaerobic Blood Culture - Preliminary No growth in 24 hours. 05/13/24 14:00 Blood - Blood Aerobic Blood Culture - Preliminary No growth in 24 hours. 05/13/24 14:00 Blood - Blood Anaerobic Blood Culture - Preliminary No growth in 24 hours. Assessment/ Plan: Nephrology No dyspnea No chest pain Dyspepsia No acute events overnight Vitals, medications, blood work and imaging reviewed in the chart NAD. Obese. MMM. NCAT. Normal Respiratory Effort. S1S2. ND Abd. No C/C. LE Edema 1+. No rash. Left foot wound. AAO. Normal speech. Stage III CHARLIE likely ATN Uremia CKD IIIb -No NSAIDs -Continue IVF Hypokalemia -Replete prn HTN with CKD -Hold antihypertensives at this time Peripheral Edema -Low sodium diet Anemia in chronic illness -Monitor H&H -Retacrit prn LLE Cellulitis -Continue Abx Hospitalist note reviewed
[2024-05-17] MEDS: AMOX/K CLAV 875 MG TAB PO SCH (21:03)
[2024-05-18 05:58] LABS: Absolute Basophils 0.1 K/uL (0-0.5); Absolute Eosinophils 0.3 K/uL (0-0.5); Absolute Lymphocytes (CBC) 2.1 K/uL (0.7-4.9); Absolute Monocytes 1.4 K/uL (0.1-1.3); Absolute Neutrophil 6.8 K/uL (1.8-8.0); Basophils % 1.3 % (0-1.3); Hematocrit 24.7 % (36.0-45.0); Hemoglobin 8.2 g/dL (12.0-15.0); Lymphocytes % 19.3 % (15.3-44.8); MCH 30.4 pg (27.0-35.0); MCHC 33.3 g/dL (32.0-36.0); MCV 91.2 fL (80-100); MPV 7.6 fL (7.6-11.3); Monocytes % 12.9 % (3.3-12.3); Neutrophils % 63.5 % (41.7-73.7); Platelets 242 thou/uL (152-406); RBC Red Blood Cell Count 2.71 M/uL (3.86-4.86); Red Cell Distribution Width 14.3 % (12.1-15.2)
[2024-05-18 09:06] LABS: Anion Gap 9.3 mEq/L (5.0-15.0); Potassium 4.3 mEq/L (3.5-5.1)
--- NOTE | 2024-05-18 14:02 | P.PN ---
Subjective Date of Service: 05/18/24 Chief Complaint: CHARLIE No acute events overnight Review of Systems 10-point ROS is otherwise unremarkable Physical Examination - Vital Signs Temperature: 98.5 F Blood Pressure: 133/71 Pulse: 108 Respirations: 14 Pulse Ox (%): 98 - Physical Exam General: Alert HEENT: Atraumatic Neck: Supple Respiratory: Clear to auscultation bilaterally Cardiovascular: No edema, Normal pulses, Regular rate/rhythm, Normal S1 S2 Gastrointestinal: Normal bowel sounds, Soft and benign, Non-distended Neurological: Normal gait, Normal strength at 5/5 x4 extr Assessment And Plan - Plan 1. Acute renal failure on chronic kidney disease stage III: Nephrology consult requested, cont IV fluids - renal ultrasound neg, monitor renal function closely. - creat Improving -General surgery was consulted for temporary dialysis catheter placement, hold cath for now as creat improving. 2. Hyperkalemia: Patient was given a dose of Kayexalate and insulin and dextrose in the emergency room - Potassium better, monitor closely. 2a. Hypokalemia: Replaced per protocol 3. Hyponatremia: Monitor closely. 4. Hypertension: discontinue Coreg for now, BP soft, will give 500 ml fluid bolus and monitor blood pressure closely, on maintenance IV fluids as well 5. Obesity: Consider weight loss, follow-up with PCP 6. Left leg wound secondary to stasis dermatitis - Wound cultures positive MSSA - On Augmentin PT recommends IPR. manager employee relations consulted
--- NOTE | 2024-05-18 15:29 | P.PN ---
Date of Service: 05/18/24 Subjective: Patient sitting in wheelchair. Denies any headache, nausea, vomiting, chest pain, abdominal pain, constipation, or diarrhea. Objective: Vital Signs: Reviewed. Temp Pulse Resp BP Pulse Ox 98.5 F 108 H 14 133/71 98 05/18/24 14:01 05/18/24 14:01 05/18/24 14:01 05/18/24 14:01 05/18/24 14:01 Neuro: aox3 Lungs: RRR Heart: S1, S2. Regular. Abdomen: Soft, nontender. Bowel sounds present. Extremities: 2+ edema. Left Leg wound with dressing noted. no drainage Laboratory Data: Shows WBC 10.7, hemoglobin 8.2, platelets 242. Chemistry shows BUN of 45, creatinine 1.51. Cultures 05/13/24 Left lower leg wound: Staph aureus 05/13/24 urine culture neg 05/13/24 blood negative Assessment And Plan: 1. Left leg wound secondary to stasis ulceration and stasis dermatitis infected with MSSA. continue Augmentin PO. Keep leg elevated when possible. 2. Stage 3 kidney disease. 3. Leukocytosis, improved. 4. Anemia of chronic disease. 5. Moderate protein-calorie malnourishment. We will follow the patient as needed.
[2024-05-18] MEDS: PANTOPRAZOLE 40MG TABLET PO SCH (16:19)
--- NOTE | 2024-05-18 21:19 | P.PN ---
Date of Service: 05/18/24 Vital Signs Temp Pulse Resp BP Pulse Ox 98.4 F 105 H 16 135/65 98 05/18/24 16:00 05/18/24 16:00 05/18/24 20:50 05/18/24 16:00 05/18/24 20:50 Medications Acetaminophen (Acetaminophen 500 Mg Tab) 500 mg PO Q4HP PRN PRN Reason: Pain scale 2-4 (Mild) Last Admin: 05/14/24 04:33 Dose: 500 mg Hydrocodone Bitart/Acetaminophen (Hydrocodone/Apap 5/325 Mg Tab) 1 tab PO Q4H PRN PRN Reason: Pain scale 5-7 (Moderate) Last Admin: 05/18/24 20:50 Dose: 1 tab Amoxicillin/Clavulanate Potassium (Amox/K Clav 875 Mg Tab) 875 mg PO BID [facility]; Protocol Last Admin: 05/18/24 20:50 Dose: 875 mg Emollient Gel (Medihoney 44 Ml Topical Tube) 1 appl TOP DAILY [facility] Last Admin: 05/18/24 13:30 Dose: 1 appl Heparin Sodium (Porcine) (Heparin 5000 Unit/Ml 1 Ml Vial) 5,000 unit SQ Q8HR [facility] Last Admin: 05/18/24 16:19 Dose: 5,000 unit Hydralazine HCl (Hydralazine Hcl 20 Mg/Ml Vial) 10 mg IV Q6HP PRN PRN Reason: FOR SBP>160 OR DBP>100 MMHG Ondansetron HCl (Ondansetron 4 Mg/2 Ml Vial) 4 mg IV Q6HP PRN PRN Reason: NAUSEA / VOMITING Last Admin: 05/15/24 07:33 Dose: 4 mg Pantoprazole Sodium (Pantoprazole 40mg Tablet) 40 mg PO ACB [facility]; Protocol Last Admin: 05/18/24 16:19 Dose: 40 mg Microbiology Results 05/13/24 13:48 Blood - Blood Aerobic Blood Culture - Final No growth in 5 days. 05/13/24 13:48 Blood - Blood Anaerobic Blood Culture - Final No growth in 5 days. 05/13/24 14:00 Blood - Blood Aerobic Blood Culture - Final No growth in 5 days. 05/13/24 14:00 Blood - Blood Anaerobic Blood Culture - Final No growth in 5 days. Assessment/ Plan: Nephrology No dyspnea No chest pain No acute events overnight Depressed Vitals, medications, blood work and imaging reviewed in the chart NAD. Obese. MMM. NCAT. Normal Respiratory Effort. S1S2. ND Abd. No C/C. LE Edema 1+. No rash. Left foot wound. AAO. Normal speech. Stage III CHARLIE likely ATN Uremia CKD IIIb -No NSAIDs Hypokalemia -Replete prn HTN with CKD -Hold antihypertensives at this time Peripheral Edema -Low sodium diet Anemia in chronic illness -Monitor H&H -Retacrit prn LLE Cellulitis -Continue Abx Hospitalist note reviewed Case discussed with Dr. Sandoval
[2024-05-19 04:45] LABS: Absolute Basophils 0.1 K/uL (0-0.5); Absolute Eosinophils 0.3 K/uL (0-0.5); Absolute Lymphocytes (CBC) 2.2 K/uL (0.7-4.9); Absolute Monocytes 1.2 K/uL (0.1-1.3); Absolute Neutrophil 6.4 K/uL (1.8-8.0); Eosinophils % 2.7 % (0-4.4); Hematocrit 23.5 % (36.0-45.0); Hemoglobin 7.8 g/dL (12.0-15.0); Lymphocytes % 21.7 % (15.3-44.8); MCH 30.7 pg (27.0-35.0); MCHC 33.3 g/dL (32.0-36.0); MPV 7.9 fL (7.6-11.3); Monocytes % 11.9 % (3.3-12.3); Neutrophils % 62.7 % (41.7-73.7); Nucleated Red Blood Cells % 0.1 % (0-0); Platelets 229 thou/uL (152-406); RBC Red Blood Cell Count 2.55 M/uL (3.86-4.86); Red Cell Distribution Width 14.5 % (12.1-15.2)
[2024-05-19 04:50] LABS: Anion Gap 9.1 mEq/L (5.0-15.0); Potassium 4.1 mEq/L (3.5-5.1)
[2024-05-19] MEDS: POLYETHYL GLY 3350 17 GM/DOSE PO PRN (13:13)
--- NOTE | 2024-05-19 14:41 | P.PN ---
Subjective Date of Service: 05/19/24 Chief Complaint: CHARLIE No acute events overnight Review of Systems 10-point ROS is otherwise unremarkable Physical Examination - Vital Signs Temperature: 99.8 F Blood Pressure: 140/71 Pulse: 122 Respirations: 16 Pulse Ox (%): 100 - Physical Exam General: Alert, Oriented x3 HEENT: Atraumatic, Normocephalic, PERRLA Neck: Supple Respiratory: Clear to auscultation bilaterally, Normal air movement, Diminished Cardiovascular: No edema, Normal pulses, Regular rate/rhythm Gastrointestinal: Normal bowel sounds, Soft and benign, Non-distended Musculoskeletal: No clubbing, No swelling Integumentary: No rashes, No breakdown, No significant lesion - Studies Microbiology Data (last 24 hrs): 05/13/24 13:48 Blood - Blood Aerobic Blood Culture - Final No growth in 5 days. 05/13/24 13:48 Blood - Blood Anaerobic Blood Culture - Final No growth in 5 days. 05/13/24 14:00 Blood - Blood Aerobic Blood Culture - Final No growth in 5 days. 05/13/24 14:00 Blood - Blood Anaerobic Blood Culture - Final No growth in 5 days. Assessment And Plan - Plan 1. Acute renal failure on chronic kidney disease stage III: Nephrology consult requested, cont IV fluids - renal ultrasound neg, monitor renal function closely. - creat Improving -General surgery was consulted for temporary dialysis catheter placement, hold cath for now as creat improving. 2. Hyperkalemia: Patient was given a dose of Kayexalate and insulin and dextrose in the emergency room - Potassium better, monitor closely. 2a. Hypokalemia: Replaced per protocol 3. Hyponatremia: Monitor closely. 4. Hypertension: discontinue Coreg for now, BP soft, will give 500 ml fluid bolus and monitor blood pressure closely, on maintenance IV fluids as well 5. Obesity: Consider weight loss, follow-up with PCP 6. Left leg wound secondary to stasis dermatitis - Wound cultures positive MSSA - On Augmentin PT recommends IPR. critical care unit manager consulted for SNF placement
[2024-05-19] MEDS: DOCUSATE NA/SENNA CONC 1 TAB PO SCH (21:54)
--- NOTE | 2024-05-19 22:10 | P.PN ---
Date of Service: 05/19/24 Vital Signs Temp Pulse Resp BP Pulse Ox 98.4 F 113 H 16 118/71 98 05/19/24 16:00 05/19/24 16:00 05/19/24 16:00 05/19/24 16:00 05/19/24 16:00 Medications Acetaminophen (Acetaminophen 500 Mg Tab) 500 mg PO Q4HP PRN PRN Reason: Pain scale 2-4 (Mild) Last Admin: 05/14/24 04:33 Dose: 500 mg Hydrocodone Bitart/Acetaminophen (Hydrocodone/Apap 5/325 Mg Tab) 1 tab PO Q4H PRN PRN Reason: Pain scale 5-7 (Moderate) Last Admin: 05/19/24 13:13 Dose: 1 tab Amoxicillin/Clavulanate Potassium (Amox/K Clav 875 Mg Tab) 875 mg PO BID [facility]; Protocol Last Admin: 05/19/24 21:54 Dose: 875 mg Emollient Gel (Medihoney 44 Ml Topical Tube) 1 appl TOP DAILY [facility] Last Admin: 05/19/24 15:00 Dose: 1 appl Heparin Sodium (Porcine) (Heparin 5000 Unit/Ml 1 Ml Vial) 5,000 unit SQ Q8HR [facility] Last Admin: 05/19/24 18:05 Dose: 5,000 unit Hydralazine HCl (Hydralazine Hcl 20 Mg/Ml Vial) 10 mg IV Q6HP PRN PRN Reason: FOR SBP>160 OR DBP>100 MMHG Ondansetron HCl (Ondansetron 4 Mg/2 Ml Vial) 4 mg IV Q6HP PRN PRN Reason: NAUSEA / VOMITING Last Admin: 05/15/24 07:33 Dose: 4 mg Pantoprazole Sodium (Pantoprazole 40mg Tablet) 40 mg PO ACB [facility]; Protocol Last Admin: 05/19/24 10:37 Dose: 40 mg Polyethylene Glycol (Polyethyl Gly 3350 17 Gm/Dose) 17 gm PO DAILY PRN PRN Reason: CONSTIPATION Last Admin: 05/19/24 13:13 Dose: 17 gm Senna/Docusate Sodium (Docusate Na/Senna Conc 1 Tab) 1 tab PO BID [facility] Last Admin: 05/19/24 21:54 Dose: 1 tab Microbiology Results 05/13/24 13:48 Blood - Blood Aerobic Blood Culture - Final No growth in 5 days. 05/13/24 13:48 Blood - Blood Anaerobic Blood Culture - Final No growth in 5 days. 05/13/24 14:00 Blood - Blood Aerobic Blood Culture - Final No growth in 5 days. 05/13/24 14:00 Blood - Blood Anaerobic Blood Culture - Final No growth in 5 days. Assessment/ Plan: Nephrology No dyspnea No chest pain No acute events overnight Feeling better Vitals, medications, blood work and imaging reviewed in the chart NAD. Obese. MMM. NCAT. Normal Respiratory Effort. S1S2. ND Abd. No C/C. LE Edema 1+. No rash. Left foot wound. AAO. Normal speech. Stage III CHARLIE likely ATN Uremia CKD IIIb -No NSAIDs Hypokalemia -Replete prn HTN with CKD Tachycardia -Start Metoprolol BID Peripheral Edema -Low sodium diet -Start HCTZ 12.5mg daily Anemia in chronic illness -Monitor H&H -Retacrit prn LLE Cellulitis -Continue Abx Hospitalist note reviewed Case discussed with Dr. Sandoval
--- NOTE | 2024-05-19 23:30 | PN ---
Subjective: The patient is sitting in wheelchair. Denies any problems. Denies any headache, nausea , vomiting, chest pain, abdominal pain, constipation, or diarrhea. Objective: Vital Signs: Temperature 98, pulse 100, respirations 18, blood pressure 118/71. Lungs: Basal crackles. Heart: S1, S2. Regular. Abdomen: Soft, nontender. Bowel sounds present. Extremities: 2+ edema. Laboratory Data: WBC 10.2, hemoglobin 7.8, platelets are 229. BUN of 26, creatinine 1.3. Assessment And Plan: 1. Left leg wound secondary to stasis ulcer and stasis dermatitis, infected with methicillin-suscepti ble Staphylococcus aureus. Continue Augmentin. Keep leg elevated. 2. Stage 3 kidney disease. 3. Leukocytosis, improving. 4. Anemia of chronic disease. 5. Moderate protein-calorie malnourishment. 6. Moderate obesity. Monitor signs of infection with WBC and fever trends. NF/MODL Voice ID: [id number] Report ID: [id number]
[2024-05-20 04:28] LABS: Absolute Basophils 0.1 K/uL (0-0.5); Absolute Eosinophils 0.2 K/uL (0-0.5); Absolute Lymphocytes (CBC) 1.8 K/uL (0.7-4.9); Absolute Monocytes 1.2 K/uL (0.1-1.3); Absolute Neutrophil 8.6 K/uL (1.8-8.0); Basophils % 0.9 % (0-1.3); Hematocrit 22.1 % (36.0-45.0); Hemoglobin 7.3 g/dL (12.0-15.0); Lymphocytes % 14.9 % (15.3-44.8); MCH 29.9 pg (27.0-35.0); MCHC 32.9 g/dL (32.0-36.0); MCV 90.8 fL (80-100); MPV 7.4 fL (7.6-11.3); Monocytes % 10.2 % (3.3-12.3); Platelets 225 thou/uL (152-406); RBC Red Blood Cell Count 2.44 M/uL (3.86-4.86); Red Cell Distribution Width 14.4 % (12.1-15.2)
[2024-05-20 04:34] LABS: Anion Gap 8.9 mEq/L (5.0-15.0); Potassium 3.9 mEq/L (3.5-5.1)
[2024-05-20] MEDS: METOPROLOL TAR 25 MG TAB PO SCH (07:00)
[2024-05-20] MEDS: hydroCHLOROthiazide 25 MG TAB PO SCH (08:41)
--- NOTE | 2024-05-20 12:01 | P.PN ---
Nephrology note (S) Pt seen sitting up in chair, legs down, left leg edema, wrapped noted, no pain reported, discussed discharge plans (O) vitals reviewed in the EMR General: Other (Appears chronically ill) HEENT: Atraumatic, Normocephalic, not needing O2 Neck: Supple Respiratory: Normal air movement, Other (No rhonchi or wheezing) Cardiovascular: Other (Tachy, regular) Gastrointestinal: Soft and benign, Non-distended, No guarding Musculoskeletal: No contractures, Other (Swelling of the left lower leg 2+, tight) Integumentary: Other (Lt lower garcia circumferential skin lesion, dressed, less tender on exam) Neurological: Other (anxious affect, awake, conversive, mildly tremulous, no myoclonus observed) Laboratory Data (last 24 hrs) Reviewed in the EMR Conclusions/Impression: A/P) 1. Sub-acute Stage III renal failure per CEL[facility] definition on underlying CKD Stage IIIb possibly 2nd to ATN developed in the setting of hypovolemia, relative hypotension, concurrent ARB use (in recent past), vs other now resolved with renal function back to baseline 2. Renal imaging ordered to r/o obstructive uropathy and non seen. 3. Non elevated BP, does not require any BP meds 4. Leukocytosis, left leg cellulitis or other soft tissue or deeper infection POA -w/u and management per IM/ID 5. Chronic worsened anemia in the setting of recent renal failure, other -defer anemia w/u to IM or as OP to her PCP, with renal recovery, would expect EPO levels to improve Kilo Jung MD, DANNY
--- NOTE | 2024-05-20 15:27 | P.DS ---
Admission Date: 05/13/24 Discharge Date: 05/20/24 Disposition: ROUTINE DISCHARGE Discharge Condition: GOOD Reason for Admission: CHARLIE Brief History of Present Illness: 3-year-old patient present to the PCP office for routine evaluation, she had a fall there so she was transferred to the emergency room, she was found to be in acute renal failure on top of chronic kidney disease so we were asked to admit her. She said she landed on her buttocks at the PCP office, no trauma from the fall, she denies any pain. She is complaining of nausea and vomiting for the last 2 to 3 weeks. She has chronic left leg wound for the last few months, she is getting some wound care for that, she was given some antibiotic as an outpatient sometime back. Other Than this she denies any other acute complaints. No headache or blackouts. No double vision or blurry vision. No cough or sputum production. No chest pain or shortness of breath. No abdominal pain. No constipation or diarrhea. No blood in the urine or stool. No fever. No lower extremity edema. No joint pains. No recent change in the weight. Hospital Course: 53-year-old female with history of essential hypertension, initially presented after a fall at PCPs office. In the ER, labs showed evidence of CHARLIE and hyperkalemia, with creatinine of 8.2 and potassium of 5.9. Kayexalate, IV insulin and D50 were given with resolution of hyperkalemia. IV fluids was initiated for acute renal failure with eventual improvement in creatinine to 1.4 at time of discharge. Also patient presented with left lower extremity wound which was managed by wound care. Wound cultures positive for MSSA. Was on Augmentin. She was seen by PT/OT due to recent falls prior to admission. PT recommended SNF however patient unable to afford insurance co-pay for SNF so discharged with home health PT/OT and shelter. Outpatient wound care also arranged postdischarge Vital Signs/Physical Exam: Temp Pulse Resp BP Pulse Ox 98.2 F 105 H 16 111/79 100 05/20/24 12:00 05/20/24 12:00 05/20/24 12:00 05/20/24 12:00 05/20/24 12:00 General: Alert, Oriented x3 HEENT: Atraumatic, Normocephalic Neck: Supple, 2+ carotid pulse no bruit, JVD not distended Respiratory: Clear to auscultation bilaterally Cardiovascular: No edema, Normal pulses, Regular rate/rhythm, Normal S1 S2 Gastrointestinal: Normal bowel sounds, Hypoactive, Soft and benign, Non- distended Musculoskeletal: No clubbing, No swelling, No contractures, No erythema Laboratory Data at Discharge: WBC 11.90 thou/uL (4.3-10.9) H 05/20/24 04:01 Hgb 7.3 g/dL (12.0-15.0) L 05/20/24 04:01 Hct 22.1 % (36.0-45.0) L 05/20/24 04:01 Plt Count 225 thou/uL (152-406) 05/20/24 04:01 PT 12.9 SECONDS (10-13.0) 05/13/24 13:50 INR 1.14 05/13/24 13:50 APTT 25.5 SECONDS (27.2-37.4) L 05/13/24 13:50 Sodium 140 mEq/L (136-145) 05/20/24 04:01 Potassium 3.9 mEq/L (3.5-5.1) 05/20/24 04:01 BUN 32 mg/dL (7-18) H 05/20/24 04:01 Creatinine 1.47 mg/dL (0.55-1.02) H 05/20/24 04:01 Glucose 97 mg/dL (74-106) 05/20/24 04:01 Phosphorus 4.8 mg/dL (2.5-4.9) 05/14/24 16:16 Total Bilirubin 0.4 mg/dL (0.2-1.0) 05/13/24 13:50 AST 15 U/L (15-37) 05/13/24 13:50 ALT 19 U/L (13-56) 05/13/24 13:50 Alkaline Phosphatase 77 U/L (45-117) 05/13/24 13:50 Home Medications: Omeprazole [Prilosec] 20 mg PO DAILY 05/11/13 Bupropion HCl [Wellbutrin Sr] 100 mg PO DAILY 05/15/24 Chlorthalidone 25 mg PO DAILY 05/15/24 Gabapentin 100 mg PO BEDTIME 05/15/24 Losartan Potassium 100 mg PO DAILY 05/15/24 Metoprolol Succinate [Toprol Xl*] 50 mg PO DAILY 05/15/24 Amox/Clavulanate [Augmentin 875-125 Tab*] 875 mg PO BID 4 Days #8 tab 05/20/24 New Medications: Amox/Clavulanate [Augmentin 875-125 Tab*] 875 mg PO BID 4 Days #8 tab Physician Discharge Instructions: Outpatient follow-up with wound care Diet: ADA Activity: Ad reta Followup: Andrea Lewis MD [ACTIVE - CAN ADMIT] - 1-2 Weeks DOMO HOUSTON [Primary Care Provider] - 1-2 Weeks
[2024-05-20 17:25] VITALS: BP 113/68; TEMP 98.6
--- NOTE | 2024-05-20 17:29 | P.PN ---
Date of Service: 05/20/24 Subjective: Patient lying in bed. Denies any headache, nausea, vomiting, chest pain, abdominal pain, constipation, or diarrhea. staff report discharging today Objective: Vital Signs: Reviewed. Temp Pulse Resp BP Pulse Ox 98.6 F 110 H 16 113/68 98 05/20/24 16:00 05/20/24 16:00 05/20/24 16:00 05/20/24 16:00 05/20/24 16:00 Neuro: aox3 Lungs: RRR Heart: S1, S2. Regular. Abdomen: Soft, nontender. Bowel sounds present. Extremities: 2+ edema. Left Leg wound with dressing noted. no drainage Laboratory Data: Shows WBC 11.9, hemoglobin 7.3, platelets 225. Chemistry shows BUN of 32, creatinine 1.47. Cultures 05/13/24 Left lower leg wound: Staph aureus 05/13/24 urine culture neg 05/13/24 blood negative Assessment And Plan: 1. Left leg wound secondary to stasis ulceration and stasis dermatitis infected with MSSA. continue Augmentin PO. Keep leg elevated when possible. 2. Stage 3 kidney disease. 3. Leukocytosis, improved. 4. Anemia of chronic disease. 5. Moderate protein-calorie malnourishment. We will follow the patient as needed. case discussed and in agreement with dr yan
== END 2024-05-20 17:46 | disposition home or self-care (01) | DRG 683 ==
LOC: ER 12:39 → ERHOLD 15:45 → 2ND 16:41
PROVIDERS: ADMIT Hospitalist; ATTEND Internal Medicine
PROC: 0T9B70Z Drainage of Bladder with Drainage Device, Via Natural or Artificial Opening (ICD-10-PCS; principal; 2024-05-13)
DX: N17.0 Acute kidney failure with tubular necrosis (principal); E44.0 Moderate protein-calorie malnutrition; Z68.41 Body mass index [BMI] 40.0-44.9, adult; L03.116 Cellulitis of left lower limb; L97.828 Non-pressure chronic ulcer of other part of left lower leg with other specified severity; E87.1 Hypo-osmolality and hyponatremia; E87.20 Acidosis, unspecified; E87.5 Hyperkalemia; E66.9 Obesity, unspecified; F41.9 Anxiety disorder, unspecified; I12.9 Hypertensive chronic kidney disease with stage 1 through stage 4 chronic kidney disease, or unspecified chronic kidney disease; N18.32 Chronic kidney disease, stage 3b; D63.1 Anemia in chronic kidney disease; E83.39 Other disorders of phosphorus metabolism; E87.6 Hypokalemia; I87.2 Venous insufficiency (chronic) (peripheral); B95.61 Methicillin susceptible Staphylococcus aureus infection as the cause of diseases classified elsewhere; Z79.02 Long term (current) use of antithrombotics/antiplatelets; Z90.49 Acquired absence of other specified parts of digestive tract; Z79.899 Other long term (current) drug therapy; W18.30XA Fall on same level, unspecified, initial encounter; Y93.9 Activity, unspecified; Y92.531 Health care provider office as the place of occurrence of the external cause; Y99.9 Unspecified external cause status
CPT/HCPCS: 36415; 71045; 76770; 80048; 80053; 80069; 80202; 81001; 82533; 82550; 82947; 83605; 83880; 84100; 84132; 85025; 85610; 85730; 87040; 87070; 87077; 87086; 87088; 87186; 87205; 93005; 93970; 96361; 96365; 96375; 97110; 97116; 97161; 97530; 99285; J0692; J1644; J1815; J2405; J3370; J3480; J7040; J7050; J7120